=== PATIENT | male | born 1965 | race Caucasian/White ===

== ENCOUNTER 2020-12-02 03:40 | Inpatient (IN) | payer BC, SELFPAY ==
[2020-12-02] VITALS (32 sets, daily range): BP systolic 110–160; BP diastolic 58–97; PULSE 107–137; RESP 15–29; TEMP 36.3–36.9; O2SAT 93–100
--- NOTE | ~2020-12-02 | CT_ITS ---
EXAMINATION: CT brain wo con DATE: 12/02/2020 04:08 INDICATION: Seizure. TECHNIQUE: Computed tomography (CT) of the head was performed without intravenous contrast. The mA wa s adjusted according to patient size. Iterative reconstruction technique was employed. The dose-lengt h product was 681.00 mGy-cm. COMPARISON: Head CT 03/18/2009 FINDINGS: There is no intracranial hemorrhage, acute infarction, or abnormal intracranial mass lesion . The ventricles are normal in size. The paranasal sinuses are clear. There are old fracture deformit ies of the nasal bones. The mastoid air cells are normal. The orbits are normal. IMPRESSION: 1. Normal brain. Reviewed, dictated and finalized at location A. IMPRESSION: 1. Normal brain.
--- NOTE | ~2020-12-02 | XR_ITS ---
EXAMINATION: XR chest 1V DATE: 12/02/2020 04:12 INDICATION: Seizure. TECHNIQUE: A single frontal view of the chest was obtained. COMPARISON: Chest single view 12/03/2012 FINDINGS: There is a diffuse interstitial pattern in the lungs. No pleural effusion or pneumothorax. The heart size is normal. IMPRESSION: 1. Diffuse interstitial pattern in the lungs, likely mild pulmonary edema. Reviewed, dictated and finalized at location A.
--- NOTE | 2020-12-02 03:46 | ECG_ITS ---
Measurements Intervals [place] Rate: 133 P: 18 [place]: 141 QRS: 33 QRSD: 88 T: 47 QT: 338 QTc: 503 Interpretive Statements SINUS TACHYCARDIA ATRIAL PREMATURE COMPLEX BASELINE ARTIFACT- III, AVR, AVL, AVF, V4-V6 ABNORMAL ECG Electronically Signed On 12-02-2020 7:15:14 CDT by Laurent Silver D.O.
--- NOTE | 2020-12-02 03:50 | ED.GENADULT ---
HPI - General Adult General Chief complaint: Seizure <Jude Johnston MD - Last Filed: 12/02/20 07:09> Stated complaint: SEIZURE <Jude Johnston MD - Last Filed: 12/02/20 07:09> Time Seen by Provider: 12/02/20 03:41 <Jude Johnston MD - Last Filed: 12/02/20 07:09> History of Present Illness HPI narrative: Patient 55-year-old gentleman who presents the emergency department with chief complaint of seizure activity. Patient has a history of heavy alcohol use and apparently has been having nausea and vomiting at home and unable to drink his normal amount of alcohol per the family he drinks approximately 1 L of alcohol per day. Patient has not had a drink in approximately 2 days the patient currently has no complaints <Jude Johnston MD - Last Filed: 12/02/20 07:09> Related Data Home medications: Home Medications Medication Instructions Recorded Confirmed buspirone [BuSpar] 10 mg PO BID 12/02/20 12/02/20 tocilizumab [Actemra] mg IV 12/02/20 12/02/20 <Jude Johnston MD - Last Filed: 12/02/20 07:09> Allergies/adverse reactions: Allergies Allergy/AdvReac Type Severity Reaction Status Date / Time vancomycin AdvReac Severe Other Verified 12/10/18 23:02 [place] AdvReac Mild SHORTNESS Uncoded 11/11/15 16:10 OF BREATH <Jude Johnston MD - Last Filed: 12/02/20 07:09> Review of Systems Review of Systems: Narrative: A 10 system review of systems was completed on the patient and is negative except for what is stated in the HPI. Nursing and ancillary documentation was reviewed. 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 HEAD: Normocephalic, atraumatic. EYES: PERRLA and EOMI. ENT: Nares clear, no rhinorrhea or epistaxis. Mucous membranes moist. NECK: Supple. CHEST: Clear to auscultation. No respiratory distress. HEART: Regular rate and rhythm. No murmur heard. Normal peripheral pulses. ABDOMEN: Soft, nontender, nondistended, normal active bowel sounds. EXTREMITIES: Normal range of motion. No edema. SKIN: Warm, dry, no rash. NEURO: No focal deficits. Alert and oriented x3. PSYCH: Normal mood and affect. <Jude Johnston MD - Last Filed: 12/02/20 07:09> Course Course Emergency Course: Patient is still having diarrhea and is incontinent of stool onto the floor. No shaking tremors. Tachycardia improving. Will admit to hospitalist service for further care. <Felton Adams MD - Last Filed: 12/02/20 09:16> Vital Signs Vital signs: Vital Signs Temperature 97.6 F 12/02/20 03:40 Pulse Rate 133 H 12/02/20 03:40 Respiratory Rate 17 12/02/20 03:40 Blood Pressure 126/81 12/02/20 03:40 Pulse Oximetry 98 12/02/20 03:40 Temperature 97.6 F 12/02/20 03:40 Pulse Rate 114 H 12/02/20 08:43 Respiratory Rate 18 12/02/20 08:43 Blood Pressure 148/74 H 12/02/20 08:43 Pulse Oximetry 97 12/02/20 08:43 <Jude Johnston MD - Last Filed: 12/02/20 07:09> Vital Signs Temperature 97.6 F 12/02/20 03:40 Pulse Rate 133 H 12/02/20 03:40 Respiratory Rate 17 12/02/20 03:40 Blood Pressure 126/81 12/02/20 03:40 Pulse Oximetry 98 12/02/20 03:40 Temperature 97.6 F 12/02/20 03:40 Pulse Rate 114 H 12/02/20 08:43 Respiratory Rate 18 12/02/20 08:43 Blood Pressure 148/74 H 12/02/20 08:43 Pulse Oximetry 97 12/02/20 08:43
[2020-12-02] MEDS: SODIUM CHLORIDE 0.9% IV 1,000 ML 999 ML IV CONT ×3 (03:57→05:08)
[2020-12-02] MEDS: ONDANSETRON INJ 4 MG/2 ML VIAL IV PUSH (03:57)
--- NOTE | 2020-12-02 04:05 | PC.NURSE ---
Pt. to CT
[2020-12-02 04:12] LABS: Basophils Absolute Auto 0.1 K/mm3 (0.0-0.1); Basophils Percent Auto 0.8 % (0.2-1.2); Eosinophils Percent Auto 0.1 % (0-4.4); Hematocrit 39.1 % (42.0-52.0); Hemoglobin 13.8 g/dL (14.0-18.0); Immature Granulocyte Absolute 0.03 K/mm3 (0.00-0.031); Immature Granulocyte Percent A 0.4 % (0-0.5); Immature Platelet Fraction Pct 15.2 % (0.9-11.2); Lymphocytes Absolute Auto 0.79 K/mm3 (0.9-3.2); Lymphocytes Percent Auto 9.5 % (18.3-44.2); Mean Corpuscular HGB Conc 35.3 g/dl (32-36); Mean Corpuscular Hemoglobin 38.8 pg (26-34); Mean Corpuscular Volume 109.8 fl (80-100); Monocytes Absolute Auto 0.6 K/mm3 (0.1-0.6); Monocytes Percent Auto 7.7 % (2.6-8.5); Neutrophils Absolute Auto 6.8 K/mm3 (1.3-6.7); Neutrophils Percent Auto 81.5 % (45.5-73.1); Platelet Count Result 46 k/mm3 (150-375); Red Blood Count 3.56 M/mm3 (4.6-6.20); Red Cell Distribution Width 18.6 % (11.5-14.5); White Blood Count 8.3 K/mm3 (4.5-10.0)
[2020-12-02] MEDS: LORazepam INJ (*CRX) 2 MG/ML VIAL 1 MG IV PUSH ×2 (04:26→05:06)
[2020-12-02 04:27] LABS: Ethanol < 10 mg/dL (<10); Magnesium 2.7 mg/dL (1.6-2.3)
[2020-12-02] MEDS: THIAMINE HCL 200 MG/2 ML VIAL 100 MG IV PUSH (04:28)
--- NOTE | 2020-12-02 04:30 | PC.NURSE ---
Pt. refusing to urinate. states he cannot go at this time.
[2020-12-02 04:31] LABS: Glucose Point of Care 98 (65-105)
[2020-12-02 04:36] LABS: Albumin Level 3.8 g/dL (3.5-5.1); Alkaline Phosphatase 215 U/L (38-126); Anion Gap 25 mmol/L (8-16); Bilirubin,Total 5.1 mg/dL (0.2-1.3); Blood Urea Nitrogen 9 mg/dL (9-20); Calcium 9.2 mg/dL (8.4-10.2); Carbon Dioxide 17 mmol/L (22-30); Chloride 98 mmol/L (98-107); Estimated CRCL calculation 45 ml/min; Estimated Glomerular Filt Rate 42; Glucose 96 mg/dL (75-110); Lipase 527 U/L (23-300); Potassium 2.8 mmol/L (3.4-5.0); Sodium 140 mmol/L (137-145)
[2020-12-02 04:51] LABS: Alanine Aminotransferase 56 U/L (4-50); Aspartate Amino Transferase 160 U/L (17-59); Lactic Acid Reflex 15.9 mmol/L (0.7-2.1)
[2020-12-02] MEDS: PANTOPRAZOLE SODIUM IV 40 MG VIAL IV PUSH (05:07)
--- NOTE | 2020-12-02 06:22 | PC.NURSE ---
Added specimen on to lab
[2020-12-02 06:23] LABS: Appearance Urine Clear (Clear); Bilirubin Urine 1+ (Negative); Blood Urine Trace-lysed (Negative); Color Urine Yellow (Yellow); Glucose Urine UA Negative (Negative); Ketones Urine Negative (Negative); Leukocyte Esterase Ur Negative LEU/UL (Negative); Nitrate Urine Negative (Negative); Protein Urine 2+ mg/dL (Negative)
[2020-12-02 06:31] LABS: RBC Urine 0-2 /hpf (0-2); Squamous Epithelial Cell Urine Few /hpf (Few)
[2020-12-02 06:32] LABS: Add Urine Microscopic? NO
[2020-12-02] MEDS: POTASSIUM CHLORIDE 20 MEQ TABLET 40 MEQ PO (06:40)
[2020-12-02 06:55] LABS: Lactic Acid Reflex 4.7 mmol/L (0.7-2.1)
[2020-12-02 07:04] LABS: Reflex Lactic Acid Yes or No Add Lactic
--- NOTE | 2020-12-02 10:31 | ADMGEN ---
This patient, Jose Rafael Chavez, was admitted to 3 [facility] Surg Room 301-01. Patient/family oriented to hospital policies and general routines including ID bracelet, bed and alarms, visiting hours, pain management, procedures, bathroom and other care routines, personal items, smoking policy, room service/diet, and visiting hours. Information on how to activate the Rapid Response Team has been discussed. Patient/Family are encouraged to report perceived risks to care and to ask questions if they do not understand what they are told or what they should do.
[2020-12-02] MEDS: SODIUM CHLORIDE 0.9% IV 1,000 ML 125 ML IV CONT (11:06)
--- NOTE | 2020-12-02 11:09 | PM.IMHP ---
H&P: HPI History of Present Illness Date/Time: 12/02/20 11:09 patient is a 55-year-old male with history of alcohol abuse he drinks 1 bottle of alcohol every day and smokes 2-3 packs per day for last couple days patient been having nausea or vomiting and diarrhea and had not drank any alcohol yesterday as he was not able to drink due to nausea and vomiting however today patient fell and he was seizing most likely secondary to alcohol withdrawal patient started on Librium and Ativan as needed, will monitor, patient brought the patient to the hospital he is quite somnolent unable to provide any history review of symptom his is present provided most of the history and I spoke with ER physician, in ER patient had a CT scan of the head no acute injury chest x-ray showed pulmonary congestion, patient appears dehydrated if start the patient on IV, anti emetic, and Immodium, patient was given thiamin and folic acid from ER, will place patient on CIWA protocol and librium as needed, will monitor and plan. Chief Complaint: Seizures nausea or vomiting alcohol withdrawal Review of Systems Review of Systems: All systems reviewed & are unremarkable except as noted in HPI and below [facility] Family History Family History (Updated 12/02/20 @ 10:53 by Kareem Martinez RN) Mother Hypertension Diabetes mellitus Father Emphysema lung Lung cancer Social History Social History Smoking packs per day: 2 Smoking cigarettes per day: 40.0 Smoking status: Current every day smoker Tobacco type: cigarettes Alcohol intake: current Drinks per week: 35 Substance use: never Substance use type: does not use Gender identity (if verbalized by the patient): Male Spiritual care concerns: No Meds Home Medications and Allergies Home Medications Medication Instructions Recorded Confirmed Type buspirone [BuSpar] 10 mg PO BID 12/02/20 12/02/20 History hydroxychloroquine 200 mg PO BID 12/02/20 12/02/20 History sulfasalazine 0.5 g PO DAILY 12/02/20 12/02/20 History tocilizumab [Actemra] mg IV MONTHLY 12/02/20 History Allergies Allergy/AdvReac Type Severity Reaction Status Date / Time vancomycin AdvReac Severe Other Verified 12/02/20 10:51 [place] AdvReac Mild SHORTNESS Uncoded 11/11/15 16:10 OF BREATH Vital Signs Vital Signs - 24 hr 12/02/20 03:40 12/02/20 03:44 12/02/20 03:45 Temperature 97.6 F Pulse Rate 133 H 136 H 135 H Respiratory Rate 17 23 H 24 H Blood Pressure 126/81 126/81 Pulse Oximetry 98 98 12/02/20 04:02 12/02/20 04:10 12/02/20 04:15 Temperature Pulse Rate 137 H 123 H 122 H Respiratory Rate 24 H 25 H Blood Pressure Pulse Oximetry 95 12/02/20 04:27 12/02/20 04:30 12/02/20 04:31 Temperature Pulse Rate 123 H 128 H 123 H Respiratory Rate 21 H 25 H 24 H Blood Pressure 146/77 H 143/79 H Pulse Oximetry 100 97 95 12/02/20 04:45 12/02/20 05:00 12/02/20 05:01 Temperature Pulse Rate 122 H 122 H 122 H Respiratory Rate 27 H 25 H 25 H Blood Pressure 148/78 H Pulse Oximetry 12/02/20 05:15 12/02/20 05:30 12/02/20 05:45 Temperature Pulse Rate 121 H 126 H 117 H Respiratory Rate 22 H 20 29 H Blood Pressure Pulse Oximetry 96 12/02/20 06:00 12/02/20 06:01 12/02/20 06:15 Temperature Pulse Rate 121 H 120 H 118 H Respiratory Rate 15 27 H 26 H Blood Pressure 146/65 H Pulse Oximetry 12/02/20 06:30 12/02/20 06:33 12/02/20 06:45 Temperature Pulse Rate 122 H 119 H 127 H Respiratory Rate 27 H 27 H 26 H Blood Pressure 160/93 H Pulse Oximetry 94 95 12/02/20 07:01 12/02/20 07:27 12/02/20 08:43 Temperature Pulse Rate 130 H 120 H 114 H Respiratory Rate 20 29 H 18 Blood Pressure 110/97 H 148/74 H Pulse Oximetry 93 97 12/02/20 09:25 12/02/20 10:10 12/02/20 10:33 Temperature 97.4 F L Pulse Rate 111 H 112 H 117 H Respiratory Rate 25 H 20 20 Blood Pressure 127/68 111/58 L 122/71 Pulse Oximetry 94 100 95 Exam Narrati
[2020-12-02 11:53] LABS: Anion Gap 7 mmol/L (8-16); Blood Urea Nitrogen 10 mg/dL (9-20); Calcium 8.3 mg/dL (8.4-10.2); Carbon Dioxide 26 mmol/L (22-30); Chloride 105 mmol/L (98-107); Estimated CRCL calculation 48 ml/min; Estimated Glomerular Filt Rate 45; Glucose 93 mg/dL (75-110); Magnesium 2.2 mg/dL (1.6-2.3); Potassium 3.7 mmol/L (3.4-5.0); Sodium 138 mmol/L (137-145)
[2020-12-02] MEDS: THIAMINE HCL INJ 100 MG, FOLIC ACID INJ 1 MG, MULTIVITAMINS-12 INJ VIAL 1 5 ML, MULTIVI... IV CONT (12:46)
[2020-12-02] MEDS: busPIRone HCL 10 MG TABLET PO (16:59)
[2020-12-02] MEDS: HYDROXYCHLOROQUINE SULFATE 200 MG TABLET PO (17:05)
[2020-12-02] MEDS: chlordiazePOXIDE (*CRX) 25 MG CAPSULE PO (17:49)
[2020-12-03] VITALS: PULSE 104
[2020-12-03 04:00] VITALS: PULSE 106
[2020-12-03 06:00] VITALS: BP 153/60; PULSE 103; RESP 20; TEMP 36.7; O2SAT 98
[2020-12-03 06:30] LABS: Hemoglobin 12.6 g/dL (14.0-18.0); Mean Corpuscular Hemoglobin 38.5 pg (26-34); Mean Corpuscular Volume 110.1 fl (80-100); Platelet Count Result 35 k/mm3 (150-375); Red Blood Count 3.27 M/mm3 (4.6-6.20); Red Cell Distribution Width 19.1 % (11.5-14.5); White Blood Count 7.7 K/mm3 (4.5-10.0)
[2020-12-03 06:36] LABS: Alanine Aminotransferase 51 U/L (4-50); Albumin Level 3.1 g/dL (3.5-5.1); Alkaline Phosphatase 177 U/L (38-126); Anion Gap 5 mmol/L (8-16); Aspartate Amino Transferase 148 U/L (17-59); Bilirubin,Total 4.6 mg/dL (0.2-1.3); Blood Urea Nitrogen 11 mg/dL (9-20); Calcium 8.7 mg/dL (8.4-10.2); Carbon Dioxide 25 mmol/L (22-30); Chloride 107 mmol/L (98-107); Estimated CRCL calculation 55 ml/min; Estimated Glomerular Filt Rate 52; Glucose 84 mg/dL (75-110); Magnesium 2.1 mg/dL (1.6-2.3); Potassium 3.4 mmol/L (3.4-5.0); Sodium 137 mmol/L (137-145)
[2020-12-03 08:26] VITALS: PULSE 105; RESP 18; O2SAT 94
[2020-12-03] MEDS: THIAMINE HCL INJ 100 MG, FOLIC ACID INJ 1 MG, MULTIVITAMINS-12 INJ VIAL 1 5 ML, MULTIVI... IV CONT (08:56)
[2020-12-03] MEDS: HYDROXYCHLOROQUINE SULFATE 200 MG TABLET PO (09:07)
[2020-12-03] MEDS: busPIRone HCL 10 MG TABLET PO (09:07)
[2020-12-03] MEDS: POTASSIUM CHLORIDE 20 MEQ TABLET.ER 40 MEQ PO (09:07)
[2020-12-03] MEDS: sulfaSALAzine 500 MG TABLET PO (09:07)
--- NOTE | 2020-12-03 09:40 | PC.NURSE ---
Pt is very agitated about being here. Pt removed his tele monitor and refuses to wear it. Pt has been coughing, which he states causes him to shit in the bed, and yells at staff to be cleaned up. Pt is very impatient and demanding.
[2020-12-03] MEDS: LOPERAMIDE HCL 2 MG CAPSULE PO (11:51)
[2020-12-03] MEDS: chlordiazePOXIDE (*CRX) 25 MG CAPSULE 50 MG PO (12:23)
[2020-12-03] MEDS: LOPERAMIDE HCL 2 MG CAPSULE 4 MG PO (12:23)
--- NOTE | 2020-12-03 13:14 | PC.NURSE ---
Pt continues to refuse having a tele monitor on at this time. Pt educated on why he should wear the tele monitor, with no success. Will try again this afternoon.
[2020-12-03 14:00] VITALS: BP 125/65; PULSE 96; RESP 20; TEMP 36.6; O2SAT 95
--- NOTE | 2020-12-03 15:36 | PM.DS ---
DS: Admitting Diagnosis Admitting Diagnosis Admitting Diagnosis: Chief Complaint: Seizures nausea or vomiting alcohol withdrawal DS: Discharge Diagnosis Discharge Diagnosis (1) Seizure: Code(s): R56.9 - Unspecified convulsions Status: Acute Assessment and Plan: 12/02/20 11:09 patient is a 55-year-old male with history of alcohol abuse he drinks 1 bottle of alcohol every day and smokes 2-3 packs per day for last couple days patient been having nausea or vomiting and diarrhea and had not drank any alcohol yesterday as he was not able to drink due to nausea and vomiting however today patient fell and he was seizing most likely secondary to alcohol withdrawal patient started on Librium and Ativan as needed, will monitor, patient brought the patient to the hospital he is quite somnolent unable to provide any history review of symptom his is present provided most of the history and I spoke with ER physician, in ER patient had a CT scan of the head no acute injury chest x-ray showed pulmonary congestion, patient appears dehydrated if start the patient on IV, anti emetic, and Immodium, patient was given thiamin and folic acid from ER, will place patient on CIWA protocol and librium as needed, will monitor and plan. (2) Alcohol withdrawal: Qualifiers: Complication of substance-induced condition: uncomplicated Qualified Code(s): F10.230 - Alcohol dependence with withdrawal, uncomplicated Code(s): F10.239 - Alcohol dependence with withdrawal, unspecified Status: Acute Assessment and Plan: Will monitor patient with CIWA protocol Librium to prevent DT (3) Hypokalemia: Code(s): E87.6 - Hypokalemia Status: Acute Assessment and Plan: Most likely secondary to diarrhea will monitor and supplement (4) Enteritis: Code(s): K52.9 - Noninfective gastroenteritis and colitis, unspecified Status: Acute Assessment and Plan: Will do stool studies (5) Thrombocytopenia: Code(s): D69.6 - Thrombocytopenia, unspecified Status: Acute Assessment and Plan: Most likely secondary to alcohol abuse possibly secondary to liver cirrhosis and splenomegaly will continue to monitor DS: Summary Hospital Course Reason for hospitalization: patient is a 55-year-old male with history of alcohol abuse he drinks 1 bottle of alcohol every day and smokes 2-3 packs per day for last couple days patient been having nausea or vomiting and diarrhea and had not drank any alcohol yesterday as he was not able to drink due to nausea and vomiting however today patient fell and he was seizing most likely secondary to alcohol withdrawal patient started on Librium and Ativan as needed, will monitor, patient brought the patient to the hospital he is quite somnolent unable to provide any history review of symptom his is present provided most of the history and I spoke with ER physician, in ER patient had a CT scan of the head no acute injury chest x-ray showed pulmonary congestion, patient appears dehydrated if start the patient on IV, anti emetic, and Immodium, patient was given thiamin and folic acid from ER, will place patient on CIWA protocol and librium as needed, will monitor and plan. Chief Complaint: Seizures nausea or vomiting alcohol withdrawal Hospital Course: Patient is alert and oriented however combative and agitated, he want to be discharged, I have spoken to his who has agreed to come and take the patient with her. we will hand over patient to her. Time Spent with Patient Time attestation: Total time spent providing and/or coordinating discharge services: Exam Narrative: Exam Narrative: Patient appears chronically ill older than his age Patient is comfortable, NAD HEENT: eyes are clear and none icteric LUNGS:CTA HEART: RR S1S2 ABD: BS+, Soft and nontender Lower extremities: no edema SKIN: nonjaundiced, lot of tattoos, Neuro: grossly intact. DS: Data D
--- NOTE | 2020-12-03 16:10 | PC.NURSE ---
Pt became very combative this afternoon. Pt ripped out his IV, and started screaming and cussing, demanding to leave the hospital. Pt was alert and able to answer orientation questions. Dr. Mars was notified and came up to see pt, along with security. Pt was was walking around his room screaming and trying to call his . He was screaming and cussing at his , on the phone. Dr Mars spoke with pt's , and she was agreeable to picking up pt. House supervisors were also present in pt's room. Dr Mars was agreeable to discharge patient as long as the came up and assumed responsibility for pt. Pt was assisted in a wheelchair to the front of the hospital to get into his 's car.
== END 2020-12-03 16:00 | disposition home or self-care (01) | DRG 897 ==
LOC: ANHED 09:15 → ANH3MEDSUR 09:41
PROVIDERS: Admitting Provider Family Medicine; Emergency Provider Emergency Medicine; Visit Provider Family Medicine
DX: F10.230 Alcohol dependence with withdrawal, uncomplicated; R56.9 Unspecified convulsions; R45.1 Restlessness and agitation; E87.6 Hypokalemia; K52.9 Noninfective gastroenteritis and colitis, unspecified; D69.6 Thrombocytopenia, unspecified; F17.210 Nicotine dependence, cigarettes, uncomplicated; Z87.820 Personal history of traumatic brain injury
CPT/HCPCS: 36415; 51701; 70450; 71045; 80048; 80053; 80307; 81003; 82010; 82948; 83605; 83690; 83735; 85025; 85027; 85055; 93005; 96361; 96365; 96366; 96375; 96376; 99285; A9270; C9113; G0378; J2060; J2405; J3411; J3475; J3480; J7030; J7060; J7121

== ENCOUNTER 2021-12-23 18:09 | Observation (INO) | payer SELFPAY ==
[2021-12-23] VITALS (24 sets, daily range): BP systolic 91–145; BP diastolic 66–91; PULSE 100–120; RESP 16–31; TEMP 36.7–37.1; O2SAT 96–100
--- NOTE | ~2021-12-23 | CT_ITS ---
EXAMINATION: CT brain wo con DATE: 12/23/2021 19:26 INDICATION: Syncope. Facial injury. TECHNIQUE: Computed tomography (CT) of the head was performed without intravenous contrast. The mA wa s adjusted according to patient size. Iterative reconstruction technique was employed. Exam dose: 60 5.33 mGy-cm total exam DLP. COMPARISON: 12/02/2020 CT brain FINDINGS: Prominent bilateral carotid siphon internal carotid artery calcifications and minimal bilat eral vertebral artery calcification. There is nonspecific diminished attenuation of the cerebral white matter, likely due to chronic small vessel ischemic changes. No intracranial mass lesion or hemorrhage or cerebrovascular accident, midline shift or mass effect i s detected. There is cerebral and cerebellar volume loss, the cerebral volume loss greater than expected for age. No intracranial mass lesion or hemorrhage or cerebrovascular accident. No midline shift or mass effec t effect. No subdural or epidural hematoma. Fracture of the lateral wall of right orbit, right infraorbital rim, anterior and lateral wall of th e right maxillary sinus No skull fracture or bone destruction is evident. Sinus and floor of the right orbit. Fluid level con sistent with blood in the right maxillary sinus and mild subcutaneous emphysema along the lateral wal l IMPRESSION: Fractures of the lateral wall right orbit, right infraorbital rim and floor of right orb it and anterior and lateral wall of right maxillary sinus Cerebral atherosclerosis and chronic small vessel ischemic changes of cerebral white matter Reviewed, dictated and finalized at [facility]. Reviewed, dictated and finalized at [facility]. IMPRESSION: Fractures of the lateral wall right orbit, right infraorbital rim and floor of right orbit and anterior and lateral wall of right maxillary sinu s Cerebral atherosclerosis and chronic small vessel ischemic changes of cerebral white matter
--- NOTE | ~2021-12-23 | XR_ITS ---
XR shoulder RT min 2V DATE: 12/23/2021 19:37 INDICATION: Right shoulder pain after fall, multiple syncopal episodes TECHNIQUE: AP and Neer views COMPARISON: 12/03/2012 right shoulder FINDINGS: There is angulated fracture deformity of the body of the right scapula. Alignment appears intact at the right acromioclavicular and glenohumeral joints. IMPRESSION: Angulated fracture deformity of the body of the right scapula deformity of the right Reviewed, dictated and finalized at [facility]. IMPRESSION: Angulated fracture deformity of the body of the right scapula defor mity of the right
--- NOTE | ~2021-12-23 | XR_ITS ---
XR wrist LT min 3V DATE: 12/23/2021 19:37 INDICATION: Left wrist pain after fall, multiple syncopal episodes TECHNIQUE: 4 views COMPARISON: None FINDINGS: No recent fracture or dislocation is detected. IMPRESSION: No recent fracture or dislocation Reviewed, dictated and finalized at [facility].
--- NOTE | ~2021-12-23 | CT_ITS ---
EXAMINATION: CT facial bones wo con DATE: 12/23/2021 19:26 INDICATION: TECHNIQUE: Computed tomography (CT) of the facial bones and maxillofacial region was performed withou t intravenous contrast. Automated exposure control and iterative reconstruction technique were employ ed. Exam dose: 302.32 mGy-cm total exam DLP. COMPARISON: None. FINDINGS: The films a features are intact. There is fracture of the right infraorbital rim and lateral wall and floor of the right orbit. There are fractures of the lateral and anterior wall of the right maxillary sinus. Blood air level in the right maxillary sinus. There is mild subcutaneous emphysema around the right m axillary sinus and orbit. IMPRESSION: Numerous right facial fractures Reviewed, dictated and finalized at [facility]. Reviewed, dictated and finalized at [facility].
--- NOTE | ~2021-12-23 | US_ITS ---
EXAMINATION: US carotid duplex BI EXAM DATE: 12/24/2021 08:19 INDICATION: Syncope. TECHNIQUE: Grayscale, color and pulsed Doppler images of the cervical carotid arteries were obtained . The degree of vessel stenosis is placed in one of the following categories: normal, <50% stenosis, 50-69% stenosis, >=70% stenosis but less than near-occlusion, near-occlusion, or occlusion. Note that percent stenosis relative to normal distal artery lumen diameter is indirectly measured from velocit y measurements as described by Kevon, et al. Radiology 2003; 229:340-346. There is no prior study fo r comparison. FINDINGS: RIGHT SIDE: Right common carotid artery peak systolic velocity (PSV in cm/s): 181 Right bulb/internal carotid artery peak systolic velocity (PSV in cm/s): 104 Right internal carotid artery end diastolic velocity (EDV in cm/s): 43 Right ICA/CCA peak systolic ratio: 0.6 Right external carotid artery peak systolic velocity (PSV in cm/s): 134 Right vertebral artery antegrade flow: yes There is minimal carotid bulb plaque. Velocity and Doppler waveforms in the common and internal carotid arteries is normal. LEFT SIDE: Left common carotid artery peak systolic velocity (PSV in cm/s): 141 Left bulb/internal carotid artery peak systolic velocity (PSV in cm/s): 98 Left internal carotid artery end diastolic velocity (EDV in cm/s): 38 Left ICA/CCA peak systolic ratio: 0.9 Left external carotid artery peak systolic velocity (PSV in cm/s): 88 Left vertebral artery antegrade flow: yes There is minimal carotid bulb plaque. Velocity and Doppler waveforms in the common and internal carotid arteries is normal. IMPRESSION: 1. Less than 50 percent stenosis in the right internal carotid artery. 2. Less than 50 percent stenosis in the left internal carotid artery. Reviewed, dictated and finalized at [facility].
--- NOTE | 2021-12-23 18:15 | ECG_ITS ---
Measurements Intervals [place] Rate: 113 P: 26 [place]: 157 QRS: -17 QRSD: 82 T: 9 QT: 297 QTc: 408 Interpretive Statements SINUS TACHYCARDIA NONSPECIFIC ST CHANGES ABNORMAL RHYTHM ECG COMPARED TO ECG 12/02/2020 03:52:29 NO SIGNIFICANT CHANGES Electronically Signed On 12-24-2021 6:46:41 CDT by Pily Schulte M.D.
[2021-12-23 18:58] LABS: Basophils Percent Auto 0.4 % (0.2-1.2); Eosinophils Absolute Auto 0.1 K/mm3 (0-0.3); Eosinophils Percent Auto 0.8 % (0-4.4); Hematocrit 35.5 % (42.0-52.0); Hemoglobin 11.9 g/dL (14.0-18.0); Immature Granulocyte Absolute 0.03 K/mm3 (0.00-0.031); Immature Granulocyte Percent A 0.4 % (0-0.5); Immature Platelet Fraction Pct 6.1 % (0.9-11.2); Lymphocytes Absolute Auto 1.11 K/mm3 (0.9-3.2); Lymphocytes Percent Auto 14.3 % (18.3-44.2); Mean Corpuscular HGB Conc 33.5 g/dl (32-36); Mean Corpuscular Hemoglobin 33.2 pg (26-34); Mean Corpuscular Volume 99.2 fl (80-100); Mean Platelet Volume 10.9 fl (7.4-10.4); Monocytes Absolute Auto 0.7 K/mm3 (0.1-0.6); Monocytes Percent Auto 9.6 % (2.6-8.5); Neutrophils Absolute Auto 5.8 K/mm3 (1.3-6.7); Neutrophils Percent Auto 74.5 % (45.5-73.1); Platelet Count Result 137 k/mm3 (150-375); Red Blood Count 3.58 M/mm3 (4.6-6.20); Red Cell Distribution Width 14.8 % (11.5-14.5); White Blood Count 7.7 K/mm3 (4.5-10.0)
[2021-12-23 19:07] LABS: Alanine Aminotransferase 13 U/L (4-50); Albumin Level 3.9 g/dL (3.5-5.1); Alkaline Phosphatase 242 U/L (38-126); Anion Gap 6 mmol/L (8-16); Aspartate Amino Transferase 43 U/L (17-59); Bilirubin,Total 1.1 mg/dL (0.2-1.3); Blood Urea Nitrogen 10 mg/dL (9-20); Calcium 8.6 mg/dL (8.4-10.2); Carbon Dioxide 27 mmol/L (22-30); Chloride 94 mmol/L (98-107); Estimated CRCL calculation 47 ml/min; Estimated Glomerular Filt Rate 45; Glucose 114 mg/dL (65-110); Sodium 127 mmol/L (137-145)
--- NOTE | 2021-12-23 19:11 | ED.GENADULT ---
HPI - General Adult General Chief complaint: Syncope Stated complaint: fall Time Seen by Provider: 12/23/21 18:58 Source: patient, family and RN notes reviewed Limitations: no limitations History of Present Illness HPI narrative: 56-year-old male presenting to the emergency department for evaluation of injuries after having multiple syncopal episodes. Patient describes 2 episodes of orthostatic hypotension. Patient states he got up yesterday to answer the door and was able to lower himself to the ground without injury. Patient states last night at approximately 1 AM he woke up to use the bathroom and had a fall after taking a few steps but was able to get back up and had a second fall in the bathroom. Patient states he did injure his right shoulder, left wrist and patient does have a contusion and abrasion over his right eye. States he did feel like he was going to pass out but during the second episode he was not able to lower himself to the ground fast enough. Patient does take Flexeril and gabapentin for chronic back pain. Denies any cardiac history. Patient denies any current chest pain or shortness of breath. Patient states he has had no recent medication changes. Patient does have a history of alcohol abuse and cirrhosis. Patient has not had an alcoholic drink since 's of 2020. Related Data Home Medications Medication Instructions Recorded Confirmed Actemra mg IV MONTHLY 12/02/20 buspirone 10 mg PO BID 12/02/20 12/02/20 hydroxychloroquine 200 mg PO BID 12/02/20 12/02/20 sulfasalazine 0.5 g PO DAILY 12/02/20 12/02/20 Allergies Allergy/AdvReac Type Severity Reaction Status Date / Time vancomycin AdvReac Severe Other Verified 12/23/21 18:44 [place] AdvReac Mild SHORTNESS Uncoded 12/23/21 18:44 OF BREATH Review of Systems Review of Systems: CONSTITUTIONAL: Denies fever, chills, or sweats. EYES: Denies visual changes, redness, or discharge. ENT: Denies rhinorrhea, congestion, sore throat, or otalgia. CARDIOVASCULAR: Denies chest pain, palpitations, or edema. RESPIRATORY: Denies cough or dyspnea. GASTROINTESTINAL: Denies abdominal pain, nausea, vomiting, or diarrhea. GENITOURINARY: Denies dysuria or hematuria. SKIN: Abrasion to right eye MUSCULOSKELETAL: Left wrist right shoulder pain NEUROLOGIC: Denies headache, numbness, or weakness. 2 near syncopal episodes. [facility] Family History Family History Mother Hypertension Diabetes mellitus Father Emphysema lung Lung cancer Social History Social History Smoking packs per day: 2 Smoking cigarettes per day: 40.0 Smoking status: Current every day smoker Tobacco type: cigarettes Second hand tobacco smoke exposure: Yes Alcohol intake: former Substance use: never Substance use type: does not use Last use: pt states he last used alcohol 1 year ago. Gender identity (if verbalized by the patient): Male Spiritual care concerns: No Exam Narrative: APPEARANCE: Well appearing, no pain, no distress, well-nourished. HEAD: normocephalic, atraumatic. EYES: PERRLA/EOMI, conjunctivae clear. NOSE: Normal no drainage EARS:TMS clear with good light reflex. THROAT: Pharynx clear, no exudate. NECK: Supple. No adenopathy, no masses. RESPIRATORY: Airway patent, respirations nonlabored. Clear to auscultation bilaterally, no rales, rhonchi, wheezing. CARDIOVASCULAR: Regular rate and rhythm without murmurs rubs or gallops. ABDOMINAL: Soft, nontender, nondistended, normal bowel sounds MUSCULOSKELETAL: Left wrist tenderness to palpation. Limited range of motion. Right shoulder tenderness to palpation. Also limited range of motion. No deformity. No crepitus. NEURO: Alert. Cranial nerves II through XII intact. SKIN: Warm, dry. Normal Color. Abrasion over right eye. Course Consultations Consultation #1: Consulted [facility] for fa
[2021-12-23] MEDS: POTASSIUM CHLORIDE 20 MEQ PACKET (FOR LIQUID) 40 MEQ PO (19:17)
[2021-12-23] MEDS: SODIUM CHLORIDE 0.9% IV 1,000 ML 999 ML IV CONT (19:17)
[2021-12-23 20:30] LABS: Lactic Acid Reflex 1.2 mmol/L (0.7-2.1)
[2021-12-23] MEDS: TETANUS,DIPHTHERIA,AC PERTUSSIS ADULT (0.5 ML) BOOSTRIX IM (20:31)
[2021-12-23 21:36] LABS: INR 1.2; Prothrombin Time 15.1 Seconds (11.1-14.7)
--- NOTE | 2021-12-23 21:55 | PM.IMHP ---
H&P: HPI History of Present Illness Date/Time: 12/23/21 21:55 Chief Complaint: 56 years old male with past medical history of alcohol abuse, last drink was on 1 year ago currently the patient and his , history of rheumatoid arthritis on chronic suppressive therapy patient presented to the hospital with syncopal episode, patient start having episodes of syncope yesterday where he was able to lower himself to the ground without injuries them patient had 2 episodes of syncope when he went to the path patient started complaining of right shoulder left breast pain and has contusion and abrasion of his right eye at the ER patient was found to have multiple fracture of the facial bones plastic surgeon from [facility] evaluated the patient recommended follow-up as outpatient also patient has right scapula fracture orthopedic surgery was consulted and will evaluate the patient in a.m. at the ER patient was found to have hyponatremia hypotension admitted for further evaluation and treatment. Review of Systems Review of Systems: All systems reviewed & are unremarkable except as noted in HPI and below PMFSH Family History Family History Mother Hypertension Diabetes mellitus Father Emphysema lung Lung cancer Social History Social History Smoking packs per day: 2 Smoking cigarettes per day: 40.0 Smoking status: Current every day smoker Tobacco type: cigarettes Alcohol intake: current Drinks per week: 35 Substance use: never Substance use type: does not use Gender identity (if verbalized by the patient): Male Spiritual care concerns: No Meds Home Medications and Allergies Home Medications Medication Instructions Recorded Confirmed Type Actemra mg IV MONTHLY 12/02/20 History buspirone 10 mg PO BID 12/02/20 12/02/20 History hydroxychloroquine 200 mg PO BID 12/02/20 12/02/20 History sulfasalazine 0.5 g PO DAILY 12/02/20 12/02/20 History multivitamin with minerals [Men's 1 tablet PO DAILY #100 tablet 12/03/20 Rx One Daily] Allergies Allergy/AdvReac Type Severity Reaction Status Date / Time vancomycin AdvReac Severe Other Verified 12/23/21 18:44 [place] AdvReac Mild SHORTNESS Uncoded 12/23/21 18:44 OF BREATH Vital Signs Vital Signs - 24 hr 12/23/21 18:14 12/23/21 18:21 12/23/21 18:23 Temperature 98.7 F Pulse Rate 120 H 115 H 114 H Respiratory Rate 16 28 H Blood Pressure 131/84 145/91 H Pulse Oximetry 100 97 12/23/21 18:30 12/23/21 18:49 12/23/21 18:50 Temperature Pulse Rate 113 H 110 H 111 H Respiratory Rate 27 H Blood Pressure 133/80 119/83 Pulse Oximetry 97 12/23/21 18:52 12/23/21 18:58 12/23/21 19:00 Temperature Pulse Rate 116 H 105 H 105 H Respiratory Rate 24 H 24 H Blood Pressure 91/66 L Pulse Oximetry 96 96 12/23/21 19:01 12/23/21 19:57 12/23/21 20:00 Temperature Pulse Rate 106 H 107 H 109 H Respiratory Rate 26 H 28 H 31 H Blood Pressure 138/86 Pulse Oximetry 96 98 12/23/21 20:01 12/23/21 20:15 12/23/21 20:16 Temperature Pulse Rate 108 H 100 101 H Respiratory Rate 27 H 23 H 22 H Blood Pressure 130/87 132/86 Pulse Oximetry 99 98 12/23/21 20:43 12/23/21 20:55 12/23/21 21:00 Temperature Pulse Rate 102 H 101 H 102 H Respiratory Rate 21 H 20 27 H Blood Pressure Pulse Oximetry 97 97 97 12/23/21 21:22 12/23/21 21:32 12/23/21 21:45 Temperature Pulse Rate 103 H 102 H 102 H Respiratory Rate 26 H 27 H 20 Blood Pressure Pulse Oximetry 97 97 98 12/23/21 21:46 Temperature Pulse Rate 101 H Respiratory Rate 26 H Blood Pressure 124/81 Pulse Oximetry 96 Exam Const: General: in distress HENMT: Mouth: Yes dry mucous membranes Other: Positive bruises Eyes: Sclera: sclerae normal Neck: Neck: no JVD Resp: Auscultation: clear to auscultation bilaterally Ca
[2021-12-23] MEDS: MORPHINE SULFATE (*CRX) 2 MG/ML INJ IV PUSH (21:57)
[2021-12-23] MEDS: ONDANSETRON INJ 4 MG/2 ML VIAL IV PUSH (22:27)
[2021-12-23] MEDS: FOLIC ACID 1 MG TABLET PO (22:31)
--- NOTE | 2021-12-23 23:17 | ADMGEN ---
This patient, Jose Rafael Chavez, was admitted to 3 [facility] Surg Room 314-01. Patient/family oriented to hospital policies and general routines including ID bracelet, bed and alarms, visiting hours, pain management, procedures, bathroom and other care routines, personal items, smoking policy, room service/diet, and visiting hours. Information on how to activate the Rapid Response Team has been discussed. Patient/Family are encouraged to report perceived risks to care and to ask questions if they do not understand what they are told or what they should do.
[2021-12-23] MEDS: POTASSIUM CHLORIDE 20 MEQ TABLET 40 MEQ PO (23:47)
[2021-12-23] MEDS: SODIUM CHLORIDE 0.9% IV 1,000 ML 100 ML IV CONT (23:47)
[2021-12-24] VITALS (13 sets, daily range): BP systolic 86–153; BP diastolic 61–92; PULSE 80–126; RESP 16–22; TEMP 36.2–38.1; O2SAT 93–98; BMI 23.3
[2021-12-24 00:34] LABS: Glucose Point of Care 106 mg/dl (65-105)
[2021-12-24] MEDS: POTASSIUM CHLORIDE 20 MEQ TABLET 40 MEQ PO (03:35)
[2021-12-24] MEDS: MORPHINE SULFATE (*CRX) 2 MG/ML INJ IV PUSH (03:36)
[2021-12-24 06:00] LABS: Glucose Point of Care 89 mg/dl (65-105)
[2021-12-24 08:26] LABS: Basophils Percent Auto 0.3 % (0.2-1.2); Eosinophils Absolute Auto 0.1 K/mm3 (0-0.3); Hematocrit 34.6 % (42.0-52.0); Hemoglobin 11.2 g/dL (14.0-18.0); Immature Granulocyte Absolute 0.02 K/mm3 (0.00-0.031); Immature Granulocyte Percent A 0.3 % (0-0.5); Immature Platelet Fraction Pct 5.8 % (0.9-11.2); Lymphocytes Absolute Auto 1.51 K/mm3 (0.9-3.2); Lymphocytes Percent Auto 21.4 % (18.3-44.2); Mean Corpuscular HGB Conc 32.4 g/dl (32-36); Mean Corpuscular Hemoglobin 33.3 pg (26-34); Mean Platelet Volume 10.6 fl (7.4-10.4); Monocytes Absolute Auto 0.8 K/mm3 (0.1-0.6); Monocytes Percent Auto 10.8 % (2.6-8.5); Neutrophils Absolute Auto 4.6 K/mm3 (1.3-6.7); Neutrophils Percent Auto 65.2 % (45.5-73.1); Platelet Count Result 119 k/mm3 (150-375); Red Blood Count 3.36 M/mm3 (4.6-6.20); Red Cell Distribution Width 15.4 % (11.5-14.5); White Blood Count 7.1 K/mm3 (4.5-10.0)
[2021-12-24 08:49] LABS: Erythrocyte Sedimentation Rate > 140 mm/hr (0-20)
--- NOTE | 2021-12-24 09:00 | PM.IMPN ---
Progress Note: A&P Assessment and Plan (1) Acute hyponatremia: Code(s): E87.1 - Hypo-osmolality and hyponatremia Status: Acute Assessment and Plan: Na 127 upon admission, Current Na 134 Continue IV fluids, probably ok to stop the fluid at this time Seems to be resolved at this time Trend sodium urine studies ordered (2) Closed fracture of orbital wall: Qualifiers: Encounter type: initial encounter Qualified Code(s): S02.85XA - Fracture of orbit, unspecified, initial encounter for closed fracture Code(s): S02.85XA - Fracture of orbit, unspecified, initial encounter for closed fracture Status: Acute Assessment and Plan: Fractures of the lateral wall right orbit, right infraorbital rim and floor of right orbit and anterior and lateral wall of right maxillary sinus Face CT numerous right facial fractures Pain control Follow-up with plastic surgeon as outpatient Talked with [facility] about the face, and they stated that the patient should be ok with outpatient follow up. It also seems that they talked to Dr. Gann from [facility] who also stated that the patient is ok for outpatient follow up. (3) Fracture of scapula: Qualifiers: Encounter type: initial encounter Fracture type: closed Laterality: right Scapula location: unspecified part of scapula Qualified Code(s): S42.101A - Fracture of unspecified part of scapula, right shoulder, initial encounter for closed fracture Code(s): S42.109A - Fracture of unspecified part of scapula, unspecified shoulder, initial encounter for closed fracture Status: Acute Assessment and Plan: Shoulder Xray Angulated fracture deformity of the body of the right scapula deformity of the right Pain control orthopedic consult (4) Orthostatic hypotension: Code(s): I95.1 - Orthostatic hypotension Status: Acute Assessment and Plan: Associated with syncope Fall precaution IV fluid, dc at this time Orthostatic vital, Laying , sitting , Standing Echo Carotid Doppler: <50 stenosis bilaterally (5) Thrombocytopenia: Code(s): D69.6 - Thrombocytopenia, unspecified Status: Acute Assessment and Plan: PLT 119 anemia labs iron 79, TIBC 281, Transferrin 199, Ferritin, % Saturation, Vit B12, Folate, TSH Trend labs Labs in the am (6) Alcohol withdrawal: Qualifiers: Complication of substance-induced condition: uncomplicated Qualified Code(s): F10.230 - Alcohol dependence with withdrawal, uncomplicated Code(s): F10.239 - Alcohol dependence with withdrawal, unspecified Status: Acute Assessment and Plan: Alcohol withdrawal protocol started patient stated that he was abstinent from alcohol Patient has history of seizure secondary to alcohol withdrawal in the past monitor Folic acid and thiamine on board Librium [facility] (7) Seizure: Code(s): R56.9 - Unspecified convulsions Status: Acute Assessment and Plan: Secondary to alcohol withdrawal stable not on seizure medication monitor (8) Hypokalemia: Code(s): E87.6 - Hypokalemia Status: Acute Assessment and Plan: Potassium 4.8 Trend potassium Replace as indicated (9) Chronic renal failure: Code(s): N18.9 - Chronic kidney disease, unspecified Status: Acute Assessment and Plan: BUN/Cr 12/1.50 Baseline 1.6-2.0 Trend labs IV fluids continued Stage III avoid nephrotoxic medication monitor (10) Syncope: Code(s): R55 - Syncope and collapse Status: Acute Assessment and Plan: Most likely related to orthostatic hypotension echo carotid Doppler IV hydration check orthostatics 133/80 laying, 119/83 sitting, 91/66 standing (11) Rheumatoid arthritis: Code(s): M06.9 - Rheumatoid arthritis, unspecified Sta
--- NOTE | 2021-12-24 09:00 | P.PNIM_ITS ---
Progress Note: A&P Assessment and Plan (1) Acute hyponatremia: Code(s): E87.1 - Hypo-osmolality and hyponatremia Status: Acute Assessment and Plan: * Na 127 upon admission, Current Na 134 * Continue IV fluids, probably ok to stop the fluid at this time * Seems to be resolved at this time * Trend sodium * urine studies ordered (2) Closed fracture of orbital wall: Qualifiers: Encounter type: initial encounter Qualified Code(s): S02.85XA - Fracture of orbit, unspecified, initial encounter for closed fracture Code(s): S02.85XA - Fracture of orbit, unspecified, initial encounter for closed fracture Status: Acute Assessment and Plan: * Fractures of the lateral wall right orbit, right infraorbital rim and floor of right orbit and anterior and lateral wall of right maxillary sinus * Face CT numerous right facial fractures * Pain control * Follow-up with plastic surgeon as outpatient Talked with [facility] about the face, and they stated that the patient should be ok with outpatient follow up. It also seems that they talked to Dr. Gann from [facility] who also stated that the patient is ok for outpatient follow up. (3) Fracture of scapula: Qualifiers: Encounter type: initial encounter Fracture type: closed Laterality: right Scapula location: unspecified part of scapula Qualified Code(s): S42.101A - Fracture of unspecified part of scapula, right shoulder, initial encounter for closed fracture Code(s): S42.109A - Fracture of unspecified part of scapula, unspecified shoulder, initial encounter for closed fracture Status: Acute Assessment and Plan: * Shoulder Xray Angulated fracture deformity of the body of the right scapula deformity of the right * Pain control * orthopedic consult (4) Orthostatic hypotension: Code(s): I95.1 - Orthostatic hypotension Status: Acute Assessment and Plan: * Associated with syncope * Fall precaution * IV fluid, dc at this time * Orthostatic vital, Laying , sitting , Standing * Echo * Carotid Doppler: <50 stenosis bilaterally (5) Thrombocytopenia: Code(s): D69.6 - Thrombocytopenia, unspecified Status: Acute Assessment and Plan: * PLT 119 * anemia labs iron 79, TIBC 281, Transferrin 199, Ferritin, % Saturation, Vit B12, Folate, TSH * Trend labs * Labs in the am (6) Alcohol withdrawal: Qualifiers: Complication of substance-induced condition: uncomplicated Qualified Code(s): F10.230 - Alcohol dependence with withdrawal, uncomplicated Code(s): F10.239 - Alcohol dependence with withdrawal, unspecified Status: Acute Assessment and Plan: * Alcohol withdrawal protocol started patient stated that he was abstinent from alcohol * Patient has history of seizure secondary to alcohol withdrawal in the past monitor * Folic acid and thiamine on board * Librium * CIWA (7) Seizure: Code(s): R56.9 - Unspecified convulsions Status: Acute Assessment and Plan: * Secondary to alcohol withdrawal * stable not on seizure medication monitor (8) Hypokalemia: Code(s): E87.6 - Hypokalemia Status: Acute Assessment and Plan: * Potassium 4.8 * Trend potassium * Replace as indicated (9) Chronic renal failure: Code(s): N18.9 - Chronic kidney disea
[2021-12-24] MEDS: sulfaSALAzine 500 MG TABLET PO (09:12)
[2021-12-24] MEDS: busPIRone HCL 10 MG TABLET PO ×2 (09:12→21:08)
[2021-12-24] MEDS: PANTOPRAZOLE 40 MG TABLET PO (09:12)
[2021-12-24 09:41] LABS: Alanine Aminotransferase 11 U/L (4-50); Albumin Level 3.5 g/dL (3.5-5.1); Alkaline Phosphatase 221 U/L (38-126); Anion Gap 3 mmol/L (8-16); Aspartate Amino Transferase 43 U/L (17-59); Bilirubin,Total 1.2 mg/dL (0.2-1.3); Blood Urea Nitrogen 12 mg/dL (9-20); CRP 5.3 mg/dL (<1.0); Calcium 8.4 mg/dL (8.4-10.2); Carbon Dioxide 28 mmol/L (22-30); Chloride 103 mmol/L (98-107); Estimated CRCL calculation 50 ml/min; Estimated Glomerular Filt Rate 48; Glucose 91 mg/dL (65-110); Potassium 4.8 mmol/L (3.4-5.0); Sodium 134 mmol/L (137-145)
[2021-12-24 09:58] LABS: Iron 79 ug/dL (49-181)
[2021-12-24 10:00] LABS: Creatinine Urine 49.6 mg/dL; Urea Random Urine 223 MG/DL
[2021-12-24] MEDS: SODIUM CHLORIDE 0.9% IV 1,000 ML 100 ML IV CONT (10:00)
[2021-12-24 10:02] LABS: Sodium Urine Random 19 meq/L
[2021-12-24 10:05] LABS: Transferrin 199 mg/dL (206-381)
[2021-12-24 10:09] LABS: Percent Iron Saturation 28 % (20-50)
[2021-12-24] MEDS: THIAMINE HCL 100 MG TABLET PO (10:51)
[2021-12-24] MEDS: FOLIC ACID 1 MG TABLET PO (10:51)
[2021-12-24 11:05] LABS: Folic Acid 5.8 ng/mL (2.76->20)
[2021-12-24 12:06] LABS: Free T4 Free Thyroxine Reflex 1.18 ng/dL (0.78-2.19)
[2021-12-24 13:31] LABS: Total Triiodothyronine (T3) 1.86 NG/ML (0.97-1.69)
[2021-12-24] MEDS: NICOTINE (*PBKC) 21 MG PATCH 1 PATCH TRANSDERM (14:03)
[2021-12-24] MEDS: NICOTINE (*PBKC) 4 MG GUM PO ×2 (14:06→18:37)
--- NOTE | 2021-12-24 17:37 | PM.CNOR ---
Assessment and Plan Assessment and plan (1) Fracture of scapula: Qualifiers: Encounter type: initial encounter Fracture type: closed Laterality: right Scapula location: unspecified part of scapula Qualified Code(s): S42.101A - Fracture of unspecified part of scapula, right shoulder, initial encounter for closed fracture Code(s): S42.109A - Fracture of unspecified part of scapula, unspecified shoulder, initial encounter for closed fracture Status: Acute (2) Rheumatoid arthritis: Code(s): M06.9 - Rheumatoid arthritis, unspecified Status: Acute Assessment and Plan: Patient complains of exquisite right shoulder pain. Posterior pain is worse with any attempted movements. Occurred after a ground level fall secondary to hypotension and a syncopal episode. He says he fell twice yesterday; once on carpet and another on tile floor. No prior shoulder pain, although he states that he had a rotator cuff surgery on one of his shoulders many years ago. Denies numbness, tingling, or other associated symptoms. He also suffered a right orbital fracture. History of rheumatoid arthritis affecting his hands and feet primarily. He sees a physician aide at [facility]. He was admitted due to electrolyte imbalance. Examination Moderate discomfort. Alert and oriented x3. No distress. Vitals stable. Good historian. Shoulder shows the scapula with moderate swelling with exquisite tenderness posteriorly. Superficial abrasion along the lateral aspect of the acromion. All attempts at glenohumeral motion are painful. He is able to wiggle his fingers. Light touch sensation intact. Contralateral shoulder normal. Diagnostics Scapular fracture shows significantly displaced body fracture with angulation. Details of the fracture are hard to see clearly on the plain radiograph. Impression Displaced scapular body fracture may benefit from ORIF. I recommend evaluation by a trauma specialist. The patient understands and shows good insight. His medical care is typically at [facility] and he wishes to follow-up there. May discharge from orthopaedic standpoint. History of Present Illness HPI Consult date: 12/24/21 Chief complaint: Hypokalmia, hyponatremia, right scapular fracture Review of Systems Review of Systems: All systems reviewed & are unremarkable except as noted in HPI and below [facility] Family History Family History Mother Hypertension Diabetes mellitus Father Emphysema lung Lung cancer Social History Social History Smoking packs per day: 2 Smoking cigarettes per day: 40.0 Smoking status: Current every day smoker Tobacco type: cigarettes Second hand tobacco smoke exposure: Yes Alcohol intake: former Substance use: never Substance use type: does not use Last use: pt states he last used alcohol 1 year ago. Gender identity (if verbalized by the patient): Male Spiritual care concerns: No Meds Home Medications and Allergies Home Medications Medication Instructions Recorded Confirmed Type buspirone 10 mg PO Q12H 12/02/20 12/24/21 History hydroxychloroquine 200 mg PO Q12H 12/02/20 12/24/21 History sulfasalazine 1,000 mg PO Q12H 12/02/20 12/24/21 History Orencia ClickJect 125 mg SUBCUT (VIA WEARABLE 12/24/21 12/24/21 History INJECTR) WEEKLY cyclobenzaprine 10 mg BYMOUTH BID PRN 12/24/21 12/24/21 History furosemide 40 mg BYMOUTH DAILY 12/24/21 12/24/21 History gabapentin 300 mg BYMOUTH HS 12/24/21 12/24/21 History pantoprazole 40 mg BYMOUTH DAILY 12/24/21 12/24/21 History Allergies Allergy/AdvReac Type Severity Reaction Status Date / Time vancomycin AdvReac Severe Other Verified 12/23/21 18:44 [place] AdvReac Mild SHORTNESS Uncoded 12/23/21 18:44 OF BREATH Vital Signs Vital Signs - 24 hr 12/23/21 18:14 12/23/21 1
[2021-12-24] MEDS: oxyCODONE HCL (*CRX) 5 MG TAB IR PO (21:08)
[2021-12-24] MEDS: GABAPENTIN 300 MG CAPSULE PO (21:08)
[2021-12-24] MEDS: CYCLOBENZAPRINE HCL 10 MG TABLET PO (21:09)
--- NOTE | 2021-12-24 21:53 | ECHO_ITS ---
Patient Info Name: Jose Rafael Chavez Age: 56 years : 1965 Gender: Male Ht: 70 in Wt: 159 lbs BSA: 1.89 m2 HR: 80 bpm BP: 117 / 63 mmHg Technical Quality: Fair Exam Date: 12/24/2021 8:48 AM Exam Location: [facility] Exam Room: 314 Patient Status: Inpatient Admit Date: 12/23/2021 Staff Ordering Physician: Doug Kauffman M.A., MD [employer] Entry Clerk: Charisma Box RDCS Attending Provider: Doug Kauffman M.A., MD Referring Physician: Reza JENKINS; Exam Type: CA echo doppler color flow Study Info Indications - syncope Complete two-dimensional, color flow and Doppler transthoracic echocardiogram is performed. Summary 1. Complete two-dimensional, color flow and Doppler transthoracic echocardiogram is performed. 2. Left ventricular chamber dimension is normal. 3. Left ventricular systolic function is normal, estimated at 65-70%. 4. Left ventricular septal wall motion is normal. 5. The left ventricular diastolic function is grade I diastolic dysfunction. 6. Right ventricular chamber dimension is normal. 7. Right ventricular systolic function is normal. Left Ventricle Left ventricular chamber dimension is normal. Left ventricular systolic function is normal, estimated at 65-70%. There is no increased left ventricular wall thickness. Left ventricular septal wall motion is normal. The left ventricular diastolic function is grade I diastolic dysfunction. Right Ventricle Right ventricular chamber dimension is normal. Right ventricular systolic function is normal. Left Atria Left atrial chamber dimension is normal. Right Atria Right atrial chamber dimension is normal. Aortic Valve The aortic valve is trileaflet. There is no aortic valve sclerosis. There is no aortic valve stenosis. There is no aortic valve regurgitation. Pulmonic Valve The pulmonic valve is normal. There is no pulmonic valve stenosis. There is no pulmonic regurgitation. Mitral Valve The mitral valve has normal leaflets. There is no mitral valve stenosis. There is no mitral valve regurgitation. Tricuspid Valve The tricuspid valve leaflets are normal. There is no significant tricuspid valve stenosis. There is trace tricuspid valve regurgitation. Pericardium/Pleural The pericardium appears normal. There is no pericardial effusion. Inferior Vena Cava Normal inferior vena cava with >50% collapse upon inspiration consistent with normal right atrial pressure, 10 mmHg. Aorta The aortic root size at the sinus of Valsalva is normal. The prox ascending aorta size is normal. Left Ventricular Outflow Tract Name Value Normal LVOT 2D LVOT Diameter 2.1 cm LVOT Doppler LVOT Peak Gradient 5 mmHg LVOT Mean Gradient 2 mmHg LVOT VTI 18 cm LVOT VTI/AV VTI Ratio 0.7 LVOT Stroke Volume 59 ml LVOT CO 13.4 l/min LVOT CI 7.1 l/min/m2 Pulmonic Valve
[2021-12-25] VITALS (8 sets, daily range): BP systolic 100–149; BP diastolic 65–95; PULSE 77–105; RESP 18–20; TEMP 36.5–37.6; O2SAT 93–99
[2021-12-25 06:05] LABS: Basophils Percent Auto 0.3 % (0.2-1.2); Eosinophils Absolute Auto 0.4 K/mm3 (0-0.3); Eosinophils Percent Auto 6.8 % (0-4.4); Hematocrit 31.4 % (42.0-52.0); Hemoglobin 10.3 g/dL (14.0-18.0); Immature Granulocyte Absolute 0.02 K/mm3 (0.00-0.031); Immature Granulocyte Percent A 0.3 % (0-0.5); Lymphocytes Absolute Auto 1.38 K/mm3 (0.9-3.2); Lymphocytes Percent Auto 22.4 % (18.3-44.2); Mean Corpuscular HGB Conc 32.8 g/dl (32-36); Mean Corpuscular Volume 100.6 fl (80-100); Mean Platelet Volume 10.9 fl (7.4-10.4); Monocytes Absolute Auto 0.6 K/mm3 (0.1-0.6); Monocytes Percent Auto 10.4 % (2.6-8.5); Neutrophils Absolute Auto 3.7 K/mm3 (1.3-6.7); Neutrophils Percent Auto 59.8 % (45.5-73.1); Platelet Count Result 98 k/mm3 (150-375); Red Blood Count 3.12 M/mm3 (4.6-6.20); Red Cell Distribution Width 15.2 % (11.5-14.5); White Blood Count 6.2 K/mm3 (4.5-10.0)
[2021-12-25 06:17] LABS: Alanine Aminotransferase 9 U/L (4-50); Alkaline Phosphatase 184 U/L (38-126); Anion Gap 4 mmol/L (8-16); Aspartate Amino Transferase 39 U/L (17-59); Bilirubin,Total 0.8 mg/dL (0.2-1.3); Blood Urea Nitrogen 13 mg/dL (9-20); Calcium 8.1 mg/dL (8.4-10.2); Carbon Dioxide 25 mmol/L (22-30); Chloride 104 mmol/L (98-107); Estimated CRCL calculation 51 ml/min; Estimated Glomerular Filt Rate 48; Glucose 93 mg/dL (65-110); Potassium 3.9 mmol/L (3.4-5.0); Sodium 133 mmol/L (137-145)
--- NOTE | 2021-12-25 08:45 | P.DS_ITS ---
DS: Admitting Diagnosis Discharge Date 12/25/21 0845 Admitting Diagnosis Hyponatremia/Fracture of the right orbital/Scapula fracture DS: Discharge Diagnosis Discharge Diagnosis (1) Acute hyponatremia: Code(s): E87.1 - Hypo-osmolality and hyponatremia Status: Acute Assessment and Plan: * Na 127 upon admission, Current Na 134 * Continue IV fluids, probably ok to stop the fluid at this time * Seems to be resolved at this time * Trend sodium * urine studies ordered (2) Closed fracture of orbital wall: Qualifiers: Encounter type: initial encounter Qualified Code(s): S02.85XA - Fracture of orbit, unspecified, initial encounter for closed fracture Code(s): S02.85XA - Fracture of orbit, unspecified, initial encounter for closed fracture Status: Acute Assessment and Plan: * Fractures of the lateral wall right orbit, right infraorbital rim and floor of right orbit and anterior and lateral wall of right maxillary sinus * Face CT numerous right facial fractures * Pain control * Follow-up with plastic surgeon as outpatient Talked with [facility] about the face, and they stated that the patient should be ok with outpatient follow up. It also seems that they talked to Dr[facility] Gann from [facility] who also stated that the patient is ok for outpatient follow up. (3) Fracture of scapula: Qualifiers: Encounter type: initial encounter Fracture type: closed Laterality: right Scapula location: unspecified part of scapula Qualified Code(s): S42.101A - Fracture of unspecified part of scapula, right shoulder, initial encounter for closed fracture Code(s): S42.109A - Fracture of unspecified part of scapula, unspecified shoulder, initial encounter for closed fracture Status: Acute Assessment and Plan: * Shoulder Xray Angulated fracture deformity of the body of the right scapula deformity of the right * Pain control * orthopedic consult (4) Orthostatic hypotension: Code(s): I95.1 - Orthostatic hypotension Status: Acute Assessment and Plan: * Associated with syncope * Fall precaution * IV fluid, dc at this time * Orthostatic vital, Laying , sitting , Standing * Echo * Carotid Doppler: <50 stenosis bilaterally (5) Thrombocytopenia: Code(s): D69.6 - Thrombocytopenia, unspecified Status: Acute Assessment and Plan: * PLT 119 * anemia labs iron 79, TIBC 281, Transferrin 199, Ferritin, % Saturation, Vit B12, Folate, TSH * Trend labs * Labs in the am (6) Alcohol withdrawal: Qualifiers: Complication of substance-induced condition: uncomplicated Qualified Code(s): F10.230 - Alcohol dependence with withdrawal, uncomplicated Code(s): F10.239 - Alcohol dependence with withdrawal, unspecified Status: Acute Assessment and Plan: * Alcohol withdrawal protocol started patient stated that he was abstinent from alcohol * Patient has history of seizure secondary to alcohol withdrawal in the past monitor * Folic acid and thiamine on board * Librium * CIWA (7) Seizure: Code(s): R56.9 - Unspecified convulsions Status: Acute Assessment and Plan: * Secondary to alcohol withdrawal * stable not on seizure medication monitor (8) Hypokalemia: Code(s): E87.6 - Hypokalemia Status: Acute Assessment and Plan: * Potassium 3.9
--- NOTE | 2021-12-25 08:45 | PM.DS ---
DS: Admitting Diagnosis Discharge Date 12/25/21 0845 Admitting Diagnosis Hyponatremia/Fracture of the right orbital/Scapula fracture DS: Discharge Diagnosis Discharge Diagnosis (1) Acute hyponatremia: Code(s): E87.1 - Hypo-osmolality and hyponatremia Status: Acute Assessment and Plan: Na 127 upon admission, Current Na 134 Continue IV fluids, probably ok to stop the fluid at this time Seems to be resolved at this time Trend sodium urine studies ordered (2) Closed fracture of orbital wall: Qualifiers: Encounter type: initial encounter Qualified Code(s): S02.85XA - Fracture of orbit, unspecified, initial encounter for closed fracture Code(s): S02.85XA - Fracture of orbit, unspecified, initial encounter for closed fracture Status: Acute Assessment and Plan: Fractures of the lateral wall right orbit, right infraorbital rim and floor of right orbit and anterior and lateral wall of right maxillary sinus Face CT numerous right facial fractures Pain control Follow-up with plastic surgeon as outpatient Talked with [facility] about the face, and they stated that the patient should be ok with outpatient follow up. It also seems that they talked to Dr. Gann from [facility] who also stated that the patient is ok for outpatient follow up. (3) Fracture of scapula: Qualifiers: Encounter type: initial encounter Fracture type: closed Laterality: right Scapula location: unspecified part of scapula Qualified Code(s): S42.101A - Fracture of unspecified part of scapula, right shoulder, initial encounter for closed fracture Code(s): S42.109A - Fracture of unspecified part of scapula, unspecified shoulder, initial encounter for closed fracture Status: Acute Assessment and Plan: Shoulder Xray Angulated fracture deformity of the body of the right scapula deformity of the right Pain control orthopedic consult (4) Orthostatic hypotension: Code(s): I95.1 - Orthostatic hypotension Status: Acute Assessment and Plan: Associated with syncope Fall precaution IV fluid, dc at this time Orthostatic vital, Laying , sitting , Standing Echo Carotid Doppler: <50 stenosis bilaterally (5) Thrombocytopenia: Code(s): D69.6 - Thrombocytopenia, unspecified Status: Acute Assessment and Plan: PLT 119 anemia labs iron 79, TIBC 281, Transferrin 199, Ferritin, % Saturation, Vit B12, Folate, TSH Trend labs Labs in the am (6) Alcohol withdrawal: Qualifiers: Complication of substance-induced condition: uncomplicated Qualified Code(s): F10.230 - Alcohol dependence with withdrawal, uncomplicated Code(s): F10.239 - Alcohol dependence with withdrawal, unspecified Status: Acute Assessment and Plan: Alcohol withdrawal protocol started patient stated that he was abstinent from alcohol Patient has history of seizure secondary to alcohol withdrawal in the past monitor Folic acid and thiamine on board Librium CIWA (7) Seizure: Code(s): R56.9 - Unspecified convulsions Status: Acute Assessment and Plan: Secondary to alcohol withdrawal stable not on seizure medication monitor (8) Hypokalemia: Code(s): E87.6 - Hypokalemia Status: Acute Assessment and Plan: Potassium 3.9 Trend potassium Replace as indicated (9) Chronic renal failure: Code(s): N18.9 - Chronic kidney disease, unspecified Status: Acute Assessment and Plan: BUN/Cr 13/1.50 Baseline 1.6-2.0 Trend labs IV fluids continued Stage III avoid nephrotoxic medication monitor (10) Syncope: Code(s): R55 - Syncope and collapse Status: Acute Assessment and Plan: Most likely related to orthostatic hypotension echo EF of 65-70% with grade 1 diastolic dysfunction carotid Doppler <
[2021-12-25] MEDS: sulfaSALAzine 500 MG TABLET 1000 MG PO (08:57)
[2021-12-25] MEDS: busPIRone HCL 10 MG TABLET PO (08:57)
[2021-12-25] MEDS: FOLIC ACID 1 MG TABLET PO (08:57)
[2021-12-25] MEDS: PANTOPRAZOLE 40 MG TABLET PO (08:57)
[2021-12-25] MEDS: THIAMINE HCL 100 MG TABLET PO (08:57)
[2021-12-28 04:38] LABS: Osmolality, Urine 178 mOsm/kg (50-1200)
== END 2021-12-25 12:05 | disposition home or self-care (01) ==
LOC: ANHED 21:51 → ANH3MEDSUR 12-25 07:16
PROVIDERS: Emergency Medicine; Admitting Provider Internal Medicine; Emergency Provider Emergency Medicine; Visit Provider Nurse Practitioner
DX: S02.85XA Fracture of orbit, unspecified, initial encounter for closed fracture (principal); S42.101A Fracture of unspecified part of scapula, right shoulder, initial encounter for closed fracture; E87.1 Hypo-osmolality and hyponatremia; I95.1 Orthostatic hypotension; W18.39XA Other fall on same level, initial encounter; M06.9 Rheumatoid arthritis, unspecified; N18.30 Chronic kidney disease, stage 3 unspecified; E87.6 Hypokalemia; D69.6 Thrombocytopenia, unspecified; I65.23 Occlusion and stenosis of bilateral carotid arteries; F10.230 Alcohol dependence with withdrawal, uncomplicated; R56.9 Unspecified convulsions; F17.210 Nicotine dependence, cigarettes, uncomplicated; Z23 Encounter for immunization
CPT/HCPCS: 36415; 70450; 70486; 73030; 73110; 80053; 82570; 82607; 82728; 82746; 82948; 83540; 83550; 83605; 83735; 83935; 84300; 84439; 84443; 84466; 84480; 84540; 85025; 85055; 85610; 85652; 85730; 86140; 90471; 90715; 93005; 93306; 93880; 96361; 96374; 96375; 99285; A4565; A9270; G0378; G0379; J2270; J2405; J7030

== ENCOUNTER 2023-01-11 18:36 | Observation (INO) | payer BC, SELFPAY ==
[2023-01-11] VITALS (8 sets, daily range): BP systolic 98–137; BP diastolic 74–84; PULSE 102–135; RESP 18–34; TEMP 36.6; O2SAT 96–100
--- NOTE | ~2023-01-11 | XR_ITS ---
EXAMINATION: XR chest 2V DATE: 01/11/2023 22:23 INDICATION: Shortness of breath. Vomiting. TECHNIQUE: Frontal and lateral views of the chest were obtained. COMPARISON: Chest single view 12/02/2020, chest CT 06/21/2010, right shoulder radiographs 12/23/2021 FINDINGS: The lung volumes are normal. There are lucencies in the lungs. There is a diffuse interstit ial pattern in the lungs with a lower lung predominance. No pleural effusion or pneumothorax. The hea rt size is normal. There are multiple chronic compression fractures in the spine. IMPRESSION: 1. Diffuse lung disease, likely a combination of emphysema and chronic interstitial lung disease. Reviewed, dictated and finalized at location E. IMPRESSION: 1. Diffuse lung disease, likely a combination of emphysema and chronic intersti tial lung disease.
--- NOTE | ~2023-01-11 | CT_ITS ---
EXAMINATION: CT abdomen pelvis wo con DATE: 01/11/2023 22:31 INDICATION: Right upper quadrant abdominal pain. Left lower quadrant abdominal pain. Nausea, vomiting , and diarrhea. TECHNIQUE: Computed tomography (CT) of the abdomen and pelvis was performed without intravenous contr ast. Automated exposure control and iterative reconstruction technique were employed. The dose-length product was 312.50 mGy-cm. COMPARISON: CT pelvis 10/23/2010 FINDINGS: The visualized portions of the lung bases demonstrate emphysema and chronic interstitial renae ng disease. A calcified right lung nodule and calcified right hilar lymph nodes are consistent with o ld granulomatous disease. No pleural effusion. The heart size is normal. There are coronary artery ca lcifications. No pericardial effusion. There is severe wall thickening of the distal esophagus. Calci fications in the liver and spleen are consistent with old granulomatous disease. There are gallstones in the gallbladder, which is normal in size. The pancreas and adrenal glands are normal. A calcifica tion in right kidney is likely parenchymal. There is severe atrophy of left kidney with parenchymal c alcifications. There is severe left hydronephrosis. The prostate is mildly enlarged. There are no dil ated loops of bowel. The appendix is normal. There is calcified atherosclerosis of the aorta and many of the other arteries. There are no pathologically enlarged lymph nodes. There is no free intraperit alvarez fluid. There is a paraumbilical portacaval shunt. There is prominent fat in the inguinal canals that may be hernias. There is no free intraperitoneal fluid. There are chronic vertebral body fractu res at most levels. There is mild thoracolumbar spondylosis. IMPRESSION: 1. Severe wall thickening of the distal esophagus suspicious for primary malignancy. 2. Cirrhosis of the liver with portal venous hypertension. 3. Emphysema and chronic interstitial lung disease. 4. Severe atrophy of left kidney. Severe left hydronephrosis. Reviewed, dictated and finalized at location E. IMPRESSION: 1. Severe wall thickening of the distal esophagus suspicious for primary malign hilary. 2. Cirrhosis of the liver with portal venous hypertension. 3. Emphysema and chronic interstitial lung disease. 4. Severe atrophy of left kidney. Severe left hydronephrosis.
--- NOTE | ~2023-01-11 | XR_ITS ---
EXAMINATION: XR barium swallow modified DATE: 01/13/2023 13:43 INDICATION: Difficulty swallowing TECHNIQUE: Modified barium esophagram was performed by myself who administered fluoroscopy, in conju nction with speech pathologist who administered barium in varying consistencies as per speech patholo gist documentation. This was recorded on tape. A single fluoroscopic spot image was recorded. Fluoros copy exposure time was 1.4 minutes. The DAP for this procedure was 0.9 Gycm2. FINDINGS: Oral stage: Adequate function. Pharyngeal phase: Adequate function. Laryngeal penetration: Present. Aspiration: None. Laryngeal sensitivity: Not applicable. IMPRESSION: Laryngeal penetration without aspiration. Please refer to speech pathologist findings and specific feeding recommendations. Reviewed, dictated and finalized at location A. IMPRESSION: Laryngeal penetration without aspiration. Please refer to speech pa thologist findings and specific feeding recommendations.
--- NOTE | 2023-01-11 18:55 | ECG_ITS ---
Measurements Intervals [place] Rate: 132 P: 77 TN: 154 QRS: 63 QRSD: 78 T: 72 QT: 300 QTc: 445 Interpretive Statements SINUS TACHYCARDIA ABNORMAL RHYTHM ECG COMPARED TO ECG 12/23/2021 18:17:37 NO SIGNIFICANT CHANGES Electronically Signed On 01-12-2023 10:58:33 CDT by Herminio Dickinson M.D.
[2023-01-11 19:30] LABS: Basophils Percent Auto 0.5 % (0.2-1.2); Eosinophils Percent Auto 0.2 % (0-4.4); Hematocrit 37.4 % (42.0-52.0); Hemoglobin 12.9 g/dL (14.0-18.0); Immature Granulocyte Absolute 0.04 K/mm3 (0.00-0.031); Immature Granulocyte Percent A 0.5 % (0-0.5); Immature Platelet Fraction Pct 11.7 % (0.9-11.2); Lymphocytes Percent Auto 8.7 % (18.3-44.2); Mean Corpuscular HGB Conc 34.5 g/dl (32-36); Mean Corpuscular Hemoglobin 39.7 pg (26-34); Mean Corpuscular Volume 115.1 fl (80-100); Mean Platelet Volume 12.7 fl (7.4-10.4); Monocytes Absolute Auto 0.5 K/mm3 (0.1-0.6); Monocytes Percent Auto 6.7 % (2.6-8.5); Neutrophils Absolute Auto 6.7 K/mm3 (1.3-6.7); Neutrophils Percent Auto 83.4 % (45.5-73.1); Nucleated Red Blood Cells Perc 0.2 % (0.0-0.2); Platelet Count Result 112 k/mm3 (150-375); Red Blood Count 3.25 M/mm3 (4.6-6.20); Red Cell Distribution Width 14.4 % (11.5-14.5); White Blood Count 8.1 K/mm3 (4.5-10.0)
[2023-01-11 19:37] LABS: Alanine Aminotransferase 48 U/L (6-50); Albumin Level 4.3 g/dL (3.5-5.1); Alkaline Phosphatase 190 U/L (38-126); Anion Gap 11 mmol/L (8-16); Aspartate Amino Transferase 49 U/L (17-59); Blood Urea Nitrogen 20 mg/dL (9-20); Calcium 10.4 mg/dL (8.4-10.2); Carbon Dioxide 32 mmol/L (22-30); Chloride 93 mmol/L (98-107); Estimated CRCL calculation 29 ml/min; Estimated Glomerular Filt Rate 28; Glucose 126 mg/dL (65-110); Lipase 97 U/L (23-300); Potassium 3.7 mmol/L (3.4-5.0); Sodium 136 mmol/L (137-145)
[2023-01-11 19:48] LABS: Anisocytosis 1+ (NORMAL); Macrocytosis 1+ (NORMAL); Platelet Estimate Decreased (Adequate)
[2023-01-11 19:49] LABS: Schistocytes None Seen (NORMAL)
--- NOTE | 2023-01-11 22:12 | ED.NAVMDI ---
HPI - Nausea/Vomiting/Diarrhea General Chief complaint: Nausea/Vomiting/Diarrhea <KALIE Lundy Last Filed: 01/12/23 01:42> Stated complaint: N/V x 2 days <KALIE Lundy Last Filed: 01/12/23 01:42> Time Seen by Provider: 01/11/23 21:57 <KALIE Lundy Last Filed: 01/12/23 01:42> Source: patient, family and old records reviewed <KALIE Lundy Last Filed: 01/12/23 01:42> Mode of arrival: ambulatory <KALIE Lundy Filed: 01/12/23 01:42> Limitations: no limitations <KALIE Lundy Filed: 01/12/23 01:42> History of Present Illness HPI Narrative: Patient is a 57-year-old male, with past medical history of alcoholic cirrhosis, alcohol free x2 years and rheumatoid arthritis, who presents to the ED with report of nausea and vomiting. at bedside assisted in providing information. She reports patient has had nausea and vomiting for the last 2 days. He has been unable to keep down any food or drink. He is feeling very weak and dehydrated. Patient complains of some upper abdominal pain, diarrhea, oliguria, and a sore throat, which he attributed to the persistent vomiting. He states he has not urinated in the last 12 hours. He has not had symptoms like this before. Denies any sick contacts. Denies any other cough or cold symptoms. Denies rectal bleeding, melena, hematemesis, fevers. reports patient has history of 1 functioning kidney. She states this was thought to be due to a prolonged outlet obstruction from a asymptomatic kidney stone causing atrophy of kidney. <KALIE Lundy Last Filed: 01/12/23 01:42> Related Data Home medications: Home Medications Medication Instructions Recorded Confirmed buspirone 10 mg tablet 10 mg PO BID 12/02/20 01/12/23 hydroxychloroquine 200 mg tablet 200 mg PO BID 12/02/20 01/12/23 sulfasalazine 500 mg tablet 1,000 mg PO BID 12/02/20 01/12/23 gabapentin 300 mg capsule 300 mg PO HS 01/12/23 01/12/23 pantoprazole 40 mg tablet,delayed 40 mg PO DAILY 01/12/23 01/12/23 release <Nava Pierre PA-C - Last Filed: 01/12/23 01:42> Allergies/Adverse reactions: Allergies Allergy/AdvReac Type Severity Reaction Status Date / Time vancomycin AdvReac Severe Other Verified 01/11/23 21:59 [place] AdvReac Mild SHORTNESS Uncoded 01/11/23 21:59 OF BREATH <Nava Pierre PA-C - Last Filed: 01/12/23 01:42> Review of Systems Review of Systems: CONSTITUTIONAL: Denies fever, chills, or sweats. ENT: See HPI. CARDIOVASCULAR: Denies chest pain, palpitations, or edema. RESPIRATORY: Denies cough or dyspnea. GASTROINTESTINAL: See HPI. GENITOURINARY: Denies dysuria or hematuria. MUSCULOSKELETAL: Denies back pain, joint pain, or myalgia. NEUROLOGIC: Denies headache, numbness, or weakness. <Nava Pierre PA-C - Last Filed: 01/12/23 01:42> All systems reviewed & are unremarkable except as noted in HPI and below <Nava Pierre PA-C - Last Filed: 01/12/23 01:42> [facility], LAT[facility] Past Medical History Medical History: Medical History Alcoholic cirrhosis Diastolic dysfunction Echocardiogram 12/2021: EF 65 did 70%, grade 1 diastolic dysfunction GERD (gastroesophageal reflux disease) Neuropathy Rheumatoid arthritis Thrombocytopenia <Nava Pierre PA-C - Last Filed: 01/12/23 01:42> Surgical History Surgical History: Surgical History History of esophagogastroduodenoscopy (EGD) <Nava Pierre PA-C - Last Filed: 01/12/23 01:42> Family History Family History: Family History Mother Hypertension Diabetes mellitus Father Emphysema lung Lung cancer <Nava Pierre PA-C - Last Filed: 01/12/23 01:42> Soc
[2023-01-11] MEDS: ONDANSETRON INJ 4 MG/2 ML VIAL IV PUSH (22:42)
[2023-01-11] MEDS: PANTOPRAZOLE SODIUM IV 40 MG VIAL IV PUSH (22:42)
[2023-01-11] MEDS: MORPHINE SULFATE (*CRX) 4 MG/ML INJ IV PUSH (22:43)
[2023-01-11] MEDS: SODIUM CHLORIDE 0.9% IV 1,000 ML 999 ML IV CONT ×2 (22:44→22:45)
[2023-01-12] VITALS (17 sets, daily range): BP systolic 107–134; BP diastolic 57–94; PULSE 80–114; RESP 16–24; TEMP 36–36.4; O2SAT 94–100; BMI 21.3
[2023-01-12 00:23] LABS: Strep Group A RT-PCR NOT DETECTED (Negative)
[2023-01-12 00:24] LABS: Appearance Urine Clear (Clear); Bacteria Urine None Seen /hpf; Bilirubin Urine Negative (Negative); Blood Urine Negative (Negative); Color Urine Dark Yellow (Yellow); Glucose Urine UA Negative (Negative); Hyaline Casts Urine Present /lpf; Ketones Urine Trace mg/dL (Negative); Leukocyte Esterase Ur Negative LEU/UL (Negative); Nitrate Urine Negative (Negative); Protein Urine 1+ mg/dL (Negative); RBC Urine 0-2 /hpf (0-2); Specific Grav Ur 1.016 (1.001-1.035); Squamous Epithelial Cell Urine None seen /hpf (Few); Urobilinogen Urine 0.2 mg/dL (<2.0); WBC Urine 0-5 /hpf
[2023-01-12 00:37] LABS: Influenza A QL RT-PCR Negative (Negative); Influenza B QL RT-PCR Negative (Negative); SARS-CoV-2 RNA PCR Negative (Negative)
[2023-01-12 00:40] LABS: Add Urine Microscopic? NO
[2023-01-12] MEDS: NICOTINE (*PBKC) 21 MG PATCH 1 PATCH TRANSDERM ×2 (00:41→08:50)
--- NOTE | 2023-01-12 00:53 | PM.IMHP ---
H&P: HPI History of Present Illness Date/Time: 01/12/23 00:53 Chief Complaint: Vomiting Narrative: 57-year-old male with past medical history of cirrhosis due to alcoholism, GERD, rheumatoid arthritis, diastolic dysfunction and chronic tobacco abuse who presented to the ER with 2 days of nausea vomiting. The patient reports that he has been having nausea vomiting for 2 days. He has been and able to keep anything down. His emesis has ranged from clear to dark brown in nature. He denies any bilious emesis. He reports associated generalized weakness and feels dehydrated. He has been having some lightheadedness with standing. He has some associated upper abdominal pain and reflux symptoms. He reports that he has to use Tums and or Pepto-Bismol about once a week. He denies any fevers or chills. He has been having normal bowel movements. He denies any alvarado hematemesis, bright red blood per rectum or melena. He has had a prior EGD 2 or 3 years ago but he does not know the exact results. He has chronic abdominal distension that is unchanged from baseline. His he he has had decreased urine output and his urine appears darker than usual. He denies any dysuria. He received 2 L of IV fluids in the ER and has had improvement in his urine output but has only had about 200 mL out. He has atrophy of 1 kidney with only 1 functional kidney. His kidney atrophy was thought to be due to a prolonged obstructing stone. He denies any recent changes in his medications. He is not on diuretics. He reports associated sore throat that he thinks is due to the vomiting. His throat is sore to palpation. His vomiting has improved after receiving antiemetics and fluids in the ER. He denies any NSAID use. Source of information is patient report, ER report and review of past medical records. The patient received IV Protonix 40 mg in the ER and nicotine patch was placed per patient request. Patient still smokes 1.5-2 packs of cigarettes per day and has done so since he was a teenager. He reports chronic neck and back pain in takes Neurontin. Review of Systems Review of Systems: 12 systems were reviewed with pertinent positives and negatives per HPI. Except as documented in the HPI, all other systems were reviewed and are negative. [facility] Past Medical History Medical History Alcoholic cirrhosis Diastolic dysfunction Echocardiogram 12/2021: EF 65 did 70%, grade 1 diastolic dysfunction GERD (gastroesophageal reflux disease) Neuropathy Rheumatoid arthritis Thrombocytopenia Surgical History Surgical History History of esophagogastroduodenoscopy (EGD) Family History Family History Mother Hypertension Diabetes mellitus Father Emphysema lung Lung cancer Social History Social History (Updated 01/12/23 @ 07:00 by Brittnee Del Angel DO) Social History: The patient lives with his of 22 years. He used to work in [employer] and is attempting to apply for disability. He is a recovering alcoholic and has not had a drink since November of 2020. He still smokes 1-2 packs of cigarettes per day and has done so since he was 15. He occasionally will use THC gummy. He reports that he has experimented with all illicit substances in the past but has otherwise not had continuous use. The patient is are raising the patient's 13-year-old son after the patient's daughter of a heroin overdose when his grandson was 6-month-old. They have a large dog and 2 cats at home. Code status: Full code Surrogate decision maker: Smoking packs per day: 2 Smoking cigarettes per day: 40.0 Years smoked: 46 Smoking pack-years: 92.00 Smoking status: Current every day smoker Tobacco type: cigarettes Second hand tobacco smoke exposure: Yes Alcohol intake: former Alcohol use
[2023-01-12 01:18] LABS: INR 1.2
[2023-01-12 01:19] LABS: Partial Thromboplastin Time 33.7 SECONDS (22.3-36.8)
--- NOTE | 2023-01-12 02:27 | ADMGEN ---
This patient, Jose Rafael Chavez, was admitted to [facility] Surg Room 324-01. Patient/family oriented to hospital policies and general routines including ID bracelet, bed and alarms, visiting hours, pain management, procedures, bathroom and other care routines, personal items, smoking policy, room service/diet, and visiting hours. Information on how to activate the Rapid Response Team has been discussed. Patient/Family are encouraged to report perceived risks to care and to ask questions if they do not understand what they are told or what they should do.
[2023-01-12] MEDS: SODIUM CHLORIDE 0.9% IV 1,000 ML 125 ML IV CONT ×2 (02:40→23:12)
[2023-01-12 07:01] LABS: Anion Gap 7 mmol/L (8-16); Blood Urea Nitrogen 24 mg/dL (9-20); Calcium 8.1 mg/dL (8.4-10.2); Carbon Dioxide 29 mmol/L (22-30); Chloride 101 mmol/L (98-107); Estimated CRCL calculation 31 ml/min; Estimated Glomerular Filt Rate 29; Glucose 96 mg/dL (65-110); Potassium 3.6 mmol/L (3.4-5.0); Sodium 137 mmol/L (137-145)
[2023-01-12 07:31] LABS: Hematocrit 30.1 % (42.0-52.0); Hemoglobin 9.8 g/dL (14.0-18.0); Mean Corpuscular HGB Conc 32.6 g/dl (32-36); Mean Corpuscular Hemoglobin 38.9 pg (26-34); Mean Corpuscular Volume 119.4 fl (80-100); Mean Platelet Volume 12.7 fl (7.4-10.4); Platelet Count Result 70 k/mm3 (150-375); Red Blood Count 2.52 M/mm3 (4.6-6.20); Red Cell Distribution Width 14.5 % (11.5-14.5); White Blood Count 5.7 K/mm3 (4.5-10.0)
[2023-01-12] MEDS: busPIRone HCL 10 MG TABLET PO ×2 (08:50→17:07)
[2023-01-12] MEDS: PANTOPRAZOLE SODIUM IV 40 MG VIAL IV PUSH ×2 (08:51→20:56)
--- NOTE | 2023-01-12 10:43 | PM.IMPN ---
Progress Note: A&P Assessment and Plan (1) Nausea and vomiting: Qualifiers: Vomiting type: unspecified Qualified Code(s): R11.2 - Nausea with vomiting, unspecified Code(s): R11.2 - Nausea with vomiting, unspecified Status: Acute (2) Esophageal thickening: Code(s): K22.89 - Other specified disease of esophagus Status: Acute (3) Acute on chronic kidney failure: Qualifiers: Acute renal failure type: unspecified Chronic kidney disease stage: stage 3 (moderate) Chronic kidney disease stage 3 subtype: stage 3a (GFR 45-59) Qualified Code(s): N17.9 - Acute kidney failure, unspecified; N18.31 - Chronic kidney disease, stage 3a Code(s): N17.9 - Acute kidney failure, unspecified; N18.9 - Chronic kidney disease, unspecified Status: Acute (4) Continuous tobacco abuse: Code(s): Z72.0 - Tobacco use Status: Acute (5) Alcoholic cirrhosis: Qualifiers: Ascites presence: with ascites Qualified Code(s): K70.31 - Alcoholic cirrhosis of liver with ascites Code(s): K70.30 - Alcoholic cirrhosis of liver without ascites Status: Acute Plan CT scan demonstrated distal esophageal thickening suspicious for possible malignancy. This is concerning given the patient's history of intermittent but somewhat chronic GERD symptoms. As the thickening could also be due to recurrent and persistent GERD. In the setting of patient having recent episodes of emesis that were dark in color GI bleed is also possible. However patient is not having melena and dark emesis could be due to Lillian-Vanessa tear. Will continue patient on IV Protonix b.i.d.. Gastroenterology has been consulted. Patient is NPO for possible EGD. Will repeat CBC in a.m.. Zofran has been provided as needed for nausea. The patient has acute on chronic kidney injury likely due to hypovolemia. However cannot rule out some component of urinary retention. Will have nurses check bladder scan for postvoid residuals. Will continue IV fluid hydration normal saline 125 mL an hour. Will repeat BMP in a.m.. Will monitor I&O's closely. Tobacco abuse disorder with continue smoking. The patient requests nicotine pads and 1 has been provided. The patient usually smokes 2 packs cigarettes per day. Patient currently is not interested in quitting smoking. He understands the risks of continuing to smoke. The patient does have alcoholic cirrhosis his meld scores 22 but his numbers appear relatively stable except for a mildly increased bilirubin from prior. The patient has continued to abstain from alcohol since November 2020. I congratulated him on his efforts. Patient has been admitted as observation status. 01/12/2023 interval history: Patient is being hydrated is feeling little better not as nauseated and symptoms are improving, will continue to hydrate the patient, patient is scheduled to have EGD later today will follow-up and will continue to monitor. Will have a PT OT evaluate the patient and further recommendation to follow. Subjective Date/time seen: 01/12/23 10:43 Interval history: Vomiting HPI-Narrative: 57-year-old male with past medical history of cirrhosis due to alcoholism, GERD, rheumatoid arthritis, diastolic dysfunction and chronic tobacco abuse who presented to the ER with 2 days of nausea vomiting.? The patient reports that he has been having nausea vomiting for 2 days.? He has been and able to keep anything down.? His emesis has ranged from clear to dark brown in nature.? He denies any bilious emesis.? He reports associated generalized weakness and feels dehydrated.? He has been having some lightheadedness with standing.? He has some associated upper abdominal pain and reflux symptoms.? He reports that he has to use Tums and or Pepto-Bismol about once a week.? He denies any fevers or chills.? He has been having normal bowel movements.? He denies any alvarado hematemesis, bright red blood per
--- NOTE | 2023-01-12 13:07 | WPDANESEPPF ---
Anes - Initial Pre Proc Eval Procedure: Operation Date: 01/12/23 14:45 Proposed Procedures p Esophagogastroduodenoscopy - Murray Villanueva MD Date/Time: 01/12/23 13:07 Surgeon: Alexi Pre Op Diagnosis: N/V,ESOPHAGEAL WALL THICKENING,ACUTE ON CHRONIC RE Patient Data Age: 57 Gender: M Height: 1.78 m Weight: 67.4 kg Last Vital Signs Temp 36.3 C L 01/12/23 06:00 Pulse 94 01/12/23 06:00 Resp 16 01/12/23 06:00 BP 115/65 01/12/23 06:00 Pulse Ox 98 01/12/23 06:00 O2 Del Method Room Air 01/12/23 08:00 Allergies Allergy/AdvReac Type Severity Reaction Status Date / Time vancomycin AdvReac Severe Other Verified 01/11/23 21:59 [place] AdvReac Mild SHORTNESS Uncoded 01/11/23 21:59 OF BREATH Home Medications Medication Instructions Recorded Confirmed Type buspirone 10 mg tablet 10 mg PO BID 12/02/20 01/12/23 History hydroxychloroquine 200 mg tablet 200 mg PO BID 12/02/20 01/12/23 History sulfasalazine 500 mg tablet 1,000 mg PO BID 12/02/20 01/12/23 History gabapentin 300 mg capsule 300 mg PO HS 01/12/23 01/12/23 History pantoprazole 40 mg tablet,delayed 40 mg PO DAILY 01/12/23 01/12/23 History release Laboratory Tests 01/11/23 01/11/23 01/12/23 19:07 23:44 00:55 WBC 8.1 K/mm3 (4.5-10.0) RBC 3.25 L M/mm3 (4.6-6.20) Hgb 12.9 L g/dL (14.0-18.0) Hct 37.4 L % (42.0-52.0) MCV 115.1 H fl (80-100) MCH 39.7 H pg (26-34) MCHC 34.5 g/dl (32-36) RDW 14.4 % (11.5-14.5) Plt Count 112 L k/mm3 (150-375) MPV 12.7 H fl (7.4-10.4) Immature Gran % (Auto) 0.5 % (0-0.5) Neut % (Auto) 83.4 H % (45.5-73.1) Lymph % (Auto) 8.7 L % (18.3-44.2) Wheeler % (Auto) 6.7 % (2.6-8.5) Eos % (Auto) 0.2 % (0-4.4) Baso % (Auto) 0.5 % (0.2-1.2) Lymph # (Auto) 0.70 L K/mm3 (0.9-3.2) Wheeler # (Auto) 0.5 K/mm3 (0.1-0.6) Eos # (Auto) 0.0 K/mm3 (0-0.3) Baso # (Auto) 0.0 K/mm3 (0.0-0.1) Abs Immat Gran (auto) 0.04 H K/mm3 (0.00-0.031) Absolute Neuts (auto) 6.7 K/mm3 (1.3-6.7) Absolute Nucleated RBC 0.0 K/mm3 (0.0-0.012) Nucleated RBC % 0.2 % (0.0-0.2) Platelet Estimate Decreased (Adequate) % Immature Plt Fraction 11.7 H % (0.9-11.2) Anisocytosis 1+ (NORMAL) Macrocytosis 1+ (NORMAL) Schistocytes None seen (NORMAL) PT 16.0 H Seconds (11.1-14.7) INR 1.2 APTT 33.7 SECONDS (22.3-36.8) Sodium 136 L mmol/L (137-145) Potassium 3.7 mmol/L (3.4-5.0) Chloride 93 L mmol/L (98-107) Carbon Dioxide 32 H mmol/L (22-30) Anion Gap 11 mmol/L (8-16) BUN 20 mg/dL (9-20) Creatinine 2.40 H mg/dL (0.7-1.3) Estim Creat Clear Calc 29 ml/min Estimated GFR 28 L (59 - ) Glucose 126 H mg/dL (65-110) Calcium 10.4 H mg/dL (8.4-10.2) Total Bilirubin 2.0 H mg/dL (0.2-1.3) AST 49 U/L (17-59) ALT 48 U/L (6-50) Alkaline Phosphatase 190 H U/L (38-126) Total Protein 9.0 H g/dL (6.3-8.2) Albumin 4.3 g/dL (3.5-5.1) Lipase 97 U/L (23-300) Urine Color Dark yellow (Yellow) Urine Appearance Clear (Clear) Urine pH 7.0 (5.0-9.0) Ur Specific [place] 1.016 (1.001-1.035) Urine Protein 1+ H mg/dL (Negative) Urine Glucose (UA) Negative mg/dL (Negative) Urine Ketones Trace H mg/dL (Negative) Ur Blood (Man) Negative (Negative) Urine Nitrate Negative (Negative) Urine Bilirubin Negative (Negative) Urine Urobilinogen 0.2 mg/dL (<2.0) Jose
[2023-01-12] MEDS: LACTATED RINGERS 1,000 ML 150 ML IV CONT (13:11)
--- NOTE | 2023-01-12 13:23 | PCCCNOTE ---
On 01/12/23, the student, [Lluvia Kay], provided care and completed [facility] documentation on this patient. I have reviewed the student's documentation and agree with the findings.
--- NOTE | 2023-01-12 13:48 | WPDGICN ---
Assessment and Plan Assessment and plan (1) Coffee ground emesis: Code(s): K92.0 - Hematemesis Status: Acute Assessment and Plan: will proceed with egd, differential include esophagitis, malignancy, varices, etc iv protonix more recommendations after egd (2) Alcoholic cirrhosis: Qualifiers: Ascites presence: with ascites Qualified Code(s): K70.31 - Alcoholic cirrhosis of liver with ascites Code(s): K70.30 - Alcoholic cirrhosis of liver without ascites Status: Acute Assessment and Plan: he is not longer drinking will need to follow-up with hepatology as outpatient (3) Esophageal thickening: Code(s): K22.89 - Other specified disease of esophagus Status: Acute Assessment and Plan: assess with egd (4) Nausea and vomiting: Qualifiers: Vomiting type: unspecified Qualified Code(s): R11.2 - Nausea with vomiting, unspecified Code(s): R11.2 - Nausea with vomiting, unspecified Status: Acute Assessment and Plan: iv protonix, antiemetics (5) Acute on chronic anemia: Code(s): D64.9 - Anemia, unspecified Status: Acute Assessment and Plan: monitor (6) Thrombocytopenia: Code(s): D69.6 - Thrombocytopenia, unspecified Status: Acute Assessment and Plan: from cirrhosis monitor (7) Rheumatoid arthritis: Code(s): M06.9 - Rheumatoid arthritis, unspecified Status: Acute GI Consult Note Consult date/time: 01/12/23 13:48 Reason for consult: n/v, cirrhosis, abnormal esophagus by ct scan HPI: Jose Rafael Chavez is a 57 year old male diagnosed with alcoholic cirrhosis 2 years ago (quit since), smoker, RA on plaquenil and sulfasalazine here with 2 days on intractable nausea with coffee ground emesis. He has been unable to keep anything down.?He had coffee ground emesis. He reports associated generalized weakness and feels dehydrated.? He has been having some lightheadedness with standing. Blood work showed thrombocytopenia, regino (creat 2.3), hb 12 (after fluids down to 9.8). CT scan reviewed and showed thickening of esophagus, can not rule out malignancy. ?Cirrhosis of the liver with portal venous hypertension. Emphysema and chronic interstitial lung disease. Severe atrophy of left kidney. Severe left hydronephrosis. Admitted to hospital, npo, iv protonix. He says that had egd but over 5 years ago. Review of Systems Constitutional: Constitutional: Reports fatigue Eyes: Eyes: Denies blurry vision ENT: Reports Normal hearing present Cardiovascular: Cardiovascular: Denies chest pain Respiratory: Respiratory: Reports cough Comments: smoker Gastrointestinal: Gastrointestinal: Reports nausea and Reports vomiting Genitourinary: Genitourinary: Denies hematuria Musculoskeletal: Musculoskeletal: Denies myalgias Integumentary/Breasts: Skin/Breast: Denies rash Neurologic: Denies confusion Psychiatric: Psychiatric: Denies behavioral changes [facility], [facility] Past Medical History Medical History (Updated 01/12/23 @ 14:33 by Murray Villanueva MD) Acute on chronic anemia Alcoholic cirrhosis Coffee ground emesis Diastolic dysfunction Echocardiogram 12/2021: EF 65 did 70%, grade 1 diastolic dysfunction GERD (gastroesophageal reflux disease) Neuropathy Rheumatoid arthritis Thrombocytopenia Surgical History Surgical History History of esophagogastroduodenoscopy (EGD) Family History Family History Mother Hypertension Diabetes mellitus Father Emphysema lung Lung cancer Social History Social History (Updated 01/12/23 @ 07:00 by Brittnee Del Angel DO) Social History: The patient lives with his of 22 years. He used to work in [employer] and is attempting to apply for disability. He is a recovering alcoholic and has not had a drink since November of 2020. He st
--- NOTE | 2023-01-12 14:25 | PCDIET ---
Brief nutrition note: Screen: MST 3, weight loss -14-23 lbs, +poor appetite. Pt was out of the room for procedure. NPO today. Weight loss 9%/1 year per EMR. No additional weights since 12/2021. No interventions currently. Return when able and continue to monitor in 3 days.
[2023-01-12] MEDS: SUCRALFATE SUSP 100 MG/ML 10 ML UDC 1000 MG PO ×2 (17:06→20:57)
[2023-01-12] MEDS: HYDROXYCHLOROQUINE SULFATE 200 MG TABLET PO (17:07)
[2023-01-12] MEDS: sulfaSALAzine 500 MG TABLET 1000 MG PO (17:07)
[2023-01-12] MEDS: GABAPENTIN 300 MG CAPSULE PO (20:56)
[2023-01-13] VITALS (9 sets, daily range): BP systolic 120–155; BP diastolic 62–87; PULSE 81–121; RESP 16–18; TEMP 36.3–36.7; O2SAT 97–99
[2023-01-13] MEDS: SUCRALFATE SUSP 100 MG/ML 10 ML UDC 1000 MG PO ×4 (06:01→21:56)
[2023-01-13] MEDS: NICOTINE (*PBKC) 21 MG PATCH 1 PATCH TRANSDERM (08:42)
[2023-01-13] MEDS: HYDROXYCHLOROQUINE SULFATE 200 MG TABLET PO ×2 (08:42→16:28)
[2023-01-13] MEDS: sulfaSALAzine 500 MG TABLET 1000 MG PO ×2 (08:42→16:28)
[2023-01-13] MEDS: busPIRone HCL 10 MG TABLET PO ×2 (08:42→16:28)
[2023-01-13] MEDS: PANTOPRAZOLE SODIUM IV 40 MG VIAL IV PUSH (08:42)
--- NOTE | 2023-01-13 09:14 | WPDGIPROGNO ---
Progress Note: A&P Assessment and Plan (1) Ulcerative esophagitis: Code(s): K22.10 - Ulcer of esophagus without bleeding Status: Acute Assessment and Plan: Severe ulcerative esophagitis identified at endoscopy yesterday. This accounts for thickening of the esophagus seen on CT scan imaging. Plan for rather strict anti-reflux measures. Continue proton pump inhibitor therapy at higher dose and Carafate suspension. Follow-up EGD in 4 months. Advance diet as tolerated. May discharge when pain-free and tolerating diet. (2) Alcoholic cirrhosis: Qualifiers: Ascites presence: with ascites Qualified Code(s): K70.31 - Alcoholic cirrhosis of liver with ascites Code(s): K70.30 - Alcoholic cirrhosis of liver without ascites Status: Acute Assessment and Plan: Avoid strongly encouraged. Likely this contributes to his acid reflux and vomiting which caused his esophagitis. Subjective Date/time seen: 01/13/23 09:14 Interval history: Patient is seen today in the absence Dr. Truong. Patient has an underlying history of alcoholic cirrhosis. Admitted with coffee-ground emesis. EGD yesterday revealed rather severe esophagitis which accounts for the thickening of the esophagus seen on imaging studies. Plan for intensive anti-reflux measures. Alcohol avoidance strongly encouraged. Follow-up EGD anticipated in 3-4 months. Current only patient tolerated liquid diet. Review of Systems Review of Systems: Review of systems noncontributory. Exam Narrative: Physical exam reveals patient be alert. Vital signs stable. HEENT exam reveals no icterus. Lungs are clear. Heart without murmur. Abdomen bowel sounds present soft nontender with no organomegaly. Objective Data Vital Signs Vital Signs: Vital Signs - 24 hr 01/12/23 13:06 01/12/23 13:58 01/12/23 14:08 Temperature 97.4 F L Pulse Rate 103 H 95 89 Respiratory Rate 18 24 H 18 Blood Pressure 132/84 107/57 L 109/63 Pulse Oximetry 96 99 100 Oxygen Delivery Room Air Room Air Room Air 01/12/23 14:18 01/12/23 14:00 01/12/23 12:00 Temperature 96.8 F L Pulse Rate 88 93 80 Respiratory Rate 20 18 Blood Pressure 111/64 116/87 Pulse Oximetry 99 94 Oxygen Delivery Room Air 01/12/23 22:00 01/12/23 20:00 01/12/23 20:00 Temperature 97.6 F Pulse Rate 93 93 95 Respiratory Rate 16 16 Blood Pressure 121/66 Pulse Oximetry 98 98 Oxygen Delivery Room Air 01/13/23 00:00 01/13/23 04:00 01/13/23 06:00 Temperature 97.4 F L Pulse Rate 94 98 84 Respiratory Rate 16 Blood Pressure 120/62 Pulse Oximetry 97 Oxygen Delivery Intake/Output Intake/Output: Intake & Output 01/10/23 01/11/23 01/12/23 01/13/23 23:59 23:59 23:59 23:59 Intake Total 1999 2480 1480 Output Total 600 550 Balance 1999 2300 930 Meds/Results Medications: Active Medications Generic Name Dose Route Start Last Admin Trade Name Freq PRN Reason Stop Dose Admin Buspirone HCl 10 mg 01/12/23 09:00 01/13/23 08:42 Buspirone Hcl 10 Mg Tablet PO 10 mg BID RONDA Administration Gabapentin 300 mg 01/12/23 21:00 01/12/23 20:56 Gabapentin 300 Mg Capsule PO 300 mg HS RONDA Administration Hydroxychloroquine Sulfate 200 mg 01/12/23 09:00 01/13/23 08:42 Hydroxychloroquine Sulfate 200 Mg Tablet PO 200 mg BID RONDA Administration Nicotine 1 patch 01/12/23 09:00 01/13/23 08:42 Nicotine (*Pbkc) 21 Mg Patch TRANSDERM 1 patch QAM RONDA Administration Ondansetron HCl 4 mg 01/12/23 00:39 Ondansetron Inj 4 Mg/2 Ml Vial IV PUSH Q4H PRN Nausea Pantoprazole Sodium 40 mg 01/12/23 09:00 01/13/23 08:42 Pantoprazole Sodium Iv 40 Mg Vial IV PUSH 40 mg Q12HR RONDA Administration Sucralfate 1,000 mg 01/12/23 16:30 01/13/23 06:01 Sucralfate Susp 100 Mg/Ml 10 Ml Udc PO 1,000 mg ACHS RONDA Administration Sulfasalazine 1,000 mg 01/12/23 09:00 01/13/23 08:42
[2023-01-13 13:23] LABS: Hematocrit 26.1 % (42.0-52.0); Hemoglobin 8.9 g/dL (14.0-18.0); Immature Platelet Fraction Pct 9.3 % (0.9-11.2); Mean Corpuscular HGB Conc 34.1 g/dl (32-36); Mean Corpuscular Hemoglobin 39.9 pg (26-34); Mean Platelet Volume 12.1 fl (7.4-10.4); Platelet Count Result 74 k/mm3 (150-375); Red Blood Count 2.23 M/mm3 (4.6-6.20); White Blood Count 4.4 K/mm3 (4.5-10.0)
--- NOTE | 2023-01-13 14:06 | PM.IMPN ---
Progress Note: A&P Assessment and Plan (1) Nausea and vomiting: Qualifiers: Vomiting type: unspecified Qualified Code(s): R11.2 - Nausea with vomiting, unspecified Code(s): R11.2 - Nausea with vomiting, unspecified Status: Acute (2) Esophageal thickening: Code(s): K22.89 - Other specified disease of esophagus Status: Acute (3) Acute on chronic kidney failure: Qualifiers: Acute renal failure type: unspecified Chronic kidney disease stage: stage 3 (moderate) Chronic kidney disease stage 3 subtype: stage 3a (GFR 45-59) Qualified Code(s): N17.9 - Acute kidney failure, unspecified; N18.31 - Chronic kidney disease, stage 3a Code(s): N17.9 - Acute kidney failure, unspecified; N18.9 - Chronic kidney disease, unspecified Status: Acute (4) Continuous tobacco abuse: Code(s): Z72.0 - Tobacco use Status: Acute (5) Alcoholic cirrhosis: Qualifiers: Ascites presence: with ascites Qualified Code(s): K70.31 - Alcoholic cirrhosis of liver with ascites Code(s): K70.30 - Alcoholic cirrhosis of liver without ascites Status: Acute Plan CT scan demonstrated distal esophageal thickening suspicious for possible malignancy. This is concerning given the patient's history of intermittent but somewhat chronic GERD symptoms. As the thickening could also be due to recurrent and persistent GERD. In the setting of patient having recent episodes of emesis that were dark in color GI bleed is also possible. However patient is not having melena and dark emesis could be due to Lillian-Vanessa tear. Will continue patient on IV Protonix b.i.d.. Gastroenterology has been consulted. Patient is NPO for possible EGD. Will repeat CBC in a.m.. Zofran has been provided as needed for nausea. The patient has acute on chronic kidney injury likely due to hypovolemia. However cannot rule out some component of urinary retention. Will have nurses check bladder scan for postvoid residuals. Will continue IV fluid hydration normal saline 125 mL an hour. Will repeat BMP in a.m.. Will monitor I&O's closely. Tobacco abuse disorder with continue smoking. The patient requests nicotine pads and 1 has been provided. The patient usually smokes 2 packs cigarettes per day. Patient currently is not interested in quitting smoking. He understands the risks of continuing to smoke. The patient does have alcoholic cirrhosis his meld scores 22 but his numbers appear relatively stable except for a mildly increased bilirubin from prior. The patient has continued to abstain from alcohol since November 2020. I congratulated him on his efforts. Patient has been admitted as observation status. 01/13/2023 interval history: Patient is being hydrated, he is feeling little better not as nauseated and symptoms are improving, will continue to hydrate the patient, on 01/12 patient had EGD, which showed extensive inflammation with grade IV reflux esophagitis, no biopsy due to rish of bleeding, c/o of sore throat and difficuty with swallowing, will ST evaluate the patient, will follow-up and will continue to monitor. Will have a PT OT evaluate the patient and further recommendation to follow. Subjective Date/time seen: 01/13/23 14:06 Interval history: CT scan demonstrated distal esophageal thickening suspicious for possible malignancy. This is concerning given the patient's history of intermittent but somewhat chronic GERD symptoms. As the thickening could also be due to recurrent and persistent GERD. In the setting of patient having recent episodes of emesis that were dark in color GI bleed is also possible. However patient is not having melena and dark emesis could be due to Lillian-Vanessa tear. Will continue patient on IV Protonix b.i.d.. Gastroenterology has been consulted. Patient is NPO for possible EGD. Will repeat CBC in a.m.. Zofran has been provided as needed for nausea. The patien
[2023-01-13 14:12] LABS: Alanine Aminotransferase 18 U/L (6-50); Albumin Level 3.1 g/dL (3.5-5.1); Alkaline Phosphatase 118 U/L (38-126); Anion Gap 8 mmol/L (8-16); Aspartate Amino Transferase 53 U/L (17-59); Bilirubin,Total 1.2 mg/dL (0.2-1.3); Blood Urea Nitrogen 18 mg/dL (9-20); Carbon Dioxide 25 mmol/L (22-30); Chloride 101 mmol/L (98-107); Estimated CRCL calculation 46 ml/min; Estimated Glomerular Filt Rate 48; Glucose 100 mg/dL (65-110); Magnesium 1.8 mg/dL (1.6-2.3); Potassium 2.8 mmol/L (3.4-5.0); Sodium 134 mmol/L (137-145)
--- NOTE | 2023-01-13 14:21 | PCSTNOTE ---
Modified barium swallow study completed. Patient was given barium contrast in trials of thin liquids, pureed, and solid consistencies. Swallowing function found to be within functional limits. One episode of trace penetration which was not ejected was noted with pureed consistency. No aspiration observed. Patient refused mixed consistency trial because it included fruit juice and he said it was tangy and would cause pain. Patient's swallowing functional abilities are within normal limits, but he is currently having difficulty swallowing due to pain from ulcerative esophagitis. It is recommended that patient receive pureed food with thin liquids at this time and that diet texture be incrementally upgraded to the level of regular as patient's pain level permits. Swallowing precaution recommendations placed in patient's chart. No further speech therapy is recommended. Thank you for the referral of this patient.
[2023-01-13] MEDS: POTASSIUM CHLORIDE INJ 40 MEQ in SODIUM CHLORIDE 0.9% IV 500 ML 130 MEQ IVPB (16:27)
[2023-01-14] VITALS: PULSE 96
[2023-01-14 04:00] VITALS: PULSE 90
[2023-01-14 05:37] VITALS: BP 113/58; PULSE 91; RESP 14; TEMP 36.8; O2SAT 95
[2023-01-14] MEDS: SUCRALFATE SUSP 100 MG/ML 10 ML UDC 1000 MG PO ×2 (06:20→11:44)
[2023-01-14 07:28] LABS: Hematocrit 23.5 % (42.0-52.0); Hemoglobin 7.8 g/dL (14.0-18.0); Immature Platelet Fraction Pct 8.8 % (0.9-11.2); Mean Corpuscular HGB Conc 33.2 g/dl (32-36); Mean Corpuscular Hemoglobin 39.2 pg (26-34); Mean Corpuscular Volume 118.1 fl (80-100); Mean Platelet Volume 12.6 fl (7.4-10.4); Platelet Count Result 57 k/mm3 (150-375); Red Blood Count 1.99 M/mm3 (4.6-6.20); Red Cell Distribution Width 13.9 % (11.5-14.5); White Blood Count 3.5 K/mm3 (4.5-10.0)
[2023-01-14 07:41] LABS: Alanine Aminotransferase 13 U/L (6-50); Albumin Level 2.7 g/dL (3.5-5.1); Alkaline Phosphatase 107 U/L (38-126); Anion Gap 4 mmol/L (8-16); Aspartate Amino Transferase 47 U/L (17-59); Bilirubin,Total 0.9 mg/dL (0.2-1.3); Blood Urea Nitrogen 12 mg/dL (9-20); Calcium 7.8 mg/dL (8.4-10.2); Carbon Dioxide 24 mmol/L (22-30); Chloride 105 mmol/L (98-107); Estimated CRCL calculation 57 ml/min; Estimated Glomerular Filt Rate > 60; Glucose 89 mg/dL (65-110); Magnesium 1.7 mg/dL (1.6-2.3); Potassium 3.2 mmol/L (3.4-5.0); Sodium 133 mmol/L (137-145)
[2023-01-14 08:00] VITALS: PULSE 81
[2023-01-14] MEDS: POTASSIUM CHLORIDE 20 MEQ TABLET 40 MEQ PO (08:51)
[2023-01-14] MEDS: PANTOPRAZOLE 40 MG TABLET PO (08:52)
[2023-01-14] MEDS: HYDROXYCHLOROQUINE SULFATE 200 MG TABLET PO (08:52)
[2023-01-14] MEDS: sulfaSALAzine 500 MG TABLET 1000 MG PO (08:52)
[2023-01-14] MEDS: NICOTINE (*PBKC) 21 MG PATCH 1 PATCH TRANSDERM (08:53)
[2023-01-14] MEDS: busPIRone HCL 10 MG TABLET PO (08:53)
--- NOTE | 2023-01-14 10:14 | WPDGIPROGNO ---
Progress Note: A&P Assessment and Plan (1) Ulcerative esophagitis: Code(s): K22.10 - Ulcer of esophagus without bleeding Status: Acute Assessment and Plan: Patient with profound ulcerative esophagitis on EGD Sunday. Plan to continue high-dose PPI acid suppression. Anti-reflux measures should include elevating head of bed at night. No late snacks. Avoid caffeine. Follow-up EGD under the direction of Dr. Truong anticipated in 4 months. To document healing. Okay with GI service for discharge at this time. (2) Cirrhosis: Qualifiers: Ascites presence: without ascites Hepatic cirrhosis type: alcoholic cirrhosis Qualified Code(s): K70.30 - Alcoholic cirrhosis of liver without ascites Code(s): K74.60 - Unspecified cirrhosis of liver Status: Acute Assessment and Plan: Patient with history of cirrhosis secondary to alcohol abuse. Patient currently abstinent from alcohol. Continue supportive care as needed. (3) GERD (gastroesophageal reflux disease): Code(s): K21.9 - Gastro-esophageal reflux disease without esophagitis Status: Acute Subjective Date/time seen: 01/14/23 10:15 Interval history: Patient alert comfortable this morning. Denies abdominal pain. Tolerating diet without difficulty. Review of Systems Review of Systems: Review of systems noncontributory. Exam Narrative: Physical exam reveals patient to be alert. HEENT exam unremarkable. Lungs are clear. Heart without murmur. Abdomen bowel sounds present soft nontender with no organomegaly. Objective Data Vital Signs Vital Signs: Vital Signs - 24 hr 01/13/23 14:00 01/13/23 12:00 01/13/23 16:00 Temperature 98.1 F Pulse Rate 83 81 121 H Respiratory Rate 18 Blood Pressure 155/87 H Pulse Oximetry 98 Oxygen Delivery 01/13/23 20:00 01/13/23 22:00 01/14/23 05:37 Temperature 97.9 F 98.2 F Pulse Rate 87 91 Respiratory Rate 16 14 Blood Pressure 131/72 113/58 L Pulse Oximetry 99 95 Oxygen Delivery Room Air 01/13/23 20:00 01/14/23 00:00 01/14/23 04:00 Temperature Pulse Rate 87 96 90 Respiratory Rate Blood Pressure Pulse Oximetry Oxygen Delivery 01/14/23 08:00 01/14/23 08:00 Temperature Pulse Rate 81 Respiratory Rate Blood Pressure Pulse Oximetry Oxygen Delivery Room Air Intake/Output Intake/Output: Intake & Output 01/11/23 01/12/23 01/13/23 01/14/23 23:59 23:59 23:59 23:59 Intake Total 1999 2480 3870 440 Output Total 600 1800 825 Balance 1999 1880 2070 -385 Meds/Results Medications: Active Medications Generic Name Dose Route Start Last Admin Trade Name Freq PRN Reason Stop Dose Admin Benzocaine 1 lozenge 01/13/23 09:23 Benzocaine/Menthol (*Bkc) 18 Ea Lozenge PO PRN PRN Sore Throat Buspirone HCl 10 mg 01/12/23 09:00 01/14/23 08:53 Buspirone Hcl 10 Mg Tablet PO 10 mg BID RONDA Administration Gabapentin 300 mg 01/12/23 21:00 01/13/23 21:55 Gabapentin 300 Mg Capsule PO Not Given HS RONDA Hydroxychloroquine Sulfate 200 mg 01/12/23 09:00 01/14/23 08:52 Hydroxychloroquine Sulfate 200 Mg Tablet PO 200 mg BID RONDA Administration Nicotine 1 patch 01/12/23 09:00 01/14/23 08:53 Nicotine (*Pbkc) 21 Mg Patch TRANSDERM 1 patch QAM RONDA Administration Ondansetron HCl 4 mg 01/12/23 00:39 Ondansetron Inj 4 Mg/2 Ml Vial IV PUSH Q4H PRN Nausea Pantoprazole Sodium 40 mg 01/13/23 09:30 01/14/23 08:52 Pantoprazole 40 Mg Tablet PO 40 mg Q12HR RONDA Administration Sucralfate 1,000 mg 01/12/23 16:30 01/14/23 06:20 Sucralfate Susp 100 Mg/Ml 10 Ml Udc PO 1,000 mg ACHS RONDA Administration Sulfasalazine 1,000 mg 01/12/23 09:00 01/14/23 08:52 Sulfasalazine 500 Mg Tablet PO 1,000 mg BID RONDA Administration Radiology Results: ITS Impressions Chest X-Ray 01/11/23 22:25 IMPRESSION: 1. Diffuse lung disea
--- NOTE | 2023-01-14 12:39 | PM.DS ---
DS: Admitting Diagnosis Discharge Date 01/14/2023 Admitting Diagnosis Vomiting DS: Discharge Diagnosis Discharge Diagnosis (1) Nausea and vomiting: Qualifiers: Vomiting type: unspecified Qualified Code(s): R11.2 - Nausea with vomiting, unspecified Code(s): R11.2 - Nausea with vomiting, unspecified Status: Acute (2) Esophageal thickening: Code(s): K22.89 - Other specified disease of esophagus Status: Acute (3) Acute on chronic kidney failure: Qualifiers: Acute renal failure type: unspecified Chronic kidney disease stage: stage 3 (moderate) Chronic kidney disease stage 3 subtype: stage 3a (GFR 45-59) Qualified Code(s): N17.9 - Acute kidney failure, unspecified; N18.31 - Chronic kidney disease, stage 3a Code(s): N17.9 - Acute kidney failure, unspecified; N18.9 - Chronic kidney disease, unspecified Status: Acute (4) Continuous tobacco abuse: Code(s): Z72.0 - Tobacco use Status: Acute (5) Alcoholic cirrhosis: Qualifiers: Ascites presence: with ascites Qualified Code(s): K70.31 - Alcoholic cirrhosis of liver with ascites Code(s): K70.30 - Alcoholic cirrhosis of liver without ascites Status: Acute Plan CT scan demonstrated distal esophageal thickening suspicious for possible malignancy. This is concerning given the patient's history of intermittent but somewhat chronic GERD symptoms. As the thickening could also be due to recurrent and persistent GERD. In the setting of patient having recent episodes of emesis that were dark in color GI bleed is also possible. However patient is not having melena and dark emesis could be due to Lillian-Vanessa tear. Will continue patient on IV Protonix b.i.d.. Gastroenterology has been consulted. Patient is NPO for possible EGD. Will repeat CBC in a.m.. Zofran has been provided as needed for nausea. The patient has acute on chronic kidney injury likely due to hypovolemia. However cannot rule out some component of urinary retention. Will have nurses check bladder scan for postvoid residuals. Will continue IV fluid hydration normal saline 125 mL an hour. Will repeat BMP in a.m.. Will monitor I&O's closely. Tobacco abuse disorder with continue smoking. The patient requests nicotine pads and 1 has been provided. The patient usually smokes 2 packs cigarettes per day. Patient currently is not interested in quitting smoking. He understands the risks of continuing to smoke. The patient does have alcoholic cirrhosis his meld scores 22 but his numbers appear relatively stable except for a mildly increased bilirubin from prior. The patient has continued to abstain from alcohol since November 2020. I congratulated him on his efforts. Patient has been admitted as observation status. 01/13/2023 interval history: Patient is being hydrated, he is feeling little better not as nauseated and symptoms are improving, will continue to hydrate the patient, on 01/12 patient had EGD, which showed extensive inflammation with grade IV reflux esophagitis, no biopsy due to rish of bleeding, c/o of sore throat and difficuty with swallowing, will ST evaluate the patient, will follow-up and will continue to monitor. Will have a PT OT evaluate the patient and further recommendation to follow. DS: Summary Hospital Course Reason for hospitalization: Vomiting Narrative: 57-year-old male with past medical history of cirrhosis due to alcoholism, GERD, rheumatoid arthritis, diastolic dysfunction and chronic tobacco abuse who presented to the ER with 2 days of nausea vomiting.? The patient reports that he has been having nausea vomiting for 2 days.? He has been and able to keep anything down.? His emesis has ranged from clear to dark brown in nature.? He denies any bilious emesis.? He reports associated generalized weakness and feels dehydrated.? He has been having some lightheadedness with standing.? He has some associate
== END 2023-01-14 13:05 | disposition home or self-care (01) ==
LOC: ANHED 01-12 00:49 → ANH3MEDSUR 01-12 02:49
PROVIDERS: Emergency Medicine; Internal Medicine Gastroenterology; Admitting Provider Internal Medicine; Emergency Provider Physician Assistant; Visit Provider Family Medicine
PROC: 0DJ08ZZ Inspection of Upper Intestinal Tract, Via Natural or Artificial Opening Endoscopic (ICD-10-PCS; CPT 43235; principal; 2023-01-12 14:45)
DX: K21.00 Gastro-esophageal reflux disease with esophagitis, without bleeding (principal); K44.9 Diaphragmatic hernia without obstruction or gangrene; K29.70 Gastritis, unspecified, without bleeding; K70.31 Alcoholic cirrhosis of liver with ascites; M06.9 Rheumatoid arthritis, unspecified; Z20.822 Contact with and (suspected) exposure to COVID-19; R53.1 Weakness; R34 Anuria and oliguria; J02.9 Acute pharyngitis, unspecified; N18.31 Chronic kidney disease, stage 3a; N18.9 Chronic kidney disease, unspecified; I51.89 Other ill-defined heart diseases; G62.9 Polyneuropathy, unspecified; F17.210 Nicotine dependence, cigarettes, uncomplicated; F12.90 Cannabis use, unspecified, uncomplicated; R94.31 Abnormal electrocardiogram [ECG] [EKG]; N26.1 Atrophy of kidney (terminal); N13.30 Unspecified hydronephrosis; D69.6 Thrombocytopenia, unspecified; Z82.49 Family history of ischemic heart disease and other diseases of the circulatory system; Z79.899 Other long term (current) drug therapy
CPT/HCPCS: 43235; 36415; 71046; 74176; 80048; 80053; 81003; 83690; 83735; 85025; 85027; 85055; 85610; 85730; 87636; 87651; 92610; 92611; 93005; 96361; 96365; 96366; 96375; 96376; 99285; A9270; C9113; G0378; J2270; J2405; J2704; J3480; J7030; J7040; J7120

== ENCOUNTER 2023-03-01 12:08 | Outpatient (CLI) | payer BC, SELFPAY ==
[2023-03-01 12:44] LABS: Hematocrit 30.2 % (42.0-52.0); Hemoglobin 9.8 g/dL (14.0-18.0); Immature Platelet Fraction Pct 7.3 % (0.9-11.2); Mean Corpuscular HGB Conc 32.5 g/dl (32-36); Mean Corpuscular Hemoglobin 37.1 pg (26-34); Mean Corpuscular Volume 114.4 fl (80-100); Mean Platelet Volume 10.6 fl (7.4-10.4); Platelet Count Result 89 k/mm3 (150-375); Red Blood Count 2.64 M/mm3 (4.6-6.20); Red Cell Distribution Width 16.3 % (11.5-14.5); White Blood Count 3.9 K/mm3 (4.5-10.0)
[2023-03-01 12:56] LABS: INR 1.1; Prothrombin Time 14.7 Seconds (11.1-14.7)
[2023-03-01 13:38] LABS: Iron 120 ug/dL (49-181)
[2023-03-01 13:53] LABS: Percent Iron Saturation 50 % (20-50)
[2023-03-01 14:13] LABS: Alanine Aminotransferase 16 U/L (6-50); Albumin Level 3.4 g/dL (3.5-5.1); Alkaline Phosphatase 163 U/L (38-126); Anion Gap 8 mmol/L (8-16); Aspartate Amino Transferase 40 U/L (17-59); Bilirubin,Total 0.9 mg/dL (0.2-1.3); Blood Urea Nitrogen 10 mg/dL (9-20); Calcium 8.3 mg/dL (8.4-10.2); Carbon Dioxide 28 mmol/L (22-30); Chloride 101 mmol/L (98-107); Estimated Glomerular Filt Rate 39; Glucose 96 mg/dL (65-110); Potassium 3.3 mmol/L (3.4-5.0); Sodium 137 mmol/L (137-145)
[2023-03-06 12:44] LABS: Mitochondrial (M2) Ab (IgG) <=20.0 U (<=20.0)
[2023-03-07 09:10] LABS: Ceruloplasmin 29 mg/dL (18-36)
== END 2023-03-01 12:09 | disposition home or self-care (01) ==
LOC: ANHLAB 12:09
PROVIDERS: PCP Family Medicine; Visit Provider Internal Medicine Gastroenterology
DX: D64.9 Anemia, unspecified (principal); K70.30 Alcoholic cirrhosis of liver without ascites; R74.8 Abnormal levels of other serum enzymes; D69.6 Thrombocytopenia, unspecified
CPT/HCPCS: 36415; 80053; 82104; 82248; 82390; 82728; 83520; 83540; 83550; 85027; 85055; 85610; 86038

== ENCOUNTER 2023-04-16 09:59 | Outpatient (CLI) | payer BC, SELFPAY ==
[2023-04-16 10:53] LABS: Eosinophils Absolute Auto 0.5 K/mm3 (0-0.3); Eosinophils Percent Auto 11.1 % (0-4.4); Hematocrit 30.4 % (42.0-52.0); Hemoglobin 10.1 g/dL (14.0-18.0); Immature Granulocyte Absolute 0.01 K/mm3 (0.00-0.031); Immature Granulocyte Percent A 0.2 % (0-0.5); Immature Platelet Fraction Pct 6.1 % (0.9-11.2); Lymphocytes Absolute Auto 1.18 K/mm3 (0.9-3.2); Lymphocytes Percent Auto 29.1 % (18.3-44.2); Mean Corpuscular HGB Conc 33.2 g/dl (32-36); Mean Corpuscular Hemoglobin 38.7 pg (26-34); Mean Corpuscular Volume 116.5 fl (80-100); Mean Platelet Volume 11.7 fl (7.4-10.4); Monocytes Absolute Auto 0.4 K/mm3 (0.1-0.6); Monocytes Percent Auto 10.3 % (2.6-8.5); Neutrophils Percent Auto 48.3 % (45.5-73.1); Platelet Count Result 135 k/mm3 (150-375); Red Blood Count 2.61 M/mm3 (4.6-6.20); Red Cell Distribution Width 15.9 % (11.5-14.5); White Blood Count 4.1 K/mm3 (4.5-10.0)
[2023-04-16 10:57] LABS: Appearance Urine Clear (Clear); Bacteria Urine 4+ /hpf; Bilirubin Urine Negative (Negative); Blood Urine Negative (Negative); Color Urine Yellow (Yellow); Glucose Urine UA Negative (Negative); Ketones Urine Negative (Negative); Leukocyte Esterase Ur 1+ LEU/UL (NEGATIVE); Nitrate Urine Negative (Negative); Non Pathogenic Casts 0-2; Protein Urine Negative (Negative); RBC Urine 0-2 /hpf (0-2); Squamous Epithelial Cell Urine None seen /hpf (Few); Urobilinogen Urine 0.2 mg/dL (<2.0)
[2023-04-16 11:00] LABS: Creatinine Urine 70.7 mg/dL; Total Protein Urine Random 19 mg/dL; Ur Ttl Prot Creatinine Ratio 0.27 mg/mg (0-0.20)
[2023-04-16 11:05] LABS: Add Urine Microscopic? YES
[2023-04-16 11:11] LABS: Alanine Aminotransferase 15 U/L (6-50); Albumin Level 3.8 g/dL (3.5-5.1); Alkaline Phosphatase 189 U/L (38-126); Anion Gap 9 mmol/L (8-16); Aspartate Amino Transferase 38 U/L (17-59); Bilirubin,Total 0.7 mg/dL (0.2-1.3); Blood Urea Nitrogen 11 mg/dL (9-20); Calcium 8.8 mg/dL (8.4-10.2); Carbon Dioxide 24 mmol/L (22-30); Chloride 101 mmol/L (98-107); Cholesterol 155 mg/dL (0-200); Creatine Kinase 65 U/L (55-170); Estimated Glomerular Filt Rate 39; Glucose 114 mg/dL (65-110); HDL Direct 44 mg/dL; Phosphorus 3.8 mg/dL (2.5-4.5); Potassium 3.8 mmol/L (3.4-5.0); Sodium 134 mmol/L (137-145); Triglycerides 85 mg/dL (<150); Uric Acid 5.7 mg/dL (3.5-8.5)
[2023-04-16 11:13] LABS: Iron 52 ug/dL (49-181)
[2023-04-16 11:17] LABS: Parathyroid Intact 62.6 pg/mL (7.5-53.5)
[2023-04-16 11:22] LABS: LDL Cholesterol Direct 65 mg/dL
[2023-04-16 11:25] LABS: Percent Iron Saturation 17 % (20-50)
[2023-04-16 11:39] LABS: Complement C3 74 mg/dL (88-165)
[2023-04-16 11:41] LABS: Prostate Specific Antigen 0.4 ng/mL (< OR = 4.0)
[2023-04-16 11:44] LABS: Hepatitis B Surface Antigen Negative (Negative)
[2023-04-16 11:46] LABS: Hemoglobin A1C 4.4 % (<5.7)
[2023-04-16 11:58] LABS: Large Platelets Present; Platelet Clumps Present; Platelet Estimate Adequate (Adequate)
[2023-04-16 11:59] LABS: Macrocytosis 2+ (NORMAL); Schistocytes Rare (NORMAL)
[2023-04-16 12:01] LABS: Hepatitis B Surface Anti Res Negative; Hepatitis C Virus Antibody Negative (Negative)
[2023-04-16 12:08] LABS: Erythrocyte Sedimentation Rate > 140 mm/hr (0-20)
[2023-04-16 12:17] LABS: Folic Acid 3.3 ng/mL (2.76->20)
[2023-04-16 12:41] LABS: Vitamin D 25 Hydroxy 19.5 ng/mL
[2023-04-16 13:22] LABS: Rheumatoid Factor > 120.0 IU/ML (<12)
[2023-04-19 07:18] LABS: SM Antibody <1.0; SM/RNP Antibody <1.0
[2023-04-20 03:18] LABS: Hepatitis B Core Ab Total Nonreactive (Nonreactive)
[2023-04-20 19:10] LABS: Complement Total CH50 29 U/mL (31-60)
[2023-04-22 07:21] LABS: SS-A 1.2; SS-B <1.0
[2023-04-22 13:36] LABS: Cryoglobulin, QL Negative (Negative)
[2023-04-24 01:07] LABS: ANCA Screen Negative (Negative)
[2023-04-24 11:13] LABS: Anti Glomerular Basement Memb <1.0 AI (<1.0)
== END 2023-04-16 10:00 | disposition home or self-care (01) ==
PROVIDERS: Internal Medicine Nephrology; PCP Family Medicine; Referring Provider Internal Medicine Nephrology; Visit Provider Family Medicine
DX: Z00.00 Encounter for general adult medical examination without abnormal findings (principal); D64.9 Anemia, unspecified; E78.5 Hyperlipidemia, unspecified; K22.10 Ulcer of esophagus without bleeding; K70.30 Alcoholic cirrhosis of liver without ascites; M06.9 Rheumatoid arthritis, unspecified; D69.6 Thrombocytopenia, unspecified; Z79.899 Other long term (current) drug therapy; R73.9 Hyperglycemia, unspecified; E55.9 Vitamin D deficiency, unspecified; Z12.5 Encounter for screening for malignant neoplasm of prostate; N18.32 Chronic kidney disease, stage 3b
CPT/HCPCS: 36415; 80053; 80061; 81001; 82306; 82550; 82570; 82595; 82607; 82728; 82746; 83036; 83520; 83540; 83550; 83970; 84100; 84153; 84156; 84443; 84550; 85025; 85055; 85652; 86036; 86038; 86160; 86162; 86225; 86235; 86334; 86430; 86704; 86706; 86803; 87340; G0103

== ENCOUNTER 2023-04-18 13:26 | Outpatient (CLI) | payer BC, SELFPAY ==
[2023-04-18 14:36] LABS: Total Volume 24 Hour Urine 700 ml; Urea Nitrogen 24 Hour Urine 2.1 G/DAY (12-20)
[2023-05-02 09:02] LABS: Albumin 19%; Protein,total, 24 Hr Ur 144 mg/24h
[2023-05-02 09:05] LABS: Pro/Creat Ratio 0.241
== END 2023-04-18 13:27 | disposition home or self-care (01) ==
LOC: ANHLAB 13:27
PROVIDERS: PCP Family Medicine; Visit Provider Internal Medicine Nephrology
DX: N18.31 Chronic kidney disease, stage 3a (principal); K74.60 Unspecified cirrhosis of liver; M06.9 Rheumatoid arthritis, unspecified
CPT/HCPCS: 81050; 84540; 86335

== ENCOUNTER 2023-04-23 10:04 | Outpatient (CLI) | payer BC, SELFPAY ==
--- NOTE | ~2023-04-23 | US_ITS ---
Renal-Bladder ultrasound Clinical History: Rheumatoid arthritis Technique: Real-time sonographic imaging of the kidneys and urinary bladder was performed. Findings: The right kidney measures 11.5 cm in length, without hydronephrosis or mass. Left kidney is poorly visualized, with probable severe hydronephrosis and marked cortical thinning. The urinary bladder is moderately distended at the time of this exam. No intraluminal echoes are iden tified. No abnormal wall thickening is seen. Impression: Right kidney and urinary bladder are unremarkable. Poor visualization of left kidney, with probable severe hydronephrosis and marked cortical thinning. This correlates with appearance on prior CT scan dated 01/11/2023. Reviewed, dictated and finalized at location . Impression: Right kidney and urinary bladder are unremarkable. Poor visualization of left kidney, with probable severe hydronephrosis and luz ed cortical thinning. This correlates with appearance on prior CT scan dated .
== END 2023-04-23 10:05 | disposition home or self-care (01) ==
PROVIDERS: PCP Family Medicine; Visit Provider Internal Medicine Nephrology
DX: N18.32 Chronic kidney disease, stage 3b (principal); K74.60 Unspecified cirrhosis of liver; M06.9 Rheumatoid arthritis, unspecified
CPT/HCPCS: 76775

== ENCOUNTER 2023-04-25 10:54 | Outpatient (CLI) | payer BC, SELFPAY | END 2023-04-25 10:55 | disposition home or self-care (01) | LOC: ANHLAB 10:55 | PROVIDERS: PCP Family Medicine; Visit Provider Internal Medicine Nephrology | DX: R82.81 Pyuria (principal) | CPT/HCPCS: 87086; 87147; 87181; 87186 ==

== ENCOUNTER 2023-04-30 03:11 | Day surgery (SDC) | payer BC, SELFPAY ==
[2023-04-17 13:52] VITALS: BMI 22.7
[2023-04-30 07:15] VITALS: BP 126/71; PULSE 99; RESP 18; TEMP 36.1; O2SAT 100
[2023-04-30] MEDS: LACTATED RINGERS 1,000 ML 150 ML IV CONT (07:30)
--- NOTE | 2023-04-30 08:14 | WPDANESEPPF ---
Anes - Initial Pre Proc Eval Procedure: Operation Date: 04/30/23 08:30 Proposed Procedures p Esophagogastroduodenoscopy - Murray Villanueva MD Date/Time: 04/30/23 08:14 Surgeon: Murray Villanueva MD Pre Op Diagnosis: ulcer of esophagus, alcoholic cirrhosis of liver Patient Data Age: 57 Gender: M Height: 1.78 m Weight: 72.4 kg Last Vital Signs Temp 97 F L 04/30/23 07:15 Pulse 99 04/30/23 07:15 Resp 18 04/30/23 07:15 BP 126/71 04/30/23 07:15 Pulse Ox 100 04/30/23 07:15 O2 Del Method Room Air 04/30/23 07:15 Allergies Allergy/AdvReac Type Severity Reaction Status Date / Time vancomycin AdvReac Severe Other Verified 04/30/23 07:14 [place] AdvReac Mild SHORTNESS Uncoded 04/30/23 07:14 OF BREATH Home Medications Medication Instructions Recorded Confirmed Type buspirone 10 mg tablet 10 mg PO BID 12/02/20 04/17/23 History hydroxychloroquine 200 mg tablet 200 mg PO BID 12/02/20 04/17/23 History sulfasalazine 500 mg tablet 1,000 mg PO BID 12/02/20 04/17/23 History citalopram 10 mg tablet (Celexa) 10 mg PO DAILY #90 tabs 04/09/23 04/17/23 Rx pantoprazole 40 mg tablet,delayed 40 mg PO DAILY #30 tabs 04/18/23 Rx release ergocalciferol (vitamin D2) 1,250 1,250 mcg PO WEEKLY #12 caps 04/19/23 Rx mcg (50,000 unit) capsule gabapentin 300 mg capsule 300 mg PO HS #90 caps 04/20/23 Rx Patient hx anesthesia problems: none Family hx anesthesia problems: none Results Review: All pre-operative results and documents have been reviewed as part of the pre-operative evaluation. [facility] Past Medical History Medical History Alcoholic cirrhosis Atrophy of left kidney Chronic interstitial lung disease Chronic low back pain Chronic right shoulder pain CKD (chronic kidney disease) stage 3, GFR 30-59 ml/min Closed fracture of orbital wall (~12/2021) Depression Diastolic dysfunction Echocardiogram 12/2021: EF 65 did 70%, grade 1 diastolic dysfunction Emphysema lung Fracture of scapula (~12/2021) GERD (gastroesophageal reflux disease) Rheumatoid arthritis Thrombocytopenia Surgical History Surgical History History of esophagogastroduodenoscopy (EGD) History of tonsillectomy History of uvulopalatopharyngoplasty Family History Family History Mother Hypertension Diabetes mellitus Depression Anxiety Heart disease Thyroid disease Father Emphysema lung Lung cancer Social History Social History Social History: The patient lives with his of 22 years. He used to work in [employer] and is attempting to apply for disability. He is a recovering alcoholic and has not had a drink since November of 2020. He still smokes 1-2 packs of cigarettes per day and has done so since he was 15. He occasionally will use THC gummy. He reports that he has experimented with all illicit substances in the past but has otherwise not had continuous use. The patient is are raising the patient's 13-year-old son after the patient's daughter of a heroin overdose when his grandson was 6-month-old. They have a large dog and 2 cats at home. Code status: Full code Surrogate decision maker: Smoking packs per day: 1 Smoking cigarettes per day: 20.0 Years smoked: 46 Smoking pack-years: 46.00 Smoking status: Current every day smoker Tobacco type: cigarettes Second hand tobacco smoke exposure: Yes Additional smoking assessment comments: USED TO SMOKE 2PPD, NOW 1PPD Alcohol intake: former Alcohol use details: BEEN SOBER SINCE NOVEMBER 2020 Substance use: current Substance use type: other Other substance usage details: OCCASIONAL GUMMY FOR PAIN Lack of Transportation: No Lack of Food: Never True Current Housing: I Have [place]
--- NOTE | 2023-04-30 08:16 | PM.HPGS ---
History of Present Illness History of Present Illness Consent: Risks, benefits, and alternatives have been discussed and questions answered. Patient agrees to proceed with procedure. Chief complaint: ulcer of esophagus, alcoholic cirrhosis of liver Narrative: Jose Rafael Chavez Jr. is a 57 year old male with history of alcoholic cirrhosis- abstinent now and severe erosive esophagitis 12/2022 better on ppi. Review of Systems Constitutional: Constitutional: Denies headache(s) and Denies weakness Eyes: Eyes: Denies blurry vision ENT: Reports Normal hearing present, Denies headache(s) and Denies neck pain Cardiovascular: Cardiovascular: Denies chest pain and Denies dyspnea Respiratory: Respiratory: Denies dyspnea Gastrointestinal: Gastrointestinal: Reports no additional gastrointestinal complaints Genitourinary: Genitourinary: Denies dysuria Musculoskeletal: Musculoskeletal: Denies neck pain Integumentary/Breasts: Skin/Breast: Denies dry skin Neurologic: Reports Normal hearing present, Denies headache(s) and Denies weakness Psychiatric: Psychiatric: Denies anxiety Endocrine: Endocrine: Denies change in body appearance Hematologic/Lymphatic: Hematologic/Lymphatic: Denies easy bleeding Allergic/Immunologic: Allergic/Immunologic: Denies urticaria PMF Past Medical History Medical History (Updated 04/30/23 @ 08:17 by Murray Villanueva MD) Alcoholic cirrhosis Atrophy of left kidney Chronic interstitial lung disease Chronic low back pain Chronic right shoulder pain CKD (chronic kidney disease) stage 3, GFR 30-59 ml/min Closed fracture of orbital wall (~12/2021) Depression Diastolic dysfunction Echocardiogram 12/2021: EF 65 did 70%, grade 1 diastolic dysfunction Emphysema lung Erosive esophagitis Fracture of scapula (~12/2021) GERD (gastroesophageal reflux disease) Rheumatoid arthritis Thrombocytopenia Surgical History Surgical History History of esophagogastroduodenoscopy (EGD) History of tonsillectomy History of uvulopalatopharyngoplasty Family History Family History Mother Hypertension Diabetes mellitus Depression Anxiety Heart disease Thyroid disease Father Emphysema lung Lung cancer Social History Social History Social History: The patient lives with his of 22 years. He used to work in [employer] and is attempting to apply for disability. He is a recovering alcoholic and has not had a drink since November of 2020. He still smokes 1-2 packs of cigarettes per day and has done so since he was 15. He occasionally will use THC gummy. He reports that he has experimented with all illicit substances in the past but has otherwise not had continuous use. The patient is are raising the patient's 13-year-old son after the patient's daughter of a heroin overdose when his grandson was 6-month-old. They have a large dog and 2 cats at home. Code status: Full code Surrogate decision maker: Smoking packs per day: 1 Smoking cigarettes per day: 20.0 Years smoked: 46 Smoking pack-years: 46.00 Smoking status: Current every day smoker Tobacco type: cigarettes Second hand tobacco smoke exposure: Yes Additional smoking assessment comments: USED TO SMOKE 2PPD, NOW 1PPD Alcohol intake: former Alcohol use details: BEEN SOBER SINCE NOVEMBER 2020 Substance use: current Substance use type: other Other substance usage details: OCCASIONAL GUMMY FOR PAIN Lack of Transportation: No Lack of Food: Never True Current Housing: I Have Housing Concerned About Future Housing: No Difficulty Paying Gas/Electric Bills: No Difficulty Paying for Meds: No Currently Unemployed: No Education: High School Diploma/GED Difficulty w/ Childcare or Family Care: No Living arrangements: with family
[2023-04-30 08:34] VITALS: BP 87/52; PULSE 79; RESP 22; O2SAT 100
[2023-04-30 08:44] VITALS: BP 86/49; PULSE 70; RESP 20; O2SAT 100
[2023-04-30 08:54] VITALS: BP 101/63; PULSE 70; RESP 24; O2SAT 100
== END 2023-04-30 09:10 | disposition home or self-care (01) ==
PROVIDERS: PCP Family Medicine; Visit Provider Internal Medicine Gastroenterology
PROC: 0DJ08ZZ Inspection of Upper Intestinal Tract, Via Natural or Artificial Opening Endoscopic (ICD-10-PCS; CPT 43235; principal; 2023-04-30 08:30)
DX: K70.30 Alcoholic cirrhosis of liver without ascites (principal); I85.10 Secondary esophageal varices without bleeding; K44.9 Diaphragmatic hernia without obstruction or gangrene; K29.70 Gastritis, unspecified, without bleeding; K21.9 Gastro-esophageal reflux disease without esophagitis; J84.9 Interstitial pulmonary disease, unspecified; N18.30 Chronic kidney disease, stage 3 unspecified; I51.89 Other ill-defined heart diseases; M06.9 Rheumatoid arthritis, unspecified; J43.9 Emphysema, unspecified; F32.A Depression, unspecified; F10.21 Alcohol dependence, in remission; F17.210 Nicotine dependence, cigarettes, uncomplicated; F12.90 Cannabis use, unspecified, uncomplicated
CPT/HCPCS: 43239; 88305; J2704; J7120

== ENCOUNTER 2023-08-08 14:00 | Outpatient (CLI) | payer BC, SELFPAY ==
[2023-08-08 14:23] LABS: Hematocrit 33.1 % (42.0-52.0); Hemoglobin 10.2 g/dL (14.0-18.0); Mean Corpuscular HGB Conc 30.8 g/dl (32-36); Mean Corpuscular Hemoglobin 29.3 pg (26-34); Mean Corpuscular Volume 95.1 fl (80-100); Mean Platelet Volume 11.2 fl (7.4-10.4); Platelet Count Result 156 k/mm3 (150-375); Red Blood Count 3.48 M/mm3 (4.6-6.20); Red Cell Distribution Width 18.3 % (11.5-14.5)
[2023-08-08 14:28] LABS: Appearance Urine Clear (Clear); Bacteria Urine None Seen /hpf; Bilirubin Urine Negative (Negative); Blood Urine Negative (Negative); Color Urine Yellow (Yellow); Glucose Urine UA Negative (Negative); Ketones Urine Negative (Negative); Leukocyte Esterase Ur Negative LEU/UL (NEGATIVE); Nitrate Urine Negative (Negative); Non Pathogenic Casts 0-2; Protein Urine Trace mg/dL (Negative); RBC Urine 0-2 /hpf (0-2); Squamous Epithelial Cell Urine None seen /hpf (Few); Urobilinogen Urine 0.2 mg/dL (<2.0); WBC Urine 0-5 /hpf (0-3); pH Urine 6.5 (5.0-9.0)
[2023-08-08 14:31] LABS: Creatinine Urine 79.3 mg/dL; Total Protein Urine Random 28 mg/dL; Ur Ttl Prot Creatinine Ratio 0.35 mg/mg (0-0.20)
[2023-08-08 14:32] LABS: Albumin Level 3.6 g/dL (3.5-5.1); Anion Gap 10 mmol/L (8-16); Blood Urea Nitrogen 13 mg/dL (9-20); Calcium 8.9 mg/dL (8.4-10.2); Carbon Dioxide 25 mmol/L (22-30); Chloride 102 mmol/L (98-107); Estimated Glomerular Filt Rate 29; Glucose 114 mg/dL (65-110); Potassium 3.4 mmol/L (3.4-5.0); Sodium 137 mmol/L (137-145)
[2023-08-08 14:41] LABS: Add Urine Microscopic? YES
[2023-08-08 14:44] LABS: Parathyroid Intact 59.7 pg/mL (7.5-53.5)
== END 2023-08-08 14:01 | disposition home or self-care (01) ==
LOC: ANHLAB 14:01
PROVIDERS: PCP Family Medicine; Visit Provider Internal Medicine Nephrology
DX: R82.81 Pyuria (principal); N18.32 Chronic kidney disease, stage 3b
CPT/HCPCS: 36415; 80069; 81001; 82570; 83970; 84156; 85027; 87086

== ENCOUNTER 2023-08-28 09:51 | Outpatient (CLI) | payer BC, SELFPAY ==
--- NOTE | ~2023-08-28 | US_ITS ---
Limited Abdominal Sonogram: Real-time sonographic imaging of the right upper quadrant was performed. Clinical History: Alcoholic cirrhosis Findings: The liver appears mildly heterogeneous, with no evidence of mass lesion or bile duct dilat ation. Main portal vein demonstrates normal direction of flow. The gallbladder is well distended, wit h probable small layering stones/debris. The common bile duct measures 5 mm. The visualized pancreas , aorta, and IVC are unremarkable. Spleen is upper limits of normal in size. Impression: Cholelithiasis. Heterogeneous hepatic echotexture. Correlate for fatty infiltration or other chronic liver disease. Reviewed, dictated and finalized at [facility]. PAD INSPECTOR Impression: Cholelithiasis. Heterogeneous hepatic echotexture. Correlate for fatty infiltration or other ch ronic liver disease.
== END 2023-08-28 09:52 | disposition home or self-care (01) ==
PROVIDERS: PCP Family Medicine; Visit Provider Internal Medicine Gastroenterology
DX: D69.6 Thrombocytopenia, unspecified (principal); K70.30 Alcoholic cirrhosis of liver without ascites; K80.20 Calculus of gallbladder without cholecystitis without obstruction
CPT/HCPCS: 76705

== ENCOUNTER 2023-10-30 12:53 | Outpatient (CLI) | payer BC, SELFPAY ==
[2023-10-30 13:34] LABS: Hematocrit 35.8 % (42.0-52.0); Hemoglobin 10.7 g/dL (14.0-18.0); Mean Corpuscular HGB Conc 29.9 g/dl (32-36); Mean Corpuscular Hemoglobin 27.5 pg (26-34); Mean Platelet Volume 11.6 fl (7.4-10.4); Platelet Count Result 200 k/mm3 (150-375); Red Blood Count 3.89 M/mm3 (4.6-6.20); Red Cell Distribution Width 14.9 % (11.5-14.5); White Blood Count 6.6 K/mm3 (4.5-10.0)
[2023-10-30 13:45] LABS: Phosphorus 3.6 mg/dL (2.5-4.5)
[2023-10-30 13:46] LABS: Alanine Aminotransferase 15 U/L (6-50); Albumin Level 3.7 g/dL (3.5-5.1); Alkaline Phosphatase 200 U/L (38-126); Anion Gap 8 mmol/L (8-16); Aspartate Amino Transferase 42 U/L (17-59); Bilirubin,Total 0.7 mg/dL (0.2-1.3); Blood Urea Nitrogen 16 mg/dL (9-20); CRP 1.8 mg/dL (<1.0); Calcium 9.4 mg/dL (8.4-10.2); Carbon Dioxide 24 mmol/L (22-30); Chloride 105 mmol/L (98-107); Estimated Glomerular Filt Rate 27; Glucose 116 mg/dL (65-110); Potassium 3.6 mmol/L (3.4-5.0); Sodium 137 mmol/L (137-145); Uric Acid 6.7 mg/dL (3.5-8.5)
[2023-10-30 13:56] LABS: Parathyroid Intact 68.8 pg/mL (7.5-53.5)
[2023-10-30 14:09] LABS: Complement C3 108 mg/dL (88-165)
[2023-10-30 14:18] LABS: Erythrocyte Sedimentation Rate 23 mm/hr (0-20)
[2023-10-30 14:21] LABS: Creatinine Urine 67.4 mg/dL; Total Protein Urine Random 34 mg/dL
[2023-10-30 21:37] LABS: Rheumatoid Factor > 120.0 IU/ML (<12)
[2023-10-30 23:41] LABS: Vitamin D 25 Hydroxy 58.4 ng/mL
[2023-10-31 01:32] LABS: Hepatitis B Surface Anti Res Negative; Hepatitis C Virus Antibody Negative (Negative)
[2023-10-31 02:58] LABS: Hepatitis B Surface Antigen Re 0.62 S/C
[2023-10-31 08:38] LABS: Hepatitis B Surface Antigen Negative (Negative)
[2023-10-31 16:57] LABS: Phosphorus 3.7 mg/dL (2.5-4.5)
[2023-11-01 15:59] LABS: NIL 0.05 IU/mL; Quantiferon TB Plus, 1T NEGATIVE (NEGATIVE); TB1-NIL 0.03 IU/mL
[2023-11-01 21:13] LABS: Hexagonal Phase Confirm Positive (Negative); Lupus dRVVT 1:1 Mix Interpreta Positive; Lupus dRVVT Confirmation Positive (Negative)
[2023-11-01 21:47] LABS: Lupus dRVVT Screen 61 sec (<=45); PTT-LA Screen 44 sec (<=40)
[2023-11-02 20:10] LABS: Anti Cyclic Citrullinated Pept >250 Units (<20)
[2023-11-03 12:03] LABS: SM Antibody <1.0; SM/RNP Antibody <1.0; SS-A 1.5; SS-B <1.0
== END 2023-10-30 12:54 | disposition home or self-care (01) ==
PROVIDERS: PCP Family Medicine; Referring Provider Internal Medicine; Visit Provider Internal Medicine Nephrology
DX: N18.31 Chronic kidney disease, stage 3a (principal); E55.9 Vitamin D deficiency, unspecified; J44.9 Chronic obstructive pulmonary disease, unspecified; J84.9 Interstitial pulmonary disease, unspecified; K22.10 Ulcer of esophagus without bleeding; M06.9 Rheumatoid arthritis, unspecified; M19.90 Unspecified osteoarthritis, unspecified site; M06.041 Rheumatoid arthritis without rheumatoid factor, right hand; M06.042 Rheumatoid arthritis without rheumatoid factor, left hand
CPT/HCPCS: 36415; 80053; 82306; 82570; 83970; 84100; 84156; 84550; 85027; 85597; 85598; 85613; 85652; 85670; 85730; 86038; 86140; 86160; 86200; 86225; 86235; 86430; 86480; 86706; 86803; 87340

== ENCOUNTER 2023-11-07 12:45 | Outpatient (CLI) | payer BC, SELFPAY ==
--- NOTE | ~2023-11-07 | XR_ITS ---
EXAMINATION: XR foot LT standing 2V DATE: 11/07/2023 13:32 INDICATION: Rheumatoid arthritis, unspecified. TECHNIQUE: 2 views of left foot standing were obtained. COMPARISON: Left ankle radiographs 07/12/2013 FINDINGS: Bone alignment is normal. No fracture. There is mild osteoarthritis of first metatarsophala ngeal joint and many of the interphalangeal joints and midfoot joints. There are enthesophytes at the posterior and plantar aspects of calcaneal tuberosity. IMPRESSION: 1. Mild polyarticular osteoarthritis. Reviewed, dictated and finalized at location E. IAL EDUCATION TEACHING ASSISTANT
--- NOTE | ~2023-11-07 | CT_ITS ---
EXAMINATION:CT chest high resolution wo co DATE: 11/07/2023 13:22 INDICATION: Interstitial pulmonary disease, unspecified. Rheumatoid arthritis. TECHNIQUE: Computed tomography (CT) of the chest was performed without intravenous contrast. Automate d exposure control and iterative reconstruction technique were employed. The dose-length product (DLP ) was 291.62 mGy-cm. COMPARISON: CT abdomen and pelvis 01/11/2023, chest 2 views 01/11/2023, chest CT 11/07/23 FINDINGS: There is severe emphysema. There is widespread peripheral septal thickening in the lungs. T here are dependent airspace and groundglass opacities in the lower lobes, likely atelectasis. There i s a 7 mm nodule left upper lobe abutting the mediastinum. Calcified pulmonary nodules and calcified r ight hilar and mediastinal lymph nodes are consistent with old granulomatous disease. No pleural effu amanda. The heart size is normal. There are coronary artery calcifications. No pericardial effusion. Th ere is wall thickening of distal esophagus. Paraesophageal varices are noted. Calcifications in the l iver and spleen are consistent with old granulomatous disease. There are gallstones in the gallbladde r. Partially visualized is severe atrophy of left kidney with parenchymal calcifications and severe l eft hydronephrosis. There is a 4 mm left kidney stone. T5, T6, T8, T9, T10, T11, T12. IMPRESSION: 1. 7 mm pulmonary nodule, new from 06/21/2010, probably benign. Noncontrast low-dose chest CT is recom mended in 6 months. 2. Diffuse lung disease with mild worsening from 01/11/2023, likely a combination of severe emphysema and chronic interstitial lung disease. 3. Wall thickening of the distal esophagus again seen, consistent with interstitial edema versus esop hagitis. 4. Paraesophageal varices. 5. Severe atrophy of left kidney. Chronic severe left hydronephrosis. Reviewed, dictated and finalized at location E. VULCANIZER IMPRESSION: 1. 7 mm pulmonary nodule, new from 06/21/2010, probably benign. Noncontrast low- dose chest CT is recommended in 6 months. 2. Diffuse lung disease with mild worsening from 01/11/2023, likely a combinatio n of severe emphysema and chronic interstitial lung disease. 3. Wall thickening of the distal esophagus again seen, consistent with intersti tial edema versus esophagitis. 4. Paraesophageal varices. 5. Severe atrophy of left kidney. Chronic severe left hydronephrosis.
--- NOTE | ~2023-11-07 | XR_ITS ---
EXAMINATION: XR foot RT standing 2V DATE: 11/07/2023 13:32 INDICATION: Rheumatoid arthritis, unspecified. TECHNIQUE: 2 views of right foot standing were obtained. COMPARISON: None. FINDINGS: Pes planus is noted. No fracture. There is mild osteoarthritis of first metatarsophalangeal joint and some of the interphalangeal joints and talonavicular joint. There are enthesophytes at the posterior and plantar aspects of calcaneal tuberosity. IMPRESSION: 1. Pes planus. 2. Mild polyarticular osteoarthritis. Reviewed, dictated and finalized at location E. [place] PRODUCT ADVISOR
--- NOTE | ~2023-11-07 | XR_ITS ---
EXAMINATION: XR hand BI arthritis min 3V DATE: 11/07/2023 13:32 INDICATION: Rheumatoid arthritis, unspecified. TECHNIQUE: 4 views of right hand and 4 views of left hand on a total of 7 radiographs were obtained. COMPARISON: Left wrist radiographs 12/23/2021 FINDINGS: RIGHT HAND: Bone alignment is normal. No acute fracture. There is an old healed fracture of neck of f ifth metacarpal. There is mild osteoarthritis of triscaphe joint, first carpometacarpal joint, and mo st of the metacarpophalangeal joints and interphalangeal joints. There are approximately 4 radiopaque foreign bodies measuring up to 3 mm radial to second distal phalanx. LEFT HAND: Bone alignment is normal. No fracture. There is mild osteoarthritis of triscaphe joint, fi rst carpometacarpal joint, and most of the metacarpophalangeal joints and interphalangeal joints. IMPRESSION: 1. Mild polyarticular osteoarthritis. No evidence of inflammatory arthropathy. 2. Radiopaque foreign bodies in right second digit. Reviewed, dictated and finalized at location E. ES 7 AND 8 TEACHER
[2023-11-07 13:12] LABS: Estimated Glomerular Filt Rate 22
== END 2023-11-07 12:46 ==
PROVIDERS: PCP Internal Medicine; Visit Provider Internal Medicine
DX: J84.9 Interstitial pulmonary disease, unspecified (principal); J43.9 Emphysema, unspecified; M06.9 Rheumatoid arthritis, unspecified; M19.041 Primary osteoarthritis, right hand; M19.042 Primary osteoarthritis, left hand; M19.071 Primary osteoarthritis, right ankle and foot; M19.072 Primary osteoarthritis, left ankle and foot; R91.1 Solitary pulmonary nodule
CPT/HCPCS: 71250; 73130; 73620

== ENCOUNTER 2023-12-04 10:34 | Outpatient (CLI) | payer BC, SELFPAY ==
[2023-12-12 13:11] LABS: Aspergillus fumigatus NEGATIVE (NEGATIVE)
== END 2023-12-04 10:35 | disposition home or self-care (01) ==
LOC: ANHLAB 10:36
PROVIDERS: PCP Internal Medicine; Visit Provider Internal Medicine Critical Care Medicine
DX: J84.9 Interstitial pulmonary disease, unspecified (principal)
CPT/HCPCS: 36415

== ENCOUNTER 2024-01-15 12:43 | Outpatient (CLI) | payer BC, SELFPAY ==
[2024-01-15 13:51] LABS: Creatinine Urine 114.5 mg/dL; Total Protein Urine Random 23 mg/dL
[2024-01-15 14:00] LABS: Hematocrit 36.3 % (42.0-52.0); Hemoglobin 11.1 g/dL (14.0-18.0); Mean Corpuscular HGB Conc 30.6 g/dl (32-36); Mean Corpuscular Hemoglobin 25.7 pg (26-34); Mean Platelet Volume 10.9 fl (7.4-10.4); Platelet Count Result 208 k/mm3 (150-375); Red Blood Count 4.32 M/mm3 (4.6-6.20); Red Cell Distribution Width 15.9 % (11.5-14.5); White Blood Count 6.2 K/mm3 (4.5-10.0)
[2024-01-15 14:17] LABS: Albumin Level 3.5 g/dL (3.5-5.1); Anion Gap 8 mmol/L (4-12); Blood Urea Nitrogen 13 mg/dL (9-20); Calcium 8.9 mg/dL (8.4-10.2); Carbon Dioxide 21 mmol/L (22-30); Chloride 108 mmol/L (98-107); Estimated Glomerular Filt Rate 27; Glucose 111 mg/dL (65-110); Phosphorus 2.8 mg/dL (2.5-4.5); Potassium 3.3 mmol/L (3.4-5.0); Sodium 137 mmol/L (137-145)
[2024-01-15 14:28] LABS: Parathyroid Intact 59.7 pg/mL (7.5-53.5)
--- NOTE | 2024-01-15 16:48 | WPDSIXMINUTE ---
Six Minute Walk Procedure Procedure Performed Pulmonary Stress Test (6 min walk) Six Minute Walk Six Minute Walk: This is a 6 minute walk test. The test was performed and interpreted in accordance with the 2014 ERS/ATS task force guidelines. Findings: The patient's resting room air oxygen saturation measured by pulse oximetry was 95% and heart rate was 113 bpm. Patient ambulated for 136 meters and oxygen saturation remained 91 to 93%. Heart rate at the end of the study was 130 bpm. The patient did not qualify for supplemental oxygen at rest or with ambulation. There are no prior studies for comparison.
--- NOTE | 2024-01-15 16:49 | WPDPFTINT ---
PFT Procedure Performed PFT Procedure Performed Spirometry with Pre/Post Bronchodilator Plethysmography (Lung Vol) Diffusing Cap (DLCO) Flow Vol Loop PFT Interpretation This is a pulmonary function test with pre and post-bronchodilator spirometry, plethysmography and diffusing capacity. The test was performed and results interpreted in accordance with the 2019 and 2005 ATS/ERS Task Force guidelines respectively using the Global Lung Function Initiative-2012 reference equations. Patient demonstrated good effort and cooperation. Reproducibility criteria were met. The quality of the pre bronchodilator spirometry maneuver was Grade A and post bronchodilator spirometry maneuver was Grade A. Findings: Spirometry: There is decreased maximal expiratory airflow with a mildly concave expiratory flow tracing. The contour the inspiratory flow tracing is normal. The pre bronchodilator FVC is 3.36 L, 77% predicted. The pre bronchodilator FEV1 is 2.23 L, 65% predicted. The pre bronchodilator FEV1: FVC ratio 67%. The post bronchodilator FVC is 3.45 L, representing a 3% increase. The post bronchodilator FEV1 is 2.37 L, representing a 6% increase. The post bronchodilator FEV1: FVC ratio 69%. Plethysmography: The total lung capacity is 4.84 L, 73% predicted. The functional residual capacity is 2.01 L, 59% predicted. The residual volume is 1.44 L, 68% predicted. Diffusing capacity: The diffusing capacity unadjusted for hemoglobin and carboxyhemoglobin is 8.1, 29% predicted. The diffusing capacity adjusted for alveolar volume is 1.74, 40% predicted. Impression: There is a combined obstructive and restrictive ventilatory abnormality. There are no guidelines to assign the severity of obstruction and restriction with a combined abnormality. In my opinion, given the mildly concave expiratory flow tracing, mildly decreased FEV1: FVC ratio and mild restrictive abnormality I would state there is a mild obstructive abnormality and a mild restrictive abnormality resulting in a moderate decrease in the FEV1. There is no significant improvement after inhaling a single dose of albuterol. The diffusing capacity unadjusted for hemoglobin and carboxyhemoglobin is severely decreased and remains moderately decreased when adjusted for alveolar volume. There are no prior studies for comparison
== END 2024-01-15 12:44 | disposition home or self-care (01) ==
PROVIDERS: PCP Family Medicine; Referring Provider Internal Medicine Nephrology; Visit Provider Internal Medicine Critical Care Medicine
DX: N18.32 Chronic kidney disease, stage 3b (principal); J84.9 Interstitial pulmonary disease, unspecified; J44.9 Chronic obstructive pulmonary disease, unspecified; R94.2 Abnormal results of pulmonary function studies
CPT/HCPCS: 36415; 80069; 82570; 83970; 84156; 85027; 94060; 94618; 94726; 94729

== ENCOUNTER 2024-03-10 08:23 | Outpatient (CLI) | payer BC, SELFPAY ==
--- NOTE | ~2024-03-10 | US_ITS ---
EXAMINATION: US right upper quadrant DATE: 03/10/2024 09:10 INDICATION: Alcoholic cirrhosis of liver without ascites. TECHNIQUE: Multiple grayscale and Doppler ultrasound images of the abdomen were obtained. COMPARISON: Ultrasound 08/28/2023, chest CT 11/07/2023 FINDINGS: The visualized portions of the head and body of the pancreas are normal. There is liver chavo face nodularity, consistent with cirrhosis. There is normal flow in main portal vein. The gallbladder is normal in size and contains gallstones. No gallbladder wall thickening or sonographic Sprague sign . The common duct is normal and measures 3 mm. IMPRESSION: 1. Cirrhosis of the liver. 2. Cholelithiasis. Reviewed, dictated and finalized at location A.
[2024-03-10 10:37] LABS: Hematocrit 36.2 % (42.0-52.0); Hemoglobin 10.6 g/dL (14.0-18.0); Mean Corpuscular HGB Conc 29.3 g/dl (32-36); Mean Corpuscular Hemoglobin 25.1 pg (26-34); Mean Corpuscular Volume 85.6 fl (80-100); Mean Platelet Volume 11.1 fl (7.4-10.4); Platelet Count Result 240 k/mm3 (150-375); Red Blood Count 4.23 M/mm3 (4.6-6.20); Red Cell Distribution Width 15.9 % (11.5-14.5); White Blood Count 6.9 K/mm3 (4.5-10.0)
[2024-03-10 10:49] LABS: Alanine Aminotransferase 13 U/L (6-50); Albumin Level 3.6 g/dL (3.5-5.1); Alkaline Phosphatase 202 U/L (38-126); Anion Gap 9 mmol/L (4-12); Aspartate Amino Transferase 32 U/L (17-59); Bilirubin,Total 0.8 mg/dL (0.2-1.3); Blood Urea Nitrogen 11 mg/dL (9-20); Calcium 8.8 mg/dL (8.4-10.2); Carbon Dioxide 24 mmol/L (22-30); Chloride 104 mmol/L (98-107); Estimated Glomerular Filt Rate 25; Glucose 89 mg/dL (65-110); INR 1.1; Phosphorus 3.2 mg/dL (2.5-4.5); Potassium 3.8 mmol/L (3.4-5.0); Prothrombin Time 14.2 Seconds (11.1-14.7); Sodium 137 mmol/L (137-145)
== END 2024-03-10 08:24 | disposition home or self-care (01) ==
PROVIDERS: PCP Family Medicine; Referring Provider Internal Medicine Nephrology; Visit Provider Internal Medicine Gastroenterology
DX: K70.30 Alcoholic cirrhosis of liver without ascites (principal); K80.20 Calculus of gallbladder without cholecystitis without obstruction
CPT/HCPCS: 36415; 76705; 80053; 84100; 85027; 85610

== ENCOUNTER 2024-04-30 20:18 | Emergency (ER) | payer BC, SELFPAY ==
[2024-04-30 20:31] VITALS: BP 135/95; PULSE 95; RESP 15; TEMP 36.4; O2SAT 100
[2024-04-30 20:58] LABS: Basophils Absolute Auto 0.1 K/mm3 (0.0-0.1); Basophils Percent Auto 0.9 % (0.2-1.2); Eosinophils Absolute Auto 0.1 K/mm3 (0-0.3); Eosinophils Percent Auto 0.7 % (0-4.4); Hematocrit 37.9 % (42.0-52.0); Hemoglobin 11.5 g/dL (14.0-18.0); Immature Granulocyte Absolute 0.02 K/mm3 (0.00-0.031); Immature Granulocyte Percent A 0.3 % (0-0.5); Lymphocytes Absolute Auto 1.72 K/mm3 (0.9-3.2); Lymphocytes Percent Auto 22.6 % (18.3-44.2); Mean Corpuscular HGB Conc 30.3 g/dl (32-36); Mean Corpuscular Hemoglobin 25.7 pg (26-34); Mean Corpuscular Volume 84.8 fl (80-100); Mean Platelet Volume 11.6 fl (7.4-10.4); Monocytes Absolute Auto 0.5 K/mm3 (0.1-0.6); Monocytes Percent Auto 6.7 % (2.6-8.5); Neutrophils Absolute Auto 5.2 K/mm3 (1.3-6.7); Neutrophils Percent Auto 68.8 % (45.5-73.1); Platelet Count Result 221 k/mm3 (150-375); Red Blood Count 4.47 M/mm3 (4.6-6.20); Red Cell Distribution Width 17.2 % (11.5-14.5); White Blood Count 7.6 K/mm3 (4.5-10.0)
[2024-04-30 21:09] LABS: Alanine Aminotransferase 15 U/L (6-50); Albumin Level 3.5 g/dL (3.5-5.1); Alkaline Phosphatase 219 U/L (38-126); Anion Gap 12 mmol/L (4-12); Aspartate Amino Transferase 41 U/L (17-59); Bilirubin,Total 0.9 mg/dL (0.2-1.3); Blood Urea Nitrogen 8 mg/dL (9-20); Calcium 9.1 mg/dL (8.4-10.2); Carbon Dioxide 23 mmol/L (22-30); Chloride 100 mmol/L (98-107); Estimated CRCL calculation 30 ml/min; Estimated Glomerular Filt Rate 28; Glucose 105 mg/dL (65-110); Lipase 109 U/L (23-300); Potassium 3.5 mmol/L (3.4-5.0); Sodium 135 mmol/L (137-145)
--- NOTE | 2024-04-30 21:25 | ED.NAVMDI ---
HPI - Nausea/Vomiting/Diarrhea General Chief complaint: Nausea/Vomiting/Diarrhea Stated complaint: n/v/d Time Seen by Provider: 04/30/24 21:11 Source: patient and family () Mode of arrival: ambulatory Limitations: no limitations History of Present Illness HPI Narrative: 58-year-old male presents with nausea, vomiting, and diarrhea of 4 days duration. He states he quit drinking 4 years ago but is symptoms are similar to when he used to drink. He has had 5 to 10 episodes of emesis and diarrhea per day. He denies any blood in either. He has not been taking his Protonix as he is out and the of refills at the pharmacy waiting to be picked up. He has not been taking any of his medications since he cannot keep anything down. He has been trying to eat teat and donuts. He also trialed Pepto-Bismol. He denies any abdominal pain, fevers, or chills. He does have a history of esophageal varices and history of cirrhosis. No recent antibiotics. He does state he is intermittently on steroids for his rheumatoid arthritis but none recently though he is supposed to go on some soon. Related Data Home Medications Medication Instructions Recorded Confirmed pantoprazole 40 mg tablet,delayed 40 mg PO DAILY 10/24/23 03/06/24 release abatacept 125 mg/mL subcutaneous 125 mg subcut WEEKLY 02/12/24 03/06/24 auto-injector (Orencia ClickJect) Allergies Allergy/AdvReac Type Severity Reaction Status Date / Time vancomycin AdvReac Severe Other Verified 03/06/24 11:04 [place] AdvReac Mild SHORTNESS Uncoded 03/06/24 11:04 OF BREATH PMFSH Past Medical History Medical History Alcoholic cirrhosis Anxiety Atrophy of left kidney Chronic interstitial lung disease Chronic low back pain Chronic right shoulder pain CKD (chronic kidney disease) stage 3, GFR 30-59 ml/min Closed fracture of orbital wall (~12/2021) Diastolic dysfunction Echocardiogram 12/2021: EF 65 did 70%, grade 1 diastolic dysfunction Emphysema lung Erosive esophagitis Esophageal varices determined by endoscopy Fracture of scapula (~12/2021) GERD (gastroesophageal reflux disease) Rheumatoid arthritis Thrombocytopenia Vitamin D deficiency Surgical History Surgical History History of esophagogastroduodenoscopy (EGD) History of tonsillectomy History of uvulopalatopharyngoplasty Family History Family History Mother Hypertension Diabetes mellitus Depression Anxiety Heart disease Thyroid disease Father Emphysema lung Lung cancer Social History Social History Social History: The patient lives with his of 22 years. He used to work in [employer] and is attempting to apply for disability. He is a recovering alcoholic and has not had a drink since November of 2020. He still smokes 1-2 packs of cigarettes per day and has done so since he was 15. He occasionally will use THC gummy. He reports that he has experimented with all illicit substances in the past but has otherwise not had continuous use. The patient is are raising the patient's 13-year-old son after the patient's daughter of a heroin overdose when his grandson was 6-month-old. They have a large dog and 2 cats at home. Code status: Full code Surrogate decision maker: Caffeine-Coffee/tea Years smoked: 46 Smoking status: Former smoker Tobacco type: cigarettes Second hand tobacco smoke exposure: Yes Smoking end date: 12/31/23 Additional smoking assessment comments: USED TO SMOKE 2PPD, NOW 1PPD Alcohol intake: former Alcohol use details: BEEN SOBER SINCE NOVEMBER 2020 Substance use: current Substance use type: does not use Do You Feel Safe in your Home?: Yes Lack of Transportation: No Lack of Food: Never True Current Housing: I
[2024-04-30 22:16] LABS: Magnesium 1.8 mg/dL (1.6-2.3)
[2024-04-30] MEDS: ONDANSETRON INJ 4 MG/2 ML VIAL IV PUSH (22:17)
[2024-04-30] MEDS: PANTOPRAZOLE SODIUM IV 40 MG VIAL IV PUSH (22:17)
[2024-04-30] MEDS: SODIUM CHLORIDE 0.9% IV 1,000 ML 999 ML IV CONT ×2 (22:18→23:59)
[2024-04-30 22:58] VITALS: BP 130/89; PULSE 81; RESP 13; O2SAT 97
[2024-04-30 23:02] LABS: Add Urine Microscopic? YES; Appearance Urine Clear (Clear); Bacteria Urine None Seen /hpf; Bilirubin Urine Negative (Negative); Blood Urine Negative (Negative); Color Urine Yellow (Yellow); Glucose Urine UA Negative (Negative); Ketones Urine Negative (Negative); Leukocyte Esterase Ur Negative LEU/UL (Negative); Nitrate Urine Negative (Negative); Non Pathogenic Casts 0-2; Protein Urine Trace mg/dL (Negative); RBC Urine 0-2 /hpf (0-2); Specific Grav Ur 1.012 (1.001-1.035); Squamous Epithelial Cell Urine None Seen /hpf (Few); Urobilinogen Urine 0.2 mg/dL (<2.0); WBC Urine 0-5 /hpf (0-3)
[2024-05-01] MEDS: PROCHLORPERAZINE EDISYLATE 10 MG/2 ML VIAL IV PUSH (00:02)
[2024-05-01 00:06] LABS: Influenza A QL RT-PCR Negative (Negative); Influenza B QL RT-PCR Negative (Negative); SARS-CoV-2 RNA PCR Negative (Negative)
== END 2024-05-01 01:05 | disposition home or self-care (01) ==
PROVIDERS: Emergency Provider Student in an Organized Health Care Education/Training Program; PCP Family Medicine
DX: K52.9 Noninfective gastroenteritis and colitis, unspecified (principal); K70.30 Alcoholic cirrhosis of liver without ascites; D64.9 Anemia, unspecified; N18.30 Chronic kidney disease, stage 3 unspecified; R74.8 Abnormal levels of other serum enzymes; Z20.822 Contact with and (suspected) exposure to COVID-19; J84.9 Interstitial pulmonary disease, unspecified; J43.9 Emphysema, unspecified; E55.9 Vitamin D deficiency, unspecified; M06.9 Rheumatoid arthritis, unspecified; K21.9 Gastro-esophageal reflux disease without esophagitis; F41.9 Anxiety disorder, unspecified; F17.210 Nicotine dependence, cigarettes, uncomplicated; Z79.899 Other long term (current) drug therapy
CPT/HCPCS: 36415; 80053; 81001; 83690; 83735; 85025; 87636; 96361; 96374; 96375; 99284; J0780; J1885; J2405; J2470; J7030

== ENCOUNTER 2024-05-28 12:37 | Outpatient (CLI) | payer BC, SELFPAY ==
--- NOTE | ~2024-05-28 | CT_ITS ---
EXAMINATION: CT diagnostic chest wo con DATE: 05/28/2024 12:58 INDICATION: nodule, ILD TECHNIQUE: Computed tomography (CT) of the chest was performed without intravenous contrast. Addition al 3D reconstructions utilizing coronal maximum intensity projection (MIP) were performed. Automated exposure control and iterative reconstruction technique were employed. The dose-length product was 13 7.08 mGy-cm. COMPARISON: 11/07/2023 FINDINGS: Chronic elevation of the left hemidiaphragm. Stable appearance of moderate paraseptal and upper lung predominant emphysema with associated septal thickening. Mild discoid atelectasis at the lingula. No change in a 6 mm pleural-based nodule along the paramediastinal anterior left upper lobe. Calcified p erihilar right middle lobe nodules along with calcified right hilar and mediastinal lymph nodes and s cattered small hepatic and splenic calcific lesions, all consistent with old granulomatous disease. N o new or enlarging pulmonary nodules identified. No pneumonia, pulmonary edema or pleural effusion. H eart size is normal. Atherosclerotic coronary artery calcific lesion. No pericardial effusion. Thorac ic aorta is normal in caliber. No pathologically enlarged thoracic lymphadenopathy. Unchanged paraeso phageal varices. Small high attenuation gallstones at the neck and dependent aspect of the otherwise normal gallbladder. Severe left renal atrophy and severe left hydronephrosis with curvilinear calcifi cations but essentially no discernible renal parenchyma at the periphery of the severely dilated left renal collecting system. Multiple chronic compression fractures of the mid to lower thoracic and upp er lumbar spine. IMPRESSION: 1. No interval change in a 6 mm pleural-based pulmonary nodule at the prior mediastinal left upper lo be. Recommend continued follow-up with low-dose noncontrast chest CT in one year. 2. Severe paraseptal and upper lung predominant emphysema with associated chronic interstitial lung d isease. 3. Likely chronic left UPJ obstruction with severe left renal atrophy and severe hydronephrosis. 4. Cholelithiasis. 5. Paraesophageal varices. Reviewed, dictated and finalized at location B. IMPRESSION: 1. No interval change in a 6 mm pleural-based pulmonary nodule at the prior med iastinal left upper lobe. Recommend continued follow-up with low-dose noncontra st chest CT in one year. 2. Severe paraseptal and upper lung predominant emphysema with associated chron ic interstitial lung disease. 3. Likely chronic left UPJ obstruction with severe left renal atrophy and sever e hydronephrosis. 4. Cholelithiasis. 5. Paraesophageal varices.
[2024-05-28 13:45] VITALS: PULSE 86; O2SAT 99
[2024-05-28 13:50] VITALS: PULSE 128; O2SAT 97
[2024-05-28 14:00] VITALS: PULSE 88; O2SAT 99
--- NOTE | 2024-05-28 14:11 | HOMEO2EVAL ---
Evaluation was performed at [facility] Home Oxygen Evaluation RC: Home Oxygen (O2) Evaluation Start: 05/28/24 14:08 Freq: Status: Active Protocol: RPE Activity Type Activity Date Activity User E-sign Co-sign Detail Recorded Client Recorded Date Recorded By Document 05/28/24 13:45 DJO [email or web address] 05/28/24 14:11 DJO Document 05/28/24 13:50 [email or web address] [email or web address] 05/28/24 14:11 DJO Document 05/28/24 14:00 [email or web address] [email or web address] 05/28/24 14:11 DJO 05/28/24 05/28/24 05/28/24 13:45 13:50 14:00 Home O2 Evaluation [Oxygen] -Test Phase Resting Exercise Resting -Oxygen Delivery Room Air Room Air Room Air [Pulse Oximetry] -Pulse Oximetry (90-100 %) 99 97 99 [Pulse Rate] -Pulse Rate (60-100 beats/min) 86 128 H 88 [Evaluation] -Activity Tolerance Fair [Exercise] -Ambulation Distance (feet) 230 -Ambulation Distance (meters) 70.10 [Comments] -Home Oxygen Evaluation Comments PT ORDERED FOR A 6 MINUTE WALK BUT HE WAS ONLY ABLE TO WALK 230 FEET AND HAD TO STOP TEST DUE TO SOB. HE WALKED FOR 3 MINUTES [Charges] -Evaluation Charges O2 Evaluation by Pulmonary
[2024-05-28 15:09] LABS: Hematocrit 41.4 % (42.0-52.0); Hemoglobin 12.6 g/dL (14.0-18.0); Mean Corpuscular HGB Conc 30.4 g/dl (32-36); Mean Corpuscular Hemoglobin 26.9 pg (26-34); Mean Corpuscular Volume 88.5 fl (80-100); Mean Platelet Volume 11.2 fl (7.4-10.4); Platelet Count Result 215 k/mm3 (150-375); Red Blood Count 4.68 M/mm3 (4.6-6.20); Red Cell Distribution Width 18.6 % (11.5-14.5); White Blood Count 10.3 K/mm3 (4.5-10.0)
[2024-05-28 15:16] LABS: Albumin Level 3.5 g/dL (3.5-5.1); Anion Gap 10 mmol/L (4-12); Blood Urea Nitrogen 11 mg/dL (9-20); Calcium 8.9 mg/dL (8.4-10.2); Carbon Dioxide 25 mmol/L (22-30); Chloride 101 mmol/L (98-107); Estimated Glomerular Filt Rate 32; Glucose 97 mg/dL (65-110); Phosphorus 2.5 mg/dL (2.5-4.5); Potassium 3.8 mmol/L (3.4-5.0); Sodium 136 mmol/L (137-145)
[2024-05-28 15:28] LABS: Parathyroid Intact 74.9 pg/mL (14.5-75.2)
[2024-05-28 15:36] LABS: Creatinine Urine 94.7 mg/dL; Total Protein Urine Random 16 mg/dL; Ur Ttl Prot Creatinine Ratio 0.17 mg/mg (0-0.20)
--- NOTE | 2024-05-30 15:38 | WPDPFTINT ---
PFT Procedure Performed PFT Procedure Performed Spirometry with Pre/Post Bronchodilator Plethysmography (Lung Vol) Diffusing Cap (DLCO) Flow Vol Loop PFT Interpretation Lung volumes were measured with the body plethysmography method. The diminished lung volumes are indicative of restrictive respiratory disease. Spirometry showed diminished expiratory flow rates and a normal FEV1 to FVC ratio 67%, consistent with restrictive respiratory disease. Following administration of a bronchodilator there was no significant increase in the expiratory flow rates. Lung diffusion capacity is severely reduced at 31% predicted. The diminished lung diffusion capacity coupled with a diminished alveolar volume, diminished alveolar volume, and diminished DLCO/VA ratio of43% is indicative of loss of alveolar capillary structure with loss of lung volume as seen in emphysema or interstitial lung disease. Impression: Mild restrictive respiratory disease. Severely reduced lung diffusion capacity.
== END 2024-05-28 12:38 | disposition home or self-care (01) ==
PROVIDERS: PCP Family Medicine; Referring Provider Internal Medicine Nephrology; Visit Provider Internal Medicine Critical Care Medicine
DX: R91.1 Solitary pulmonary nodule (principal); N18.4 Chronic kidney disease, stage 4 (severe); R94.2 Abnormal results of pulmonary function studies; K80.20 Calculus of gallbladder without cholecystitis without obstruction
CPT/HCPCS: 36415; 71250; 80069; 82570; 83970; 84156; 85027; 94060; 94618; 94726; 94729

== ENCOUNTER 2024-07-15 11:03 | Inpatient (IN) | payer BC, SELFPAY ==
[2024-07-15] VITALS (9 sets, daily range): BP systolic 95–130; BP diastolic 67–91; PULSE 88–132; RESP 16–20; TEMP 36–36.3; O2SAT 97–100; BMI 25.9
--- NOTE | ~2024-07-15 | XR_ITS ---
Portable chest x-ray Comparison: 07/25/2024 Clinical History: Cough Findings: NG tube in satisfactory position. Extensive chronic appearing interstitial pulmonary diseas e is again present, similar to prior exam. Cardiomediastinal silhouette is stable. Bones and soft ti ssues are unremarkable. Impression: Extensive chronic interstitial disease, similar to prior exam. NG tube in place. Reviewed, dictated and finalized at location . PATCHER Impression: Extensive chronic interstitial disease, similar to prior exam. NG tube in place.
--- NOTE | ~2024-07-15 | XR_ITS ---
XR abdomen gastric tube insert Ordering provider: Darren Reaves MD History: 58 years Male with . OG placement . Comparison: None. FINDINGS: MEDIASTINUM: The cardiac silhouette is slightly enlarged. Congestive jone. Nasogastric tube with the tip in the stomach. Endotracheal tube with the tip above t he ammy by about 4 cm. LUNGS: No pneumothorax. Opacification the left lung base suggestive of atelectasis versus pneumonia w ith minimal effusion. Bilateral interstitial changes. OTHER: No free air under the diaphragm. IMPRESSION: Cardiomegaly with cardiac decompensation and pulmonary edema Left basilar atelectasis versus pneumonia with minimal effusion. Reviewed, dictated and finalized at location A. SCRAPER
--- NOTE | ~2024-07-15 | CT_ITS ---
CT brain wo con Ordering provider: Javad Rahman MD History: 58 years Male with . increased AMS . Comparison: None. Technique: CT of the head without contrast. Radiation reduction technique utilized. The dose-length product was 908 mGy-cm. FINDINGS: BRAIN PARENCHYMA AND CSF SPACES: Mild leukoaraiosis and diffuse cortical atrophy. Mild atheromatous d isease. Small old lacunar infarct in the left basal ganglia. No midline shift, mass effect or hemorrh age. The brain parenchyma and CSF spaces are otherwise normal. VISUALIZED PARANASAL SINUSES: Well aerated. Old healed fracture of the nasal bones is noted. Defect i n the anterior wall of the left frontal sinus is also seen most likely due to old trauma. MASTOIDS: Well aerated. BONES: The bones appear intact. SOFT TISSUES: Visualized nasopharynx is normal. Superficial soft tissues are normal. IMPRESSION: No acute intracranial findings. Reviewed, dictated and finalized at location A.
--- NOTE | ~2024-07-15 | XR_ITS ---
XR chest ET placement Ordering provider: Darren Reaves MD History: 58 years Male with . New intubation . Comparison: None. FINDINGS: MEDIASTINUM: The cardiac silhouette is slightly enlarged. Endotracheal tube is seen 1.5 cm above the ammy. Retraction by about 2 cm is advised. Congestive hi la. LUNGS: No pneumothorax. Bilateral interstitial changes. Opacification in the left lung base and right upper lobe is seen suggestive of atelectasis versus pneumonia. No effusion. OTHER: No free air under the diaphragm. IMPRESSION: Cardiomegaly with cardiac decompensation and pulmonary edema. Bilateral pneumonitis Right upper lobe and left lower lobe pneumonia. Reviewed, dictated and finalized at location A. ING MACHINE OPERATOR IMPRESSION: Cardiomegaly with cardiac decompensation and pulmonary edema. Bilateral pneumon itis Right upper lobe and left lower lobe pneumonia.
--- NOTE | ~2024-07-15 | XR_ITS ---
Portable chest x-ray Comparison: 07/29/2024 Clinical History: Respiratory failure Findings: Endotracheal tube and NG tube are in satisfactory positions. Small left pleural effusion p resent. There is extensive interstitial disease in the lungs. Cardiomediastinal silhouette is stable . Bones and soft tissues are unremarkable. Impression: Small left pleural effusion. Extensive chronic interstitial disease. Support tubes, as above. Reviewed, dictated and finalized at location . ES' REGISTRY DIRECTOR Impression: Small left pleural effusion. Extensive chronic interstitial disease. Support tubes, as above.
--- NOTE | ~2024-07-15 | CT_ITS ---
EXAMINATION: CT chest abdomen pelvis wo con DATE: 07/29/2024 16:40 INDICATION: Acute respiratory failure. TECHNIQUE: Computed tomography (CT) of the chest, abdomen, and pelvis was performed without intraveno us contrast. Automated exposure control and iterative reconstruction technique were employed. The dos e-length product was 1329.30 mGy-cm. COMPARISON: CT abdomen and pelvis 07/26/2024 FINDINGS: CHEST CT: There is elevation of left hemidiaphragm. There is moderate emphysema. There are airspace opacities i n the lower lobes, left worse than right. Calcified pulmonary nodules and calcified hilar and mediast inal lymph nodes are consistent with old granulomatous disease. There are small pleural effusions. Th e endotracheal tube tip is in the trachea. The nasogastric tube tip is in the stomach. The heart size is normal. There are coronary artery calcifications. There is a trace pericardial effusion. There ar e chronic fractures of many vertebral bodies. ABDOMEN/PELVIS CT: The liver demonstrates a nodular surface contour, consistent with cirrhosis. There is portal venous g as in the liver. Calcifications in the liver and spleen are consistent with old edematous disease. Th ere are gallstones in the gallbladder, which is normal in size. Gallbladder wall thickening is likely secondary to chronic liver disease and interstitial edema. The pancreas and adrenal glands are nate l. There is a parenchymal calcification in right kidney. There is severe atrophy of left kidney. Ther e is severe left hydronephrosis. There is a [place] catheter in the bladder. There are bilateral inguin al hernias containing fat. There is liquid stool in the colon suggesting diarrhea. There is mild wall thickening involving the ascending and transverse colon, consistent with interstitial edema versus c olitis. There is a varix is normal. There is gas in a mesenteric vein. There is a moderate volume of ascites. There is calcified atherosclerosis of the aorta and many of the other arteries. There are ch ronic fractures of many vertebral bodies. IMPRESSION: 1. Airspace opacities in the lower lobes, left worse than right, consistent with atelectasis versus p neumonia. 2. Small pleural effusions. 3. Moderate emphysema. 4. Portal venous gas and mesenteric vein gas. This finding is nonspecific, but can be seen with bowel ischemia or infarct. 5. Wall thickening in the ascending and transverse colon, which may be interstitial edema or colitis. 6. Cirrhosis of the liver. 7. Moderate volume of ascites. 8. Severe left kidney atrophy with chronic severe left hydronephrosis. Reviewed, dictated and finalized at location A. NSIC COMPUTER EXAMINER IMPRESSION: 1. Airspace opacities in the lower lobes, left worse than right, consistent wit h atelectasis versus pneumonia. 2. Small pleural effusions. 3. Moderate emphysema. 4. Portal venous gas and mesenteric vein gas. This finding is nonspecific, but can be seen with bowel ischemia or infarct. 5. Wall thickening in the ascending and transverse colon, which may be intersti tial edema or colitis. 6. Cirrhosis of the liver. 7. Moderate volume of ascites. 8. Severe left kidney atrophy with chronic severe left hydronephrosis.
--- NOTE | ~2024-07-15 | CT_ITS ---
EXAMINATION: CT abdomen pelvis wo con DATE: 07/26/2024 12:55 INDICATION: Abdominal pain. TECHNIQUE: Computed tomography (CT) of the abdomen and pelvis was performed without intravenous contr ast. Automated exposure control and iterative reconstruction technique were employed. The dose-length product was 1596.77 mGy-cm. COMPARISON: CT abdomen and pelvis 07/15/2024 FINDINGS: There are small pleural effusions. The visualized portions of the lung bases demonstrate ch ronic interstitial lung disease including honeycombing. Calcified right hilar lymph nodes are consist ent with old granulomatous disease. The heart size is normal. There are coronary artery calcification s. No pericardial effusion. There is a small sliding hiatal hernia. Paraesophageal varices are noted. Calcifications in the liver and spleen are consistent with old granulomatous disease. The gallbladde r is normal in size and contains contrast and gallstones. Calcifications in the spleen are consistent with old granulomatous disease. The pancreas and adrenal glands are normal. There is a parenchymal c alcification in right kidney. There is severe atrophy of left kidney. There is severe left hydronephr osis. The prostate is mildly enlarged. There is diverticulosis of the colon without evidence of diver ticulitis. There are no dilated loops of bowel. The appendix is normal. There is a small volume of as cites. There are no pathologically enlarged lymph nodes. There are chronic fractures of most of the i ncluded vertebral bodies. IMPRESSION: 1. Small volume of ascites. 2. Severe left kidney atrophy with chronic severe left hydronephrosis. 3. Small pleural effusions. 4. Small sliding hiatal hernia. Reviewed, dictated and finalized at location A. ODONTIST SMALL BUSINESS OWNER
--- NOTE | ~2024-07-15 | CT_ITS ---
EXAMINATION: CTA chest PE abdomen pel DATE: 07/15/2024 14:00 INDICATION: Tachycardia. Vomiting. TECHNIQUE: Computed tomography angiography (CTA) of the chest was performed with 100 mL Omnipaque-350 intravenous contrast timed to evaluate the pulmonary arteries. Coronal maximum intensity projection 3D-reconstructions were created by the technologist. Computed tomography (CT) of the abdomen and pelv is was performed with intravenous contrast. Automated exposure control and iterative reconstruction t echnique were employed. The dose-length product was 920.16 mGy-cm. COMPARISON: CT chest 05/28/2024, CT abdomen and pelvis 01/11/2023 FINDINGS: CTA chest: The lungs demonstrate emphysema and chronic interstitial lung disease characterized by per ipheral septal thickening and honeycombing. There is mild atelectasis in the lungs. Calcified pulmona ry nodules and calcified hilar and mediastinal lymph nodes are consistent with old oedematous disease . The heart size is normal. There are coronary artery calcifications. No pericardial effusion. There is no pulmonary embolus. There are chronic fractures of T5, T6, T8, T9, T10, T11, and T12 vertebral b odies. CT abdomen and pelvis: There is a small sliding hiatal hernia. Paraesophageal varices are noted. The liver demonstrates surface nodularity, consistent with cirrhosis. There are gallstones in the gallbla dder, which is normal in size. Calcifications in the spleen are consistent with old granulomatous dis ease. The pancreas, adrenal glands, and right kidney are normal. There is severe atrophy of left kidn ey. There is severe left hydronephrosis. There is diverticulosis of the colon without evidence of div erticulitis. The appendix is normal. There are no dilated loops of bowel. There are no pathologically enlarged lymph nodes. There is no free intraperitoneal fluid. There are bilateral inguinal hernias c ontaining fat. There are chronic burst fractures of L1, L3, and L4. IMPRESSION: 1. No pulmonary embolus. 2. Emphysema and chronic interstitial lung disease. 3. Cirrhosis of the liver with portal venous hypertension. 4. Severe left kidney atrophy with chronic severe left hydronephrosis. Reviewed, dictated and finalized at location B.
--- NOTE | ~2024-07-15 | XR_ITS ---
CHEST RADIOGRAPH CLINICAL HISTORY: congestion, cough . COMPARISON: 07/21/2024 TECHNIQUE: Single portable view of the chest. FINDINGS The cardiomediastinal silhouette is unremarkable. Coarse interstitial lung markings are redemonstrated consistent with (likely) chronic interstitial renae ng disease. Visualized osseous structures and soft tissues are unremarkable. IMPRESSION: Findings suggesting chronic interstitial lung disease, for which clinical correlation is needed. Reviewed, dictated and finalized at location A. RAL GAS PLANT SUPERVISOR IMPRESSION: Findings suggesting chronic interstitial lung disease, for which clinical corre lation is needed.
--- NOTE | ~2024-07-15 | XR_ITS ---
EXAMINATION: XR fl Dobhoff insert/rad w img DATE: 07/26/2024 13:11 INDICATION: Altered mental status. Dysphagia. TECHNIQUE: I placed a nasoenteric tube under fluoroscopic guidance. The number of images was 2. The fluoroscopy exposure time was 2.1 minutes. COMPARISON: None. FINDINGS: The nasoenteric tube tip is in the stomach. IMPRESSION: 1. Fluoroscopy guided nasoenteric tube placement with tip in the stomach. Reviewed, dictated and finalized at location A. MATIC SILK SCREEN PRINTER
--- NOTE | ~2024-07-15 | XR_ITS ---
XR chest 1V portable Ordering provider: Felisa Fofana APRN History: 58 years Male with . leukocytosis, tachypneic . Comparison: July 27, 2024 FINDINGS: MEDIASTINUM: The cardiac silhouette is not enlarged. Nasogastric tube is seen extending into the stomach unchanged. LUNGS: No effusions or pneumothorax. Bilateral interstitial changes suggestive of pneumonitis versus pulmonary edema. Underlying fibrotic changes are highly suggestive. Left lower lobe opacification sug gestive of pneumonia. OTHER: No free air under the diaphragm. IMPRESSION: Bilateral interstitial thickening suggestive of pneumonitis versus pulmonary edema. Underlying fibrot ic changes are highly suggestive. Left lower lobe pneumonia. Reviewed, dictated and finalized at location A. F RADIOLOGIC TECHNOLOGIST IMPRESSION: Bilateral interstitial thickening suggestive of pneumonitis versus pulmonary ed macrina. Underlying fibrotic changes are highly suggestive. Left lower lobe pneumon ia.
--- NOTE | ~2024-07-15 | XR_ITS ---
EXAMINATION: XR chest PICC line DATE: 07/30/2024 09:51 INDICATION: PICC line placement TECHNIQUE: frontal view of the chest was obtained. COMPARISON: Chest radiograph dated 07/30/[address] dated 07/30/2024 FINDINGS: New left upper extremity peripherally inserted central venous catheter (PICC) tip at the superior ca voatrial junction. Endotracheal tube tip 4.4 cm above the ammy. Nasogastric tube tip in proximal si de port in the body of the stomach. Persistent airspace opacities in the left lower lung zone which likely includes a small left pleural effusion. Also unchanged are scattered bilateral coarse reticular opacities. Increased lucency and ar chitectural distortion in the upper lung zones consistent with emphysema better appreciated on prior CT. No pneumothorax or right-sided pleural effusion. Heart size is normal. Calcified mediastinal and right hilar lymph nodes consistent with old granulomatous disease. Old right scapular fracture deform ity. IMPRESSION: 1. Lines and tubes in expected positions as detailed above. 2. Unchanged diffuse bilateral lung disease most prominent in the left lower lung zone which could re present atelectasis or pneumonia superimposed over emphysema. 3. Likely small left pleural effusion. Reviewed, dictated and finalized at location B. OR OF NAPRAPATHIC MEDICINE IMPRESSION: 1. Lines and tubes in expected positions as detailed above. 2. Unchanged diffuse bilateral lung disease most prominent in the left lower renae ng zone which could represent atelectasis or pneumonia superimposed over emphys macrina. 3. Likely small left pleural effusion.
--- NOTE | ~2024-07-15 | CT_ITS ---
History: Left facial droop PROCEDURE: CT head without contrast. COMPARISON: Examination is compared with multiple prior studies performed most recently on 07/21/2024 and dating back to 12/03/2019 TECHNIQUE: Axial imaging of the head performed from the skull base to the vertex without IV contrast. Sagittal a nd coronal reformations obtained. DLP: 1513 mGy-cm Examination is markedly limited secondary to significant motion artifact. FINDINGS: The ventricles are progressively dilated, far advanced for patient of this age. Decreased attenuation within the periventricular white matter is redemonstrated, unchanged from prior . There is no large mass, mass effect or midline shift. There is no abnormal extra-axial fluid collection or large intracranial hemorrhage. A small bore catheter is identified within the left nares, extending deep to the oral cavity. Remainder of the paranasal sinuses are unremarkable. The mastoid air cells are well aerated. There are no acute displaced skull fractures. Impression: Stable CT examination of the brain, although limited by a significant amount of motion artifact witho ut acute large intracranial hemorrhage or suspicious mass effect. Reviewed, dictated and finalized at location A. LINE FIELD OPERATOR Impression: Stable CT examination of the brain, although limited by a significant amount of motion artifact without acute large intracranial hemorrhage or suspicious mass effect.
--- NOTE | ~2024-07-15 | XR_ITS ---
EXAMINATION: XR chest 2V DATE: 07/15/2024 12:00 INDICATION: Dizziness. Shortness of breath. Vomiting. TECHNIQUE: Frontal and lateral views of the chest were obtained on 3 radiographs. COMPARISON: Chest 2 views 01/11/2023, chest CT 05/28/2024 FINDINGS: There are lucencies in the upper lungs, consistent with emphysema. There is a diffuse inter stitial pattern in the lungs with a peripheral and lower lung predominance. There is chronic mild chintan vation of left hemidiaphragm. No pleural effusion or pneumothorax. The heart size is normal. There ar e multiple chronic vertebral body fractures. There is an old healed fracture of right scapula. IMPRESSION: 1. Stable combination of emphysema and chronic interstitial lung disease. Reviewed, dictated and finalized at location B.
--- NOTE | ~2024-07-15 | MR_ITS ---
EXAMINATION: MR brain/brain stem wo con DATE: 07/23/2024 15:39 INDICATION: Altered mental status. TECHNIQUE: Magnetic resonance imaging (MRI) of the brain and brainstem was performed without intraven ous contrast. COMPARISON: Head CT 07/21/2024 FINDINGS: There is an old infarct in left frontal lobe. There is an old infarct in left thalamus. The re is a small old infarct in right cerebellum. There is no intracranial hemorrhage, acute infarction, or abnormal intracranial mass lesion. The ventricles are normal in size. The orbits are normal. The paranasal sinuses are clear. The mastoid air cells are normal. IMPRESSION: 1. 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 Reviewed, dictated and finalized at location A. ICULTURIST
--- NOTE | ~2024-07-15 | XR_ITS ---
EXAMINATION: XR barium swallow modified DATE: 07/22/2024 10:38 INDICATION: Dysphagia. TECHNIQUE: The patient was given barium-containing material of multiple consistencies to swallow by t he speech pathologist while I performed fluoroscopy. Fluoroscopy exposure time was 3.0 minutes. The n umber of fluoroscopy images saved to the PACS was 1. Dose-area product was 1.8 Gy-cm^2. FINDINGS: There is reduced laryngeal elevation, reduced tongue base retraction, and laryngeal penetration. Ther e is aspiration of thin liquids. IMPRESSION: 1. Aspiration of thin liquids. 2. Please refer to the speech therapy report for recommendations. Reviewed, dictated and finalized at location A. ER HEAD
--- NOTE | ~2024-07-15 | XR_ITS ---
XR chest ET placement Ordering provider: Darren Reaves MD History: 58 years Male with . ET tube exchange . Comparison: None. FINDINGS: MEDIASTINUM: The cardiac silhouette is not enlarged. Endotracheal tube is seen with the tip above the ammy by about 3 cm. Nasogastric tube is seen exten ding to the stomach. LUNGS: No pneumothorax. Opacification in the left lower lobe area seen suggestive of atelectasis vers us pneumonia with pleural effusion. Interstitial changes are seen bilaterally with underlying fibroti c changes. Pneumonitis is possible. Pulmonary edema is also possible. OTHER: No free air under the diaphragm. IMPRESSION: Left lower lobe atelectasis versus pneumonia with pleural effusion. Bilateral interstitial changes which indicate fibrotic changes with possible superimposed pneumonitis versus pulmonary edema. Clinical correlation advised. Reviewed, dictated and finalized at location A. ON CLEANER IMPRESSION: Left lower lobe atelectasis versus pneumonia with pleural effusion. Bilateral interstitial changes which indicate fibrotic changes with possible calvillo perimposed pneumonitis versus pulmonary edema. Clinical correlation advised.
--- NOTE | ~2024-07-15 | CT_ITS ---
History: Altered mental status PROCEDURE: CT head without contrast. Examination is markedly limited secondary to significant motion artifact. COMPARISON: 07/18/2024 and dating back to 12/23/2021 TECHNIQUE: Axial imaging of the head performed from the skull base to the vertex without IV contrast. Sagittal a nd coronal reformations obtained. DLP: 1059.3 mGy-cm FINDINGS: The ventricles are dilated, unchanged. This is far advanced for patient of this age. Decreased attenu ation within the periventricular white matter is redemonstrated, unchanged from prior. There is no mass, mass effect or midline shift. There is no abnormal extra-axial fluid collection or intracranial hemorrhage. Visualized paranasal sinuses are clear. The mastoid air cells are well aerated. There are no skull fractures. Impression: Stable CT examination of the brain, although limited by motion artifact without acute intracranial he morrhage or suspicious mass effect. Demonstrating early atrophy, unchanged dating back to 2021. Reviewed, dictated and finalized at location A. LEUM FLOOR INSTALLER Impression: Stable CT examination of the brain, although limited by motion artifact without acute intracranial hemorrhage or suspicious mass effect. Demonstrating early atrophy, unchanged dating back to 2021.
--- NOTE | ~2024-07-15 | XR_ITS ---
EXAMINATION: XR chest 1V portable DATE: 07/21/2024 12:31 INDICATION: Shortness of breath. TECHNIQUE: A single frontal view of the chest was obtained. COMPARISON: Chest 2 views 07/15/2024, chest CT 07/15/2024 FINDINGS: There are lucencies in the lungs. There is a diffuse interstitial pattern in the lungs with a peripheral prominence. No pleural effusion or pneumothorax. The heart size is normal. IMPRESSION: 1. Worsened diffuse interstitial pattern in the lungs, likely mild pulmonary edema superimposed on a combination of emphysema and chronic interstitial lung disease. Reviewed, dictated and finalized at location A. INSURANCE ACTUARY IMPRESSION: 1. Worsened diffuse interstitial pattern in the lungs, likely mild pulmonary ed macrina superimposed on a combination of emphysema and chronic interstitial lung di sease.
--- NOTE | 2024-07-15 11:18 | ECG_ITS ---
Test Date: 2024-07-15 12:35:27 Measurements Intervals [place] Rate: 109 P: 57 DE: 179 QRS: 9 QRSD: 87 T: 11 QT: 315 QTc: 425 Interpretive Statements SINUS TACHYCARDIA BASELINE ARTIFACT LIMITS INTERPRETATION No previous ECG available for comparison Electronically Signed On 07-15-2024 13:59:55 CDT by Herminio Dickinson M.D.
[2024-07-15 12:32] LABS: Basophils Percent Auto 0.5 % (0.2-1.2); Hematocrit 38.3 % (42.0-52.0); Hemoglobin 12.1 g/dL (14.0-18.0); Immature Granulocyte Absolute 0.02 K/mm3 (0.00-0.031); Immature Granulocyte Percent A 0.2 % (0-0.5); Lymphocytes Absolute Auto 0.64 K/mm3 (0.9-3.2); Mean Corpuscular HGB Conc 31.6 g/dl (32-36); Mean Corpuscular Hemoglobin 27.8 pg (26-34); Mean Platelet Volume 10.8 fl (7.4-10.4); Monocytes Absolute Auto 0.5 K/mm3 (0.1-0.6); Monocytes Percent Auto 6.5 % (2.6-8.5); Neutrophils Absolute Auto 6.8 K/mm3 (1.3-6.7); Neutrophils Percent Auto 84.8 % (45.5-73.1); Platelet Count Result 163 k/mm3 (150-375); Red Blood Count 4.35 M/mm3 (4.6-6.20); Red Cell Distribution Width 15.7 % (11.5-14.5)
[2024-07-15 12:46] LABS: INR 1.4; Prothrombin Time 17.8 Seconds (11.1-14.7)
[2024-07-15 12:47] LABS: Partial Thromboplastin Time 31.3 Seconds (22.3-36.8)
[2024-07-15 12:53] LABS: Lactic Acid Reflex 3.1 mmol/L (0.7-2.0)
[2024-07-15 13:04] LABS: D Dimer 2.51 ug/mL (<0.48); Troponin I < 0.012 ng/mL (0.000-0.034)
[2024-07-15 13:05] LABS: Alanine Aminotransferase 17 U/L (6-50); Albumin Level 2.9 g/dL (3.5-5.1); Alkaline Phosphatase 210 U/L (38-126); Anion Gap 12 mmol/L (4-12); Aspartate Amino Transferase 47 U/L (17-59); Bilirubin,Total 0.9 mg/dL (0.2-1.3); Blood Urea Nitrogen 11 mg/dL (9-20); Calcium 8.7 mg/dL (8.4-10.2); Carbon Dioxide 21 mmol/L (22-30); Chloride 104 mmol/L (98-107); Estimated CRCL calculation 35 ml/min; Estimated Glomerular Filt Rate 32; Glucose 75 mg/dL (65-110); Potassium 4.1 mmol/L (3.4-5.0); Sodium 137 mmol/L (137-145)
[2024-07-15 13:13] LABS: NT Pro B Type Natriuretic Pept 202 pg/mL (19.9-100)
--- NOTE | 2024-07-15 13:29 | ED.NAVMDI ---
HPI - Nausea/Vomiting/Diarrhea General Chief complaint: Nausea/Vomiting/Diarrhea Stated complaint: nausea/dizzy x 1 wk Time Seen by Provider: 07/15/24 13:03 History of Present Illness HPI Narrative: 58-year-old male with a history of COPD, cirrhosis, rheumatoid arthritis presenting with nausea and vomiting. States that for the last 7-10 days he has been persistently nauseated and unable to keep anything down. He denies any new pain that he states that his abdomen is diffusely to uncomfortable . No dysuria or hematuria. No diarrhea. Related Data Home Medications Medication Instructions Recorded Confirmed abatacept 125 mg/mL subcutaneous 125 mg subcut WEEKLY 02/12/24 07/15/24 auto-injector (Orencia ClickJect) Allergies Allergy/AdvReac Type Severity Reaction Status Date / Time vancomycin AdvReac Severe Other Verified 07/07/24 11:49 [place] AdvReac Mild SHORTNESS Uncoded 07/07/24 11:49 OF BREATH Review of Systems Review of Systems: All systems reviewed & are unremarkable except as noted in HPI and below PMFSH Past Medical History Medical History Alcoholic cirrhosis Anxiety Atrophy of left kidney Chronic interstitial lung disease Chronic low back pain Chronic right shoulder pain CKD (chronic kidney disease) stage 3, GFR 30-59 ml/min Closed fracture of orbital wall (~12/2021) Diastolic dysfunction Echocardiogram 12/2021: EF 65 did 70%, grade 1 diastolic dysfunction Emphysema lung Erosive esophagitis Esophageal varices determined by endoscopy Fracture of scapula (~12/2021) GERD (gastroesophageal reflux disease) Nocturia Rheumatoid arthritis Thrombocytopenia Vitamin D deficiency Surgical History Surgical History History of esophagogastroduodenoscopy (EGD) History of tonsillectomy History of uvulopalatopharyngoplasty Family History Family History Mother Hypertension Diabetes mellitus Depression Anxiety Heart disease Thyroid disease Father Emphysema lung Lung cancer Social History Social History (Updated 07/16/24 @ 08:12 by Brittnee Del Angel DO) Social History: The patient lives with his of 23 years. He used to work in [employer] and is attempting to apply for disability for the last 15 years and his last application was denied. He is a recovering alcoholic and has not had a drink since November of 2020. He used to smoke 1-2 packs of cigarettes per day and had done so since he was 15. He quit smoking December 2023. He occasionally will use THC gummy. He reports that he has experimented with all illicit substances in the past but has otherwise not had continuous use. The patient and his are raising the patient's 14-year-old grandson the parent when his grandson was 6-month-old. They have 2 cats at home. Code status: Full code (he actually states that if it was his time ago he would want to be let go but he needs to discuss this with his ) Surrogate decision maker: Caffeine-Coffee/tea Smoking packs per day: 1 Smoking cigarettes per day: 20.0 Years smoked: 43 Smoking pack-years: 43.00 Smoking status: Former smoker Tobacco type: cigarettes Second hand tobacco smoke exposure: Yes Smoking end date: 12/31/23 Additional smoking assessment comments: USED TO SMOKE 2PPD, NOW 1PPD Alcohol intake: former Alcohol use details: BEEN SOBER SINCE NOVEMBER 2020 Substance use: current Substance use type: does not use Other substance usage details: gummies Last use: 07/12/24 Do You Feel Safe in your Home?: Yes Lack of Transportation: No Lack of Food: Never True Current Housing: I Have Housing Concerned About Future Housing: No Difficulty Paying Gas/Electric Bills: No Difficulty Paying for Meds: No Currently Unemployed: No Education: High School Diploma/GED Difficulty w/ Childcare or Family Care: No Living arrangements: with family Occupation/Education: other Gender identity (if verbalized by the patient): Male Spiritual care concerns: No Exam Narrative: GENERAL: Chronically ill-appearing, intermittently vomiting during the exam HEAD: Normocephalic, atraumatic. EYES: PERRLA and EOMI. ENT: Mucous membranes tacky NECK: Supple. CHEST: Clear to auscultation. No respiratory distress. HEART: tachycardic, regular rhythm ABDOMEN: Soft, mild diffuse tenderness EXTREMITIES: Normal range of motion. No edema. SKIN: Warm, dry, no rash. NEURO: Alert and oriented x3. PSYCH: Normal mood and affect. Course Vital Signs Vital signs: Vital Signs Temperature 97.4 F L 07/15/24 11:09 Pulse Rate 132 H 07/15/24 11:09 Respiratory Rate 20 07/15/24 11:09 Blood Pressure 95/77 L 07/15/24 11:09 Pulse Oximetry 100 07/15/24 11:09 Oxygen Delivery Room Air 07/15/24 11:09 Temperature 97.3 F L 07/17/24 14:00 Pulse Rate 62 07/17/24 14:00 Respiratory Rate 16 07/17/24 14:00 Blood Pressure 127/68 07/17/24 14:00 Pulse Oximetry 100 07/17/24 14:00 Oxygen Delivery Room Air 07/17/24 09:36 MDM - Nausea/Vomiting/Diarrhea MDM Narrative Medical decision making narrative: 58-year-old male presenting with nausea and vomiting for the last 7-10 days. Patient tachycardic, pressures about on the softer side. Exam remarkable for the above. Blood work from triage with an elevated D-dimer. Lactic acid mildly elevated at 3.1. Troponin undetectable. Plan for Zofran, IV fluids, Pepcid. Will obtain CT chest abdomen pelvis. CT chest abdomen pelvis with no acute abnormalities. There is evidence of cirrhosis with esophageal hypertension. Patient has received multiple doses of Zofran and continues to vomit. He is not tolerating p.o. intake, requires admission for further management. He is agreeable this plan. I spoke with the hospitalist who has accepted him for admission. Differential Diagnosis Differential diagnosis: Likely gastroenteritis, dehydration and other ( intractable nausea and vomiting) Medical Records Attestation: I reviewed the patient's medical records. Lab Data Attestation: I reviewed the patient's lab results. 07/16/24 08:53 07/16/24 08:53 Labs: Lab Results 07/15/24 07/15/24 07/15/24 Range/Units 12:25 15:20 15:53 WBC 8.0 (4.5-10.0) K/mm3 RBC 4.35 L (4.6-6.20) M/mm3 Hgb 12.1 L (14.0-18.0) g/dL Hct 38.3 L (42.0-52.0) % MCV 88.0 (80-100) fl MCH 27.8 (26-34) pg MCHC 31.6 L (32-36) g/dl RDW 15.7 H (11.5-14.5) % Plt Count 163 (150-375) k/mm3 MPV 10.8 H (7.4-10.4) fl Immature Gran % (Auto) 0.2 (0-0.5) % Neut % (Auto) 84.8 H (45.5-73.1) % Lymph % (Auto) 8.0 L (18.3-44.2) % [place] % (Auto) 6.5 (2.6-8.5) % Eos % (Auto) 0.0 (0-4.4) % Baso % (Auto) 0.5 (0.2-1.2) % Lymph # (Auto) 0.64 L (0.9-3.2) K/mm3 Smith # (Auto) 0.5 (0.1-0.6) K/mm3 Eos # (Auto) 0.0 (0-0.3) K/mm3 Baso # (Auto) 0.0 (0.0-0.1) K/mm3 Abs Immat Gran (auto) 0.02 (0.00-0.031) K/mm3 Absolute Neuts (auto) 6.8 H (1.3-6.7) K/mm3 Absolute Nucleated RBC 0.000 (0.0-0.012) K/mm3 Nucleated RBC % 0.0 (0.0-0.2) % PT 17.8 H (11.1-14.7) Seconds INR 1.4 APTT 31.3 (22.3-36.8) Seconds D-Dimer 2.51 H (<0.48) ug/mL Sodium 137 (137-145) mmol/L Potassium 4.1 (3.4-5.0) mmol/L Chloride 104 (98-107) mmol/L Carbon Dioxide 21 L (22-30) mmol/L Anion Gap 12 (4-12) mmol/L BUN 11 (9-20) mg/dL Creatinine 2.10 H (0.7-1.3) mg/dL Estim Creat Clear Calc 35 ml/min Estimated GFR 32 L (59 - ) Glucose 75 (65-110) mg/dL Lactic Acid 3.1 H 1.5 (0.7-2.0) mmol/L Calcium 8.7 (8.4-10.2) mg/dL Magnesium 2.0 (1.6-2.3) mg/dL Total Bilirubin 0.9 (0.2-1.3) mg/dL AST 47 (17-59) U/L ALT 17 (6-50) U/L Alkaline Phosphatase 210 H (38-126) U/L Troponin I < 0.012 (0.000-0.034) ng/mL NT-Pro-B Natriuret Pep 202 H (19.9-100) pg/mL Total Protein 7.0 (6.3-8.2) g/dL Albumin 2.9 L (3.5-5.1) g/dL Lipase (23-300) U/L Urine Color Yellow (Yellow) Urine Appearance Clear (Clear) Urine pH 6.0 (5.0-9.0) Ur Specific [place] > 1.045 H (1.001-1.035) Urine Protein Trace (Negative) mg/dL Urine Glucose (UA) Negative (Negative) mg/dL Urine Ketones Trace H (Negative) mg/dL Ur Blood (Man) Negative (Negative) Urine Nitrate Negative (Negative) Urine Bilirubin Negative (Negative) Urine Urobilinogen 0.2 (<2.0) mg/dL Leukocyte Esterase Rfl Negative (Negative) ADRI/UL Urine RBC 3-5 H (0-2) /hpf Urine WBC 0-5 (0-3) /hpf Ur Squamous Epith Cells None seen (Few) /hpf Urine Bacteria None seen /hpf Urine Casts 0-2 07/16/ Range/Units 08:53 WBC 4.8 (4.5-10.0) K/mm3 RBC 3.93 L (4.6-6.20) M/mm3 Hgb 10.7 L (14.0-18.0) g/dL Hct 35.8 L (42.0-52.0) % MCV 91.1 (80-100) fl MCH 27.2 (26-34) pg MCHC 29.9 L (32-36) g/dl RDW 15.9 H (11.5-14.5) % Plt Count 146 L (150-375) k/mm3 MPV 11.3 H (7.4-10.4) fl Immature Gran % (Auto) (0-0.5) % Neut % (Auto) (45.5-73.1) % Lymph % (Auto) (18.3-44.2) % [place] % (Auto) (2.6-8.5) % Eos % (Auto) (0-4.4) % Baso % (Auto) (0.2-1.2) % Lymph # (Auto) (0.9-3.2) K/mm3 [place] # (Auto) (0.1-0.6) K/mm3 Eos # (Auto) (0-0.3) K/mm3 Baso # (Auto) (0.0-0.1) K/mm3 Abs Immat Gran (auto) (0.00-0.031) K/mm3 Absolute Neuts (auto) (1.3-6.7) K/mm3 Absolute Nucleated RBC (0.0-0.012) K/mm3 Nucleated RBC % (0.0-0.2) % PT (11.1-14.7) Seconds INR APTT (22.3-36.8) Seconds D-Dimer (<0.48) ug/mL Sodium 136 L (137-145) mmol/L Potassium 3.9 (3.4-5.0) mmol/L Chloride 109 H (98-107) mmol/L Carbon Dioxide 19 L (22-30) mmol/L Anion Gap 8 (4-12) mmol/L BUN 11 (9-20) mg/dL Creatinine 1.90 H (0.7-1.3) mg/dL Estim Creat Clear Calc 38 ml/min Estimated GFR 36 L (59 - ) Glucose 71 (65-110) mg/dL Lactic Acid (0.7-2.0) mmol/L Calcium 8.1 L (8.4-10.2) mg/dL Magnesium (1.6-2.3) mg/dL Total Bilirubin (0.2-1.3) mg/dL AST (17-59) U/L ALT (6-50) U/L Alkaline Phosphatase (38-126) U/L Troponin I (0.000-0.034) ng/mL NT-Pro-B Natriuret Pep (19.9-100) pg/mL Total Protein (6.3-8.2) g/dL Albumin (3.5-5.1) g/dL Lipase 99 (23-300) U/L Urine Color (Yellow) Urine Appearance (Clear) Urine pH (5.0-9.0) Ur Specific [place] (1.001-1.035) Urine Protein (Negative) mg/dL Urine Glucose (UA) (Negative) mg/dL Urine Ketones (Negative) mg/dL Ur Blood (Man) (Negative) Urine Nitrate (Negative) Urine Bilirubin (Negative) Urine Urobilinogen (<2.0) mg/dL Leukocyte Esterase Rfl (Negative) ADRI/UL Urine RBC (0-2) /hpf Urine WBC (0-3) /hpf Ur Squamous Epith Cells (Few) /hpf Urine Bacteria /hpf Urine Casts Imaging Data Radiologist's impression: ITS Impressions Chest X-Ray 07/15/24 12:01 IMPRESSION: 1. Stable combination of emphysema and chronic interstitial lung disease. Chest/Abdomen/Pelvis CTA 07/15/24 14:05 IMPRESSION: 1. No pulmonary embolus. 2. Emphysema and chronic interstitial lung disease. 3. Cirrhosis of the liver with portal venous hypertension. 4. Severe left kidney atrophy with chronic severe left hydronephrosis. Critical Care Time Critical Care Time Critical Care Time: No Discharge Plan Discharge Clinical Impression: Intractable nausea and vomiting, Cirrhosis Patient Disposition: Still a Patient Condition: Stable
[2024-07-15] MEDS: SODIUM CHLORIDE 0.9% IV 1,000 ML 999 ML IV CONT ×2 (13:42→13:44)
[2024-07-15] MEDS: ONDANSETRON INJ 4 MG/2 ML VIAL IV PUSH ×2 (13:44→15:25)
[2024-07-15] MEDS: FAMOTIDINE 20 MG/2 ML VIAL IV PUSH (13:44)
[2024-07-15 15:32] LABS: Reflex Lactic Acid Yes or No Add Lactic
[2024-07-15 15:38] LABS: Add Urine Microscopic? YES; Appearance Urine Clear (Clear); Bacteria Urine None Seen /hpf; Bilirubin Urine Negative (Negative); Blood Urine Negative (Negative); Color Urine Yellow (Yellow); Glucose Urine UA Negative (Negative); Ketones Urine Trace mg/dL (Negative); Leukocyte Esterase Ur Negative LEU/UL (Negative); Nitrate Urine Negative (Negative); Non Pathogenic Casts 0-2; Protein Urine Trace mg/dL (Negative); Specific Grav Ur > 1.045 (1.001-1.035); Squamous Epithelial Cell Urine None Seen /hpf (Few); Urobilinogen Urine 0.2 mg/dL (<2.0); WBC Urine 0-5 /hpf (0-3)
[2024-07-15 16:37] LABS: Lactic Acid 1.5 mmol/L (0.7-2.0)
--- NOTE | 2024-07-15 18:30 | PC.NURSE ---
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 PT REFUSING TO KEEP MONITOR ON - STATES HE WILL TRY AGAIN WHEN HE GETS TO HIS ROOM UPSTAIRS
--- NOTE | 2024-07-15 21:00 | PM.IMHP ---
H&P: HPI History of Present Illness Date/Time: 07/15/24 21:00 Chief Complaint: Nausea vomiting for 1 week Narrative: 58-year-old male with past medical history of alcoholic cirrhosis with esophageal varices, gastritis, hiatal hernia, chronic kidney disease stage III, anxiety, COPD, BPH, rheumatoid arthritis and diastolic dysfunction without history of heart failure who presented to the ER with 1 week of nausea vomiting. Patient reports that his symptoms of nausea are improved if he drinks small amounts of water at the time. He has been having intermittent vomiting but denies any bilious emesis or coffee-ground emesis. He reports discomfort in the epigastric region is worse with eating. He denies any chest pain or shortness of breath. He does have a chronic cough because the recently quit smoking in December. He reports he has been having some intermittent loose stools. The been occurring a couple of times a day on the days that they occur. He denies any hematochezia, melena or hematuria. He feels like he is emptying his bladder completely. Patient is alert oriented x4 but was perseverating on what he thought was needed and it was difficult to get further review of systems from the patient. He reports that he was recently changed from 1 type of stomach medicine to another. On review of the patient's electronic external medication reconciliation it appears that the patient's Protonix was discontinued in April and he was switched to famotidine. He thinks that this which has resulted in him having more nausea. Patient also thinks that the nicotine lozenges that he takes at home for smoking cessation may be causing some nausea. He reports that the nicotine loss inches are the only forms in nicotine that have helped him quit smoking. He does not want a nicotine patch because they do not help at all. On arrival to the ER patient was mildly hypotensive and tachycardic. His labs demonstrated elevated urine specific gravity, trace ketones, elevated D-dimer, normal white count and stable hemoglobin at 12. In the ER CTA of the chest abdomen pelvis was performed which demonstrated cirrhosis with portal venous hypertension chronic left kidney atrophy with severe left hydronephrosis and chronic emphysematous and interstitial lung changes without evidence of pulmonary embolism. He also had incidental finding of chronic L1-L3 and L4 burst fractures. Urine had elevated specific gravity and trace ketones consistent with dehydration. Patient's creatinine was stable at 2.1 compared to last month. Despite 2 doses of IV Zofran and Pepcid in the ER patient continued to have intractable nausea vomiting and was admitted for observation. Review of Systems Review of Systems: 12 systems were reviewed with pertinent positives and negatives per HPI. Except as documented in the HPI, all other systems were reviewed and are negative. [facility] Past Medical History Medical History Alcoholic cirrhosis Anxiety Atrophy of left kidney Chronic interstitial lung disease Chronic low back pain Chronic right shoulder pain CKD (chronic kidney disease) stage 3, GFR 30-59 ml/min Closed fracture of orbital wall (~12/2021) Diastolic dysfunction Echocardiogram 12/2021: EF 65 did 70%, grade 1 diastolic dysfunction Emphysema lung Erosive esophagitis Esophageal varices determined by endoscopy Fracture of scapula (~12/2021) GERD (gastroesophageal reflux disease) Nocturia Rheumatoid arthritis Thrombocytopenia Vitamin D deficiency Surgical History Surgical History History of esophagogastroduodenoscopy (EGD) History of tonsillectomy History of uvulopalatopharyngoplasty Family History Family History Mother Hypertension Diabetes mellitus Depression Anxiety Heart disease Thyroid disease Father Emphysema lung Lung cancer Social History Social History (Updated 07/16/24 @ 08:12 by Brittnee Del Angel DO) Social History: The patient lives with his of 23 years. He used to work in [employer] and is attempting to apply for disability for the last 15 years and his last application was denied. He is a recovering alcoholic and has not had a drink since November of 2020. He used to smoke 1-2 packs of cigarettes per day and had done so since he was 15. He quit smoking December 2023. He occasionally will use THC gummy. He reports that he has experimented with all illicit substances in the past but has otherwise not had continuous use. The patient and his are raising the patient's 14-year-old grandson the parent when his grandson was 6-month-old. They have 2 cats at home. Code status: Full code (he actually states that if it was his time ago he would want to be let go but he needs to discuss this with his ) Surrogate decision maker: Caffeine-Coffee/tea Smoking packs per day: 1 Smoking cigarettes per day: 20.0 Years smoked: 43 Smoking pack-years: 43.00 Smoking status: Former smoker Tobacco type: cigarettes Second hand tobacco smoke exposure: Yes Smoking end date: 12/31/23 Additional smoking assessment comments: USED TO SMOKE 2PPD, NOW 1PPD Alcohol intake: former Alcohol use details: BEEN SOBER SINCE NOVEMBER 2020 Substance use: current Substance use type: does not use Other substance usage details: gummies Last use: 07/12/24 Do You Feel Safe in your Home?: Yes Lack of Transportation: No Lack of Food: Never True Current Housing: I Have Housing Concerned About Future Housing: No Difficulty Paying Gas/Electric Bills: No Difficulty Paying for Meds: No Currently Unemployed: No Education: High School Diploma/GED Difficulty w/ Childcare or Family Care: No Living arrangements: with family Occupation/Education: other Gender identity (if verbalized by the patient): Male Spiritual care concerns: No Meds Home Medications and Allergies Home Medications Medication Instructions Recorded Confirmed Type hydroxychloroquine 200 mg tablet 200 mg PO BID #180 tabs 01/30/24 07/15/24 Rx abatacept 125 mg/mL subcutaneous 125 mg subcut WEEKLY 02/12/24 07/15/24 History auto-injector (Orencia ClickJect) inhalational spacing device #1 ea 02/12/24 07/15/24 Rx (Aerochamber MV spacer) buspirone 10 mg tablet 10 mg PO TID #270 tabs 05/13/24 07/15/24 Rx gabapentin 300 mg capsule 300 mg PO HS #90 caps 06/16/24 07/15/24 Rx famotidine 20 mg tablet 20 mg PO QHS #30 tabs 07/07/24 07/15/24 Rx Allergies Allergy/AdvReac Type Severity Reaction Status Date / Time vancomycin AdvReac Severe Other Verified 07/07/24 11:49 [place] AdvReac Mild SHORTNESS Uncoded 07/07/24 11:49 OF BREATH Vital Signs Vital Signs - 24 hr 07/15/24 11:09 07/15/24 12:00 07/15/24 13:00 Temperature 97.4 F L Pulse Rate 132 H 115 H 112 H Respiratory Rate 20 20 20 Blood Pressure 95/77 L 119/73 107/73 Pulse Oximetry 100 100 100 Oxygen Delivery Room Air 07/15/24 14:00 07/15/24 15:00 07/15/24 16:00 Temperature Pulse Rate 106 H 98 88 Respiratory Rate 18 18 20 Blood Pressure 108/67 114/76 126/75 Pulse Oximetry 100 97 98 Oxygen Delivery 07/15/24 17:00 07/15/24 18:00 Temperature Pulse Rate 94 98 Respiratory Rate 20 20 Blood Pressure 102/91 H 123/74 Pulse Oximetry 98 99 Oxygen Delivery Exam Narrative: Weight 80.9 kg BMI 26.3 Const: Other: Thin body habitus, appears older than stated age, no acute distress, lying flat in the bed in the left semi-Asencio position HENMT: Other: Mucous membranes are dry, no oral pharyngeal erythema, edentulous, head is normocephalic atraumatic Eyes: Other: Pupils are equal and reactive, no scleral icterus, no conjunctival pallor Neck: Other: No JVD, supple, no lymphadenopathy Resp: Other: Decreased breath sounds bilaterally, no increased work of breathing Cardio: Other: Regular rate, regular rhythm, 2+ bilateral radial and pedal pulses GI: Other: Tender in the epigastric region, normoactive bowel sounds, no obvious organomegaly, soft, nondistended Skin: Other: No pallor, normal temperature to touch Neuro: Other: Alert oriented, speech is clear, no facial asymmetry, no tremors, no localizing neurologic deficits noted during the course of conversation Extrem: Other: No cyanosis, no edema, mild clubbing of the nail bed Psych: Other: Irritable and difficult to redirect, alert and oriented, H&P: Results Labs Labs: Laboratory Tests 07/15/24 12:25 07/15/24 12:25 07/15/24 07/15/24 07/15/24 12:25 15:20 15:53 WBC 8.0 RBC 4.35 L Hgb 12.1 L Hct 38.3 L MCV 88.0 MCH 27.8 MCHC 31.6 L RDW 15.7 H Plt Count 163 MPV 10.8 H Immature Gran % (Auto) 0.2 Neut % (Auto) 84.8 H Lymph % (Auto) 8.0 L [place] % (Auto) 6.5 Eos % (Auto) 0.0 Baso % (Auto) 0.5 Lymph # (Auto) 0.64 L [place] # (Auto) 0.5 Eos # (Auto) 0.0 Baso # (Auto) 0.0 Abs Immat Gran (auto) 0.02 Absolute Neuts (auto) 6.8 H Absolute Nucleated RBC 0.000 Nucleated RBC % 0.0 PT 17.8 H INR 1.4 APTT 31.3 D-Dimer 2.51 H Sodium 137 Potassium 4.1 Chloride 104 Carbon Dioxide 21 L Anion Gap 12 BUN 11 Creatinine 2.10 H Estim Creat Clear Calc 35 Estimated GFR 32 L Glucose 75 Lactic Acid 3.1 H 1.5 Calcium 8.7 Magnesium 2.0 Total Bilirubin 0.9 AST 47 ALT 17 Alkaline Phosphatase 210 H Troponin I < 0.012 NT-Pro-B Natriuret Pep 202 H Total Protein 7.0 Albumin 2.9 L Urine Color Yellow Urine Appearance Clear Urine pH 6.0 Ur Specific [place] > 1.045 H Urine Protein Trace Urine Glucose (UA) Negative Urine Ketones Trace H Ur Blood (Man) Negative Urine Nitrate Negative Urine Bilirubin Negative Urine Urobilinogen 0.2 Leukocyte Esterase Rfl Negative Urine RBC 3-5 H Urine WBC 0-5 Ur Squamous Epith Cells None seen Urine Bacteria None seen Urine Casts 0-2 Impressions Chest X-Ray 07/15/24 12:01 (personally reviewed and interpreted. Agree with radiologic interpretation) IMPRESSION: 1. Stable combination of emphysema and chronic interstitial lung disease. Chest/Abdomen/Pelvis CTA 07/15/24 14:05 IMPRESSION: 1. No pulmonary embolus. 2. Emphysema and chronic interstitial lung disease. 3. Cirrhosis of the liver with portal venous hypertension. 4. Severe left kidney atrophy with chronic severe left hydronephrosis. EKG: Personally reviewed and interpreted. Cardiology interpretation below. Measurements Intervals [place] Rate: 109 P: 57 MS: 179 QRS: 9 QRSD: 87 T: 11 QT: 315 QTc: 425 Interpretive Statements SINUS TACHYCARDIA BASELINE ARTIFACT LIMITS INTERPRETATION No previous ECG available for comparison Assessment and Plan Assessment and plan (1) Intractable nausea: Code(s): R11.0 - Nausea Status: Acute (2) Epigastric pain: Code(s): R10.13 - Epigastric pain Status: Acute (3) GERD (gastroesophageal reflux disease): Qualifiers: Esophagitis presence: without esophagitis Qualified Code(s): K21.9 - Gastro-esophageal reflux disease without esophagitis Code(s): K21.9 - Gastro-esophageal reflux disease without esophagitis Status: Acute (4) CKD (chronic kidney disease) stage 3, GFR 30-59 ml/min: Qualifiers: Chronic kidney disease stage 3 subtype: stage 3b (GFR 30-44) Qualified Code(s): N18.32 - Chronic kidney disease, stage 3b Code(s): N18.30 - Chronic kidney disease, stage 3 unspecified Status: Acute Plan Patient having intractable nausea with intermittent vomiting. He has not vomited since arrival to the medical floor but he has been NPO since coming to the ER. He is requesting a clear liquid diet. Given the improvement in the patient's symptoms with small amounts of liquid suspect patient likely has underlying gastritis. His symptoms may have been exacerbated with his recent switch from Protonix to Pepcid. He states that he thinks the loose stools were due to the switched to Pepcid. He had initially told me in the interview that he had switched from Pepcid to Protonix but it appears that the electronic record supports the opposite happening. Either way I will place patient on IV Protonix b.i.d.. Will add Carafate a.c. HS. Will continue antiemetics with Zofran and Phenergan. Given presence of epigastric pain will check lipase to rule out pancreatitis. Although there was no radiographic and evidence of acute pancreatitis on imaging. Despite patient's urine appearing concentrated and presence of ketones indicating dehydration the patient's creatinine remains stable. Patient did receive 2 L isotonic fluids in the ER. Will continue maintenance fluids at 100 mL an hour. Will repeat electrolyte panel and CBC in a.m.. Patient has been admitted as observation status. Quality VTE Prophylaxis VTE prophylaxis: pharmacologic ordered (Heparin 5000 units subQ q.12 hours) Hospitalist [facility] Advance Care Plan I have confirmed that the patient's Advanced Care Plan is present, code status is documented, or surrogate decision maker is listed in patient medical record.: Yes Medication Reconciliation I have utilized all available resources to obtain, update and review the patients current medications (includes all prescriptions, OTC, herbals, cannabis, and nutritional supplements).: Yes
--- NOTE | 2024-07-15 21:01 | ADMGEN ---
This patient, Jose Rafael Chavez Jr., was admitted to Medical Room 244-. Patient/family oriented to hospital policies and general routines including ID bracelet, bed and alarms, visiting hours, pain management, procedures, bathroom and other care routines, personal items, smoking policy, room service/diet, and visiting hours. Information on how to activate the Rapid Response Team has been discussed. Patient/Family are encouraged to report perceived risks to care and to ask questions if they do not understand what they are told or what they should do.
[2024-07-15] MEDS: PANTOPRAZOLE SODIUM IV 40 MG VIAL IV PUSH (22:48)
[2024-07-15] MEDS: HEPARIN SODIUM 5,000 UNITS/ML VIAL 5000 UNITS SUB-Q (22:48)
[2024-07-15] MEDS: SODIUM CHLORIDE 0.9% IV 1,000 ML 100 ML IV CONT (22:48)
[2024-07-16 04:35] VITALS: BP 105/71; PULSE 87; RESP 16; TEMP 36.1; O2SAT 98
--- NOTE | 2024-07-16 07:49 | P.PNIM_ITS ---
Progress Note: A&P Assessment and Plan (1) Intractable nausea: Code(s): R11.0 - Nausea Status: Acute Assessment and Plan: no acute evidence on CT that explains nausea or vomiting IV fluids for hydration clear liquid diet as tolerate IV Protonix b.i.d. schedule Reglan (2) Epigastric pain: Code(s): R10.13 - Epigastric pain Status: Acute Assessment and Plan: lipase to wdL (3) GERD (gastroesophageal reflux disease): Qualifiers: Esophagitis presence: without esophagitis Qualified Code(s): K21.9 - Gastro-esophageal reflux disease without esophagitis Code(s): K21.9 - Gastro-esophageal reflux disease without esophagitis Status: Acute Assessment and Plan: continue Protonix and Carafate (4) CKD (chronic kidney disease) stage 3, GFR 30-59 ml/min: Qualifiers: Chronic kidney disease stage 3 subtype: stage 3b (GFR 30-44) Qualified Code(s): N18.32 - Chronic kidney disease, stage 3b Code(s): N18.30 - Chronic kidney disease, stage 3 unspecified Status: Acute Assessment and Plan: improving continue IV fluids BMP in the a.m. Plan patient still nauseated vomiting continue Protonix b.i.d., added Carafate, and Reglan, repeat BMP CBC Patient has been admitted as observation status. Time Spent With Patient Time with patient: Greater than 35 minutes Subjective Date/time seen: 07/16/24 07:49 Interval history: 58-year-old male with past medical history of alcoholic cirrhosis with esophageal varices, gastritis, hiatal hernia, chronic kidney disease stage III, anxiety, COPD, BPH, rheumatoid arthritis and diastolic dysfunction without history of heart failure who presented to the ER with 1 week of nausea vomiting. during round patient was straight heaving after drinking water. Antiemetics adjusted. Continue IV fluids Review of Systems Review of Systems: 12 systems were reviewed and are negative except for as per HPI. Exam Narrative: General: well appearing, appears stated age. HEENT: normocephalic, atraumatic. Mucous membranes moist. EOMI, PERRLA, bilateral sclera anicteric, no conjunctival injection. Neck supple without JVD, lymphadenopathy, or bruit. Respiratory: clear to auscultation bilaterally. No rales/rhonic/wheezes. Cardiovascular: Regular rate and rhythm, normal S1-S2 upon auscultation. No murmurs, rubs, or clicks. PMI is nondisplaced, capillary refill less than 3 second. Abdomen: Soft, round, no pulsatile masses, nondistended and nontender. No rebound, no guarding. No CVA tenderness, no hepatosplenomegaly. Bowel sounds present to all four quadrants. No high pitch or tinkling sounds, resonant to percussion. Extremities: No cyanosis, clubbing, or edema present. Pulses are palpable 2/2. Active ROM to all four extremities. Neuro: Alert and orientated x 4. PERRLA. Cranial nerves 2-12 intact without focal deficit. Skin: Warm, dry, and intact, without rash, erythema, or lesion. Psych: pleasant, cooperative, normal speech, normal affect, no hallucinations, no dysarthia Objective Data Vital Signs Vital Signs: Vital Signs - 24 hr 07/15/24 11:09 07/15/24 12:00 07/15/24 13:00 Temperature 97.4 F L Pulse Rate 132 H 115 H 112 H Respiratory Rate 20 20 20 Blood Pressure 95/77 L 119/73 107/73 Pulse Oximetry 100 100 100 Oxygen Delivery Room Air 07/15/24 14:00 07/15/24 15:00 07/15/24 16:00 Temperature Pulse Rate 106 H 98 88 Respiratory Rate 18 18 20 Blood Pressure 108/67 114/76 126/75 Pulse Oximetry 100 97 98 Oxygen Delivery 07/15/24 17:00 07/15/24 18:00 07/15/24 21:20 Temperature Pulse Rate 94 98 Respiratory Rate 20 20 Blood Pressure 102/91 H 123/74 Pulse Oximetry 98 99 Oxygen Delivery Room Air 07/15/24 21:09 07/16/24 04:35 Temperature 96.8 F L 96.9 F L Pulse Rate 99 87 Respiratory Rate 16 16 Blood Pressure 130/67 105/71 Pulse Oximetry 100 98 Oxygen Delivery Intake/Output Intake/Output: Intake & Output 07/13/24 07/14/24 07/15/24 07/16/24 23:59 23:59 23:59 23:59 Intake Total 1999 200 Output Total 200 Balance 1999 0 Meds/Results Medications: Active Medications Generic Name Dose Route Start Last Admin Trade Name Freq PRN Reason Stop Dose Admin Buspirone HCl 10 mg 07/16/24 09:00 Buspirone Hcl 10 Mg Tablet PO TID RONDA Gabapentin 300 mg 07/16/24 21:00 Gabapentin 300 Mg Capsule PO HS [facility] Heparin Sodium (Porcine) 5,000 units 07/15/24 21:00 07/15/24 22:48 Heparin Sodium 5,000 Units/Ml Vial SUB-Q 5,000 units Q12HR RONDA Administration Sodium Chloride 1,000 mls @ 100 mls/hr 07/15/24 21:00 07/15/24 22:48 Normal Saline Iv IV CONT 100 mls/hr .Q10H RONDA Administration Ondansetron HCl 4 mg 07/15/24 18:52 Ondansetron Inj 4 Mg/2 Ml Vial IV PUSH Q4H PRN Nausea Pantoprazole Sodium 40 mg 07/15/24 21:00 07/15/24 22:48 Pantoprazole Sodium Iv 40 Mg Vial IV PUSH 40 mg Q12HR RONDA Administration Promethazine HCl 25 mg 07/15/24 20:59 Promethazine Hcl 25 Mg/Ml Ampul IM Q4H PRN Intractable nausea vomiting Radiology Results: ITS Impressions Chest X-Ray 07/15/24 12:01 IMPRESSION: 1. Stable combination of emphysema and chronic interstitial lung disease. Chest/Abdomen/Pelvis CTA 07/15/24 14:05 IMPRESSION: 1. No pulmonary embolus. 2. Emphysema and chronic interstitial lung disease. 3. Cirrhosis of the liver with portal venous hypertension. 4. Severe left kidney atrophy with chronic severe left hydronephrosis. Labs Labs: Laboratory Results - last 24 hr 07/15/24 07/15/24 07/15/24 12:25 15:20 15:53 WBC 8.0 RBC 4.35 L Hgb 12.1 L Hct 38.3 L MCV 88.0 MCH 27.8 MCHC 31.6 L RDW 15.7 H Plt Count 163 MPV 10.8 H Immature Gran % (Auto) 0.2 Neut % (Auto) 84.8 H Lymph % (Auto) 8.0 L [place] % (Auto) 6.5 Eos % (Auto) 0.0 Baso % (Auto) 0.5 Lymph # (Auto) 0.64 L [place] # (Auto) 0.5 Eos # (Auto) 0.0 Baso # (Auto) 0.0 Abs Immat Gran (auto) 0.02 Absolute Neuts (auto) 6.8 H Absolute Nucleated RBC 0.000 Nucleated RBC % 0.0 PT 17.8 H INR 1.4 APTT 31.3 D-Dimer 2.51 H Sodium 137 Potassium 4.1 Chloride 104 Carbon Dioxide 21 L Anion Gap 12 BUN 11 Creatinine 2.10 H Estim Creat Clear Calc 35 Estimated GFR 32 L Glucose 75 Lactic Acid 3.1 H 1.5 Calcium 8.7 Magnesium 2.0 Total Bilirubin 0.9 AST 47 ALT 17 Alkaline Phosphatase 210 H Troponin I < 0.012 NT-Pro-B Natriuret Pep 202 H Total Protein 7.0 Albumin 2.9 L Urine Color Yellow Urine Appearance Clear Urine pH 6.0 Ur Specific [place] > 1.045 H Urine Protein Trace Urine Glucose (UA) Negative Urine Ketones Trace H Ur Blood (Man) Negative Urine Nitrate Negative Urine Bilirubin Negative Urine Urobilinogen 0.2 Leukocyte Esterase Rfl Negative Urine RBC 3-5 H Urine WBC 0-5 Ur Squamous Epith Cells None seen Urine Bacteria None seen Urine Casts 0-2 Imaging Radiologist's impression: CTA chest PE abdomen pel DATE: 07/15/2024 14:00 INDICATION: Tachycardia. Vomiting. TECHNIQUE: Computed tomography angiography (CTA) of the chest was performed with 100 mL Omnipaque-350 intravenous contrast timed to evaluate the pulmonary arteries. Coronal maximum intensity projection 3D-reconstructions were created by the technologist. Computed tomography (CT) of the abdomen and pelvis was performed with intravenous contrast. Automated exposure control and iterative reconstruction technique were employed. The dose-length product was 920.16 mGy- cm. COMPARISON: CT chest 05/28/2024, CT abdomen and pelvis 01/11/2023 FINDINGS: CTA chest: The lungs demonstrate emphysema and chronic interstitial lung disease characterized by peripheral septal thickening and honeycombing. There is mild atelectasis in the lungs. Calcified pulmonary nodules and calcified hilar and mediastinal lymph nodes are consistent with old oedematous disease. The heart size is normal. There are coronary artery calcifications. No pericardial effusion. There is no pulmonary embolus. There are chronic fractures of T5, T6, T8, T9, T10, T11, and T12 vertebral bodies. CT abdomen and pelvis: There is a small sliding hiatal hernia. Paraesophageal varices are noted. The liver demonstrates surface nodularity, consistent with cirrhosis. There are gallstones in the gallbladder, which is normal in size. Calcifications in the spleen are consistent with old granulomatous disease. The pancreas, adrenal glands, and right kidney are normal. There is severe atrophy of left kidney. There is severe left hydronephrosis. There is diverticulosis of the colon without evidence of diverticulitis. The appendix is normal. There are no dilated loops of bowel. There are no pathologically enlarged lymph nodes. There is no free intraperitoneal fluid. There are bilateral inguinal hernias containing fat. There are chronic burst fractures of L1, L3, and L4. IMPRESSION: 1. No pulmonary embolus. 2. Emphysema and chronic interstitial lung disease. 3. Cirrhosis of the liver with portal venous hypertension. 4. Severe left kidney atrophy with chronic severe left hydronephrosis. ECG Interpretation: Rate: 109 P: 57 DC: 179 QRS: 9 QRSD: 87 T: 11 QT: 315 QTc: 425 Interpretive Statements SINUS TACHYCARDIA BASELINE ARTIFACT LIMITS INTERPRETATION Quality VTE Prophylaxis VTE prophylaxis: pharmacologic ordered (Heparin 5000 units subQ q.12 hours) Hospitalist [facility] Advance Care Plan I have confirmed that the patient's Advanced Care Plan is present, code status is documented, or surrogate decision maker is listed in patient medical record.: Yes Medication Reconciliation I have utilized all available resources to obtain, update and review the patients current medications (includes all prescriptions, OTC, herbals, cannabis, and nutritional supplements).: Yes
[2024-07-16 08:37] VITALS: O2SAT 94
[2024-07-16] MEDS: HEPARIN SODIUM 5,000 UNITS/ML VIAL 5000 UNITS SUB-Q ×2 (09:05→21:28)
[2024-07-16] MEDS: PANTOPRAZOLE SODIUM IV 40 MG VIAL IV PUSH ×2 (09:05→21:28)
[2024-07-16] MEDS: SODIUM CHLORIDE 0.9% IV 1,000 ML 100 ML IV CONT (09:05)
[2024-07-16 09:07] LABS: Hematocrit 35.8 % (42.0-52.0); Hemoglobin 10.7 g/dL (14.0-18.0); Mean Corpuscular HGB Conc 29.9 g/dl (32-36); Mean Corpuscular Hemoglobin 27.2 pg (26-34); Mean Corpuscular Volume 91.1 fl (80-100); Mean Platelet Volume 11.3 fl (7.4-10.4); Platelet Count Result 146 k/mm3 (150-375); Red Blood Count 3.93 M/mm3 (4.6-6.20); Red Cell Distribution Width 15.9 % (11.5-14.5); White Blood Count 4.8 K/mm3 (4.5-10.0)
[2024-07-16 09:13] LABS: Lipase 99 U/L (23-300)
[2024-07-16 09:15] LABS: Anion Gap 8 mmol/L (4-12); Blood Urea Nitrogen 11 mg/dL (9-20); Calcium 8.1 mg/dL (8.4-10.2); Carbon Dioxide 19 mmol/L (22-30); Chloride 109 mmol/L (98-107); Estimated CRCL calculation 38 ml/min; Estimated Glomerular Filt Rate 36; Glucose 71 mg/dL (65-110); Potassium 3.9 mmol/L (3.4-5.0); Sodium 136 mmol/L (137-145)
[2024-07-16 14:00] VITALS: BP 103/47; PULSE 80; RESP 18; TEMP 37.2; O2SAT 98
[2024-07-16] MEDS: METOCLOPRAMIDE HCL INJ 10 MG/2 ML VIAL 5 MG IV PUSH (17:22)
[2024-07-16] MEDS: SUCRALFATE SUSP 100 MG/ML 10 ML UDC 1000 MG PO ×2 (17:22→21:28)
[2024-07-16] MEDS: GABAPENTIN 300 MG CAPSULE PO (21:27)
[2024-07-16 22:00] VITALS: BP 123/70; PULSE 83; RESP 18; TEMP 36.7; O2SAT 99
[2024-07-17] MEDS: METOCLOPRAMIDE HCL INJ 10 MG/2 ML VIAL 5 MG IV PUSH ×4 (00:03→17:44)
[2024-07-17] MEDS: SODIUM CHLORIDE 0.9% IV 1,000 ML 100 ML IV CONT ×2 (05:00→15:08)
[2024-07-17 06:00] VITALS: BP 136/63; PULSE 84; RESP 18; TEMP 36.2; O2SAT 98
[2024-07-17] MEDS: SUCRALFATE SUSP 100 MG/ML 10 ML UDC 1000 MG PO ×4 (06:15→21:08)
--- NOTE | 2024-07-17 07:50 | PM.IMPN ---
Progress Note: A&P Assessment and Plan (1) Intractable nausea: Code(s): R11.0 - Nausea Status: Acute Assessment and Plan: no acute evidence on CT that explains nausea or vomiting IV fluids for hydration clear liquid diet as tolerate IV Protonix b.i.d. schedule Reglan History of esophageal varices and strictures will consult GI (2) Epigastric pain: Code(s): R10.13 - Epigastric pain Status: Acute Assessment and Plan: lipase to wdL (3) GERD (gastroesophageal reflux disease): Qualifiers: Esophagitis presence: without esophagitis Qualified Code(s): K21.9 - Gastro-esophageal reflux disease without esophagitis Code(s): K21.9 - Gastro-esophageal reflux disease without esophagitis Status: Acute Assessment and Plan: continue Protonix and Carafate (4) CKD (chronic kidney disease) stage 3, GFR 30-59 ml/min: Qualifiers: Chronic kidney disease stage 3 subtype: stage 3b (GFR 30-44) Qualified Code(s): N18.32 - Chronic kidney disease, stage 3b Code(s): N18.30 - Chronic kidney disease, stage 3 unspecified Status: Acute Assessment and Plan: improving continue IV fluids BMP in the a.m. Plan patient still nauseated vomiting continue Protonix b.i.d., added Carafate, and Reglan, repeat BMP CBC Patient has been admitted as observation status. GI consult as possible scope Time Spent With Patient Time with patient: Greater than 35 minutes Subjective Date/time seen: 07/17/24 07:50 Interval history: 58-year-old male with past medical history of alcoholic cirrhosis with esophageal varices, gastritis, hiatal hernia, chronic kidney disease stage III, anxiety, COPD, BPH, rheumatoid arthritis and diastolic dysfunction without history of heart failure who presented to the ER with 1 week of nausea vomiting. This morning could be delusional, no acute signs of bleeding, creatinine slowly improving will continue IV hydration, GI cocktail added, clear dietary shakes and tele Patient states the nausea and vomiting are worse today and that he has a history of gastric ulcers and esophageal strictures will consult GI Review of Systems Review of Systems: 12 systems were reviewed and are negative except for as per HPI. Exam Narrative: General: well appearing, appears stated age. HEENT: normocephalic, atraumatic. Mucous membranes moist. EOMI, PERRLA, bilateral sclera anicteric, no conjunctival injection. Neck supple without JVD, lymphadenopathy, or bruit. Respiratory: clear to auscultation bilaterally. No rales/rhonic/wheezes. Cardiovascular: Regular rate and rhythm, normal S1-S2 upon auscultation. No murmurs, rubs, or clicks. PMI is nondisplaced, capillary refill less than 3 second. Abdomen: Soft, round, no pulsatile masses, nondistended and nontender. No rebound, no guarding. No CVA tenderness, no hepatosplenomegaly. Bowel sounds present to all four quadrants. No high pitch or tinkling sounds, resonant to percussion. Extremities: No cyanosis, clubbing, or edema present. Pulses are palpable 2/2. Active ROM to all four extremities. Neuro: Alert and orientated x 4. PERRLA. Cranial nerves 2-12 intact without focal deficit. Skin: Warm, dry, and intact, without rash, erythema, or lesion. Psych: pleasant, cooperative, normal speech, normal affect, no hallucinations, no dysarthia Generalized ecchymosis Const: Other: Thin body habitus, appears older than stated age, no acute distress, lying flat in the bed in the left semi-Asencio position HENMT: Other: Mucous membranes are dry, no oral pharyngeal erythema, edentulous, head is normocephalic atraumatic Eyes: Other: Pupils are equal and reactive, no scleral icterus, no conjunctival pallor Neck: Other: No JVD, supple, no lymphadenopathy Resp: Other: Decreased breath sounds bilaterally, no increased work of breathing Cardio: Other: Regular rate, regular rhythm, 2+ bilateral radial and pedal pulses GI: Other: Tender in the epigastric region, normoactive bowel sounds, no obvious organomegaly, soft, nondistended Skin: Other: No pallor, normal temperature to touch Neuro: Other: Alert oriented, speech is clear, no facial asymmetry, no tremors, no localizing neurologic deficits noted during the course of conversation Extrem: Other: No cyanosis, no edema, mild clubbing of the nail bed Psych: Other: Irritable and difficult to redirect, alert and oriented, Objective Data Vital Signs Vital Signs: Vital Signs - 24 hr 07/16/24 08:37 07/16/24 09:00 07/16/24 14:00 Temperature 98.9 F Pulse Rate 80 Respiratory Rate 18 Blood Pressure 103/47 L Pulse Oximetry 94 98 Oxygen Delivery Room Air Room Air 07/16/24 22:00 07/16/24 20:00 07/17/24 06:00 Temperature 98.1 F 97.2 F L Pulse Rate 83 84 Respiratory Rate 18 18 Blood Pressure 123/70 136/63 Pulse Oximetry 99 98 Oxygen Delivery Room Air Intake/Output Intake/Output: Intake & Output 07/14/24 07/15/24 07/16/24 07/17/24 23:59 23:59 23:59 23:59 Intake Total 1999 2450 1500 Output Total 700 750 Balance 1999 1750 750 Meds/Results Medications: Active Medications Generic Name Dose Route Start Last Admin Trade Name Freq PRN Reason Stop Dose Admin Buspirone HCl 10 mg 07/16/24 09:00 07/16/24 17:22 Buspirone Hcl 10 Mg Tablet PO Not Given TID RONDA Gabapentin 300 mg 07/16/24 21:00 07/16/24 21:27 Gabapentin 300 Mg Capsule PO 300 mg HS RONDA Administration Heparin Sodium (Porcine) 5,000 units 07/15/24 21:00 07/16/24 21:28 Heparin Sodium 5,000 Units/Ml Vial SUB-Q 5,000 units Q12HR RONDA Administration Sodium Chloride 1,000 mls @ 100 mls/hr 07/15/24 21:00 07/17/24 05:00 Normal Saline Iv IV CONT 100 mls/hr .Q10H RONDA Administration Metoclopramide HCl 5 mg 07/16/24 18:00 07/17/24 06:15 Metoclopramide Hcl Inj 10 Mg/2 Ml Vial IV PUSH 5 mg Q6HR RONDA Administration Ondansetron HCl 4 mg 07/15/24 18:52 Ondansetron Inj 4 Mg/2 Ml Vial IV PUSH Q4H PRN Nausea Pantoprazole Sodium 40 mg 07/15/24 21:00 07/16/24 21:28 Pantoprazole Sodium Iv 40 Mg Vial IV PUSH 40 mg Q12HR RONDA Administration Sucralfate 1,000 mg 07/16/24 16:30 07/17/24 06:15 Sucralfate Susp 100 Mg/Ml 10 Ml Udc PO 1,000 mg ACHS RONDA Administration Radiology Results: ITS Impressions Chest X-Ray 07/15/24 12:01 IMPRESSION: 1. Stable combination of emphysema and chronic interstitial lung disease. Chest/Abdomen/Pelvis CTA 07/15/24 14:05 IMPRESSION: 1. No pulmonary embolus. 2. Emphysema and chronic interstitial lung disease. 3. Cirrhosis of the liver with portal venous hypertension. 4. Severe left kidney atrophy with chronic severe left hydronephrosis. Labs Labs: Laboratory Results - last 24 hr 07/16/24 08:53 WBC 4.8 RBC 3.93 L Hgb 10.7 L Hct 35.8 L MCV 91.1 MCH 27.2 MCHC 29.9 L RDW 15.9 H Plt Count 146 L MPV 11.3 H Sodium 136 L Potassium 3.9 Chloride 109 H Carbon Dioxide 19 L Anion Gap 8 BUN 11 Creatinine 1.90 H Estim Creat Clear Calc 38 Estimated GFR 36 L Glucose 71 Calcium 8.1 L Lipase 99 Quality VTE Prophylaxis VTE prophylaxis: pharmacologic ordered (Heparin 5000 units subQ q.12 hours)
[2024-07-17] MEDS: HEPARIN SODIUM 5,000 UNITS/ML VIAL 5000 UNITS SUB-Q ×2 (08:50→21:08)
[2024-07-17] MEDS: busPIRone HCL 10 MG TABLET PO ×3 (08:50→17:43)
[2024-07-17] MEDS: PANTOPRAZOLE SODIUM IV 40 MG VIAL IV PUSH ×2 (08:50→21:08)
[2024-07-17] MEDS: BELLADONNA ALK/PHENOB ELIX 10 ML, MAG HYDROX/ALUMINUM HYD/SIMETH 30 ML, LIDOCAINE HCL 2... PO ×3 (08:51→17:43)
[2024-07-17 09:36] VITALS: O2SAT 98
[2024-07-17] MEDS: BENZONATATE 100 MG CAPSULE PO ×2 (12:57→17:43)
[2024-07-17 14:00] VITALS: BP 127/68; PULSE 62; RESP 16; TEMP 36.3; O2SAT 100
--- NOTE | 2024-07-17 18:23 | P.CONGI_ITS ---
Assessment and Plan Assessment and plan (1) Intractable nausea: Code(s): R11.0 - Nausea Status: Acute Assessment and Plan: The patient's protracted nausea vomiting could be related to recurrence of preexistent GERD. No acute metabolic abnormalities evidenced in his laboratory workup to explain this problem. I will perform an EGD tomorrow to evaluate esophageal mucosa and to rule out recurrence of severe esophagitis. Continue PPIs for now. (2) Alcoholic cirrhosis: Qualifiers: Ascites presence: with ascites Qualified Code(s): K70.31 - Alcoholic cirrhosis of liver with ascites Code(s): K70.30 - Alcoholic cirrhosis of liver without ascites Status: Acute GI Consult Note Consult date/time: 07/17/24 18:23 Reason for consult: vomiting, nausea HPI: Jose Rafael Chavez Jr. is a 58 year old male With a history of alcoholic cirrhosis, severe erosive esophagitis, COPD, chronic renal failure and rheumatoid arthritis. The reason for the consultation is protracted nausea and vomiting, being unable to tolerate food. Reviewing his chart, he had a very similar episode in April last year, where an EGD was performed showing severe erosive esophagitis. On follow-up endoscopy with treatment with PPIs, there was significant improvement, clinically and endoscopically. However, small varices were evident during EGD. He denies dysphagia, chest pain or abdominal pain. Review of Systems Review of Systems: All systems reviewed & are unremarkable except as noted in HPI and below PMFSH Past Medical History Medical History Alcoholic cirrhosis Anxiety Atrophy of left kidney Chronic interstitial lung disease Chronic low back pain Chronic right shoulder pain CKD (chronic kidney disease) stage 3, GFR 30-59 ml/min Closed fracture of orbital wall (~12/2021) Diastolic dysfunction Echocardiogram 12/2021: EF 65 did 70%, grade 1 diastolic dysfunction Emphysema lung Erosive esophagitis Esophageal varices determined by endoscopy Fracture of scapula (~12/2021) GERD (gastroesophageal reflux disease) Nocturia Rheumatoid arthritis Thrombocytopenia Vitamin D deficiency Surgical History Surgical History History of esophagogastroduodenoscopy (EGD) History of tonsillectomy History of uvulopalatopharyngoplasty Family History Family History Mother Hypertension Diabetes mellitus Depression Anxiety Heart disease Thyroid disease Father Emphysema lung Lung cancer Social History Social History (Updated 07/16/24 @ 08:12 by Brittnee Del Angel DO) Social History: The patient lives with his of 23 years. He used to work in [employer] and is attempting to apply for disability for the last 15 years and his last application was denied. He is a recovering alcoholic and has not had a drink since November of 2020. He used to smoke 1-2 packs of cigarettes per day and had done so since he was 15. He quit smoking December 2023. He occasionally will use THC gummy. He reports that he has experimented with all illicit substances in the past but has otherwise not had continuous use. The patient and his are raising the patient's 14-year-old grandson the parent when his grandson was 6-month-old. They have 2 cats at home. Code status: Full code (he actually states that if it was his time ago he would want to be let go but he needs to discuss this with his ) Surrogate decision maker: Caffeine-Coffee/tea Smoking packs per day: 1 Smoking cigarettes per day: 20.0 Years smoked: 43 Smoking pack-years: 43.00 Smoking status: Former smoker Tobacco type: cigarettes Second hand tobacco smoke exposure: Yes Smoking end date: 12/31/23 Additional smoking assessment comments: USED TO SMOKE 2PPD, NOW 1PPD Alcohol intake: former Alcohol use details: BEEN SOBER SINCE NOVEMBER 2020 Substance use: current Substance use type: does not use Other substance usage details: gummies Last use: 07/12/24 Do You Feel Safe in your Home?: Yes Lack of Transportation: No Lack of Food: Never True Current Housing: I Have Housing Concerned About Future Housing: No Difficulty Paying Gas/Electric Bills: No Difficulty Paying for Meds: No Currently Unemployed: No Education: High School Diploma/GED Difficulty w/ Childcare or Family Care: No Living arrangements: with family Occupation/Education: other Gender identity (if verbalized by the patient): Male Spiritual care concerns: No Meds Home Medications and Allergies Home Medications Medication Instructions Recorded Confirmed Type hydroxychloroquine 200 mg tablet 200 mg PO BID #180 tabs 01/30/24 07/15/24 Rx abatacept 125 mg/mL subcutaneous 125 mg subcut WEEKLY 02/12/24 07/15/24 History auto-injector (Orencia ClickJect) inhalational spacing device #1 ea 02/12/24 07/15/24 Rx (Aerochamber MV spacer) buspirone 10 mg tablet 10 mg PO TID #270 tabs 05/13/24 07/15/24 Rx gabapentin 300 mg capsule 300 mg PO HS #90 caps 06/16/24 07/15/24 Rx famotidine 20 mg tablet 20 mg PO QHS #30 tabs 07/07/24 07/15/24 Rx Allergies Allergy/AdvReac Type Severity Reaction Status Date / Time vancomycin AdvReac Severe Other Verified 07/07/24 11:49 [place] AdvReac Mild SHORTNESS Uncoded 07/07/24 11:49 OF BREATH Vital Signs Vital Signs - 24 hr 07/16/24 22:00 07/16/24 20:00 07/17/24 06:00 Temperature 98.1 F 97.2 F L Pulse Rate 83 84 Respiratory Rate 18 18 Blood Pressure 123/70 136/63 Pulse Oximetry 99 98 Oxygen Delivery Room Air 07/17/24 09:36 07/17/24 08:50 07/17/24 14:00 Temperature 97.3 F L Pulse Rate 62 Respiratory Rate 16 Blood Pressure 127/68 Pulse Oximetry 98 100 Oxygen Delivery Room Air Room Air Exam Const: General: cooperative and healthy appearing Resp: Effort & Inspection: normal respiratory effort and able to speak in complete sentences Auscultation: clear to auscultation bilaterally Cardio: Rate: regular rate Rhythm: regular rhythm GI: Inspection: normal to inspection GI Palp: No No hepatosplenomegaly present Auscultation: normal bowel sounds Rectal Exam: deferred Skin: General skin exam: normal color Psych: Appearance: grossly normal Mental Status: mental status grossly normal Results Labs 07/16/24 08:53 07/16/24 08:53
[2024-07-17 20:25] VITALS: BP 126/74; PULSE 84; RESP 20; TEMP 36.4; O2SAT 98
[2024-07-17] MEDS: GABAPENTIN 300 MG CAPSULE PO (21:08)
[2024-07-18] VITALS (8 sets, daily range): BP systolic 94–139; BP diastolic 62–77; PULSE 75–108; RESP 16–26; TEMP 36.2–36.8; O2SAT 95–98
[2024-07-18] MEDS: METOCLOPRAMIDE HCL INJ 10 MG/2 ML VIAL 5 MG IV PUSH ×3 (00:12→14:21)
[2024-07-18] MEDS: SODIUM CHLORIDE 0.9% IV 1,000 ML 100 ML IV CONT ×2 (00:56→15:49)
--- NOTE | 2024-07-18 07:02 | P.PNIM_ITS ---
Progress Note: A&P Assessment and Plan (1) Intractable nausea: Code(s): R11.0 - Nausea Status: Acute Assessment and Plan: no acute evidence on CT that explains nausea or vomiting IV fluids for hydration clear liquid diet as tolerate IV Protonix b.i.d. schedule Reglan 07/18 EGD, see report for details, biopsies pending The patient has evidence of portal hypertension, esophageal varices in addition to a hiatal hernia. To prevent further hepatic decompensation and variceal bleeding, he should be discharged with carvedilol 6.25 mg q.d.. In addition, metoclopramide 10 mg before meals is suggested to prevent dyspepsia and nausea. IV pantoprazole can be discontinued and switched to oral, 40 mg once a day. We need to follow him closely in our GI Clinic at his discharge. (2) Epigastric pain: Code(s): R10.13 - Epigastric pain Status: Acute Assessment and Plan: lipase to wdL (3) GERD (gastroesophageal reflux disease): Qualifiers: Esophagitis presence: without esophagitis Qualified Code(s): K21.9 - Gastro-esophageal reflux disease without esophagitis Code(s): K21.9 - Gastro-esophageal reflux disease without esophagitis Status: Acute Assessment and Plan: continue Protonix and Carafate (4) CKD (chronic kidney disease) stage 3, GFR 30-59 ml/min: Qualifiers: Chronic kidney disease stage 3 subtype: stage 3b (GFR 30-44) Qualified Code(s): N18.32 - Chronic kidney disease, stage 3b Code(s): N18.30 - Chronic kidney disease, stage 3 unspecified Status: Acute Assessment and Plan: improving continue IV fluids BMP in the a.m. Plan The patient has evidence of portal hypertension, esophageal varices in addition to a hiatal hernia. To prevent further hepatic decompensation and variceal bleeding, he should be discharged with carvedilol 6.25 mg q.d.. In addition, metoclopramide 10 mg before meals is suggested to prevent dyspepsia and nausea. IV pantoprazole can be discontinued and switched to oral, 40 mg once a day. We need to follow him closely in our GI Clinic at his discharge. Subjective Date/time seen: 07/18/24 07:02 Interval history: 58-year-old male with past medical history of alcoholic cirrhosis with esophageal varices, gastritis, hiatal hernia, chronic kidney disease stage III, anxiety, COPD, BPH, rheumatoid arthritis and diastolic dysfunction without history of heart failure who presented to the ER with 1 week of nausea vomiting. This morning could be delusional, no acute signs of bleeding, creatinine slowly improving will continue IV hydration, GI cocktail added, clear dietary shakes and tele per GI The patient has evidence of portal hypertension, esophageal varices in addition to a hiatal hernia. To prevent further hepatic decompensation and variceal bleeding, he should be discharged with carvedilol 6.25 mg q.d.. In addition, metoclopramide 10 mg before meals is suggested to prevent dyspepsia and nausea. IV pantoprazole can be discontinued and switched to oral, 40 mg once a day. We need to follow him closely in our GI Clinic at his discharge. Review of Systems Review of Systems: 12 systems were reviewed and are negative except for as per HPI. Exam Narrative: General: well appearing, appears stated age. HEENT: normocephalic, atraumatic. Mucous membranes moist. EOMI, PERRLA, bilateral sclera anicteric, no conjunctival injection. Neck supple without JVD, lymphadenopathy, or bruit. Respiratory: clear to auscultation bilaterally. No rales/rhonic/wheezes. Cardiovascular: Regular rate and rhythm, normal S1-S2 upon auscultation. No murmurs, rubs, or clicks. PMI is nondisplaced, capillary refill less than 3 second. Abdomen: Soft, round, no pulsatile masses, nondistended and nontender. No rebound, no guarding. No CVA tenderness, no hepatosplenomegaly. Bowel sounds present to all four quadrants. No high pitch or tinkling sounds, resonant to percussion. Extremities: No cyanosis, clubbing, or edema present. Pulses are palpable 2/2. Active ROM to all four extremities. Neuro: Alert and orientated x 4. PERRLA. Cranial nerves 2-12 intact without focal deficit. Skin: Warm, dry, and intact, without rash, erythema, or lesion. Psych: pleasant, cooperative, normal speech, normal affect, no hallucinations, no dysarthia Generalized ecchymosis Const: Other: Thin body habitus, appears older than stated age, no acute distress, lying flat in the bed in the left semi-Asencio position HENMT: Other: Mucous membranes are dry, no oral pharyngeal erythema, edentulous, head is normocephalic atraumatic Eyes: Other: Pupils are equal and reactive, no scleral icterus, no conjunctival pallor Neck: Other: No JVD, supple, no lymphadenopathy Resp: Other: Decreased breath sounds bilaterally, no increased work of breathing Cardio: Other: Regular rate, regular rhythm, 2+ bilateral radial and pedal pulses GI: Other: Tender in the epigastric region, normoactive bowel sounds, no obvious organomegaly, soft, nondistended Skin: Other: No pallor, normal temperature to touch Neuro: Other: Alert oriented, speech is clear, no facial asymmetry, no tremors, no localizing neurologic deficits noted during the course of conversation Extrem: Other: No cyanosis, no edema, mild clubbing of the nail bed Psych: Other: Irritable and difficult to redirect, alert and oriented, Objective Data Vital Signs Vital Signs: Vital Signs - 24 hr 07/17/24 09:36 07/17/24 08:50 07/17/24 14:00 Temperature 97.3 F L Pulse Rate 62 Respiratory Rate 16 Blood Pressure 127/68 Pulse Oximetry 98 100 Oxygen Delivery Room Air Room Air 07/17/24 20:25 07/18/24 04:47 Temperature 97.5 F L 97.7 F Pulse Rate 84 96 Respiratory Rate 20 18 Blood Pressure 126/74 128/76 Pulse Oximetry 98 96 Oxygen Delivery Intake/Output Intake/Output: Intake & Output 07/15/24 07/16/24 07/17/24 07/18/24 23:59 23:59 23:59 23:59 Intake Total 1999 8910 3810 980 Output Total 700 2925 400 Balance 1999 2357 667 316 Meds/Results Medications: Active Medications Generic Name Dose Route Start Last Admin Trade Name Freq PRN Reason Stop Dose Admin Benzonatate 100 mg 07/17/24 13:00 07/17/24 17:43 Benzonatate 100 Mg Capsule PO 100 mg TID RONDA Administration Buspirone HCl 10 mg 07/16/24 09:00 07/17/24 17:43 Buspirone Hcl 10 Mg Tablet PO 10 mg TID RONDA Administration Belladonna Alkaloids/ 0 ml 07/17/24 09:00 07/17/24 17:43 Phenobarbital 10 ml/ Al Hydrox PO 10 ml /Mg Hydrox/Simethicone 30 ml/ TID RONDA Administration Lidocaine HCl 10 ml Gabapentin 300 mg 07/16/24 21:00 07/17/24 21:08 Gabapentin 300 Mg Capsule PO 300 mg HS RONDA Administration Guaifenesin/Dextromethorphan 5 ml 07/17/24 12:31 Guaifenesin/Dextromethorphan 10 Ml Udc PO Q4H PRN Cough Heparin Sodium (Porcine) 5,000 units 07/15/24 21:00 07/17/24 21:08 Heparin Sodium 5,000 Units/Ml Vial SUB-Q 5,000 units Q12HR RONDA Administration Sodium Chloride 1,000 mls @ 100 mls/hr 07/15/24 21:00 07/18/24 00:58 Normal Saline Iv IV CONT Not Given .Q10H RONDA Metoclopramide HCl 5 mg 07/16/24 18:00 07/18/24 06:15 Metoclopramide Hcl Inj 10 Mg/2 Ml Vial IV PUSH 5 mg Q6HR RONDA Administration Ondansetron HCl 4 mg 07/15/24 18:52 Ondansetron Inj 4 Mg/2 Ml Vial IV PUSH Q4H PRN Nausea Pantoprazole Sodium 40 mg 07/15/24 21:00 07/17/24 21:08 Pantoprazole Sodium Iv 40 Mg Vial IV PUSH 40 mg Q12HR RONDA Administration Sucralfate 1,000 mg 07/16/24 16:30 07/18/24 06:15 Sucralfate Susp 100 Mg/Ml 10 Ml Udc PO Not Given ACHS [facility] Radiology Results: ITS Impressions Chest X-Ray 07/15/24 12:01 IMPRESSION: 1. Stable combination of emphysema and chronic interstitial lung disease. Chest/Abdomen/Pelvis CTA 07/15/24 14:05 IMPRESSION: 1. No pulmonary embolus. 2. Emphysema and chronic interstitial lung disease. 3. Cirrhosis of the liver with portal venous hypertension. 4. Severe left kidney atrophy with chronic severe left hydronephrosis. see EGD report Quality VTE Prophylaxis VTE prophylaxis: pharmacologic ordered (Heparin 5000 units subQ q.12 hours)
[2024-07-18 08:28] LABS: Hematocrit 34.4 % (42.0-52.0); Hemoglobin 10.7 g/dL (14.0-18.0); Immature Platelet Fraction Pct 3.9 % (0.9-11.2); Mean Corpuscular HGB Conc 31.1 g/dl (32-36); Mean Corpuscular Hemoglobin 27.7 pg (26-34); Mean Corpuscular Volume 89.1 fl (80-100); Platelet Count Result 136 k/mm3 (150-375); Red Blood Count 3.86 M/mm3 (4.6-6.20); White Blood Count 5.9 K/mm3 (4.5-10.0)
[2024-07-18 08:37] LABS: Anion Gap 11 mmol/L (4-12); Blood Urea Nitrogen 7 mg/dL (9-20); Calcium 8.2 mg/dL (8.4-10.2); Carbon Dioxide 18 mmol/L (22-30); Chloride 108 mmol/L (98-107); Estimated CRCL calculation 38 ml/min; Estimated Glomerular Filt Rate 36; Glucose 80 mg/dL (65-110); Potassium 3.5 mmol/L (3.4-5.0); Sodium 137 mmol/L (137-145)
[2024-07-18] MEDS: LACTATED RINGERS 1,000 ML 150 ML IV CONT (10:39)
--- NOTE | 2024-07-18 13:06 | P.PNAN_ITS ---
Anes - Eval Pre Procedure Procedure: Operation Date: 07/18/24 13:00 Proposed Procedures p Esophagogastroduodenoscopy - Jhonny Narayanan MD Date/Time: 07/18/24 13:06 Pre Op Diagnosis: Intractable vomitting Patient Data Age: 58 Gender: M Height: 1.75 m Weight: 79.9 kg Last Vital Signs Temp 97.2 F L 07/18/24 10:36 Pulse 87 07/18/24 10:36 Resp 19 07/18/24 10:36 BP 119/76 07/18/24 10:36 Pulse Ox 98 07/18/24 10:36 O2 Del Method Room Air 07/18/24 10:36 Allergies Allergy/AdvReac Type Severity Reaction Status Date / Time vancomycin AdvReac Severe Other Verified 07/18/24 10:35 [place] AdvReac Mild SHORTNESS Uncoded 07/18/24 10:35 OF BREATH Home Medications Medication Instructions Recorded Confirmed Type hydroxychloroquine 200 mg tablet 200 mg PO BID #180 tabs 01/30/24 07/15/24 Rx abatacept 125 mg/mL subcutaneous 125 mg subcut WEEKLY 02/12/24 07/15/24 History auto-injector (Orencia ClickJect) inhalational spacing device #1 ea 02/12/24 07/15/24 Rx (Aerochamber MV spacer) buspirone 10 mg tablet 10 mg PO TID #270 tabs 05/13/24 07/15/24 Rx gabapentin 300 mg capsule 300 mg PO HS #90 caps 06/16/24 07/15/24 Rx famotidine 20 mg tablet 20 mg PO QHS #30 tabs 07/07/24 07/15/24 Rx Laboratory Tests 07/18/24 07:51 WBC 5.9 K/mm3 (4.5-10.0) RBC 3.86 L M/mm3 (4.6-6.20) Hgb 10.7 L g/dL (14.0-18.0) Hct 34.4 L % (42.0-52.0) MCV 89.1 fl (80-100) MCH 27.7 pg (26-34) MCHC 31.1 L g/dl (32-36) RDW 16.0 H % (11.5-14.5) Plt Count 136 L k/mm3 (150-375) MPV 11.0 H fl (7.4-10.4) % Immature Plt Fraction 3.9 % (0.9-11.2) Sodium 137 mmol/L (137-145) Potassium 3.5 mmol/L (3.4-5.0) Chloride 108 H mmol/L (98-107) Carbon Dioxide 18 L mmol/L (22-30) Anion Gap 11 mmol/L (4-12) BUN 7 L mg/dL (9-20) Creatinine 1.90 H mg/dL (0.7-1.3) Estim Creat Clear Calc 38 ml/min Estimated GFR 36 L (59 - ) Glucose 80 mg/dL (65-110) Calcium 8.2 L mg/dL (8.4-10.2) Patient hx anesthesia problems: none Family hx anesthesia problems: none Results Review: All pre-operative results and documents have been reviewed as part of the pre- operative evaluation. [facility] Past Medical History Medical History Alcoholic cirrhosis Anxiety Atrophy of left kidney Chronic interstitial lung disease Chronic low back pain Chronic right shoulder pain CKD (chronic kidney disease) stage 3, GFR 30-59 ml/min Closed fracture of orbital wall (~12/2021) Diastolic dysfunction Echocardiogram 12/2021: EF 65 did 70%, grade 1 diastolic dysfunction Emphysema lung Erosive esophagitis Esophageal varices determined by endoscopy Fracture of scapula (~12/2021) GERD (gastroesophageal reflux disease) Nocturia Rheumatoid arthritis Thrombocytopenia Vitamin D deficiency Surgical History Surgical History History of esophagogastroduodenoscopy (EGD) History of tonsillectomy History of uvulopalatopharyngoplasty Family History Family History Mother Hypertension Diabetes mellitus Depression Anxiety Heart disease Thyroid disease Father Emphysema lung Lung cancer Social History Social History Social History: The patient lives with his of 23 years. He used to work in [employer] and is attempting to apply for disability for the last 15 years and his last application was denied. He is a recovering alcoholic and has not had a drink since November of 2020. He used to smoke 1-2 packs of cigarettes per day and had done so since he was 15. He quit smoking December 2023. He occasionally will use THC gummy. He reports that he has experimented with all illicit substances in the past but has otherwise not had continuous use. The patient and his are raising the patient's 14-year-old grandson the parent when his grandson was 6-month-old. They have 2 cats at home. Code status: Full code (he actually states that if it was his time ago he would want to be let go but he needs to discuss this with his ) Surrogate decision maker: Caffeine-Coffee/tea Smoking packs per day: 1 Smoking cigarettes per day: 20.0 Years smoked: 43 Smoking pack-years: 43.00 Smoking status: Former smoker Tobacco type: cigarettes Second hand tobacco smoke exposure: Yes Smoking end date: 12/31/23 Additional smoking assessment comments: USED TO SMOKE 2PPD, NOW 1PPD Alcohol intake: former Alcohol use details: BEEN SOBER SINCE NOVEMBER 2020 Substance use: current Substance use type: does not use Other substance usage details: gummies Last use: 07/12/24 Do You Feel Safe in your Home?: Yes Lack of Transportation: No Lack of Food: Never True Current Housing: I Have Housing Concerned About Future Housing: No Difficulty Paying Gas/Electric Bills: No Difficulty Paying for Meds: No Currently Unemployed: No Education: High School Diploma/GED Difficulty w/ Childcare or Family Care: No Living arrangements: with family Occupation/Education: other Gender identity (if verbalized by the patient): Male Spiritual care concerns: No Exam Day of Procedure 07/18/24 13:06 Patient weight: overweight Heart: regular rate and rhythm Lungs: clear to auscultation Airway: Mallampati scale class II Neurological: alert and oriented
--- NOTE | 2024-07-18 13:07 | P.PNAN_ITS ---
Anes - Eval Final PreProcedure Day of Procedure 07/18/24 13:07 Patient weight: overweight Heart: regular rate and rhythm Lungs: decreased breath sounds Airway: Mallampati scale class II Neurological: alert and oriented Last oral intake: >/= 8 hours ASA classification: IV Emergent: no Anesthetic plan: proceed Anesthesia type and monitoring: general GIVS and standard monitoring Results Review: All pre-operative results and documents have been reviewed as part of the pre- operative evaluation. Informed Consent: The patient's anesthetic plan and its attendant risks and benefits were discussed with the patient/family/POA. Questions were solicited and answers provided to the satisfaction of the patient/family/POA.
--- NOTE | 2024-07-18 13:10 | PM.IMHP ---
H&P: HPI History of Present Illness Date/Time: 07/18/24 13:10 Chief Complaint: Vomiting Narrative: patient has a diagnosis of liver cirrhosis from alcohol abuse, and is admitted with food intolerance. He states that he vomits practically every food he eats. He has a history of severe erosive esophagitis the recent past. [facility] Past Medical History Medical History Alcoholic cirrhosis Anxiety Atrophy of left kidney Chronic interstitial lung disease Chronic low back pain Chronic right shoulder pain CKD (chronic kidney disease) stage 3, GFR 30-59 ml/min Closed fracture of orbital wall (~12/2021) Diastolic dysfunction Echocardiogram 12/2021: EF 65 did 70%, grade 1 diastolic dysfunction Emphysema lung Erosive esophagitis Esophageal varices determined by endoscopy Fracture of scapula (~12/2021) GERD (gastroesophageal reflux disease) Nocturia Rheumatoid arthritis Thrombocytopenia Vitamin D deficiency Surgical History Surgical History History of esophagogastroduodenoscopy (EGD) History of tonsillectomy History of uvulopalatopharyngoplasty Family History Family History Mother Hypertension Diabetes mellitus Depression Anxiety Heart disease Thyroid disease Father Emphysema lung Lung cancer Social History Social History Social History: The patient lives with his of 23 years. He used to work in [employer] and is attempting to apply for disability for the last 15 years and his last application was denied. He is a recovering alcoholic and has not had a drink since November of 2020. He used to smoke 1-2 packs of cigarettes per day and had done so since he was 15. He quit smoking December 2023. He occasionally will use THC gummy. He reports that he has experimented with all illicit substances in the past but has otherwise not had continuous use. The patient and his are raising the patient's 14-year-old grandson the parent when his grandson was 6-month-old. They have 2 cats at home. Code status: Full code (he actually states that if it was his time ago he would want to be let go but he needs to discuss this with his ) Surrogate decision maker: Caffeine-Coffee/tea Smoking packs per day: 1 Smoking cigarettes per day: 20.0 Years smoked: 43 Smoking pack-years: 43.00 Smoking status: Former smoker Tobacco type: cigarettes Second hand tobacco smoke exposure: Yes Smoking end date: 12/31/23 Additional smoking assessment comments: USED TO SMOKE 2PPD, NOW 1PPD Alcohol intake: former Alcohol use details: BEEN SOBER SINCE NOVEMBER 2020 Substance use: current Substance use type: does not use Other substance usage details: gummies Last use: 07/12/24 Do You Feel Safe in your Home?: Yes Lack of Transportation: No Lack of Food: Never True Current Housing: I Have Housing Concerned About Future Housing: No Difficulty Paying Gas/Electric Bills: No Difficulty Paying for Meds: No Currently Unemployed: No Education: High School Diploma/GED Difficulty w/ Childcare or Family Care: No Living arrangements: with family Occupation/Education: other Gender identity (if verbalized by the patient): Male Spiritual care concerns: No Meds Home Medications and Allergies Home Medications Medication Instructions Recorded Confirmed Type hydroxychloroquine 200 mg tablet 200 mg PO BID #180 tabs 01/30/24 07/15/24 Rx abatacept 125 mg/mL subcutaneous 125 mg subcut WEEKLY 02/12/24 07/15/24 History auto-injector (Orencia ClickJect) inhalational spacing device #1 ea 02/12/24 07/15/24 Rx (Aerochamber MV spacer) buspirone 10 mg tablet 10 mg PO TID #270 tabs 05/13/24 07/15/24 Rx gabapentin 300 mg capsule 300 mg PO HS #90 caps 06/16/24 07/15/24 Rx famotidine 20 mg tablet 20 mg PO QHS #30 tabs 07/07/24 07/15/24 Rx Allergies Allergy/AdvReac Type Severity Reaction Status Date / Time vancomycin AdvReac Severe Other Verified 07/18/24 10:35 [place] AdvReac Mild SHORTNESS Uncoded 07/18/24 10:35 OF BREATH Vital Signs Vital Signs - 24 hr 07/17/24 14:00 07/17/24 20:25 07/18/24 04:47 Temperature 97.3 F L 97.5 F L 97.7 F Pulse Rate 62 84 96 Respiratory Rate 16 20 18 Blood Pressure 127/68 126/74 128/76 Pulse Oximetry 100 98 96 Oxygen Delivery 07/18/24 08:50 07/18/24 10:36 Temperature 97.2 F L Pulse Rate 87 Respiratory Rate 19 Blood Pressure 119/76 Pulse Oximetry 98 Oxygen Delivery Room Air Room Air H&P: Results Labs Labs: Short CBC 07/18/24 Range/Units 07:51 WBC 5.9 (4.5-10.0) K/mm3 Hgb 10.7 L (14.0-18.0) g/dL Hct 34.4 L (42.0-52.0) % Plt Count 136 L (150-375) k/mm3 BMP 07/18/24 07:51 Sodium 137 Potassium 3.5 Chloride 108 H Carbon Dioxide 18 L BUN 7 L Creatinine 1.90 H Glucose 80 Calcium 8.2 L Assessment and Plan Assessment and plan (1) Intractable nausea and vomiting: Code(s): R11.2 - Nausea with vomiting, unspecified Status: Acute Plan The patient is deemed a good candidate for the procedure. Consent signed. Will proceed.
--- NOTE | 2024-07-18 13:30 | P.PNGI_ITS ---
Progress Note: A&P Assessment and Plan (1) Epigastric pain: Code(s): R10.13 - Epigastric pain Status: Acute (2) Intractable nausea: Code(s): R11.0 - Nausea Status: Acute Assessment and Plan: The patient has evidence of portal hypertension, esophageal varices in addition to a hiatal hernia. To prevent further hepatic decompensation and variceal bleeding, he should be discharged with carvedilol 6.25 mg q.d.. In addition, metoclopramide 10 mg before meals is suggested to prevent dyspepsia and nausea. IV pantoprazole can be discontinued and switched to oral, 40 mg once a day. We need to follow him closely in our GI Clinic at his discharge. (3) Intractable nausea and vomiting: Code(s): R11.2 - Nausea with vomiting, unspecified Status: Acute Subjective Date/time seen: 07/18/24 13:30 Objective Data Vital Signs Vital Signs: Vital Signs - 24 hr 07/17/24 14:00 07/17/24 20:25 07/18/24 04:47 Temperature 97.3 F L 97.5 F L 97.7 F Pulse Rate 62 84 96 Respiratory Rate 16 20 18 Blood Pressure 127/68 126/74 128/76 Pulse Oximetry 100 98 96 Oxygen Delivery 07/18/24 08:50 07/18/24 10:36 Temperature 97.2 F L Pulse Rate 87 Respiratory Rate 19 Blood Pressure 119/76 Pulse Oximetry 98 Oxygen Delivery Room Air Room Air Intake/Output Intake/Output: Intake & Output 07/15/24 07/16/24 07/17/24 07/18/24 23:59 23:59 23:59 23:59 Intake Total 1999 2450 3810 980 Output Total 700 2925 400 Balance 1999 6935 712 543 Meds/Results Medications: Active Medications Generic Name Dose Route Start Last Admin Trade Name Freq PRN Reason Stop Dose Admin Benzonatate 100 mg 07/17/24 13:00 07/18/24 10:57 Benzonatate 100 Mg Capsule PO Not Given TID RONDA Buspirone HCl 10 mg 07/16/24 09:00 07/18/24 10:57 Buspirone Hcl 10 Mg Tablet PO Not Given TID RONDA Belladonna Alkaloids/ 0 ml 07/17/24 09:00 07/17/24 17:43 Phenobarbital 10 ml/ Al Hydrox PO 10 ml /Mg Hydrox/Simethicone 30 ml/ TID RONDA Administration Lidocaine HCl 10 ml Gabapentin 300 mg 07/16/24 21:00 07/17/24 21:08 Gabapentin 300 Mg Capsule PO 300 mg HS RONDA Administration Guaifenesin/Dextromethorphan 5 ml 07/17/24 12:31 Guaifenesin/Dextromethorphan 10 Ml Udc PO Q4H PRN Cough Heparin Sodium (Porcine) 5,000 units 07/15/24 21:00 07/18/24 10:57 Heparin Sodium 5,000 Units/Ml Vial SUB-Q Not Given Q12HR RONDA Sodium Chloride 1,000 mls @ 100 mls/hr 07/15/24 21:00 07/18/24 00:58 Normal Saline Iv IV CONT Not Given .Q10H RONDA Lactated Ringer's 1,000 mls @ 150 mls/hr 07/18/24 07:35 07/18/24 13:28 Lr - Lactated Ringers Iv IV CONT 150 mls/hr .Q6H40M RONDA Infusion Metoclopramide HCl 5 mg 07/16/24 18:00 07/18/24 06:15 Metoclopramide Hcl Inj 10 Mg/2 Ml Vial IV PUSH 5 mg Q6HR RONDA Administration Ondansetron HCl 4 mg 07/15/24 18:52 Ondansetron Inj 4 Mg/2 Ml Vial IV PUSH Q4H PRN Nausea Pantoprazole Sodium 40 mg 07/15/24 21:00 07/17/24 21:08 Pantoprazole Sodium Iv 40 Mg Vial IV PUSH 40 mg Q12HR RONDA Administration Sucralfate 1,000 mg 07/16/24 16:30 07/18/24 13:21 Sucralfate Susp 100 Mg/Ml 10 Ml Udc PO Not Given ACHS [facility] Radiology Results: ITS Impressions Chest X-Ray 07/15/24 12:01 IMPRESSION: 1. Stable combination of emphysema and chronic interstitial lung disease. Chest/Abdomen/Pelvis CTA 07/15/24 14:05 IMPRESSION: 1. No pulmonary embolus. 2. Emphysema and chronic interstitial lung disease. 3. Cirrhosis of the liver with portal venous hypertension. 4. Severe left kidney atrophy with chronic severe left hydronephrosis. Labs Labs: Laboratory Results - last 24 hr 07/18/24 07:51 WBC 5.9 RBC 3.86 L Hgb 10.7 L Hct 34.4 L MCV 89.1 MCH 27.7 MCHC 31.1 L RDW 16.0 H Plt Count 136 L MPV 11.0 H % Immature Plt Fraction 3.9 Sodium 137 Potassium 3.5 Chloride 108 H Carbon Dioxide 18 L Anion Gap 11 BUN 7 L Creatinine 1.90 H Estim Creat Clear Calc 38 Estimated GFR 36 L Glucose 80 Calcium 8.2 L
[2024-07-18] MEDS: PANTOPRAZOLE SODIUM IV 40 MG VIAL IV PUSH (14:21)
[2024-07-18] MEDS: BENZONATATE 100 MG CAPSULE PO ×2 (14:22→16:45)
[2024-07-18] MEDS: busPIRone HCL 10 MG TABLET PO ×2 (14:22→16:45)
[2024-07-18] MEDS: BELLADONNA ALK/PHENOB ELIX 10 ML, MAG HYDROX/ALUMINUM HYD/SIMETH 30 ML, LIDOCAINE HCL 2... PO ×2 (14:22→16:45)
[2024-07-18] MEDS: METOCLOPRAMIDE HCL 10 MG TABLET PO ×2 (16:45→20:54)
[2024-07-18] MEDS: SUCRALFATE SUSP 100 MG/ML 10 ML UDC 1000 MG PO ×2 (16:45→20:55)
[2024-07-18 19:39] LABS: Ammonia < 9 umol/L (9-30)
[2024-07-18] MEDS: GABAPENTIN 300 MG CAPSULE PO (20:54)
[2024-07-18] MEDS: HEPARIN SODIUM 5,000 UNITS/ML VIAL 5000 UNITS SUB-Q (20:55)
[2024-07-19] VITALS (9 sets, daily range): BP systolic 106–142; BP diastolic 54–83; PULSE 73–87; RESP 16–24; TEMP 36.4–37.2; O2SAT 93–96
[2024-07-19] MEDS: METOCLOPRAMIDE HCL 10 MG TABLET PO ×2 (06:44→13:15)
[2024-07-19] MEDS: SUCRALFATE SUSP 100 MG/ML 10 ML UDC 1000 MG PO ×4 (06:45→21:37)
--- NOTE | 2024-07-19 07:39 | PM.IMPN ---
Progress Note: A&P Assessment and Plan (1) Intractable nausea: Code(s): R11.0 - Nausea Status: Acute Assessment and Plan: no acute evidence on CT that explains nausea or vomiting IV fluids for hydration clear liquid diet as tolerate IV Protonix b.i.d. schedule Reglan 07/18 EGD, see report for details, biopsies pending The patient has evidence of portal hypertension, esophageal varices in addition to a hiatal hernia. To prevent further hepatic decompensation and variceal bleeding, he should be discharged with carvedilol 6.25 mg q.d.. In addition, metoclopramide 10 mg before meals is suggested to prevent dyspepsia and nausea. IV pantoprazole can be discontinued and switched to oral, 40 mg once a day. We need to follow him closely in our GI Clinic at his discharge. (2) Epigastric pain: Code(s): R10.13 - Epigastric pain Status: Acute Assessment and Plan: lipase to wdL (3) GERD (gastroesophageal reflux disease): Qualifiers: Esophagitis presence: without esophagitis Qualified Code(s): K21.9 - Gastro-esophageal reflux disease without esophagitis Code(s): K21.9 - Gastro-esophageal reflux disease without esophagitis Status: Acute Assessment and Plan: continue Protonix and Carafate (4) CKD (chronic kidney disease) stage 3, GFR 30-59 ml/min: Qualifiers: Chronic kidney disease stage 3 subtype: stage 3b (GFR 30-44) Qualified Code(s): N18.32 - Chronic kidney disease, stage 3b Code(s): N18.30 - Chronic kidney disease, stage 3 unspecified Status: Acute Assessment and Plan: improving continue IV fluids BMP in the a.m. (5) Portal hypertension with esophageal varices: Code(s): K76.6 - Portal hypertension; I85.00 - Esophageal varices without bleeding Status: Acute Assessment and Plan: To prevent further hepatic decompensation and variceal bleeding, he should be discharged with carvedilol 6.25 mg q.d.. (6) Altered mental status: Code(s): R41.82 - Altered mental status, unspecified Status: Acute Assessment and Plan: altered mental status at the EGD prior to EGD patient was easily forgetful however he was not confused. Sitter ordered for safety Zyprexa at night Plan The patient has evidence of portal hypertension, esophageal varices in addition to a hiatal hernia. To prevent further hepatic decompensation and variceal bleeding, he should be discharged with carvedilol 6.25 mg q.d.. In addition, metoclopramide 10 mg before meals is suggested to prevent dyspepsia and nausea. IV pantoprazole can be discontinued and switched to oral, 40 mg once a day. We need to follow him closely in our GI Clinic at his discharge. Time Spent With Patient Time with patient: Greater than 35 minutes Subjective Date/time seen: 07/19/24 07:39 Interval history: 58-year-old male with past medical history of alcoholic cirrhosis with esophageal varices, gastritis, hiatal hernia, chronic kidney disease stage III, anxiety, COPD, BPH, rheumatoid arthritis and diastolic dysfunction without history of heart failure who presented to the ER with 1 week of nausea vomiting. patient extremely confused after EGD, sitter ordered overnight. Will order Zyprexa Review of Systems Review of Systems: 12 systems were reviewed and are negative except for as per HPI. Exam Narrative: General: well appearing, appears stated age. A&O x1 HEENT: normocephalic, atraumatic. Mucous membranes moist. EOMI, PERRLA, bilateral sclera anicteric, no conjunctival injection. Neck supple without JVD, lymphadenopathy, or bruit. Respiratory: clear to auscultation bilaterally. No rales/rhonic/wheezes. Cardiovascular: Regular rate and rhythm, normal S1-S2 upon auscultation. No murmurs, rubs, or clicks. PMI is nondisplaced, capillary refill less than 3 second. Abdomen: Soft, round, no pulsatile masses, nondistended and nontender. No rebound, no guarding. No CVA tenderness, no hepatosplenomegaly. Bowel sounds present to all four quadrants. No high pitch or tinkling sounds, resonant to percussion. Extremities: No cyanosis, clubbing, or edema present. Pulses are palpable 2/2. Active ROM to all four extremities. Neuro: Alert and orientated x 4. PERRLA. Cranial nerves 2-12 intact without focal deficit. Skin: Warm, dry, and intact, without rash, erythema, or lesion. Psych: pleasant, cooperative, normal speech, normal affect, no hallucinations, no dysarthia Generalized ecchymosis Const: Other: Thin body habitus, appears older than stated age, no acute distress, lying flat in the bed in the left semi-Asencio position HENMT: Other: Mucous membranes are dry, no oral pharyngeal erythema, edentulous, head is normocephalic atraumatic Eyes: Other: Pupils are equal and reactive, no scleral icterus, no conjunctival pallor Neck: Other: No JVD, supple, no lymphadenopathy Resp: Other: Decreased breath sounds bilaterally, no increased work of breathing Cardio: Other: Regular rate, regular rhythm, 2+ bilateral radial and pedal pulses GI: Other: Tender in the epigastric region, normoactive bowel sounds, no obvious organomegaly, soft, nondistended Skin: Other: No pallor, normal temperature to touch Neuro: Other: Alert oriented, speech is clear, no facial asymmetry, no tremors, no localizing neurologic deficits noted during the course of conversation Extrem: Other: No cyanosis, no edema, mild clubbing of the nail bed Psych: Other: Irritable and difficult to redirect, alert and oriented, Objective Data Vital Signs Vital Signs: Vital Signs - 24 hr 07/18/24 08:50 07/18/24 10:36 07/18/24 13:28 Temperature 97.2 F L Pulse Rate 87 79 Respiratory Rate 19 26 H Blood Pressure 119/76 94/62 L Pulse Oximetry 98 96 Oxygen Delivery Room Air Room Air Room Air 07/18/24 13:38 07/18/24 13:48 07/18/24 07:53 Temperature 97.2 F L Pulse Rate 79 75 106 H Respiratory Rate 25 H 18 20 Blood Pressure 105/76 125/67 136/72 Pulse Oximetry 95 95 95 Oxygen Delivery Room Air Room Air 07/18/24 14:00 07/18/24 22:00 07/19/24 04:57 Temperature 98.3 F 98.3 F 97.6 F Pulse Rate 96 108 H 87 Respiratory Rate 16 22 H 24 H Blood Pressure 122/74 139/77 121/74 Pulse Oximetry 98 95 95 Oxygen Delivery Intake/Output Intake/Output: Intake & Output 07/16/24 07/17/24 07/18/24 07/19/24 23:59 23:59 23:59 23:59 Intake Total 2450 3810 2080 360 Output Total 700 2925 600 250 Balance 8877 106 9417 110 Meds/Results Medications: Active Medications Generic Name Dose Route Start Last Admin Trade Name Freq PRN Reason Stop Dose Admin Benzonatate 100 mg 07/17/24 13:00 07/18/24 16:45 Benzonatate 100 Mg Capsule PO 100 mg TID RONDA Administration Buspirone HCl 10 mg 07/16/24 09:00 07/18/24 16:45 Buspirone Hcl 10 Mg Tablet PO 10 mg TID RONDA Administration Belladonna Alkaloids/ 0 ml 07/17/24 09:00 07/18/24 16:45 Phenobarbital 10 ml/ Al Hydrox PO 10 ml /Mg Hydrox/Simethicone 30 ml/ TID RONDA Administration Lidocaine HCl 10 ml Gabapentin 300 mg 07/16/24 21:00 07/18/24 20:54 Gabapentin 300 Mg Capsule PO 300 mg HS RONDA Administration Guaifenesin/Dextromethorphan 5 ml 07/17/24 12:31 Guaifenesin/Dextromethorphan 10 Ml Udc PO Q4H PRN Cough Heparin Sodium (Porcine) 5,000 units 07/15/24 21:00 07/18/24 20:55 Heparin Sodium 5,000 Units/Ml Vial SUB-Q 5,000 units Q12HR RONDA Administration Metoclopramide HCl 10 mg 07/18/24 16:30 07/19/24 06:44 Metoclopramide Hcl 10 Mg Tablet PO 10 mg ACHS RONDA Administration Ondansetron HCl 4 mg 07/15/24 18:52 Ondansetron Inj 4 Mg/2 Ml Vial IV PUSH Q4H PRN Nausea Sucralfate 1,000 mg 07/16/24 16:30 07/19/24 06:45 Sucralfate Susp 100 Mg/Ml 10 Ml Udc PO 1,000 mg ACHS RONDA Administration Radiology Results: ITS Impressions Chest X-Ray 07/15/24 12:01 IMPRESSION: 1. Stable combination of emphysema and chronic interstitial lung disease. Chest/Abdomen/Pelvis CTA 07/15/24 14:05 IMPRESSION: 1. No pulmonary embolus. 2. Emphysema and chronic interstitial lung disease. 3. Cirrhosis of the liver with portal venous hypertension. 4. Severe left kidney atrophy with chronic severe left hydronephrosis. Head CT 07/18/24 19:32 IMPRESSION: No acute intracranial findings. Labs Labs: Laboratory Results - last 24 hr 07/18/24 07/18/24 07:51 19:19 WBC 5.9 RBC 3.86 L Hgb 10.7 L Hct 34.4 L MCV 89.1 MCH 27.7 MCHC 31.1 L RDW 16.0 H Plt Count 136 L MPV 11.0 H % Immature Plt Fraction 3.9 Sodium 137 Potassium 3.5 Chloride 108 H Carbon Dioxide 18 L Anion Gap 11 BUN 7 L Creatinine 1.90 H Estim Creat Clear Calc 38 Estimated GFR 36 L Glucose 80 Calcium 8.2 L Ammonia < 9 L Quality VTE Prophylaxis VTE prophylaxis: pharmacologic ordered (Heparin 5000 units subQ q.12 hours)
[2024-07-19] MEDS: HEPARIN SODIUM 5,000 UNITS/ML VIAL 5000 UNITS SUB-Q ×2 (08:41→21:38)
[2024-07-19] MEDS: PANTOPRAZOLE 40 MG TABLET PO (08:41)
[2024-07-19] MEDS: busPIRone HCL 10 MG TABLET PO ×3 (08:41→17:31)
[2024-07-19] MEDS: carvediloL 6.25 MG TABLET PO (08:41)
[2024-07-19] MEDS: BELLADONNA ALK/PHENOB ELIX 10 ML, MAG HYDROX/ALUMINUM HYD/SIMETH 30 ML, LIDOCAINE HCL 2... PO ×3 (08:41→17:31)
[2024-07-19] MEDS: BENZONATATE 100 MG CAPSULE PO ×3 (08:41→17:31)
[2024-07-19] MEDS: THIAMINE HCL INJ 100 MG, FOLIC ACID INJ 1 MG, MAGNESIUM SULFATE INJ 1 GM, MULTIVITAMINS... 125 MG IV CONT (17:30)
[2024-07-19] MEDS: chlordiazePOXIDE (*CRX) 25 MG CAPSULE 50 MG PO (17:31)
[2024-07-19] MEDS: OLANZapine 5 MG TABLET PO (17:38)
[2024-07-19 18:11] LABS: Glucose Point of Care 96 mg/dl (65-105)
[2024-07-19] MEDS: GABAPENTIN 300 MG CAPSULE PO (21:37)
[2024-07-19 23:44] LABS: Glucose Point of Care 76 mg/dl (65-105)
[2024-07-20] VITALS (14 sets, daily range): BP systolic 91–119; BP diastolic 53–69; PULSE 59–76; RESP 16–18; TEMP 36.4–36.9; O2SAT 92–100
[2024-07-20] MEDS: chlordiazePOXIDE (*CRX) 25 MG CAPSULE 50 MG PO ×2 (00:08→05:44)
--- NOTE | 2024-07-20 01:20 | PM.EVENT ---
Event Note Event Note Event Note: Received a call from the patients nurse with a condition update. Blood pressure was 96/53 on routine vital checks at midnight. The patient was sleeping and asymptomatic. Labs ordered and they are near his baseline. Hemoglobin is a bit lower however this is likely dilutional as he has received 7 liters of fluids in the four days he has been here. There is no signs of bleeding. He was also started on carvedilol 6.25 mg yesterday due to esophageal varices and this is likely the cause of the drop in blood pressure. Hold a.m. carvedilol and await GI input (can the dose be lowered?). No indication for further IV fluids as he is asymptomatic and MAP is greater than 65. Continue to monitor closely.
[2024-07-20 01:21] LABS: Hematocrit 29.2 % (42.0-52.0); Hemoglobin 9.4 g/dL (14.0-18.0); Mean Corpuscular HGB Conc 32.2 g/dl (32-36); Mean Corpuscular Hemoglobin 28.4 pg (26-34); Mean Corpuscular Volume 88.2 fl (80-100); Mean Platelet Volume 11.3 fl (7.4-10.4); Platelet Count Result 110 k/mm3 (150-375); Red Blood Count 3.31 M/mm3 (4.6-6.20); Red Cell Distribution Width 16.3 % (11.5-14.5)
--- NOTE | 2024-07-20 01:22 | PC.NURSE ---
Patient [id number] vital signs were 93/53, P76, R 18, T 97.8F, Oxygen 92%. JUAN Butler gave orders to hold morning Carvedilol 6.25 mg dose. Morning provider will determine continuation or stop medication.
[2024-07-20 01:37] LABS: Anion Gap 7 mmol/L (4-12); Blood Urea Nitrogen 6 mg/dL (9-20); Calcium 7.7 mg/dL (8.4-10.2); Carbon Dioxide 19 mmol/L (22-30); Chloride 110 mmol/L (98-107); Estimated CRCL calculation 38 ml/min; Estimated Glomerular Filt Rate 36; Glucose 83 mg/dL (65-110); Potassium 3.3 mmol/L (3.4-5.0); Sodium 136 mmol/L (137-145)
[2024-07-20] MEDS: POTASSIUM CHLORIDE 20 MEQ ER TABLET PO (01:56)
--- NOTE | 2024-07-20 02:09 | PC.NURSE ---
Daylight Savings Time For Daylight Savings Time Ending in the Fall - Clocks are moved back. For Daylight Savings Time Beginning in the Spring - Clocks are moved ahead. For [facility], the time of change occurs at 0200 hrs. Time is taken from the tray server. This entry on the patient's chart recognizes the change in time reflected during documentation. Example: 2 entries for vital signs may be charted for 0200 hrs.
[2024-07-20] MEDS: SUCRALFATE SUSP 100 MG/ML 10 ML UDC 1000 MG PO ×3 (05:44→21:18)
[2024-07-20 06:06] LABS: Glucose Point of Care 72 mg/dl (65-105)
[2024-07-20] MEDS: HEPARIN SODIUM 5,000 UNITS/ML VIAL 5000 UNITS SUB-Q (08:38)
[2024-07-20] MEDS: busPIRone HCL 10 MG TABLET PO ×3 (08:38→18:31)
[2024-07-20] MEDS: BENZONATATE 100 MG CAPSULE PO ×3 (08:38→18:31)
[2024-07-20] MEDS: PANTOPRAZOLE 40 MG TABLET PO (08:38)
--- NOTE | 2024-07-20 10:09 | P.PNIM_ITS ---
Progress Note: A&P Assessment and Plan (1) Intractable nausea: Code(s): R11.0 - Nausea Status: Acute Assessment and Plan: Chest/Abdomen/Pelvis CTA 07/15/24 14:05 IMPRESSION: 1. No pulmonary embolus. 2. Emphysema and chronic interstitial lung disease. 3. Cirrhosis of the liver with portal venous hypertension. 4. Severe left kidney atrophy with chronic severe left hydronephrosis. - s/p EGD showing portal hypertension and esopheal varices. - Currently tolerating meals ok with no symptoms. - Continue daily PO protonix. - Currently on GI cocktail TID and HS. - EGD 07/18 and biopsies pending. - Started on Coreg per GI to prevent further hepatic decompensation and variceal bleeding. - Coreg dose decreased this AM 6.23>>3.125 due to hypotension. - Pt to be discharged on Coreg and f/u closely with GI outpatient. (2) Epigastric pain: Code(s): R10.13 - Epigastric pain Status: Acute Assessment and Plan: - Unclear etiology. - Possibly related to GERD. - CT abdomen/pelvis negative for acute. - No obvious ulcers noted on EGD. - Supportive care for now. (3) GERD (gastroesophageal reflux disease): Qualifiers: Esophagitis presence: without esophagitis Qualified Code(s): K21.9 - Gastro-esophageal reflux disease without esophagitis Code(s): K21.9 - Gastro-esophageal reflux disease without esophagitis Status: Acute Assessment and Plan: continue oral Protonix and Carafate. (4) CKD (chronic kidney disease) stage 3, GFR 30-59 ml/min: Qualifiers: Chronic kidney disease stage 3 subtype: stage 3b (GFR 30-44) Qualified Code(s): N18.32 - Chronic kidney disease, stage 3b Code(s): N18.30 - Chronic kidney disease, stage 3 unspecified Status: Acute Assessment and Plan: - NILA on CKD. - Much improved and patient appears to be at his recent baseline per recent labs. - IV fluids discontinued. - Encourage with fluids. - Avoid enephrotoxins. (5) Portal hypertension with esophageal varices: Code(s): K76.6 - Portal hypertension; I85.00 - Esophageal varices without bleeding Status: Acute Assessment and Plan: - Per GI, To prevent further hepatic decompensation and variceal bleeding, patient to be discharged with carvedilol QD. (6) Altered mental status: Code(s): R41.82 - Altered mental status, unspecified Status: Acute Assessment and Plan: - Started post EGD. - Likely alcohol withdrawals. - Sitter ordered for safety. - CIWA protocol with scheduled librium. - Zyprexa bedtime. Plan Per GI-The patient has evidence of portal hypertension, esophageal varices in addition to a hiatal hernia. To prevent further hepatic decompensation and variceal bleeding, he should be discharged with carvedilol 6.25 mg q.d.. In addition, metoclopramide 10 mg before meals is suggested to prevent dyspepsia and nausea. IV pantoprazole can be discontinued and switched to oral, 40 mg once a day. We need to follow him closely in our GI Clinic at his discharge. - We'll continue alcohol withdrawals treatment. Time Spent With Patient Time with patient: 25 - 35 minutes Subjective Date/time seen: 07/20/24 09:00 Patient states he wants to go home. States his 's bedside and can take him home but only the sitter is bedside. States he can see bugs flying on the air. States walked with PT everywhere yesterday. Interval history: Patient confused, trying to pull non-existing bugs from the air. Admitted for intractable nausea and vomiting. He admitted to Underwent an EGD that showed portal hypertension with esophageal varices. Patient now displaying alcohol withdrawal symptoms with confusion and hallucinations. Review of Systems Review of Systems: ROS unobtainable: Yes unobtainable due to mental status Exam Narrative: General: Confused and hallucinating. A&O x3 HEENT: normocephalic, atraumatic. Moist mucus membranes, EOMI, PERRLA, bilateral sclera anicteric, no conjunctival injection. Neck supple without JVD, lymphadenopathy, or bruit. Respiratory: clear to auscultation bilaterally. No rales/rhonic/wheezes. Cardiovascular: Regular rate and rhythm, normal S1-S2, No murmurs, Abdomen: Soft, round, nondistended and nontender. Bowel sounds present to all four quadrants. Extremities: No cyanosis, clubbing, or edema. Pulses are palpable 2/2. Active ROM to all four extremities. Neuro: Alert and orientated x 3. Cranial nerves 2-12 intact without focal deficit. Skin: Warm, dry, and intact, without rash, erythema, or lesion. Psych: Confused and hallucinating. Objective Data Vital Signs Vital Signs: Vital Signs - 24 hr 07/19/24 14:06 07/19/24 17:20 07/19/24 19:11 Temperature 97.7 F 98.9 F Pulse Rate 81 76 Pulse Rate [Right Radial Palpation] 78 Respiratory Rate 16 16 Blood Pressure 106/54 L 142/83 H Pulse Oximetry 93 95 Oxygen Delivery 07/19/24 21:51 07/19/24 21:38 07/20/24 00:49 Temperature 97.7 F 97.8 F Pulse Rate 73 76 Pulse Rate [Right Radial Palpation] Respiratory Rate 18 16 Blood Pressure 93/53 L Pulse Oximetry 94 94 92 Oxygen Delivery Room Air 07/19/24 20:00 07/20/24 00:00 07/20/24 04:19 Temperature 97.5 F L Pulse Rate 72 Pulse Rate [Right Radial Palpation] 73 72 Respiratory Rate 16 Blood Pressure 93/53 L 99/65 L Pulse Oximetry 100 Oxygen Delivery 07/20/24 04:00 07/20/24 06:22 07/20/24 08:35 Temperature 97.7 F Pulse Rate 62 64 Pulse Rate [Right Radial Palpation] 72 Respiratory Rate 16 16 Blood Pressure 99/65 L 91/57 L 104/54 L Pulse Oximetry 98 98 Oxygen Delivery 07/20/24 08:00 Temperature Pulse Rate Pulse Rate [Right Radial Palpation] 64 Respiratory Rate Blood Pressure Pulse Oximetry Oxygen Delivery Intake/Output Intake/Output: Intake & Output 07/17/24 07/18/24 07/19/24 07/20/24 23:59 23:59 23:59 22:59 Intake Total 3810 2080 1350 50 Output Total 2925 600 250 Balance 885 1480 1100 50 Meds/Results Medications: Active Medications Generic Name Dose Route Start Last Admin Trade Name Freq PRN Reason Stop Dose Admin Benzonatate 100 mg 07/17/24 13:00 07/20/24 08:38 Benzonatate 100 Mg Capsule PO 100 mg TID [facility] Administration Buspirone HCl 10 mg 07/16/24 09:00 07/20/24 08:38 Buspirone Hcl 10 Mg Tablet PO 10 mg TID [facility] Administration Carvedilol 3.125 mg 07/20/24 09:00 Carvedilol 3.125 Mg Tablet PO DAILY [facility] Chlordiazepoxide HCl 50 mg 07/19/24 18:00 07/20/24 05:44 Chlordiazepoxide (*Crx) 25 Mg Capsule PO 50 mg Q6HR RONDA Administration Belladonna Alkaloids/ 0 ml 07/17/24 09:00 07/20/24 08:37 Phenobarbital 10 ml/ Al Hydrox PO Not Given /Mg Hydrox/Simethicone 30 ml/ TID RONDA Lidocaine HCl 10 ml Gabapentin 300 mg 07/16/24 21:00 07/19/24 21:37 Gabapentin 300 Mg Capsule PO 300 mg HS RONDA Administration Guaifenesin/Dextromethorphan 5 ml 07/17/24 12:31 Guaifenesin/Dextromethorphan 10 Ml Udc PO Q4H PRN Cough Heparin Sodium (Porcine) 5,000 units 07/15/24 21:00 07/20/24 08:38 Heparin Sodium 5,000 Units/Ml Vial SUB-Q 5,000 units Q12HR RONDA Administration Lorazepam 2 mg 07/19/24 15:16 Lorazepam Inj (*Crx) 2 Mg/Ml Vial IV PUSH Q4H PRN CIWA 8-15 Olanzapine 5 mg 07/19/24 18:00 07/19/24 17:38 Olanzapine 5 Mg Tablet PO 5 mg QPM RONDA Administration Ondansetron HCl 4 mg 07/15/24 18:52 Ondansetron Inj 4 Mg/2 Ml Vial IV PUSH Q4H PRN Nausea Pantoprazole Sodium 40 mg 07/19/24 09:00 07/20/24 08:38 Pantoprazole 40 Mg Tablet PO 40 mg QAM RONDA Administration Sucralfate 1,000 mg 07/16/24 16:30 07/20/24 05:44 Sucralfate Susp 100 Mg/Ml 10 Ml Udc PO 1,000 mg ACHS RONDA Administration Thiamine HCl 100 mg 07/21/24 09:00 Thiamine Hcl 200 Mg/2 Ml Vial IV PUSH DAILY [facility] Radiology Results: ITS Impressions Chest X-Ray 07/15/24 12:01 IMPRESSION: 1. Stable combination of emphysema and chronic interstitial lung disease. Chest/Abdomen/Pelvis CTA 07/15/24 14:05 IMPRESSION: 1. No pulmonary embolus. 2. Emphysema and chronic interstitial lung disease. 3. Cirrhosis of the liver with portal venous hypertension. 4. Severe left kidney atrophy with chronic severe left hydronephrosis. Head CT 07/18/24 19:32 IMPRESSION: No acute intracranial findings. Labs Labs: Laboratory Results - last 24 hr 07/19/24 07/19/24 07/20/24 18:05 23:42 01:16 [employer] WBC 5.0 RBC 3.31 L Hgb 9.4 L Hct 29.2 L MCV 88.2 MCH 28.4 MCHC 32.2 RDW 16.3 H Plt Count 110 L MPV 11.3 H Sodium 136 L Potassium 3.3 L Chloride 110 H Carbon Dioxide 19 L Anion Gap 7 BUN 6 L Creatinine 1.90 H Estim Creat Clear Calc 38 Estimated GFR 36 L Glucose 83 POC Capillary Glucose 96 76 Calcium 7.7 L 07/20/24 05:48 WBC RBC Hgb Hct MCV MCH MCHC RDW Plt Count MPV Sodium Potassium Chloride Carbon Dioxide Anion Gap BUN Creatinine Estim Creat Clear Calc Estimated GFR Glucose POC Capillary Glucose 72 Calcium Quality VTE Prophylaxis VTE prophylaxis: mechanical ordered Hospitalist [facility] Advance Care Plan I have confirmed that the patient's Advanced Care Plan is present, code status is documented, or surrogate decision maker is listed in patient medical record.: Yes Medication Reconciliation I have utilized all available resources to obtain, update and review the patients current medications (includes all prescriptions, OTC, herbals, cannabis, and nutritional supplements).: Yes
[2024-07-20 12:38] LABS: Glucose Point of Care 71 mg/dl (65-105)
[2024-07-20] MEDS: POTASSIUM CHLORIDE 20 MEQ ER TABLET 40 MEQ PO (12:49)
[2024-07-20] MEDS: DEXTROSE 5%/0.9% SOD CHL 1,000 ML 75 ML IV CONT (12:58)
[2024-07-20 15:40] LABS: Add Urine Microscopic? NO; Appearance Urine Clear (Clear); Bilirubin Urine Negative (Negative); Blood Urine Negative (Negative); Color Urine Yellow (Yellow); Glucose Urine UA Negative (Negative); Ketones Urine Trace mg/dL (Negative); Leukocyte Esterase Ur Negative LEU/UL (Negative); Nitrate Urine Negative (Negative); Protein Urine Negative (Negative); Specific Grav Ur 1.008 (1.001-1.035); Urobilinogen Urine 0.2 mg/dL (<2.0)
[2024-07-20 16:44] LABS: Ammonia < 9 umol/L (9-30)
[2024-07-20 17:01] LABS: Vitamin D 25 Hydroxy 18.8 ng/mL
[2024-07-20 17:36] LABS: Glucose Point of Care 79 mg/dl (65-105)
[2024-07-20] MEDS: BELLADONNA ALK/PHENOB ELIX 10 ML, MAG HYDROX/ALUMINUM HYD/SIMETH 30 ML, LIDOCAINE HCL 2... PO (18:32)
[2024-07-20] MEDS: OLANZapine 5 MG TABLET PO (18:33)
[2024-07-20] MEDS: GABAPENTIN 300 MG CAPSULE PO (21:18)
[2024-07-20] MEDS: guaiFENesin/DEXTROMETHORPHAN 10 ML UDC 5 ML PO (22:21)
[2024-07-21] VITALS (13 sets, daily range): BP systolic 97–122; BP diastolic 43–70; PULSE 66–83; RESP 16–20; TEMP 36.6; O2SAT 90–98
[2024-07-21 01:36] LABS: Glucose Point of Care 81 mg/dl (65-105)
[2024-07-21] MEDS: LORazepam INJ (*CRX) 2 MG/ML VIAL IV PUSH (02:49)
[2024-07-21] MEDS: DEXTROSE 5%/0.9% SOD CHL 1,000 ML 75 ML IV CONT ×2 (02:53→15:19)
[2024-07-21 06:13] LABS: Glucose Point of Care 92 mg/dl (65-105)
[2024-07-21] MEDS: chlordiazePOXIDE (*CRX) 25 MG CAPSULE 50 MG PO ×3 (06:29→11:44)
[2024-07-21] MEDS: SUCRALFATE SUSP 100 MG/ML 10 ML UDC 1000 MG PO ×3 (06:29→21:53)
[2024-07-21 08:33] LABS: Hemoglobin 10.2 g/dL (14.0-18.0); Mean Corpuscular HGB Conc 30.9 g/dl (32-36); Mean Corpuscular Hemoglobin 27.8 pg (26-34); Mean Corpuscular Volume 89.9 fl (80-100); Mean Platelet Volume 11.9 fl (7.4-10.4); Platelet Count Result 120 k/mm3 (150-375); Red Blood Count 3.67 M/mm3 (4.6-6.20); Red Cell Distribution Width 16.8 % (11.5-14.5); White Blood Count 5.8 K/mm3 (4.5-10.0)
[2024-07-21 08:50] LABS: Anion Gap 9 mmol/L (4-12); Blood Urea Nitrogen 6 mg/dL (9-20); Calcium 7.9 mg/dL (8.4-10.2); Carbon Dioxide 22 mmol/L (22-30); Chloride 109 mmol/L (98-107); Estimated CRCL calculation 40 ml/min; Estimated Glomerular Filt Rate 39; Glucose 104 mg/dL (65-110); Potassium 4.1 mmol/L (3.4-5.0); Sodium 140 mmol/L (137-145)
[2024-07-21] MEDS: THIAMINE HCL 200 MG/2 ML VIAL 100 MG IV PUSH (09:51)
[2024-07-21] MEDS: busPIRone HCL 10 MG TABLET PO (10:54)
[2024-07-21] MEDS: BENZONATATE 100 MG CAPSULE PO (10:54)
[2024-07-21] MEDS: PANTOPRAZOLE 40 MG TABLET PO (10:54)
[2024-07-21] MEDS: carvediloL 3.125 MG TABLET PO (10:54)
[2024-07-21] MEDS: FUROSEMIDE INJ 40 MG/4 ML VIAL 20 MG IV PUSH (18:09)
--- NOTE | 2024-07-21 18:12 | P.PNIM_ITS ---
Progress Note: A&P Assessment and Plan (1) Altered mental status: Code(s): R41.82 - Altered mental status, unspecified Status: Acute Assessment and Plan: - Started post EGD. - Possibly anesthesia related vs alcohol withdrawals vs meds vs other. - Librium, ativan and zyprexa discontinued. - Neurologist consulted. - Repeat CT Head. - Continue to monitor for neuro changes. (2) Intractable nausea: Code(s): R11.0 - Nausea Status: Acute Assessment and Plan: Chest/Abdomen/Pelvis CTA 07/15/24 14:05 IMPRESSION: 1. No pulmonary embolus. 2. Emphysema and chronic interstitial lung disease. 3. Cirrhosis of the liver with portal venous hypertension. 4. Severe left kidney atrophy with chronic severe left hydronephrosis. - s/p EGD showing portal hypertension and esopheal varices. - Currently tolerating meals ok with no symptoms. - Continue daily PO protonix. - Currently on GI cocktail TID and HS. - EGD 07/18 and biopsies pending. - Started on Coreg per GI to prevent further hepatic decompensation and variceal bleeding. - Coreg dose decreased this AM 6.23>>3.125 due to hypotension. - Pt to be discharged on Coreg and f/u closely with GI outpatient. (3) Epigastric pain: Code(s): R10.13 - Epigastric pain Status: Acute Assessment and Plan: - Appears resolved. - Unclear etiology. - Possibly related to GERD. - CT abdomen/pelvis negative for acute. - No obvious ulcers noted on EGD. - Supportive care for now. (4) GERD (gastroesophageal reflux disease): Qualifiers: Esophagitis presence: without esophagitis Qualified Code(s): K21.9 - Gastro-esophageal reflux disease without esophagitis Code(s): K21.9 - Gastro-esophageal reflux disease without esophagitis Status: Acute Assessment and Plan: continue oral Protonix and Carafate. (5) CKD (chronic kidney disease) stage 3, GFR 30-59 ml/min: Qualifiers: Chronic kidney disease stage 3 subtype: stage 3b (GFR 30-44) Qualified Code(s): N18.32 - Chronic kidney disease, stage 3b Code(s): N18.30 - Chronic kidney disease, stage 3 unspecified Status: Acute Assessment and Plan: - NILA on CKD. - Appear baseline per previous labs. - IV fluids rate reduced with concerns for pleural effusion. - Encourage with fluids when stable. - Avoid nenephrotoxins. (6) Portal hypertension with esophageal varices: Code(s): K76.6 - Portal hypertension; I85.00 - Esophageal varices without bleeding Status: Acute Assessment and Plan: - Started on Coreg QD Per GI to prevent further hepatic decompensation and variceal bleeding. (7) Emphysema lung: Qualifiers: Emphysema type: unspecified Qualified Code(s): J43.9 - Emphysema, unspecified Code(s): J43.9 - Emphysema, unspecified Status: Acute Assessment and Plan: - Started on Duoneb updrafts. - Continue to monitor for decompensation. (8) Pulmonary edema: Code(s): J81.1 - Chronic pulmonary edema Status: Acute (9) Acute hypoxic respiratory failure: Code(s): J96.01 - Acute respiratory failure with hypoxia Status: Acute Assessment and Plan: - Possible COPD exacerbation vs pulmonary edema. - Started on scheduled duoneb updrafts. - We'll give a dose of steroids and a dose of IV lasix. - Reduce IVF rate despite patient not eating to prevent worsened pulmonary edema. - Supplemental O2 to maintain sats > 90 %. - Check ABG's and procal. - Monitor for symptoms changes. Plan Per GI-The patient has evidence of portal hypertension, esophageal varices in addition to a hiatal hernia. To prevent further hepatic decompensation and variceal bleeding, he should be discharged with carvedilol 6.25 mg q.d.. In addition, metoclopramide 10 mg before meals is suggested to prevent dyspepsia and nausea. IV pantoprazole can be discontinued and switched to oral, 40 mg once a day. We need to follow him closely in our GI Clinic at his discharge. - We'll continue alcohol withdrawals treatment. Time Spent With Patient Time with patient: 25 - 35 minutes Subjective Date/time seen: 07/21/24 18:12 Interval history: Patient somnolent currently, unable to provide any information. Review of Systems Review of Systems: 12 systems were reviewed and are negative except for as per HPI. ROS unobtainable: Yes unobtainable due to mental status Exam Narrative: General: Somnolent HEENT: normocephalic, atraumatic. Moist mucus membranes, EOMI, PERRLA, bilateral sclera anicteric, no conjunctival injection. Neck supple without JVD, lymphadenopathy, or bruit. Respiratory: Coarse breath sounds. Cardiovascular: Regular rate and rhythm, normal S1-S2, No murmurs, Abdomen: Soft, round, nondistended and nontender. Bowel sounds present to all four quadrants. Extremities: No cyanosis, clubbing, or edema. Pulses are palpable 2/2. Active ROM to all four extremities. Neuro: Somnolent. No focal neuro deficits noted. Skin: Warm, dry, and intact, without rash, erythema, or lesion. Psych: Somnolent. Objective Data Vital Signs Vital Signs: Vital Signs - 24 hr 07/20/24 18:29 07/20/24 18:40 07/20/24 19:25 Temperature 97.9 F Pulse Rate 60 61 Pulse Rate [Right Radial Palpation] Respiratory Rate 16 18 Blood Pressure 94/56 L 110/58 L 100/67 Pulse Oximetry 96 97 Oxygen Delivery 07/21/24 00:00 07/20/24 21:18 07/21/24 05:29 Temperature 97.9 F Pulse Rate 79 Pulse Rate [Right Radial Palpation] 71 Respiratory Rate 20 Blood Pressure 97/43 L 97/56 L Pulse Oximetry 96 Oxygen Delivery Room Air 07/21/24 04:00 07/21/24 08:00 07/21/24 09:14 Temperature Pulse Rate Pulse Rate [Right Radial Palpation] 79 Respiratory Rate Blood Pressure 97/56 L 106/60 Pulse Oximetry 90 Oxygen Delivery Room Air 07/21/24 10:54 07/21/24 14:00 Temperature 97.9 F Pulse Rate 74 66 Pulse Rate [Right Radial Palpation] Respiratory Rate 16 Blood Pressure 122/70 Pulse Oximetry 96 Oxygen Delivery Intake/Output Intake/Output: Intake & Output 07/19/24 07/20/24 07/20/24 07/21/24 00:59 00:59 23:59 23:59 Intake Total 2595.0 Output Total 400 Balance 2195.0 Meds/Results Medications: Active Medications Generic Name Dose Route Start Last Admin Trade Name Freq PRN Reason Stop Dose Admin Benzonatate 100 mg 07/17/24 13:00 07/21/24 17:08 Benzonatate 100 Mg Capsule PO Not Given TID [facility] Buspirone HCl 10 mg 07/16/24 09:00 07/21/24 17:08 Buspirone Hcl 10 Mg Tablet PO Not Given TID RONDA Carvedilol 3.125 mg 07/20/24 09:00 07/21/24 10:54 Carvedilol 3.125 Mg Tablet PO 3.125 mg DAILY RONDA Administration Belladonna Alkaloids/ 0 ml 07/17/24 09:00 07/21/24 17:08 Phenobarbital 10 ml/ Al Hydrox PO Not Given /Mg Hydrox/Simethicone 30 ml/ TID RONDA Lidocaine HCl 10 ml Gabapentin 300 mg 07/16/24 21:00 07/20/24 21:18 Gabapentin 300 Mg Capsule PO 300 mg HS RONDA Administration Guaifenesin/Dextromethorphan 5 ml 07/17/24 12:31 07/20/24 22:21 Guaifenesin/Dextromethorphan 10 Ml Udc PO 5 ml Q4H PRN Administration Cough Dextrose/Sodium Chloride 1,000 mls @ 45 mls/hr 07/20/24 12:55 07/21/24 18:09 Dextrose 5% Sodium Chloride 0.9% IV CONT 45 mls/hr .[id number] RONDA Infusion Ondansetron HCl 4 mg 07/15/24 18:52 Ondansetron Inj 4 Mg/2 Ml Vial IV PUSH Q4H PRN Nausea Pantoprazole Sodium 40 mg 07/19/24 09:00 07/21/24 10:54 Pantoprazole 40 Mg Tablet PO 40 mg QAM RONDA Administration Sucralfate 1,000 mg 07/16/24 16:30 07/21/24 17:08 Sucralfate Susp 100 Mg/Ml 10 Ml Udc PO Not Given ACHS RONDA Thiamine HCl 100 mg 07/21/24 09:00 07/21/24 09:51 Thiamine Hcl 200 Mg/2 Ml Vial IV PUSH 100 mg DAILY RONDA Administration Radiology Results: ITS Impressions Chest/Abdomen/Pelvis CTA 07/15/24 14:05 IMPRESSION: 1. No pulmonary embolus. 2. Emphysema and chronic interstitial lung disease. 3. Cirrhosis of the liver with portal venous hypertension. 4. Severe left kidney atrophy with chronic severe left hydronephrosis. Head CT 07/18/24 19:32 IMPRESSION: No acute intracranial findings. Chest X-Ray 07/21/24 12:34 IMPRESSION: 1. Worsened diffuse interstitial pattern in the lungs, likely mild pulmonary edema superimposed on a combination of emphysema and chronic interstitial lung disease. Labs Labs: Laboratory Results - last 24 hr 07/20/24 07/21/24 07/21/24 23:57 06:11 08:27 WBC 5.8 RBC 3.67 L Hgb 10.2 L Hct 33.0 L MCV 89.9 MCH 27.8 MCHC 30.9 L RDW 16.8 H Plt Count 120 L MPV 11.9 H % Immature Plt Fraction 6.0 Sodium 140 Potassium 4.1 Chloride 109 H Carbon Dioxide 22 Anion Gap 9 BUN 6 L Creatinine 1.80 H Estim Creat Clear Calc 40 Estimated GFR 39 L Glucose 104 POC Capillary Glucose 81 92 Calcium 7.9 L Quality VTE Prophylaxis VTE prophylaxis: mechanical ordered Hospitalist [facility] Advance Care Plan I have confirmed that the patient's Advanced Care Plan is present, code status is documented, or surrogate decision maker is listed in patient medical record.: Yes Medication Reconciliation I have utilized all available resources to obtain, update and review the patients current medications (includes all prescriptions, OTC, herbals, cannabis, and nutritional supplements).: Yes
[2024-07-21] MEDS: methylPREDNISolone SOD SUCC 40 MG VIAL IV PUSH (18:40)
[2024-07-21 18:46] LABS: Alveolar/Arterial O2 Gradient 91.5 mmHg; Base Excess ABG -1.5 mEq/l (+/-2.0); Device NASAL CANNULA; Fractional Inspired Oxygen 28 %; HCO3 ABG 22.6 mEq/l (22.0-26.0); Modified Allen's Test Pass; Oxygen Content ABG 14.7 %vol (16.0-22.0); Oxygen Saturation ABG 93.6 % (95.0-100.0); Oxyhemoglobin 92.1 % THb (90.0-100.0); PCO2 ABG 35.6 mmHg (35.0-45.0); PO2 ABG 66.1 mmHg (80.0-100.0); PO2 FiO2 Ratio Arterial Blood 2.36 %; Site Drawn RIGHT RADIAL; Total Hemoglobin 11.3 g/dL (12.0-18.0)
[2024-07-21] MEDS: IPRATROPIUM 0.5 MG/ALBUTEROL SULFATE 2.5 MG AMPUL.NEB 3 ML INHALATION (21:40)
[2024-07-21 22:27] LABS: Procalcitonin 0.2 ng/mL
[2024-07-22] VITALS (15 sets, daily range): BP systolic 94–130; BP diastolic 50–93; PULSE 50–94; RESP 16–20; TEMP 36.1–36.5; O2SAT 94–100
[2024-07-22 03:04] LABS: Glucose Point of Care 119 mg/dl (65-105)
[2024-07-22 03:04] LABS: Glucose Point of Care 89 mg/dl (65-105)
[2024-07-22] MEDS: IPRATROPIUM 0.5 MG/ALBUTEROL SULFATE 2.5 MG AMPUL.NEB 3 ML INHALATION ×4 (03:19→21:00)
[2024-07-22] MEDS: guaiFENesin/DEXTROMETHORPHAN 10 ML UDC 5 ML PO (04:26)
--- NOTE | 2024-07-22 05:04 | PC.NURSE ---
Beginning of 7pm shift, patient was not following commands, very agitated when position was changed. Did not recognize his nor name. Went offered water to drink through straw, he would blow backwards making bubbles. Throughout night, hourly checking on patient, his behavior was improving. He was able to let staff know when he had to urinate. When water was offered, he responded appropriately and clear. But some of conversation is still garbled but better than beginning of shift. Four o'clock rounds, pt was sleeping but easily awaken without agitation not anxiousness. Patient is making progress.
[2024-07-22] MEDS: SUCRALFATE SUSP 100 MG/ML 10 ML UDC 1000 MG PO ×4 (05:36→21:23)
[2024-07-22 06:13] LABS: Glucose Point of Care 132 mg/dl (65-105)
[2024-07-22] MEDS: PANTOPRAZOLE 40 MG TABLET PO (10:35)
[2024-07-22] MEDS: busPIRone HCL 10 MG TABLET PO ×2 (10:35→16:19)
[2024-07-22] MEDS: AZITHROMYCIN 250 MG TABLET 500 MG PO (10:35)
[2024-07-22] MEDS: carvediloL 3.125 MG TABLET PO (10:36)
[2024-07-22] MEDS: BENZONATATE 100 MG CAPSULE PO ×2 (10:36→16:19)
--- NOTE | 2024-07-22 10:47 | PCSTNOTE ---
Please refer to the Bedside Swallow Evaluation in the EMR. Please note, silent aspiration cannot be ruled out at bedside.
--- NOTE | 2024-07-22 10:47 | PCSTNOTE ---
Please refer to the Modified Barium Swallow Evaluation in the EMR.
[2024-07-22] MEDS: THIAMINE HCL 200 MG/2 ML VIAL 100 MG IV PUSH (12:07)
--- NOTE | 2024-07-22 12:16 | PCOTNOTE ---
Attempted to see pt for OT evaluation. Pt currently sleeping in the recliner. Sitter present and states pt has had a busy morning and hasn't had much sleep. Attempted sternal rub to wake pt up and pt only briefly muttered something unintelligible and would not awaken. Will continue to follow.
[2024-07-22 12:26] LABS: Glucose Point of Care 145 mg/dl (65-105)
[2024-07-22] MEDS: DEXTROSE 5%/0.9% SOD CHL 1,000 ML 45 ML IV CONT (13:12)
--- NOTE | 2024-07-22 15:36 | PM.IMPN ---
Progress Note: A&P Assessment and Plan (1) Altered mental status: Code(s): R41.82 - Altered mental status, unspecified Status: Acute Assessment and Plan: - Improving. - Started post EGD. - Possibly anesthesia related vs alcohol withdrawals vs meds vs other. - Librium, ativan and zyprexa discontinued. - Repeat CT Head unchanged from previous, no acute changes. - Continue to monitor for neuro changes. (2) Intractable nausea: Code(s): R11.0 - Nausea Status: Acute Assessment and Plan: Chest/Abdomen/Pelvis CTA 07/15/24 14:05 IMPRESSION: 1. No pulmonary embolus. 2. Emphysema and chronic interstitial lung disease. 3. Cirrhosis of the liver with portal venous hypertension. 4. Severe left kidney atrophy with chronic severe left hydronephrosis. - s/p EGD showing portal hypertension and esopheal varices. - Currently NPO pending swallow evaluation due to coughing with liquids. - Continue daily PO protonix when able to swallow. - Currently on GI cocktail TID and HS. - EGD 07/18 and biopsies pending. - GI recommending Coreg to prevent further hepatic decompensation and variceal bleeding. - Hold Coreg for now with episodes of hypotension. - Pt to be discharged on Coreg and f/u closely with GI outpatient. (3) Epigastric pain: Code(s): R10.13 - Epigastric pain Status: Acute Assessment and Plan: - Appears resolved. - Unclear etiology. - Possibly related to GERD. - CT abdomen/pelvis negative for acute. - No obvious ulcers noted on EGD. - Supportive care for now. (4) GERD (gastroesophageal reflux disease): Qualifiers: Esophagitis presence: without esophagitis Qualified Code(s): K21.9 - Gastro-esophageal reflux disease without esophagitis Code(s): K21.9 - Gastro-esophageal reflux disease without esophagitis Status: Acute Assessment and Plan: continue oral Protonix and Carafate. (5) CKD (chronic kidney disease) stage 3, GFR 30-59 ml/min: Qualifiers: Chronic kidney disease stage 3 subtype: stage 3b (GFR 30-44) Qualified Code(s): N18.32 - Chronic kidney disease, stage 3b Code(s): N18.30 - Chronic kidney disease, stage 3 unspecified Status: Acute Assessment and Plan: - NILA on CKD. - Renal function baseline currently per previous labs. - Continue gentle IV fluids hydration with poor PO intake. - Encourage with fluids when stable. - Avoid nenephrotoxins. (6) Portal hypertension with esophageal varices: Code(s): K76.6 - Portal hypertension; I85.00 - Esophageal varices without bleeding Status: Acute Assessment and Plan: - Restart Coreg when BP stable. (7) Emphysema lung: Qualifiers: Emphysema type: unspecified Qualified Code(s): J43.9 - Emphysema, unspecified Code(s): J43.9 - Emphysema, unspecified Status: Acute Assessment and Plan: - Repeat CXR: IMPRESSION: 1. Worsened diffuse interstitial pattern in the lungs, likely mild pulmonary edema superimposed on a combination of emphysema and chronic interstitial lung disease. - Possibly acute on chronic COPD. - Started on Azithromycin PO. - Started on scheduled Duoneb updrafts. - Continue to monitor for decompensation. (8) Pulmonary edema: Code(s): J81.1 - Chronic pulmonary edema Status: Acute Assessment and Plan: - Appears stable. - Monitor closely with gentle IVF hydration. (9) Acute hypoxic respiratory failure: Code(s): J96.01 - Acute respiratory failure with hypoxia Status: Acute Assessment and Plan: - Possible COPD exacerbation vs pulmonary edema. - Repeat CXR: IMPRESSION: 1. Worsened diffuse interstitial pattern in the lungs, likely mild pulmonary edema superimposed on a combination of emphysema and chronic interstitial lung disease. - Started on PO Azithromycin. - Started on scheduled duoneb updrafts. - Given a dose of IV steroids overnight. - Given a dose of IV lasix overnight. - Reduced IVF rate to prevent worsening pulmonary edema. - Supplemental O2 to maintain sats > 90 %. - Check ABG's showing hypoxemia and supplemental O2 started. - Monitor for symptoms changes. Plan Patient more alert today and we'll continue to avoid sedatives and stabilize his respiratory system. Continue to monitor closely for changes in mentation. Time Spent With Patient Time with patient: 25 - 35 minutes Subjective Date/time seen: 07/22/24 09:36 Patient slightly confused on bedrest but more alert than yesterday. Noted with intermittent, moist cough episodes. Denies pain or other distressful symptoms. Interval history: Patient awake and alert on bedrest. Slightly confused, oriented to self and location and thinks it's night time nut its AM. Review of Systems Review of Systems: 12 systems were reviewed and are negative except for as per HPI. All systems reviewed & are unremarkable except as noted in HPI and below Exam Narrative: General: Alert but slightly confused. HEENT: normocephalic, atraumatic. Moist mucus membranes, EOMI, PERRLA, bilateral sclera anicteric, no conjunctival injection. Neck supple without JVD, lymphadenopathy, or bruit. Respiratory: Coarse breath sounds bilaterally. Cardiovascular: Regular rate and rhythm, normal S1-S2, No murmurs, Abdomen: Soft, round, nondistended and nontender. Bowel sounds present to all four quadrants. Extremities: No cyanosis, clubbing, or edema. Pulses are palpable 2/2. Active ROM to all four extremities. Neuro: Somnolent. No focal neuro deficits noted. Skin: Warm, dry, and intact, without rash, erythema, or lesion. Psych: Confused but co-operative. Objective Data Vital Signs Vital Signs: Vital Signs - 24 hr 07/21/24 21:41 07/21/24 21:49 07/21/24 21:51 Temperature Pulse Rate 72 74 Pulse Rate [Right Radial Palpation] Respiratory Rate 18 18 Blood Pressure Pulse Oximetry 98 Oxygen Delivery Nasal Cannula Oxygen Flow Rate 2 07/21/24 22:00 07/21/24 21:53 07/21/24 20:00 Temperature 97.9 F Pulse Rate 83 Pulse Rate [Right Radial Palpation] 83 Respiratory Rate 18 Blood Pressure 102/57 L 102/57 L Pulse Oximetry 97 97 Oxygen Delivery Nasal Cannula Oxygen Flow Rate 2 07/22/24 01:13 07/22/24 00:00 07/22/24 03:19 Temperature 97.0 F L Pulse Rate 64 70 Pulse Rate [Right Radial Palpation] 64 Respiratory Rate 16 18 Blood Pressure 94/50 L 94/50 L Pulse Oximetry 95 Oxygen Delivery Oxygen Flow Rate 07/22/24 04:00 07/22/24 06:00 07/22/24 08:03 Temperature 97.7 F Pulse Rate 94 Pulse Rate [Right Radial Palpation] 62 Respiratory Rate 20 Blood Pressure 118/93 H 130/76 Pulse Oximetry 99 94 Oxygen Delivery Nasal Cannula Oxygen Flow Rate 2 07/22/24 08:03 07/22/24 08:00 07/22/24 08:15 Temperature Pulse Rate 84 81 Pulse Rate [Right Radial Palpation] Respiratory Rate 18 18 Blood Pressure Pulse Oximetry 94 Oxygen Delivery Nasal Cannula Oxygen Flow Rate 2 07/22/24 10:36 07/22/24 14:40 07/22/24 14:53 Temperature Pulse Rate 72 78 77 Pulse Rate [Right Radial Palpation] Respiratory Rate 20 20 Blood Pressure Pulse Oximetry Oxygen Delivery Oxygen Flow Rate 07/22/24 14:00 Temperature 97.5 F L Pulse Rate 50 L Pulse Rate [Right Radial Palpation] Respiratory Rate 20 Blood Pressure 100/55 L Pulse Oximetry 100 Oxygen Delivery Oxygen Flow Rate Intake/Output Intake/Output: Intake & Output 07/20/24 07/20/24 07/21/24 07/22/24 00:59 23:59 23:59 23:59 Intake Total 2595.0 887.5 Output Total 400 650 Balance 2195.0 237.5 Meds/Results Medications: Active Medications Generic Name Dose Route Start Last Admin Trade Name Freq PRN Reason Stop Dose Admin Albuterol/Ipratropium 3 ml 07/21/24 20:00 07/22/24 14:37 Ipratropium 0.5 Mg/Albuterol Sulfate 2.5 Mg Ampul.Neb 3 Ml INHALATION 3 ml Q6HRT RONDA Administration Azithromycin 500 mg 07/22/24 10:13 07/22/24 10:35 Azithromycin 250 Mg Tablet PO 500 mg DAILY RONDA Administration Benzonatate 100 mg 07/17/24 13:00 07/22/24 13:12 Benzonatate 100 Mg Capsule PO Not Given TID RONDA Buspirone HCl 10 mg 07/16/24 09:00 07/22/24 13:12 Buspirone Hcl 10 Mg Tablet PO Not Given TID RONDA Carvedilol 3.125 mg 07/20/24 09:00 07/22/24 10:36 Carvedilol 3.125 Mg Tablet PO 3.125 mg DAILY RONDA Administration Belladonna Alkaloids/ 0 ml 07/17/24 09:00 07/22/24 13:12 Phenobarbital 10 ml/ Al Hydrox PO Not Given /Mg Hydrox/Simethicone 30 ml/ TID RONDA Lidocaine HCl 10 ml Gabapentin 300 mg 07/16/24 21:00 07/20/24 21:18 Gabapentin 300 Mg Capsule PO 300 mg HS RONDA Administration Guaifenesin/Dextromethorphan 5 ml 07/17/24 12:31 07/22/24 04:26 Guaifenesin/Dextromethorphan 10 Ml Udc PO 5 ml Q4H PRN Administration Cough Dextrose/Sodium Chloride 1,000 mls @ 45 mls/hr 07/20/24 12:55 07/22/24 13:12 Dextrose 5% Sodium Chloride 0.9% IV CONT 45 mls/hr .[id number] RONDA Administration Pantoprazole Sodium 40 mg 07/19/24 09:00 07/22/24 10:35 Pantoprazole 40 Mg Tablet PO 40 mg QAM RONDA Administration Sucralfate 1,000 mg 07/16/24 16:30 07/22/24 12:06 Sucralfate Susp 100 Mg/Ml 10 Ml Udc PO 1,000 mg ACHS RONDA Administration Thiamine HCl 100 mg 07/21/24 09:00 07/22/24 12:07 Thiamine Hcl 200 Mg/2 Ml Vial IV PUSH 100 mg DAILY RONDA Administration Radiology Results: ITS Impressions Chest/Abdomen/Pelvis CTA 07/15/24 14:05 IMPRESSION: 1. No pulmonary embolus. 2. Emphysema and chronic interstitial lung disease. 3. Cirrhosis of the liver with portal venous hypertension. 4. Severe left kidney atrophy with chronic severe left hydronephrosis. Chest X-Ray 07/21/24 12:34 IMPRESSION: 1. Worsened diffuse interstitial pattern in the lungs, likely mild pulmonary edema superimposed on a combination of emphysema and chronic interstitial lung disease. Head CT 07/21/24 19:46 Impression: Stable CT examination of the brain, although limited by motion artifact without acute intracranial hemorrhage or suspicious mass effect. Demonstrating early atrophy, unchanged dating back to 2021. Modified Barium Swallow 07/22/24 10:41 IMPRESSION: 1. Aspiration of thin liquids. 2. Please refer to the speech therapy report for recommendations. Labs Labs: Laboratory Results - last 24 hr 07/21/24 07/21/24 07/21/24 18:42 20:01 21:28 Puncture Site Right radial ABG pH 7.420 ABG pCO2 35.6 ABG pO2 66.1 L ABG PO2/FiO2 Ratio 2.36 ABG HCO3 22.6 ABG O2 Saturation 93.6 L ABG O2 Content 14.7 L ABG Base Excess -1.5 A-a Gradient 91.5 Oxyhemoglobin 92.1 Total Hemoglobin 11.3 L O2 Delivery Device Nasal cannula O2 Liters/Min 2.0 FiO2 28 POC Capillary Glucose 89 Procalcitonin 0.2 07/22/24 07/22/24 07/22/24 00:04 06:00 12:18 Puncture Site ABG pH ABG pCO2 ABG pO2 ABG PO2/FiO2 Ratio ABG HCO3 ABG O2 Saturation ABG O2 Content ABG Base Excess A-a Gradient Oxyhemoglobin Total Hemoglobin O2 Delivery Device O2 Liters/Min FiO2 POC Capillary Glucose 119 H 132 H 145 H Procalcitonin Quality VTE Prophylaxis VTE prophylaxis: mechanical ordered Hospitalist [facility] Advance Care Plan I have confirmed that the patient's Advanced Care Plan is present, code status is documented, or surrogate decision maker is listed in patient medical record.: Yes Medication Reconciliation I have utilized all available resources to obtain, update and review the patients current medications (includes all prescriptions, OTC, herbals, cannabis, and nutritional supplements).: Yes
[2024-07-22] MEDS: BELLADONNA ALK/PHENOB ELIX 10 ML, MAG HYDROX/ALUMINUM HYD/SIMETH 30 ML, LIDOCAINE HCL 2... PO (16:21)
[2024-07-22 18:14] LABS: Glucose Point of Care 109 mg/dl (65-105)
[2024-07-22] MEDS: oxyCODONE HCL (*CRX) 5 MG TAB IR PO (23:34)
[2024-07-23] VITALS (15 sets, daily range): BP systolic 98–112; BP diastolic 51–61; PULSE 59–72; RESP 16–20; TEMP 36.4–36.8; O2SAT 92–99; BMI 25.9
[2024-07-23 00:05] LABS: Glucose Point of Care 88 mg/dl (65-105)
[2024-07-23] MEDS: IPRATROPIUM 0.5 MG/ALBUTEROL SULFATE 2.5 MG AMPUL.NEB 3 ML INHALATION ×4 (02:11→20:40)
[2024-07-23] MEDS: SUCRALFATE SUSP 100 MG/ML 10 ML UDC 1000 MG PO ×4 (05:30→21:22)
[2024-07-23 05:37] LABS: Glucose Point of Care 88 mg/dl (65-105)
[2024-07-23] MEDS: PANTOPRAZOLE 40 MG TABLET PO (09:36)
[2024-07-23] MEDS: AZITHROMYCIN 250 MG TABLET 500 MG PO (09:36)
[2024-07-23] MEDS: busPIRone HCL 10 MG TABLET PO ×3 (09:36→18:00)
[2024-07-23] MEDS: carvediloL 3.125 MG TABLET PO (09:36)
[2024-07-23] MEDS: BENZONATATE 100 MG CAPSULE PO ×3 (09:36→18:00)
[2024-07-23] MEDS: THIAMINE HCL 200 MG/2 ML VIAL 100 MG IV PUSH (09:37)
[2024-07-23] MEDS: BELLADONNA ALK/PHENOB ELIX 10 ML, MAG HYDROX/ALUMINUM HYD/SIMETH 30 ML, LIDOCAINE HCL 2... PO ×3 (09:37→18:00)
--- NOTE | 2024-07-23 09:42 | PM.IMPN ---
Progress Note: A&P Assessment and Plan (1) Altered mental status: Code(s): R41.82 - Altered mental status, unspecified Status: Acute Assessment and Plan: - Drowsy and confused this AM. Mumbles few words then goes back to sleep. - Altered mentation started post EGD. - Possibly anesthesia related vs alcohol withdrawals vs meds vs other. - Librium, ativan and zyprexa discontinued. - Repeat CT Head unchanged from previous, no acute changes. - Continue to monitor for neuro changes. - Assist with care. (2) Intractable nausea: Code(s): R11.0 - Nausea Status: Acute Assessment and Plan: Chest/Abdomen/Pelvis CTA 07/15/24 14:05 IMPRESSION: 1. No pulmonary embolus. 2. Emphysema and chronic interstitial lung disease. 3. Cirrhosis of the liver with portal venous hypertension. 4. Severe left kidney atrophy with chronic severe left hydronephrosis. - s/p EGD showing portal hypertension and esopheal varices. - Currently on pureed diet with thick liquids but drowsy this AM and unable to follow directions for meals. - Continue daily PO protonix when able to swallow. - GI cocktail TID and HS when able to tolerate meals. - EGD 07/18 and biopsies pending. - GI recommending Coreg to prevent further hepatic decompensation and variceal bleeding. - Hold Coreg for now with episodes of hypotension. - Pt to be discharged on Coreg and f/u closely with GI outpatient. (3) Epigastric pain: Code(s): R10.13 - Epigastric pain Status: Acute Assessment and Plan: - Appears resolved. - Unclear etiology. - Possibly related to GERD. - CT abdomen/pelvis negative for acute. - No obvious ulcers noted on EGD. - Supportive care for now. (4) GERD (gastroesophageal reflux disease): Qualifiers: Esophagitis presence: without esophagitis Qualified Code(s): K21.9 - Gastro-esophageal reflux disease without esophagitis Code(s): K21.9 - Gastro-esophageal reflux disease without esophagitis Status: Acute Assessment and Plan: continue oral Protonix and Carafate when more able. (5) CKD (chronic kidney disease) stage 3, GFR 30-59 ml/min: Qualifiers: Chronic kidney disease stage 3 subtype: stage 3b (GFR 30-44) Qualified Code(s): N18.32 - Chronic kidney disease, stage 3b Code(s): N18.30 - Chronic kidney disease, stage 3 unspecified Status: Acute Assessment and Plan: - NILA on CKD. - Renal function baseline per previous labs. - Continue gentle IV fluids hydration with poor PO intake. - Encourage with fluids when stable. - Avoid nenephrotoxins. (6) Portal hypertension with esophageal varices: Code(s): K76.6 - Portal hypertension; I85.00 - Esophageal varices without bleeding Status: Acute Assessment and Plan: - Restart Coreg when BP stable. (7) Emphysema lung: Qualifiers: Emphysema type: unspecified Qualified Code(s): J43.9 - Emphysema, unspecified Code(s): J43.9 - Emphysema, unspecified Status: Acute Assessment and Plan: - Repeat CXR: IMPRESSION: 1. Worsened diffuse interstitial pattern in the lungs, likely mild pulmonary edema superimposed on a combination of emphysema and chronic interstitial lung disease. - Possibly acute on chronic COPD. - Respiratory status improving. - Continue Azithromycin PO. - Continue scheduled Duoneb updrafts. - Continue to monitor for decompensation. (8) Pulmonary edema: Code(s): J81.1 - Chronic pulmonary edema Status: Acute Assessment and Plan: - Appears stable. - Monitor closely with gentle IVF hydration. (9) Acute hypoxic respiratory failure: Code(s): J96.01 - Acute respiratory failure with hypoxia Status: Acute Assessment and Plan: - Possible COPD exacerbation vs pulmonary edema. - Repeat CXR: IMPRESSION: 1. Worsened diffuse interstitial pattern in the lungs, likely mild pulmonary edema superimposed on a combination of emphysema and chronic interstitial lung disease. - Continue PO Azithromycin. - Continue scheduled duoneb updrafts. - Continue gentle IVF hydration and monitor for decompensation. - Supplemental O2 to maintain sats > 90 %. - ABG's showed hypoxemia and pt placed on supplemental O2. - Monitor closely for symptoms changes. Plan Patient drowsy today and we'll continue to avoid sedatives and monitor his respiratory system closely. Continue to monitor closely for changes in mentation. Time Spent With Patient Time with patient: 15 - 25 minutes Subjective Date/time seen: 07/23/24 09:42 Interval history: Patient awake and alert on bedrest. Slightly confused, oriented to self and location and thinks it's night time nut its AM. Review of Systems Review of Systems: 12 systems were reviewed and are negative except for as per HPI. ROS unobtainable: Yes unobtainable due to mental status Exam Narrative: General: drowsy and confused. HEENT: normocephalic, atraumatic. Moist mucus membranes, EOMI, PERRLA, bilateral sclera anicteric, no conjunctival injection. Neck supple without JVD, lymphadenopathy, or bruit. Respiratory: Coarse breath sounds bilaterally. Cardiovascular: Regular rate and rhythm, normal S1-S2, No murmurs, Abdomen: Soft, round, nondistended and nontender. Bowel sounds present to all four quadrants. Extremities: No cyanosis, clubbing, or edema. Pulses are palpable 2/2. Active ROM to all four extremities. Neuro: Somnolent. No focal neuro deficits noted. Skin: Warm, dry, and intact, without rash, erythema, or lesion. Psych: drowsy and confused but co-operative. Objective Data Vital Signs Vital Signs: Vital Signs - 24 hr 07/22/24 10:36 07/22/24 14:40 07/22/24 14:53 Temperature Pulse Rate 72 78 77 Respiratory Rate 20 20 Blood Pressure Pulse Oximetry Oxygen Delivery Oxygen Flow Rate 07/22/24 14:00 07/22/24 21:01 07/22/24 21:09 Temperature 97.5 F L Pulse Rate 50 L 58 L 57 L Respiratory Rate 20 20 20 Blood Pressure 100/55 L Pulse Oximetry 100 Oxygen Delivery Oxygen Flow Rate 07/22/24 22:00 07/22/24 21:09 07/23/24 02:12 Temperature 97.3 F L Pulse Rate 63 67 Respiratory Rate 18 20 Blood Pressure 98/57 L Pulse Oximetry 100 100 Oxygen Delivery Nasal Cannula Oxygen Flow Rate 2 07/23/24 02:19 07/23/24 07:19 07/23/24 07:19 Temperature Pulse Rate 59 L 64 Respiratory Rate 20 20 Blood Pressure Pulse Oximetry 98 Oxygen Delivery Nasal Cannula Oxygen Flow Rate 2 07/23/24 07:30 07/23/24 06:00 07/23/24 09:36 Temperature 97.5 F L Pulse Rate 71 72 63 Respiratory Rate 20 18 Blood Pressure 107/51 L Pulse Oximetry 96 Oxygen Delivery Oxygen Flow Rate Intake/Output Intake/Output: Intake & Output 07/20/24 07/21/24 07/22/24 07/23/24 23:59 23:59 23:59 23:59 Intake Total 2595.0 887.5 440 Output Total 400 1050 700 Balance 2195.0 -162.5 -260 Meds/Results Medications: Active Medications Generic Name Dose Route Start Last Admin Trade Name Freq PRN Reason Stop Dose Admin Acetaminophen 650 mg 07/22/24 23:12 Acetaminophen 325 Mg Tablet PO Q4H PRN Mild Pain (1-3) or Fever Albuterol/Ipratropium 3 ml 07/21/24 20:00 07/23/24 07:18 Ipratropium 0.5 Mg/Albuterol Sulfate 2.5 Mg Ampul.Neb 3 Ml INHALATION 3 ml Q6HRT RONDA Administration Azithromycin 500 mg 07/22/24 10:13 07/23/24 09:36 Azithromycin 250 Mg Tablet PO 500 mg DAILY RONDA Administration Benzonatate 100 mg 07/17/24 13:00 07/23/24 09:36 Benzonatate 100 Mg Capsule PO 100 mg TID RONDA Administration Buspirone HCl 10 mg 07/16/24 09:00 07/23/24 09:36 Buspirone Hcl 10 Mg Tablet PO 10 mg TID RONDA Administration Carvedilol 3.125 mg 07/20/24 09:00 07/23/24 09:36 Carvedilol 3.125 Mg Tablet PO 3.125 mg DAILY RONDA Administration Belladonna Alkaloids/ 0 ml 07/17/24 09:00 07/23/24 09:37 Phenobarbital 10 ml/ Al Hydrox PO 50 ml /Mg Hydrox/Simethicone 30 ml/ TID RONDA Administration Lidocaine HCl 10 ml Cyclobenzaprine HCl 5 mg 07/22/24 23:12 Cyclobenzaprine Hcl 5 Mg Tablet PO Q8H PRN Muscle Spasm Gabapentin 300 mg 07/16/24 21:00 07/20/24 21:18 Gabapentin 300 Mg Capsule PO 300 mg HS RONDA Administration Guaifenesin/Dextromethorphan 5 ml 07/17/24 12:31 07/22/24 04:26 Guaifenesin/Dextromethorphan 10 Ml Udc PO 5 ml Q4H PRN Administration Cough Dextrose/Sodium Chloride 1,000 mls @ 45 mls/hr 07/20/24 12:55 07/22/24 13:12 Dextrose 5% Sodium Chloride 0.9% IV CONT 45 mls/hr .[id number] RONDA Administration Oxycodone HCl 5 mg 07/22/24 23:13 07/22/24 23:34 Oxycodone Hcl (*Crx) 5 Mg Tab Ir PO 5 mg Q6HR PRN Administration Moderate Pain (4-6) Pantoprazole Sodium 40 mg 07/19/24 09:00 07/23/24 09:36 Pantoprazole 40 Mg Tablet PO 40 mg QAM RONDA Administration Sucralfate 1,000 mg 07/16/24 16:30 07/23/24 05:30 Sucralfate Susp 100 Mg/Ml 10 Ml Udc PO 1,000 mg ACHS RONDA Administration Thiamine HCl 100 mg 07/21/24 09:00 07/23/24 09:37 Thiamine Hcl 200 Mg/2 Ml Vial IV PUSH 100 mg DAILY RONDA Administration Radiology Results: ITS Impressions Chest/Abdomen/Pelvis CTA 07/15/24 14:05 IMPRESSION: 1. No pulmonary embolus. 2. Emphysema and chronic interstitial lung disease. 3. Cirrhosis of the liver with portal venous hypertension. 4. Severe left kidney atrophy with chronic severe left hydronephrosis. Chest X-Ray 07/21/24 12:34 IMPRESSION: 1. Worsened diffuse interstitial pattern in the lungs, likely mild pulmonary edema superimposed on a combination of emphysema and chronic interstitial lung disease. Head CT 07/21/24 19:46 Impression: Stable CT examination of the brain, although limited by motion artifact without acute intracranial hemorrhage or suspicious mass effect. Demonstrating early atrophy, unchanged dating back to 2021. Modified Barium Swallow 07/22/24 10:41 IMPRESSION: 1. Aspiration of thin liquids. 2. Please refer to the speech therapy report for recommendations. Labs Labs: Laboratory Results - last 24 hr 07/22/24 07/22/24 07/22/24 12:18 18:08 23:45 POC Capillary Glucose 145 H 109 H 88 07/23/24 05:29 POC Capillary Glucose 88 Quality VTE Prophylaxis VTE prophylaxis: mechanical ordered Hospitalist [facility] Advance Care Plan I have confirmed that the patient's Advanced Care Plan is present, code status is documented, or surrogate decision maker is listed in patient medical record.: Yes Medication Reconciliation I have utilized all available resources to obtain, update and review the patients current medications (includes all prescriptions, OTC, herbals, cannabis, and nutritional supplements).: Yes
[2024-07-23] MEDS: DEXTROSE 5%/0.9% SOD CHL 1,000 ML 45 ML IV CONT (10:02)
[2024-07-23 12:04] LABS: Glucose Point of Care 87 mg/dl (65-105)
--- NOTE | 2024-07-23 12:16 | P.CONNEU_ITS ---
Consult date: 07/23/24 HPI: Jose Rafael Chavez Jr. is a 58 year old male Has been admitted to the hospital through the emergency room for the complaints of nausea vomiting and diarrhea in addition to underlying diagnosis of 1. COPD 2. Cirrhosis of the liver 3. Rheumatoid arthritis, reportedly the symptomatology was going on for at least 7 to 10 days though he did not complain of anything new for and his abdomen was diffusely uncomfortable. He is known to be allergic to vancomycin. Has ongoing history of 1. Alcoholic cirrhosis 2. Atrophy left kidney 3. Chronic interstitial lung disease 4. Chronic pain 5. Chronic kidney disease stage III 6. Documented esophageal varices 7. Rheumatoid arthritis and 8. Vitamin-D deficiency. At present is residing with his of 23 years used to work in [employer] in his and also he is a recovering alcoholic with no drink since November of 2020 he does smoke 1 to 2 packs of cigarettes per day and has done so since age of 15 when he quit in December of 2023 he also has experimented all the illicit substances in the past but not using at particular time initial exam in the emergency room grossly nonfocal vital signs were normal CT of the chest and abdomen and pelvis documented cirrhosis of liver with esophageal hypertension initial CBC was with low hemoglobin of 10.7 and platelet count of 146 BMP was sodium 136 creatinine 1.90 MCV was 91.1 chest x-ray was compatible with emphysema chronic interstitial lung disease chest abdomen pelvic CTA compatible with cirrhosis of the liver with portal venous hypertension and severe left kidney atrophy with chronic severe left hydronephrosis. Most recent lab WBC 5.8 hemoglobin 10.2 platelet count 120 UA on 07/20 24- all the antibodies negative except the anti cyclic Citrucel peptide CT scan of the head done because of a change in clinical status did not reveal any intracranial bleed or tumor and previous CT scan of the head was normal as well neuro consult has been obtained because of the acute changes in the clinical status patient becoming more confused and sleepy at present he is receiving BuSpar 10mg 3 times a day gabapentin 300mg at night hydroxychloroquine 200mg b.i.d. BuSpar 10mg 3 times a day gabapentin 300mg at night time and has been supplemented with 100mg IV push daily carvedilol only 3.125mg daily and Zithromax 500mg daily in addition to p.r.n. medication of cyclobenzaprine oxycodone and go off and recently azithromycin has been discontinued. Have not examined the patient at that particular time he is going for the MRI. [facility] Past Medical History Medical History Alcoholic cirrhosis Anxiety Atrophy of left kidney Chronic interstitial lung disease Chronic low back pain Chronic right shoulder pain CKD (chronic kidney disease) stage 3, GFR 30-59 ml/min Closed fracture of orbital wall (~12/2021) Diastolic dysfunction Echocardiogram 12/2021: EF 65 did 70%, grade 1 diastolic dysfunction Emphysema lung Erosive esophagitis Esophageal varices determined by endoscopy Fracture of scapula (~12/2021) GERD (gastroesophageal reflux disease) Nocturia Rheumatoid arthritis Thrombocytopenia Vitamin D deficiency Surgical History Surgical History History of esophagogastroduodenoscopy (EGD) History of tonsillectomy History of uvulopalatopharyngoplasty Family History Family History Mother Hypertension Diabetes mellitus Depression Anxiety Heart disease Thyroid disease Father Emphysema lung Lung cancer Social History Social History Social History: The patient lives with his of 23 years. He used to work in [employer] and is attempting to apply for disability for the last 15 years and his last application was denied. He is a recovering alcoholic and has not had a drink since November of 2020. He used to smoke 1-2 packs of cigarettes per day and had done so since he was 15. He quit smoking December 2023. He occasionally will use THC gummy. He reports that he has experimented with all illicit substances in the past but has otherwise not had continuous use. The patient and his are raising the patient's 14-year-old grandson the parent when his grandson was 6-month-old. They have 2 cats at home. Code status: Full code (he actually states that if it was his time ago he would want to be let go but he needs to discuss this with his ) Surrogate decision maker: Caffeine-Coffee/tea Smoking packs per day: 1 Smoking cigarettes per day: 20.0 Years smoked: 43 Smoking pack-years: 43.00 Smoking status: Former smoker Tobacco type: cigarettes Second hand tobacco smoke exposure: Yes Smoking end date: 12/31/23 Additional smoking assessment comments: USED TO SMOKE 2PPD, NOW 1PPD Alcohol intake: former Alcohol use details: BEEN SOBER SINCE NOVEMBER 2020 Substance use: current Substance use type: does not use Other substance usage details: gummies Last use: 07/12/24 Do You Feel Safe in your Home?: Yes Lack of Transportation: No Lack of Food: Never True Current Housing: I Have Housing Concerned About Future Housing: No Difficulty Paying Gas/Electric Bills: No Difficulty Paying for Meds: No Currently Unemployed: No Education: High School Diploma/GED Difficulty w/ Childcare or Family Care: No Living arrangements: with family Occupation/Education: other Gender identity (if verbalized by the patient): Male Spiritual care concerns: No Meds Home Medications and Allergies Home Medications Medication Instructions Recorded Confirmed Type hydroxychloroquine 200 mg tablet 200 mg PO BID #180 tabs 01/30/24 07/15/24 Rx abatacept 125 mg/mL subcutaneous 125 mg subcut WEEKLY 02/12/24 07/15/24 History auto-injector (Orencia ClickJect) inhalational spacing device #1 ea 02/12/24 07/15/24 Rx (Aerochamber MV spacer) buspirone 10 mg tablet 10 mg PO TID #270 tabs 05/13/24 07/15/24 Rx gabapentin 300 mg capsule 300 mg PO HS #90 caps 06/16/24 07/15/24 Rx famotidine 20 mg tablet 20 mg PO QHS #30 tabs 07/07/24 07/15/24 Rx Allergies Allergy/AdvReac Type Severity Reaction Status Date / Time vancomycin AdvReac Severe Other Verified 07/18/24 10:35 [place] AdvReac Mild SHORTNESS Uncoded 07/18/24 10:35 OF BREATH Vital Signs Vital Signs - 24 hr 07/22/24 14:40 07/22/24 14:53 07/22/24 14:00 Temperature 36.4 C L Pulse Rate 78 77 50 L Respiratory Rate 20 20 20 Blood Pressure 100/55 L Pulse Oximetry 100 Oxygen Delivery Oxygen Flow Rate 07/22/24 21:01 07/22/24 21:09 07/22/24 22:00 Temperature 36.3 C L Pulse Rate 58 L 57 L 63 Respiratory Rate 20 20 18 Blood Pressure 98/57 L Pulse Oximetry 100 Oxygen Delivery Oxygen Flow Rate 07/22/24 21:09 07/23/24 02:12 07/23/24 02:19 Temperature Pulse Rate 67 59 L Respiratory Rate 20 20 Blood Pressure Pulse Oximetry 100 Oxygen Delivery Nasal Cannula Oxygen Flow Rate 2 07/23/24 07:19 07/23/24 07:19 07/23/24 07:30 Temperature Pulse Rate 64 71 Respiratory Rate 20 20 Blood Pressure Pulse Oximetry 98 Oxygen Delivery Nasal Cannula Oxygen Flow Rate 2 07/23/24 06:00 07/23/24 09:36 07/23/24 10:10 Temperature 36.4 C L Pulse Rate 72 63 Respiratory Rate 18 Blood Pressure 107/51 L Pulse Oximetry 96 92 Oxygen Delivery Nasal Cannula Oxygen Flow Rate 2 Results Labs 07/21/24 08:27 07/21/24 08:27
--- NOTE | 2024-07-23 14:37 | PCOTNOTE ---
Attempted OT evaluation. Pt being sent to MRI for hallucinations.
[2024-07-23 18:57] LABS: Glucose Point of Care 76 mg/dl (65-105)
[2024-07-24] VITALS (12 sets, daily range): BP systolic 92–127; BP diastolic 58–66; PULSE 60–78; RESP 18–20; TEMP 36.3–36.8; O2SAT 95–98
[2024-07-24 00:31] LABS: Glucose Point of Care 93 mg/dl (65-105)
[2024-07-24] MEDS: CYCLOBENZAPRINE HCL 5 MG TABLET PO (02:10)
[2024-07-24] MEDS: guaiFENesin/DEXTROMETHORPHAN 10 ML UDC 5 ML PO (02:10)
[2024-07-24] MEDS: IPRATROPIUM 0.5 MG/ALBUTEROL SULFATE 2.5 MG AMPUL.NEB 3 ML INHALATION ×4 (02:12→20:04)
[2024-07-24 06:30] LABS: Glucose Point of Care 76 mg/dl (65-105)
--- NOTE | 2024-07-24 07:25 | PM.IMPN ---
Progress Note: A&P Assessment and Plan (1) Altered mental status: Code(s): R41.82 - Altered mental status, unspecified Status: Acute Assessment and Plan: - Drowsy and confused this AM. Mumbles few words then goes back to sleep. - Altered mentation started post EGD. - Possibly anesthesia related vs alcohol withdrawals vs meds vs other. - Librium, ativan and zyprexa , Flexeril and oxycodone discontinued. - Repeat CT Head unchanged from previous, no acute changes. - Continue to monitor for neuro changes. - Assist with care. neurologyconsulted pending recommendations NPO, swallow evaluation (2) Intractable nausea: Code(s): R11.0 - Nausea Status: Acute Assessment and Plan: Chest/Abdomen/Pelvis CTA 07/15/24 14:05 IMPRESSION: 1. No pulmonary embolus. 2. Emphysema and chronic interstitial lung disease. 3. Cirrhosis of the liver with portal venous hypertension. 4. Severe left kidney atrophy with chronic severe left hydronephrosis. - s/p EGD showing portal hypertension and esopheal varices. - Currently on pureed diet with thick liquids but drowsy this AM and unable to follow directions for meals. - Continue daily PO protonix when able to swallow. - GI cocktail TID and HS when able to tolerate meals. - EGD 07/18 and biopsies pending. - GI recommending Coreg to prevent further hepatic decompensation and variceal bleeding. - Hold Coreg for now with episodes of hypotension. - Pt to be discharged on Coreg and f/u closely with GI outpatient. (3) Epigastric pain: Code(s): R10.13 - Epigastric pain Status: Acute Assessment and Plan: - Appears resolved. - Unclear etiology. - Possibly related to GERD. - CT abdomen/pelvis negative for acute. - No obvious ulcers noted on EGD. - Supportive care for now. (4) GERD (gastroesophageal reflux disease): Qualifiers: Esophagitis presence: without esophagitis Qualified Code(s): K21.9 - Gastro-esophageal reflux disease without esophagitis Code(s): K21.9 - Gastro-esophageal reflux disease without esophagitis Status: Acute Assessment and Plan: continue oral Protonix and Carafate when more able. (5) CKD (chronic kidney disease) stage 3, GFR 30-59 ml/min: Qualifiers: Chronic kidney disease stage 3 subtype: stage 3b (GFR 30-44) Qualified Code(s): N18.32 - Chronic kidney disease, stage 3b Code(s): N18.30 - Chronic kidney disease, stage 3 unspecified Status: Acute Assessment and Plan: - NILA on CKD. - Renal function baseline per previous labs. - Continue gentle IV fluids hydration with poor PO intake. - Encourage with fluids when stable. - Avoid nenephrotoxins. (6) Portal hypertension with esophageal varices: Code(s): K76.6 - Portal hypertension; I85.00 - Esophageal varices without bleeding Status: Acute Assessment and Plan: - Restart Coreg when BP stable. (7) Emphysema lung: Qualifiers: Emphysema type: unspecified Qualified Code(s): J43.9 - Emphysema, unspecified Code(s): J43.9 - Emphysema, unspecified Status: Acute Assessment and Plan: - Repeat CXR: IMPRESSION: 1. Worsened diffuse interstitial pattern in the lungs, likely mild pulmonary edema superimposed on a combination of emphysema and chronic interstitial lung disease. - Possibly acute on chronic COPD. - Respiratory status improving. - Continue Azithromycin PO. - Continue scheduled Duoneb updrafts. - Continue to monitor for decompensation. (8) Pulmonary edema: Code(s): J81.1 - Chronic pulmonary edema Status: Acute Assessment and Plan: - Appears stable. - Monitor closely with gentle IVF hydration. (9) Acute hypoxic respiratory failure: Code(s): J96.01 - Acute respiratory failure with hypoxia Status: Acute Assessment and Plan: - Possible COPD exacerbation vs pulmonary edema. - Repeat CXR: IMPRESSION: 1. Worsened diffuse interstitial pattern in the lungs, likely mild pulmonary edema superimposed on a combination of emphysema and chronic interstitial lung disease. - Continue PO Azithromycin. - Continue scheduled duoneb updrafts. - Continue gentle IVF hydration and monitor for decompensation. - Supplemental O2 to maintain sats > 90 %. - ABG's showed hypoxemia and pt placed on supplemental O2. - Monitor closely for symptoms changes. Plan Patient drowsy today and we'll continue to avoid sedatives and monitor his respiratory system closely. Continue to monitor closely for changes in mentation. waiting on neurology's recommendations Time Spent With Patient Time: Includes review of chart, time spent family, consulting teams and nursing. Vital signs were reviewed and they are stable. His medications will be reviewed and resumed as appropriate. Findings and treatment plan were discussed with the patient. Questions were solicited and answered to satisfaction. Care plan was discussed with nursing. 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 neurology consulted for altered mental status recommendations pending . Ulcerative medications held. Review of Systems Review of Systems: 12 systems were reviewed and are negative except for as per HPI. All systems reviewed & are unremarkable except as noted in HPI and below ROS unobtainable: Yes unobtainable due to mental status Exam Narrative: General: drowsy and confused. HEENT: normocephalic, atraumatic. Moist mucus membranes, EOMI, PERRLA, bilateral sclera anicteric, no conjunctival injection. Neck supple without JVD, lymphadenopathy, or bruit. Respiratory: Coarse breath sounds bilaterally. Cardiovascular: Regular rate and rhythm, normal S1-S2, No murmurs, Abdomen: Soft, round, nondistended and nontender. Bowel sounds present to all four quadrants. Extremities: No cyanosis, clubbing, or edema. Pulses are palpable 2/2. Active ROM to all four extremities. Neuro: Somnolent. No focal neuro deficits noted. Skin: Warm, dry, and intact, without rash, erythema, or lesion. Psych: drowsy and confused but co-operative. Const: Other: Thin body habitus, appears older than stated age, no acute distress, lying flat in the bed in the left semi-Asencio position HENMT: Other: Mucous membranes are dry, no oral pharyngeal erythema, edentulous, head is normocephalic atraumatic Eyes: Other: Pupils are equal and reactive, no scleral icterus, no conjunctival pallor Neck: Other: No JVD, supple, no lymphadenopathy Resp: Other: Decreased breath sounds bilaterally, no increased work of breathing Cardio: Other: Regular rate, regular rhythm, 2+ bilateral radial and pedal pulses GI: Other: Tender in the epigastric region, normoactive bowel sounds, no obvious organomegaly, soft, nondistended Skin: Other: No pallor, normal temperature to touch Neuro: Other: Alert oriented, speech is clear, no facial asymmetry, no tremors, no localizing neurologic deficits noted during the course of conversation Extrem: Other: No cyanosis, no edema, mild clubbing of the nail bed Psych: Other: Irritable and difficult to redirect, alert and oriented, Objective Data Vital Signs Vital Signs: Vital Signs - 24 hr 07/23/24 07:30 07/23/24 09:36 07/23/24 10:10 Temperature Pulse Rate 71 63 Respiratory Rate 20 Blood Pressure Pulse Oximetry 92 Oxygen Delivery Nasal Cannula Oxygen Flow Rate 2 07/23/24 11:55 07/23/24 14:26 07/23/24 14:26 Temperature Pulse Rate 67 Respiratory Rate 20 Blood Pressure Pulse Oximetry 95 Oxygen Delivery Nasal Cannula Nasal Cannula Oxygen Flow Rate 2 2 07/23/24 14:33 07/23/24 14:00 07/23/24 20:40 Temperature 97.8 F Pulse Rate 62 67 68 Respiratory Rate 20 16 20 Blood Pressure 98/53 L Pulse Oximetry 99 Oxygen Delivery Oxygen Flow Rate 07/23/24 20:45 07/23/24 20:47 07/23/24 22:01 Temperature 98.2 F Pulse Rate 68 69 68 Respiratory Rate 20 18 Blood Pressure 112/61 Pulse Oximetry 96 96 Oxygen Delivery Nasal Cannula Oxygen Flow Rate 2 07/23/24 21:15 07/24/24 02:12 07/24/24 02:20 Temperature Pulse Rate 63 65 Respiratory Rate 20 20 Blood Pressure Pulse Oximetry 96 Oxygen Delivery Nasal Cannula Oxygen Flow Rate 2 07/24/24 06:00 Temperature 98.1 F Pulse Rate 60 Respiratory Rate 20 Blood Pressure 102/58 L Pulse Oximetry 98 Oxygen Delivery Oxygen Flow Rate Intake/Output Intake/Output: Intake & Output 07/21/24 07/22/24 07/23/24 07/24/24 23:59 23:59 23:59 23:59 Intake Total 2595.0 887.5 1377.5 200 Output Total 400 1050 980 700 Balance 2195.0 -162.5 397.5 -500 Meds/Results Medications: Active Medications Generic Name Dose Route Start Last Admin Trade Name Freq PRN Reason Stop Dose Admin Acetaminophen 650 mg 07/22/24 23:12 Acetaminophen 325 Mg Tablet PO Q4H PRN Mild Pain (1-3) or Fever Albuterol/Ipratropium 3 ml 07/21/24 20:00 07/24/24 07:02 Ipratropium 0.5 Mg/Albuterol Sulfate 2.5 Mg Ampul.Neb 3 Ml INHALATION 3 ml Q6HRT RONDA Administration Azithromycin 500 mg 07/22/24 10:13 07/23/24 09:36 Azithromycin 250 Mg Tablet PO 07/26/24 09:01 500 mg DAILY RONDA Administration Benzonatate 100 mg 07/17/24 13:00 07/23/24 18:00 Benzonatate 100 Mg Capsule PO 100 mg TID RONDA Administration Buspirone HCl 10 mg 07/16/24 09:00 07/23/24 18:00 Buspirone Hcl 10 Mg Tablet PO 10 mg TID RONDA Administration Carvedilol 3.125 mg 07/20/24 09:00 07/23/24 09:36 Carvedilol 3.125 Mg Tablet PO 3.125 mg DAILY RONDA Administration Belladonna Alkaloids/ 0 ml 07/17/24 09:00 07/23/24 18:00 Phenobarbital 10 ml/ Al Hydrox PO 50 ml /Mg Hydrox/Simethicone 30 ml/ TID RONDA Administration Lidocaine HCl 10 ml Cyclobenzaprine HCl 5 mg 07/22/24 23:12 07/24/24 02:10 Cyclobenzaprine Hcl 5 Mg Tablet PO 5 mg Q8H PRN Administration Muscle Spasm Dextrose 12.5 gm 07/23/24 20:33 Dextrose 50% 25 Gm/50 Ml Syringe IV PUSH PRN PRN Hypoglycemia Protocol Gabapentin 300 mg 07/16/24 21:00 07/20/24 21:18 Gabapentin 300 Mg Capsule PO 300 mg HS RONDA Administration Glucagon 1 mg 07/23/24 20:33 Glucagon For Inj 1 Mg Vial IM PRN PRN Hypoglycemia Protocol Glucose 15 gm 07/23/24 20:33 Glucose Oral Gel 15 Gm Of Glucse In 37.5 Gm Tube PO PRN PRN Hypoglycemia Protocol Guaifenesin/Dextromethorphan 5 ml 07/17/24 12:31 07/24/24 02:10 Guaifenesin/Dextromethorphan 10 Ml Udc PO 5 ml Q4H PRN Administration Cough Dextrose/Sodium Chloride 1,000 mls @ 45 mls/hr 07/20/24 12:55 07/23/24 10:02 Dextrose 5% Sodium Chloride 0.9% IV CONT 45 mls/hr .[id number] RONDA Administration Dextrose 1,000 mls @ 100 mls/hr 07/23/24 20:33 Dextrose 5% 1,000 Ml IVPB PRN PRN Hypoglycemia Protocol Oxycodone HCl 5 mg 07/22/24 23:13 07/22/24 23:34 Oxycodone Hcl (*Crx) 5 Mg Tab Ir PO 5 mg Q6HR PRN Administration Moderate Pain (4-6) Pantoprazole Sodium 40 mg 07/19/24 09:00 07/23/24 09:36 Pantoprazole 40 Mg Tablet PO 40 mg QAM RONDA Administration Sucralfate 1,000 mg 07/16/24 16:30 07/24/24 06:44 Sucralfate Susp 100 Mg/Ml 10 Ml Udc PO Not Given ACHS RONDA Thiamine HCl 100 mg 07/21/24 09:00 07/23/24 09:37 Thiamine Hcl 200 Mg/2 Ml Vial IV PUSH 100 mg DAILY RONDA Administration Radiology Results: ITS Impressions Chest/Abdomen/Pelvis CTA 07/15/24 14:05 IMPRESSION: 1. No pulmonary embolus. 2. Emphysema and chronic interstitial lung disease. 3. Cirrhosis of the liver with portal venous hypertension. 4. Severe left kidney atrophy with chronic severe left hydronephrosis. Chest X-Ray 07/21/24 12:34 IMPRESSION: 1. Worsened diffuse interstitial pattern in the lungs, likely mild pulmonary edema superimposed on a combination of emphysema and chronic interstitial lung disease. Head CT 07/21/24 19:46 Impression: Stable CT examination of the brain, although limited by motion artifact without acute intracranial hemorrhage or suspicious mass effect. Demonstrating early atrophy, unchanged dating back to 2021. Modified Barium Swallow 07/22/24 10:41 IMPRESSION: 1. Aspiration of thin liquids. 2. Please refer to the speech therapy report for recommendations. Brain MRI 07/23/24 15:44 IMPRESSION: 1. 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 Labs Labs: Laboratory Results - last 24 hr 07/23/24 07/23/24 07/24/24 12:01 18:55 00:23 POC Capillary Glucose 87 76 93 07/24/24 05:11 POC Capillary Glucose 76 Quality VTE Prophylaxis VTE prophylaxis: mechanical ordered
[2024-07-24 08:29] LABS: Hematocrit 31.3 % (42.0-52.0); Hemoglobin 9.3 g/dL (14.0-18.0); Immature Platelet Fraction Pct 7.3 % (0.9-11.2); Mean Corpuscular HGB Conc 29.7 g/dl (32-36); Mean Corpuscular Hemoglobin 27.7 pg (26-34); Mean Corpuscular Volume 93.2 fl (80-100); Mean Platelet Volume 12.1 fl (7.4-10.4); Platelet Count Result 98 k/mm3 (150-375); Red Blood Count 3.36 M/mm3 (4.6-6.20); Red Cell Distribution Width 17.2 % (11.5-14.5); White Blood Count 4.3 K/mm3 (4.5-10.0)
[2024-07-24] MEDS: PANTOPRAZOLE 40 MG TABLET PO (08:52)
[2024-07-24] MEDS: carvediloL 3.125 MG TABLET PO (08:52)
[2024-07-24] MEDS: AZITHROMYCIN 250 MG TABLET 500 MG PO (08:52)
[2024-07-24] MEDS: BENZONATATE 100 MG CAPSULE PO (08:52)
[2024-07-24] MEDS: THIAMINE HCL 200 MG/2 ML VIAL 100 MG IV PUSH (08:53)
[2024-07-24] MEDS: busPIRone HCL 10 MG TABLET PO (08:53)
[2024-07-24] MEDS: DEXTROSE 5%/0.9% SOD CHL 1,000 ML 45 ML IV CONT (09:03)
[2024-07-24 09:55] LABS: Anion Gap 3 mmol/L (4-12); Blood Urea Nitrogen 9 mg/dL (9-20); Calcium 7.9 mg/dL (8.4-10.2); Carbon Dioxide 24 mmol/L (22-30); Chloride 113 mmol/L (98-107); Estimated CRCL calculation 42 ml/min; Estimated Glomerular Filt Rate 41; Glucose 82 mg/dL (65-110); Potassium 3.6 mmol/L (3.4-5.0); Sodium 140 mmol/L (137-145)
--- NOTE | 2024-07-24 14:58 | WPDNEUROPN ---
Progress Note: A&P Assessment and Plan (1) Metabolic encephalopathy: Code(s): G93.41 - Metabolic encephalopathy Status: Acute (2) Acute hypoxic respiratory failure: Code(s): J96.01 - Acute respiratory failure with hypoxia Status: Acute (3) Pulmonary edema: Code(s): J81.1 - Chronic pulmonary edema Status: Acute (4) Portal hypertension with esophageal varices: Code(s): K76.6 - Portal hypertension; I85.00 - Esophageal varices without bleeding Status: Acute (5) Alcoholic cirrhosis: Qualifiers: Ascites presence: with ascites Qualified Code(s): K70.31 - Alcoholic cirrhosis of liver with ascites Code(s): K70.30 - Alcoholic cirrhosis of liver without ascites Status: Acute Plan I have reviewed the results of MRI of the brain and to current lab data. I believe that he requires continued attention to his underlying metabolic problems. I shall be glad to follow him up from Neurology point of view. Subjective Date/time seen: 07/24/24 14:58 Interval history: Patient is 58 years old with history of alcoholism and cirrhosis of liver and pulmonary edema. He is off all sedatives. He also history of chronic kidney failure. He has apparently been sober for last 2-3 years. He still smokes. He has been evaluated by neurology service for change in mental status. MRI of the brain was performed yesterday which shows old infarct in the left frontal lobe and left thalamus and right cerebellar area. His creatinine is 1.8. He is still not able to give much in the way of history however he is very drowsy but is arousable and a sometimes follow commands. Review of Systems Review of Systems: ROS unobtainable: Yes unobtainable due to mental status Exam Narrative: He did tell me he is 58 years old and was able to tell me his name but difficult to even understand. He did squeeze my both hands have been asked to do so he will not let it go and squeeze very tightly. He does move his both feet also. Deep tendon reflexes did not show any asymmetry. No asterixis 6 were noted. Cranial nerves are grossly intact. No focal findings were noted. Pupils were also equal reacting. No facial asymmetry. Objective Data Vital Signs Vital Signs: Vital Signs - 24 hr 07/23/24 20:40 07/23/24 20:45 07/23/24 20:47 Temperature Pulse Rate 68 68 69 Respiratory Rate 20 20 Blood Pressure Pulse Oximetry 96 Oxygen Delivery Nasal Cannula Oxygen Flow Rate 2 07/23/24 22:01 07/23/24 21:15 07/24/24 02:12 Temperature 98.2 F Pulse Rate 68 63 Respiratory Rate 18 20 Blood Pressure 112/61 Pulse Oximetry 96 96 Oxygen Delivery Nasal Cannula Oxygen Flow Rate 2 07/24/24 02:20 07/24/24 06:00 07/24/24 07:00 Temperature 98.1 F Pulse Rate 65 60 67 Respiratory Rate 20 20 18 Blood Pressure 102/58 L Pulse Oximetry 98 96 Oxygen Delivery Nasal Cannula Oxygen Flow Rate 2 07/24/24 07:00 07/24/24 07:10 07/24/24 08:52 Temperature Pulse Rate 67 66 66 Respiratory Rate 18 18 Blood Pressure Pulse Oximetry Oxygen Delivery Oxygen Flow Rate 07/24/24 12:53 07/24/24 13:37 07/24/24 13:00 Temperature Pulse Rate 67 68 Respiratory Rate 18 18 Blood Pressure Pulse Oximetry Oxygen Delivery Nasal Cannula Oxygen Flow Rate 2 07/24/24 14:00 Temperature 97.4 F L Pulse Rate 64 Respiratory Rate 18 Blood Pressure 92/60 L Pulse Oximetry 95 Oxygen Delivery Oxygen Flow Rate Intake/Output Intake/Output: Intake & Output 07/21/24 07/22/24 07/23/24 07/24/24 23:59 23:59 23:59 23:59 Intake Total 2595.0 887.5 1377.5 1210 Output Total 400 1050 980 900 Balance 2195.0 -162.5 397.5 310 Meds/Results Medications: Active Medications Generic Name Dose Route Start Last Admin Trade Name Freq PRN Reason Stop Dose Admin Acetaminophen 650 mg 07/22/24 23:12 Acetaminophen 325 Mg Tablet PO Q4H PRN Mild Pain (1-3) or Fever Albuterol/Ipratropium 3 ml 07/21/24 20:00 07/24/24 13:21 Ipratropium 0.5 Mg/Albuterol Sulfate 2.5 Mg Ampul.Neb 3 Ml INHALATION 3 ml Q6HRT RONDA Administration Azithromycin 500 mg 07/22/24 10:13 07/24/24 08:52 Azithromycin 250 Mg Tablet PO 07/26/24 09:01 500 mg DAILY RONDA Administration Benzonatate 100 mg 07/17/24 13:00 07/24/24 12:38 Benzonatate 100 Mg Capsule PO Not Given TID RONDA Buspirone HCl 10 mg 07/16/24 09:00 07/24/24 12:38 Buspirone Hcl 10 Mg Tablet PO Not Given TID RONDA Carvedilol 3.125 mg 07/20/24 09:00 07/24/24 08:52 Carvedilol 3.125 Mg Tablet PO 3.125 mg DAILY RONDA Administration Dextrose 12.5 gm 07/23/24 20:33 Dextrose 50% 25 Gm/50 Ml Syringe IV PUSH PRN PRN Hypoglycemia Protocol Gabapentin 300 mg 07/16/24 21:00 07/20/24 21:18 Gabapentin 300 Mg Capsule PO 300 mg HS RONDA Administration Glucagon 1 mg 07/23/24 20:33 Glucagon For Inj 1 Mg Vial IM PRN PRN Hypoglycemia Protocol Glucose 15 gm 07/23/24 20:33 Glucose Oral Gel 15 Gm Of Glucse In 37.5 Gm Tube PO PRN PRN Hypoglycemia Protocol Guaifenesin/Dextromethorphan 5 ml 07/17/24 12:31 07/24/24 02:10 Guaifenesin/Dextromethorphan 10 Ml Udc PO 5 ml Q4H PRN Administration Cough Dextrose/Sodium Chloride 1,000 mls @ 45 mls/hr 07/20/24 12:55 07/24/24 09:03 Dextrose 5% Sodium Chloride 0.9% IV CONT 45 mls/hr .[id number] RONDA Administration Dextrose 1,000 mls @ 100 mls/hr 07/23/24 20:33 Dextrose 5% 1,000 Ml IVPB PRN PRN Hypoglycemia Protocol Pantoprazole Sodium 40 mg 07/19/24 09:00 07/24/24 08:52 Pantoprazole 40 Mg Tablet PO 40 mg QAM RONDA Administration Sucralfate 1,000 mg 07/16/24 16:30 07/24/24 10:48 Sucralfate Susp 100 Mg/Ml 10 Ml Udc PO Not Given ACHS RNODA Thiamine HCl 100 mg 07/21/24 09:00 07/24/24 08:53 Thiamine Hcl 200 Mg/2 Ml Vial IV PUSH 100 mg DAILY RONDA Administration Radiology Results: ITS Impressions Chest/Abdomen/Pelvis CTA 07/15/24 14:05 IMPRESSION: 1. No pulmonary embolus. 2. Emphysema and chronic interstitial lung disease. 3. Cirrhosis of the liver with portal venous hypertension. 4. Severe left kidney atrophy with chronic severe left hydronephrosis. Chest X-Ray 07/21/24 12:34 IMPRESSION: 1. Worsened diffuse interstitial pattern in the lungs, likely mild pulmonary edema superimposed on a combination of emphysema and chronic interstitial lung disease. Head CT 07/21/24 19:46 Impression: Stable CT examination of the brain, although limited by motion artifact without acute intracranial hemorrhage or suspicious mass effect. Demonstrating early atrophy, unchanged dating back to 2021. Modified Barium Swallow 07/22/24 10:41 IMPRESSION: 1. Aspiration of thin liquids. 2. Please refer to the speech therapy report for recommendations. Brain MRI 07/23/24 15:44 IMPRESSION: 1. 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 Labs Labs: Laboratory Results - last 24 hr 07/23/24 07/24/24 07/24/24 18:55 00:23 05:11 WBC RBC Hgb Hct MCV MCH MCHC RDW Plt Count MPV % Immature Plt Fraction Sodium Potassium Chloride Carbon Dioxide Anion Gap BUN Creatinine Estim Creat Clear Calc Estimated GFR Glucose POC Capillary Glucose 76 93 76 Calcium 07/24/24 08:08 WBC 4.3 L RBC 3.36 L Hgb 9.3 L Hct 31.3 L MCV 93.2 MCH 27.7 MCHC 29.7 L RDW 17.2 H Plt Count 98 L MPV 12.1 H % Immature Plt Fraction 7.3 Sodium 140 Potassium 3.6 Chloride 113 H Carbon Dioxide 24 Anion Gap 3 L BUN 9 Creatinine 1.70 H Estim Creat Clear Calc 42 Estimated GFR 41 L Glucose 82 POC Capillary Glucose Calcium 7.9 L
[2024-07-24 16:55] LABS: Vitamin D 25 Hydroxy 24.5 ng/mL
[2024-07-24 17:12] LABS: Folic Acid 3.9 ng/mL (2.76->20)
[2024-07-24 17:37] LABS: Glucose Point of Care 80 mg/dl (65-105)
[2024-07-25] VITALS (8 sets, daily range): BP systolic 99–133; BP diastolic 65–78; PULSE 68–78; RESP 16–18; TEMP 36.4–36.8; O2SAT 93–99
[2024-07-25 01:05] LABS: Glucose Point of Care 73 mg/dl (65-105)
[2024-07-25] MEDS: IPRATROPIUM 0.5 MG/ALBUTEROL SULFATE 2.5 MG AMPUL.NEB 3 ML INHALATION (02:09)
[2024-07-25 05:25] LABS: Glucose Point of Care 74 mg/dl (65-105)
--- NOTE | 2024-07-25 07:20 | PM.IMPN ---
Progress Note: A&P Assessment and Plan (1) Altered mental status: Code(s): R41.82 - Altered mental status, unspecified Status: Acute Assessment and Plan: - Drowsy and confused this AM. Mumbles few words then goes back to sleep. - Altered mentation started post EGD. - Possibly anesthesia related vs alcohol withdrawals vs meds vs other. - Librium, ativan and zyprexa , Flexeril and oxycodone discontinued. - Repeat CT Head unchanged from previous, no acute changes. - Continue to monitor for neuro changes. - Assist with care. neurologyconsulted due to patient's comorbidities is believed this altered mental status is due to metabolic problems, with history of old strokes no acute infarct seen on MRI pureed diet with thickened liquids in fact, IV fluids for hydration vitamin B1, B6 B12, D, folic homocysteine, and ammonia labs within normal limits no clear explanation for altered mental status and visual hallucinations (2) Intractable nausea: Code(s): R11.0 - Nausea Status: Acute Assessment and Plan: resolved Chest/Abdomen/Pelvis CTA 07/15/24 14:05 IMPRESSION: 1. No pulmonary embolus. 2. Emphysema and chronic interstitial lung disease. 3. Cirrhosis of the liver with portal venous hypertension. 4. Severe left kidney atrophy with chronic severe left hydronephrosis. - s/p EGD showing portal hypertension and esopheal varices. - Currently on pureed diet with thick liquids but drowsy this AM and unable to follow directions for meals. - Continue daily PO protonix when able to swallow. - GI cocktail TID and HS when able to tolerate meals. - EGD 07/18 and biopsies pending. - GI recommending Coreg to prevent further hepatic decompensation and variceal bleeding. - Hold Coreg for now with episodes of hypotension. - Pt to be discharged on Coreg and f/u closely with GI outpatient. (3) Epigastric pain: Code(s): R10.13 - Epigastric pain Status: Acute Assessment and Plan: - Appears resolved. - Unclear etiology. - Possibly related to GERD. - CT abdomen/pelvis negative for acute. - No obvious ulcers noted on EGD. - Supportive care for now. (4) GERD (gastroesophageal reflux disease): Qualifiers: Esophagitis presence: without esophagitis Qualified Code(s): K21.9 - Gastro-esophageal reflux disease without esophagitis Code(s): K21.9 - Gastro-esophageal reflux disease without esophagitis Status: Acute Assessment and Plan: impression continue oral Protonix and Carafate when more able. (5) CKD (chronic kidney disease) stage 3, GFR 30-59 ml/min: Qualifiers: Chronic kidney disease stage 3 subtype: stage 3b (GFR 30-44) Qualified Code(s): N18.32 - Chronic kidney disease, stage 3b Code(s): N18.30 - Chronic kidney disease, stage 3 unspecified Status: Acute Assessment and Plan: - NILA on CKD. - Renal function baseline per previous labs. - Continue gentle IV fluids hydration with poor PO intake. - Encourage with fluids when stable. - Avoid nenephrotoxins. (6) Portal hypertension with esophageal varices: Code(s): K76.6 - Portal hypertension; I85.00 - Esophageal varices without bleeding Status: Acute Assessment and Plan: - Restart Coreg when BP stable. (7) Emphysema lung: Qualifiers: Emphysema type: unspecified Qualified Code(s): J43.9 - Emphysema, unspecified Code(s): J43.9 - Emphysema, unspecified Status: Acute Assessment and Plan: - Repeat CXR: IMPRESSION: 1. Worsened diffuse interstitial pattern in the lungs, likely mild pulmonary edema superimposed on a combination of emphysema and chronic interstitial lung disease. - Possibly acute on chronic COPD. - Respiratory status improving. - Continue Azithromycin PO. - Continue scheduled Duoneb updrafts. - Continue to monitor for decompensation. (8) Pulmonary edema: Code(s): J81.1 - Chronic pulmonary edema Status: Acute Assessment and Plan: - Appears stable. - Monitor closely with gentle IVF hydration. (9) Acute hypoxic respiratory failure: Code(s): J96.01 - Acute respiratory failure with hypoxia Status: Acute Assessment and Plan: improved - Possible COPD exacerbation vs pulmonary edema. - Repeat CXR: IMPRESSION: 1. Worsened diffuse interstitial pattern in the lungs, likely mild pulmonary edema superimposed on a combination of emphysema and chronic interstitial lung disease. - Continue PO Azithromycin. - Continue scheduled duoneb updrafts. - Continue gentle IVF hydration and monitor for decompensation. - Supplemental O2 to maintain sats > 90 %. - ABG's showed hypoxemia and pt placed on supplemental O2. - Monitor closely for symptoms changes. Plan Patient drowsy today and we'll continue to avoid sedatives and monitor his respiratory system closely. Continue to monitor closely for changes in mentation. seen by Neurosurgery believed altered mental status due to comorbidities with metabolic encephalopathy Time Spent With Patient Time: Includes review of chart, time spent family, consulting teams and nursing. Vital signs were reviewed and they are stable. His medications will be reviewed and adjusted as appropriate. Findings and treatment plan were discussed with the patient's . Questions were solicited and answered to satisfaction. Care plan was discussed with nursing. over 55 minutes Subjective Date/time seen: 07/25/24 07:20 Interval history: Patient is 58 years old with history of alcoholism and cirrhosis of liver and pulmonary edema. Patient here with profuse vomiting now with altered mental status. Neurology saw the patient yesterday place that is metabolic and not in acute Stroke, vitamin B1, B6 B12, D, folic homocysteine, and ammonia labs pending. patient seen by speech therapy with recommendations for pureed diet, thickened liquids been fed, will do calorie count and gentle IV hydration the patient does not become dehydrated Review of Systems Review of Systems: 12 systems were reviewed and are negative except for as per HPI. All systems reviewed & are unremarkable except as noted in HPI and below ROS unobtainable: Yes unobtainable due to mental status Exam Narrative: General: drowsy and confused. HEENT: normocephalic, atraumatic. Moist mucus membranes, EOMI, PERRLA, bilateral sclera anicteric, no conjunctival injection. Neck supple without JVD, lymphadenopathy, or bruit. Respiratory: Coarse breath sounds bilaterally. Cardiovascular: Regular rate and rhythm, normal S1-S2, No murmurs, Abdomen: Soft, round, nondistended and nontender. Bowel sounds present to all four quadrants. Extremities: No cyanosis, clubbing, or edema. Pulses are palpable 2/2. Active ROM to all four extremities. Neuro: Somnolent. No focal neuro deficits noted. Skin: Warm, dry, and intact, without rash, erythema, or lesion. Psych: drowsy and confused but co-operative. visual hallucinations Const: Other: Thin body habitus, appears older than stated age, no acute distress, lying flat in the bed in the left semi-Asencio position HENMT: Other: Mucous membranes are dry, no oral pharyngeal erythema, edentulous, head is normocephalic atraumatic Eyes: Other: Pupils are equal and reactive, no scleral icterus, no conjunctival pallor Neck: Other: No JVD, supple, no lymphadenopathy Resp: Other: Decreased breath sounds bilaterally, no increased work of breathing Cardio: Other: Regular rate, regular rhythm, 2+ bilateral radial and pedal pulses GI: Other: Tender in the epigastric region, normoactive bowel sounds, no obvious organomegaly, soft, nondistended Skin: Other: No pallor, normal temperature to touch Neuro: Other: Alert oriented, speech is clear, no facial asymmetry, no tremors, no localizing neurologic deficits noted during the course of conversation Extrem: Other: No cyanosis, no edema, mild clubbing of the nail bed Psych: Other: Irritable and difficult to redirect, alert and oriented, Objective Data Vital Signs Vital Signs: Vital Signs - 24 hr 07/24/24 08:52 07/24/24 12:53 07/24/24 13:37 Temperature Pulse Rate 66 67 Respiratory Rate 18 Blood Pressure Pulse Oximetry Oxygen Delivery Nasal Cannula Oxygen Flow Rate 2 07/24/24 13:00 07/24/24 14:00 07/24/24 20:04 Temperature 97.4 F L Pulse Rate 68 64 74 Respiratory Rate 18 18 18 Blood Pressure 92/60 L Pulse Oximetry 95 Oxygen Delivery Oxygen Flow Rate 07/24/24 20:08 07/24/24 22:00 07/25/24 02:10 Temperature 98.2 F Pulse Rate 74 78 78 Respiratory Rate 20 18 Blood Pressure 127/66 Pulse Oximetry 98 98 Oxygen Delivery Room Air Oxygen Flow Rate 07/25/24 02:15 07/24/24 21:40 Temperature Pulse Rate 75 Respiratory Rate 18 Blood Pressure Pulse Oximetry Oxygen Delivery Room Air Oxygen Flow Rate Intake/Output Intake/Output: Intake & Output 07/22/24 07/23/24 07/24/24 07/25/24 23:59 23:59 23:59 23:59 Intake Total 887.5 1377.5 1210 Output Total 9487 392 5042 Balance -162.5 397.5 10 Meds/Results Medications: Active Medications Generic Name Dose Route Start Last Admin Trade Name Freq PRN Reason Stop Dose Admin Acetaminophen 650 mg 07/22/24 23:12 Acetaminophen 325 Mg Tablet PO Q4H PRN Mild Pain (1-3) or Fever Albuterol/Ipratropium 3 ml 07/21/24 20:00 07/25/24 02:09 Ipratropium 0.5 Mg/Albuterol Sulfate 2.5 Mg Ampul.Neb 3 Ml INHALATION 3 ml Q6HRT RONDA Administration Azithromycin 500 mg 07/22/24 10:13 07/24/24 08:52 Azithromycin 250 Mg Tablet PO 07/26/24 09:01 500 mg DAILY RONDA Administration Benzonatate 100 mg 07/17/24 13:00 07/24/24 16:37 Benzonatate 100 Mg Capsule PO Not Given TID RONDA Buspirone HCl 10 mg 07/16/24 09:00 07/24/24 16:37 Buspirone Hcl 10 Mg Tablet PO Not Given TID RONDA Carvedilol 3.125 mg 07/20/24 09:00 07/24/24 08:52 Carvedilol 3.125 Mg Tablet PO 3.125 mg DAILY RONDA Administration Dextrose 12.5 gm 07/23/24 20:33 Dextrose 50% 25 Gm/50 Ml Syringe IV PUSH PRN PRN Hypoglycemia Protocol Gabapentin 300 mg 07/16/24 21:00 07/20/24 21:18 Gabapentin 300 Mg Capsule PO 300 mg HS RONDA Administration Glucagon 1 mg 07/23/24 20:33 Glucagon For Inj 1 Mg Vial IM PRN PRN Hypoglycemia Protocol Glucose 15 gm 07/23/24 20:33 Glucose Oral Gel 15 Gm Of Glucse In 37.5 Gm Tube PO PRN PRN Hypoglycemia Protocol Guaifenesin/Dextromethorphan 5 ml 07/17/24 12:31 07/24/24 02:10 Guaifenesin/Dextromethorphan 10 Ml Udc PO 5 ml Q4H PRN Administration Cough Dextrose/Sodium Chloride 1,000 mls @ 45 mls/hr 07/20/24 12:55 07/24/24 09:03 Dextrose 5% Sodium Chloride 0.9% IV CONT 45 mls/hr .[id number] RONDA Administration Dextrose 1,000 mls @ 100 mls/hr 07/23/24 20:33 Dextrose 5% 1,000 Ml IVPB PRN PRN Hypoglycemia Protocol Pantoprazole Sodium 40 mg 07/19/24 09:00 07/24/24 08:52 Pantoprazole 40 Mg Tablet PO 40 mg QAM RONDA Administration Sucralfate 1,000 mg 07/16/24 16:30 07/25/24 06:07 Sucralfate Susp 100 Mg/Ml 10 Ml Udc PO Not Given ACHS ORNDA Thiamine HCl 100 mg 07/21/24 09:00 07/24/24 08:53 Thiamine Hcl 200 Mg/2 Ml Vial IV PUSH 100 mg DAILY RONDA Administration Radiology Results: ITS Impressions Chest/Abdomen/Pelvis CTA 07/15/24 14:05 IMPRESSION: 1. No pulmonary embolus. 2. Emphysema and chronic interstitial lung disease. 3. Cirrhosis of the liver with portal venous hypertension. 4. Severe left kidney atrophy with chronic severe left hydronephrosis. Chest X-Ray 07/21/24 12:34 IMPRESSION: 1. Worsened diffuse interstitial pattern in the lungs, likely mild pulmonary edema superimposed on a combination of emphysema and chronic interstitial lung disease. Head CT 07/21/24 19:46 Impression: Stable CT examination of the brain, although limited by motion artifact without acute intracranial hemorrhage or suspicious mass effect. Demonstrating early atrophy, unchanged dating back to 2021. Modified Barium Swallow 07/22/24 10:41 IMPRESSION: 1. Aspiration of thin liquids. 2. Please refer to the speech therapy report for recommendations. Brain MRI 07/23/24 15:44 IMPRESSION: 1. 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 Labs Labs: Laboratory Results - last 24 hr 07/24/24 07/24/24 07/24/24 08:08 15:44 17:34 WBC 4.3 L RBC 3.36 L Hgb 9.3 L Hct 31.3 L MCV 93.2 MCH 27.7 MCHC 29.7 L RDW 17.2 H Plt Count 98 L MPV 12.1 H % Immature Plt Fraction 7.3 Sodium 140 Potassium 3.6 Chloride 113 H Carbon Dioxide 24 Anion Gap 3 L BUN 9 Creatinine 1.70 H Estim Creat Clear Calc 42 Estimated GFR 41 L Glucose 82 POC Capillary Glucose 80 Calcium 7.9 L Vitamin B12 825.0 Vitamin D 25-Hydroxy 24.5 Folate 3.9 07/24/24 07/25/24 23:12 05:21 WBC RBC Hgb Hct MCV MCH MCHC RDW Plt Count MPV % Immature Plt Fraction Sodium Potassium Chloride Carbon Dioxide Anion Gap BUN Creatinine Estim Creat Clear Calc Estimated GFR Glucose POC Capillary Glucose 73 74 Calcium Vitamin B12 Vitamin D 25-Hydroxy Folate Quality VTE Prophylaxis VTE prophylaxis: mechanical ordered If No VTE Prophylaxis Answer both mechanical and pharmacologic: Reason no pharmacologic proph: medical contraindication ( platelets 77) Hospitalist MIPS Advance Care Plan I have confirmed that the patient's Advanced Care Plan is present, code status is documented, or surrogate decision maker is listed in patient medical record.: Yes Medication Reconciliation I have utilized all available resources to obtain, update and review the patients current medications (includes all prescriptions, OTC, herbals, cannabis, and nutritional supplements).: Yes
[2024-07-25] MEDS: THIAMINE HCL 200 MG/2 ML VIAL 100 MG IV PUSH (08:27)
[2024-07-25] MEDS: DEXTROSE 5%/0.9% SOD CHL 1,000 ML 45 ML IV CONT (08:27)
[2024-07-25 09:05] LABS: Basophils Percent Auto 0.6 % (0.2-1.2); Eosinophils Percent Auto 0.6 % (0-4.4); Hematocrit 33.4 % (42.0-52.0); Immature Granulocyte Absolute 0.01 K/mm3 (0.00-0.031); Immature Granulocyte Percent A 0.2 % (0-0.5); Immature Platelet Fraction Pct 6.9 % (0.9-11.2); Lymphocytes Absolute Auto 1.49 K/mm3 (0.9-3.2); Lymphocytes Percent Auto 31.4 % (18.3-44.2); Mean Corpuscular HGB Conc 29.9 g/dl (32-36); Mean Corpuscular Hemoglobin 28.8 pg (26-34); Mean Corpuscular Volume 96.3 fl (80-100); Mean Platelet Volume 12.1 fl (7.4-10.4); Monocytes Absolute Auto 0.5 K/mm3 (0.1-0.6); Monocytes Percent Auto 11.4 % (2.6-8.5); Neutrophils Absolute Auto 2.7 K/mm3 (1.3-6.7); Neutrophils Percent Auto 55.8 % (45.5-73.1); Platelet Count Result 77 k/mm3 (150-375); Red Blood Count 3.47 M/mm3 (4.6-6.20); Red Cell Distribution Width 17.7 % (11.5-14.5); White Blood Count 4.8 K/mm3 (4.5-10.0)
[2024-07-25 09:28] LABS: Anisocytosis 1+; Crenated RBC 1+; Platelet Estimate Decreased (Adequate); Schistocytes None Seen
[2024-07-25 10:04] LABS: Ammonia < 9 umol/L (9-30)
--- NOTE | 2024-07-25 10:16 | PCSTNOTE ---
Please refer to the Bedside Swallow Evaluation in the EMR. Please note, silent aspiration cannot be ruled out at bedside.
[2024-07-25 10:19] LABS: Alanine Aminotransferase 19 U/L (6-50); Albumin Level 2.4 g/dL (3.5-5.1); Alkaline Phosphatase 96 U/L (38-126); Anion Gap 2 mmol/L (4-12); Aspartate Amino Transferase 45 U/L (17-59); Bilirubin,Total 0.8 mg/dL (0.2-1.3); Blood Urea Nitrogen 8 mg/dL (9-20); Calcium 8.1 mg/dL (8.4-10.2); Carbon Dioxide 25 mmol/L (22-30); Chloride 112 mmol/L (98-107); Estimated CRCL calculation 42 ml/min; Estimated Glomerular Filt Rate 41; Glucose 81 mg/dL (65-110); Magnesium 1.9 mg/dL (1.6-2.3); Phosphorus 2.3 mg/dL (2.5-4.5); Potassium 3.8 mmol/L (3.4-5.0); Sodium 139 mmol/L (137-145)
--- NOTE | 2024-07-25 10:57 | PCNFU ---
Nutrition Follow-Up Complete: Swallowing Difficulties as related to Aspiration as evidenced by MBS/modified diet. goal: Meet estimated nutritional needs Patient has limited progress towards goal. We will continue current goal. Pt current nutrition is Pureed, Level 4 with Moderately Thick liquids, Level 3 Nutrition recommendation: Nutritional Ice Cream TID Last recorded weight is 79.9 kg, no new weight to report. Bowel Motility: Last reported BM 07/20 Labs Reviewed: Cr 1.8, GFR 41 Meds Noted: Thiamine Skin: WNL Additional Notes: Patient remains confused. Bedside Swallow today recommend pureed, Level 4 with Moderately thick liquids, Level 3, per spoon only. Nutrition Ice Cream recommend for additional 300 kcal and 9 gm protein. Will monitor weight, labs, skin, oral intake, meds every 3 days.
[2024-07-25] MEDS: SUCRALFATE SUSP 100 MG/ML 10 ML UDC 1000 MG PO ×3 (12:06→21:29)
[2024-07-25] MEDS: PANTOPRAZOLE 40 MG TABLET PO (12:07)
[2024-07-25] MEDS: busPIRone HCL 10 MG TABLET PO ×2 (12:07→16:47)
[2024-07-25] MEDS: carvediloL 3.125 MG TABLET PO (12:07)
[2024-07-25] MEDS: AZITHROMYCIN 250 MG TABLET 500 MG PO (12:07)
[2024-07-25 12:13] LABS: Glucose Point of Care 86 mg/dl (65-105)
[2024-07-25] MEDS: BENZONATATE 100 MG CAPSULE PO (16:47)
[2024-07-25] MEDS: POTASSIUM/PHOSPHORUS/SODIUM 1.5 GM PACKET 1 PACKET PO (16:47)
[2024-07-25 18:42] LABS: Glucose Point of Care 93 mg/dl (65-105)
--- NOTE | 2024-07-25 20:04 | PCRCNOTE ---
Pt would not wake up for Tx RN notified and will call if Pt wakes up and needs Tx.
[2024-07-25 23:42] LABS: Glucose Point of Care 84 mg/dl (65-105)
[2024-07-26] VITALS (11 sets, daily range): BP systolic 87–138; BP diastolic 45–77; PULSE 82–92; RESP 16–41; TEMP 36.3–36.4; O2SAT 86–99
[2024-07-26] MEDS: ONDANSETRON INJ 4 MG/2 ML VIAL IV PUSH (02:42)
[2024-07-26] MEDS: DEXTROSE 5%/0.9% SOD CHL 1,000 ML 45 ML IV CONT (06:20)
[2024-07-26 06:55] LABS: Glucose Point of Care 98 mg/dl (65-105)
--- NOTE | 2024-07-26 08:00 | P.PNIM_ITS ---
Progress Note: A&P Assessment and Plan (1) Altered mental status: Code(s): R41.82 - Altered mental status, unspecified Status: Acute Assessment and Plan: * Continue Neuro checks q4h * Metabolic encephalopathy likely due to medication versus malnutrition. He does have severe left kidney atrophy with chronic severe left hydronephrosis. * Place Dobhoff for tube feedings/medications * Switch medication to per tube * Intelligence Consultant consulted for tube feedings. * Mitten restraints initiated, sitter at bedside. 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, left thalmus and right cerebellum * Will check random cortisol level * Continue thiamine at higher dose of 300 mg IVPB daily * TSH, Vitamin B 12, folate, ammonia levels all within normal limits * Continue to hold Neurontin (2) Intractable nausea: Code(s): R11.0 - Nausea Status: Acute Assessment and Plan: * Chest abdomen pelvis CTA was negative for PE, shown emphysema and chronic interstitial lung disease, cirrhosis of the liver, portal venous hypertension, severe left kidney atrophy with chronic severe left hydronephrosis * S/P EGD showing portal hypertension and esophageal varices * GI recommending Coreg to prevent further hepatic decompensation * Continue Protonix and Carafate * Nausea resolved * Hold oral intake due to mental status and pulmonary edema * Place dobhoff in radiology (3) GERD (gastroesophageal reflux disease): Qualifiers: Esophagitis presence: without esophagitis Qualified Code(s): K21.9 - G olamide-esophageal reflux disease without esophagitis Code(s): K21.9 - Gastro-esophageal reflux disease without esophagitis Status: Acute Assessment and Plan: * Continue Protonix and Carafate (4) CKD (chronic kidney disease) stage 3, GFR 30-59 ml/min: Qualifiers: Chronic kidney disease stage 3 subtype: stage 3b (GFR 30-44) Qualified Code(s): N18.32 - Chronic kidney disease, stage 3b Code(s): N18.30 - Chronic kidney disease, stage 3 unspecified Status: Acute Assessment and Plan: * Creatinine 1.5 * Baseline creatinine 1.7-2.10 * Appears to be at baseline function * Avoid nephrotoxic medications (5) Portal hypertension with esophageal varices: Code(s): K76.6 - Portal hypertension; I85.00 - Esophageal varices without bleeding Status: Acute Assessment and Plan: * Restart Coreg when BP stable. (6) Emphysema lung: Qualifiers: Emphysema type: unspecified Qualified Code(s): J43.9 - Emphysema, unspecified Code(s): J43.9 - Emphysema, unspecified Status: Acute Assessment and Plan: * Continue Azithromycin * CXR yesterday showing diffuse pulmonary edema however it was read as chronic interstitial lung disease. * Continue Duonebs (7) Pulmonary edema: Code(s): J81.1 - Chronic pulmonary edema Status: Acute Assessment and Plan: * CXR showing diffuse pulmonary edema on x-ray however it was reported as chronic interstitial lung disease. CXR much worse than chest x-ray from 07/15/24 * Stop IVF * Diurese with Lasix (8) Acute hypoxic respiratory failure: Code(s): J96.01 - Acute respiratory failure with hypoxia Status: Acute Assessment and Plan: * CXR worsening * Will give IV lasix today Time Spent With Patient Time with patient: Greater than 35 minutes Subjective Date/time seen: 07/26/24 08:00 Interval history: Patient is alert today but is waxing and waning in the bed. Family at bedside. Labs and imaging reviewed. Discussion held with family regarding current status and explained the possible causes of the metabolic encephalopathy which include medication such as Zyprexa, Librium, and Versed from last week versus nutritional causes. I went over imaging and labs with the family who expressed their understanding. Patient was complaining of chest pain however unsure how realistic it can be due to his mental status. We did get an EKG which shown NSR with no ST elevation. Patient did have increased pain with palpation to the abdomen. A CT of the abdomen and pelvis was obtained and shown small volume of ascites, severe left kidney atrophy with chronic severe left hydronephrosis, small pleural effusion, small sliding hiatal hernia. Review of Systems Review of Systems: ROS unobtainable: Yes unobtainable due to mental status Exam Narrative: General:chronically ill appearing Head: atraumatic, no encephalopathy Eyes: PERRLA, sclera clear ENT: moist mucous membranes, nasal passages clear Neck: supple, no JVD, no adenopathy, trachea midline Cardiac: Normal S1 and S2. No murmur, gallops or friction rubs, peripheral pulses intact. Respiratory: Lungs course, he is tachypneic, no adventitious lung sounds, currently on room air Gastrointestinal: soft, non-distended, non-tender, normoactive bowel sounds. : voiding without difficulty. Extremities: moves all extremities well, no edema Skin: clean, dry, intact. No wounds or lesions. Neuro: Alert, waxing and waning in the bed, follows some commands Psych: minimally interactive Objective Data Vital Signs Vital Signs: Vital Signs - 24 hr 07/25/24 08:02 07/25/24 08:02 07/25/24 12:07 Temperature Pulse Rate 74 74 Respiratory Rate 18 Blood Pressure Pulse Oximetry 93 Oxygen Delivery Room Air 07/25/24 14:00 07/25/24 20:00 07/25/24 21:15 Temperature 98.3 F 98.0 F Pulse Rate 68 68 70 Respiratory Rate 18 18 16 Blood Pressure 99/78 L 133/76 Pulse Oximetry 99 99 94 Oxygen Delivery Room Air 07/26/24 02:05 07/26/24 06:34 Temperature 97.6 F Pulse Rate 82 90 Respiratory Rate 18 16 Blood Pressure 138/77 Pulse Oximetry 95 Oxygen Delivery Intake/Output Intake/Output: Intake & Output 07/23/24 07/24/24 07/25/24 07/26/24 23:59 23:59 23:59 23:59 Intake Total 1377.5 1210 1000 984.7 Output Total 980 1200 0 Balance 397.5 10 1000 984.7 Meds/Results Medications: Active Medications Generic Name Dose Route Start Last Admin Trade Name Freq PRN Reason Stop Dose Admin Acetaminophen 650 mg 07/22/24 23:12 Acetaminophen 325 Mg Tablet PO Q4H PRN Mild Pain (1-3) or Fever Albuterol/Ipratropium 3 ml 07/21/24 20:00 07/25/24 20:03 Ipratropium 0.5 Mg/Albuterol Sulfate 2.5 Mg Ampul.Neb 3 Ml INHALATION Not Given Q6HRT RONDA Azithromycin 500 mg 07/22/24 10:13 07/25/24 12:07 Azithromycin 250 Mg Tablet PO 07/26/24 09:01 500 mg DAILY RONDA Administration Benzonatate 100 mg 07/17/24 13:00 07/26/24 07:52 Benzonatate 100 Mg Capsule PO Not Given TID RONDA Buspirone HCl 10 mg 07/16/24 09:00 07/25/24 16:47 Buspirone Hcl 10 Mg Tablet PO 10 mg TID RONDA Administration Carvedilol 3.125 mg 07/20/24 09:00 07/25/24 12:07 Carvedilol 3.125 Mg Tablet PO 3.125 mg DAILY RONDA Administration Dextrose 12.5 gm 07/23/24 20:33 Dextrose 50% 25 Gm/50 Ml Syringe IV PUSH PRN PRN Hypoglycemia Protocol Gabapentin 300 mg 07/16/24 21:00 07/20/24 21:18 Gabapentin 300 Mg Capsule PO 300 mg HS RONDA Administration Glucagon 1 mg 07/23/24 20:33 Glucagon For Inj 1 Mg Vial IM PRN PRN Hypoglycemia Protocol Glucose 15 gm 07/23/24 20:33 Glucose Oral Gel 15 Gm Of Glucse In 37.5 Gm Tube PO PRN PRN Hypoglycemia Protocol Guaifenesin/Dextromethorphan 5 ml 07/17/24 12:31 07/24/24 02:10 Guaifenesin/Dextromethorphan 10 Ml Udc PO 5 ml Q4H PRN Administration Cough Dextrose/Sodium Chloride 1,000 mls @ 45 mls/hr 07/20/24 12:55 07/26/24 06:20 Dextrose 5% Sodium Chloride 0.9% IV CONT 45 mls/hr .[id number] RONDA Administration Dextrose 1,000 mls @ 100 mls/hr 07/23/24 20:33 Dextrose 5% 1,000 Ml IVPB PRN PRN Hypoglycemia Protocol Ondansetron HCl 4 mg 07/26/24 02:36 07/26/24 02:42 Ondansetron Inj 4 Mg/2 Ml Vial IV PUSH 4 mg Q6H PRN Administration Nausea And Vomiting Pantoprazole Sodium 40 mg 07/19/24 09:00 07/25/24 12:07 Pantoprazole 40 Mg Tablet PO 40 mg QAM RONDA Administration Sucralfate 1,000 mg 07/16/24 16:30 07/26/24 05:26 Sucralfate Susp 100 Mg/Ml 10 Ml Udc PO Not Given ACHS RONDA Thiamine HCl 100 mg 07/21/24 09:00 07/25/24 08:27 Thiamine Hcl 200 Mg/2 Ml Vial IV PUSH 100 mg DAILY RONDA Administration Radiology Results: ITS Impressions Chest/Abdomen/Pelvis CTA 07/15/24 14:05 IMPRESSION: 1. No pulmonary embolus. 2. Emphysema and chronic interstitial lung disease. 3. Cirrhosis of the liver with portal venous hypertension. 4. Severe left kidney atrophy with chronic severe left hydronephrosis. Head CT 07/21/24 19:46 Impression: Stable CT examination of the brain, although limited by motion artifact without acute intracranial hemorrhage or suspicious mass effect. Demonstrating early atrophy, unchanged dating back to 2021. Modified Barium Swallow 07/22/24 10:41 IMPRESSION: 1. Aspiration of thin liquids. 2. Please refer to the speech therapy report for recommendations. Brain MRI 07/23/24 15:44 IMPRESSION: 1. 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 Chest X-Ray 07/25/24 17:52 IMPRESSION: Findings suggesting chronic interstitial lung disease, for which clinical correlation is needed. Labs Labs: Laboratory Results - last 24 hr 07/25/24 07/25/24 07/25/24 08:43 12:10 18:29 WBC 4.8 RBC 3.47 L Hgb 10.0 L Hct 33.4 L MCV 96.3 MCH 28.8 MCHC 29.9 L RDW 17.7 H Plt Count 77 L MPV 12.1 H Immature Gran % (Auto) 0.2 Neut % (Auto) 55.8 Lymph % (Auto) 31.4 [place] % (Auto) 11.4 H Eos % (Auto) 0.6 Baso % (Auto) 0.6 Lymph # (Auto) 1.49 [place] # (Auto) 0.5 Eos # (Auto) 0.0 Baso # (Auto) 0.0 Abs Immat Gran (auto) 0.01 Absolute Neuts (auto) 2.7 Absolute Nucleated RBC 0.000 Nucleated RBC % 0.0 Platelet Estimate Decreased % Immature Plt Fraction 6.9 Anisocytosis 1+ Crenated Cell 1+ Schistocytes None seen Sodium 139 Potassium 3.8 Chloride 112 H Carbon Dioxide 25 Anion Gap 2 L BUN 8 L Creatinine 1.70 H Estim Creat Clear Calc 42 Estimated GFR 41 L Glucose 81 POC Capillary Glucose 86 93 Calcium 8.1 L Phosphorus 2.3 L Magnesium 1.9 Total Bilirubin 0.8 AST 45 ALT 19 Alkaline Phosphatase 96 Ammonia < 9 L Total Protein 6.0 L Albumin 2.4 L 07/25/24 07/26/24 23:39 06:49 WBC RBC Hgb Hct MCV MCH MCHC RDW Plt Count MPV Immature Gran % (Auto) Neut % (Auto) Lymph % (Auto) [place] % (Auto) Eos % (Auto) Baso % (Auto) Lymph # (Auto) [place] # (Auto) Eos # (Auto) Baso # (Auto) Abs Immat Gran (auto) Absolute Neuts (auto) Absolute Nucleated RBC Nucleated RBC % Platelet Estimate % Immature Plt Fraction Anisocytosis Crenated Cell Schistocytes Sodium Potassium Chloride Carbon Dioxide Anion Gap BUN Creatinine Estim Creat Clear Calc Estimated GFR Glucose POC Capillary Glucose 84 98 Calcium Phosphorus Magnesium Total Bilirubin AST ALT Alkaline Phosphatase Ammonia Total Protein Albumin Quality VTE Prophylaxis VTE prophylaxis: mechanical ordered
[2024-07-26] MEDS: IPRATROPIUM 0.5 MG/ALBUTEROL SULFATE 2.5 MG AMPUL.NEB 3 ML INHALATION ×2 (08:08→21:25)
[2024-07-26] MEDS: THIAMINE HCL 200 MG/2 ML VIAL 300 MG IVPB (08:53)
[2024-07-26] MEDS: FUROSEMIDE INJ 40 MG/4 ML VIAL IV PUSH ×2 (08:53→13:20)
[2024-07-26 09:23] LABS: Basophils Percent Auto 0.3 % (0.2-1.2); Eosinophils Absolute Auto 0.1 K/mm3 (0-0.3); Eosinophils Percent Auto 0.8 % (0-4.4); Hematocrit 37.2 % (42.0-52.0); Hemoglobin 11.2 g/dL (14.0-18.0); Immature Granulocyte Absolute 0.06 K/mm3 (0.00-0.031); Immature Granulocyte Percent A 0.8 % (0-0.5); Lymphocytes Absolute Auto 1.21 K/mm3 (0.9-3.2); Lymphocytes Percent Auto 15.9 % (18.3-44.2); Mean Corpuscular HGB Conc 30.1 g/dl (32-36); Mean Corpuscular Hemoglobin 27.2 pg (26-34); Mean Corpuscular Volume 90.3 fl (80-100); Mean Platelet Volume 12.2 fl (7.4-10.4); Monocytes Absolute Auto 0.9 K/mm3 (0.1-0.6); Monocytes Percent Auto 11.7 % (2.6-8.5); Neutrophils Absolute Auto 5.4 K/mm3 (1.3-6.7); Neutrophils Percent Auto 70.5 % (45.5-73.1); Platelet Count Result 123 k/mm3 (150-375); Red Blood Count 4.12 M/mm3 (4.6-6.20); Red Cell Distribution Width 17.1 % (11.5-14.5); White Blood Count 7.6 K/mm3 (4.5-10.0)
[2024-07-26 09:24] LABS: Fractional Inspired Oxygen 21 %; HCO3 VBG 21.6 mEq/l (24.0-30.0); PO2 VBG 65.5 mmHg (35.0-45.0)
[2024-07-26 09:29] LABS: pH VBG 7.479 (7.300-7.400)
[2024-07-26 09:31] LABS: Device ROOM AIR; PCO2 VBG 29.8 mmHg (42.0-48.0)
[2024-07-26 09:34] LABS: Alanine Aminotransferase 20 U/L (6-50); Albumin Level 2.6 g/dL (3.5-5.1); Alkaline Phosphatase 94 U/L (38-126); Anion Gap 6 mmol/L (4-12); Aspartate Amino Transferase 49 U/L (17-59); Bilirubin,Total 1.2 mg/dL (0.2-1.3); Blood Urea Nitrogen 7 mg/dL (9-20); Carbon Dioxide 20 mmol/L (22-30); Chloride 111 mmol/L (98-107); Estimated CRCL calculation 48 ml/min; Estimated Glomerular Filt Rate 48; Glucose 100 mg/dL (65-110); Potassium 4.1 mmol/L (3.4-5.0); Sodium 137 mmol/L (137-145)
[2024-07-26 10:09] LABS: Vitamin D 25 Hydroxy 34.1 ng/mL
--- NOTE | 2024-07-26 11:27 | ECG_ITS ---
Test Date: 2024-07-26 11:45:48 Measurements Intervals [place] Rate: 87 P: 49 IA: 174 QRS: 2 QRSD: 85 T: 49 QT: 363 QTc: 437 Interpretive Statements SINUS RHYTHM DELAYED PRECORDIAL R/S TRANSITION LOW QRS VOLTAGE- DIFFUSE LEADS BASELINE ARTIFACT- I, II, III, AVR, AVL, AVF, V1 BORDERLINE ECG COMPARED WITH PRIOR ECG 07-15-24 12:35 HEART RATE HAS DECREASED Electronically Signed On 07-26-2024 11:47:44 ROD HANGER by Laurent Silver D.O.
[2024-07-26 12:12] LABS: Glucose Point of Care 96 mg/dl (65-105)
--- NOTE | 2024-07-26 15:19 | PCPTNOTE ---
Attempted to see patient for PT, however per nursing advised not to see patient at this time. Patient more agitated and had to have NG tube placed.
[2024-07-26 17:08] LABS: Glucose Point of Care 99 mg/dl (65-105)
--- NOTE | 2024-07-26 17:22 | PCRCNOTE ---
Window of time for administration has passed. See next scheduled administration.
[2024-07-26] MEDS: AZITHROMYCIN 500 MG/NS 250 ML 500 MG/250 ML BAG 250 MG IVPB (18:56)
[2024-07-26] MEDS: ALBUMIN HUMAN 25% 12.5 GM/50ML 50 ML IVPB (20:18)
[2024-07-27] VITALS (28 sets, daily range): BP systolic 64–130; BP diastolic 34–67; PULSE 74–93; RESP 16–30; TEMP 36.6–36.7; O2SAT 93–100
[2024-07-27 00:28] LABS: Glucose Point of Care 97 mg/dl (65-105)
--- NOTE | 2024-07-27 01:28 | PC.NURSE ---
07/27/24: @ 2130: SPOKE W/ MYESHA MEJIA R/T PT HYPOTENSION TRENDING DOWN W/ SBP IN 80s. NNO WILL CONT TO MONITOR. 07/28/24 @ 0130: PT BPs 85/64 AUTO; MANUAL 82/48. SPOKE W/ DR. COWART. ORDERS RCV'D FOR BOLUS.
[2024-07-27] MEDS: SODIUM CHLORIDE 0.9% IV 250 ML 100 ML IV CONT (01:50)
[2024-07-27] MEDS: SODIUM CHLORIDE 0.9% IV 1,000 ML 999 ML (04:16)
[2024-07-27] MEDS: HYDROCORTISONE SODIUM SUCCINATE 100 MG/2 ML VIAL IV PUSH ×3 (04:22→20:58)
--- NOTE | 2024-07-27 04:51 | PC.NURSE ---
0405: NS IVF BOLUS NEAR COMPLETION. AUTO NBMP 56/28. MANUAL 70/48. SOFYA MADE AWARE. 1410: SOFYA HERE TO SEE PT. PT AWAKE, IS PERSISTENT, SL PRODUCTIVE COUGH; PT DIFFICULTY CLEARING SECRETIONS. HOB HAS BEEN MAINTAINED AT 45 DEGREES SINCE INITIATION OF ENTERAL FEEDS. LUNGS DIMINSHED. 1L NS BOLUS, STAT CXR, LABS, AND IV STEROID ORDERED. PT OROPHARYNGEAL SUCTIONED W/ MIN THICK SPUTUM OBTAINED. 0434:A NBP 151/97 WAS OBTAINED AFTER PT SUCTIONED WITH YANKEUR AND PT AROUSED AND DISPLAYS VERBAL PROTEST TO HELPS TO CLEAR SECRETIONS VIA SUCTION BUT SUBSEQUENT SBPs REMAIN IN 70-80mmHG W/ AUTOMATIC CUFF. 0450:CXR DONE. 0500: PHLEBOT. HERE FOR STAT LABS. PT REMAINS AWAKE, ORIENTED X1, HYPOTENSIVE. 1L IVF BOLUS INFUSING.
[2024-07-27 05:47] LABS: Basophils Percent Auto 0.1 % (0.2-1.2); Hematocrit 31.7 % (42.0-52.0); Hemoglobin 9.9 g/dL (14.0-18.0); Immature Granulocyte Absolute 0.04 K/mm3 (0.00-0.031); Immature Granulocyte Percent A 0.4 % (0-0.5); Immature Platelet Fraction Pct 8.8 % (0.9-11.2); Lymphocytes Percent Auto 7.5 % (18.3-44.2); Mean Corpuscular HGB Conc 31.2 g/dl (32-36); Mean Corpuscular Hemoglobin 27.7 pg (26-34); Mean Corpuscular Volume 88.5 fl (80-100); Mean Platelet Volume 12.4 fl (7.4-10.4); Monocytes Absolute Auto 0.7 K/mm3 (0.1-0.6); Monocytes Percent Auto 7.7 % (2.6-8.5); Neutrophils Absolute Auto 7.9 K/mm3 (1.3-6.7); Neutrophils Percent Auto 84.3 % (45.5-73.1); Platelet Count Result 91 k/mm3 (150-375); Red Blood Count 3.58 M/mm3 (4.6-6.20); Red Cell Distribution Width 16.9 % (11.5-14.5); White Blood Count 9.3 K/mm3 (4.5-10.0)
[2024-07-27 05:57] LABS: Anion Gap 5 mmol/L (4-12); Blood Urea Nitrogen 12 mg/dL (9-20); Calcium 7.2 mg/dL (8.4-10.2); Carbon Dioxide 28 mmol/L (22-30); Chloride 105 mmol/L (98-107); Estimated CRCL calculation 36 ml/min; Estimated Glomerular Filt Rate 34; Glucose 94 mg/dL (65-110); Lactic Acid Reflex 1.7 mmol/L (0.7-2.0); Magnesium 1.6 mg/dL (1.6-2.3); Phosphorus 3.2 mg/dL (2.5-4.5); Potassium 3.4 mmol/L (3.4-5.0); Sodium 138 mmol/L (137-145)
[2024-07-27 06:09] LABS: Platelet Estimate Decreased (Adequate)
[2024-07-27 06:10] LABS: Large Platelets Present
[2024-07-27 06:11] LABS: Anisocytosis 1+; Hypochromasia 1+; Ovalocytes 1+; Schistocytes None Seen
[2024-07-27 06:19] LABS: Glucose Point of Care 108 mg/dl (65-105)
[2024-07-27] MEDS: SODIUM CHLORIDE 0.9% IV 1,000 ML 999 ML IV CONT ×2 (06:48→12:55)
[2024-07-27] MEDS: IPRATROPIUM 0.5 MG/ALBUTEROL SULFATE 2.5 MG AMPUL.NEB 3 ML INHALATION ×3 (07:18→19:41)
--- NOTE | 2024-07-27 07:29 | PC.NURSE ---
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
[2024-07-27] MEDS: SODIUM CHLORIDE 0.9% IV 500 ML 999 ML IV CONT (09:20)
[2024-07-27] MEDS: PANTOPRAZOLE SODIUM IV 40 MG VIAL IV PUSH (10:18)
[2024-07-27] MEDS: THIAMINE HCL INJ 300 MG in SODIUM CHLORIDE 0.9% IV 100 ML 206 MG IVPB (10:19)
--- NOTE | 2024-07-27 10:23 | PC.NURSE ---
Addendum entered by Annabelle Little RN 07/27/24 10:29: Cesia called and updated on patient's condition and location. Original Note: Provider called @0750 regarding updated BP s/p bolus (see vitals for documentation). Provider stated to check blood pressure 1hr. after discontinuation of bolus. Vitals taken @ 0852. Rapid response called @ 0858. Appropriate providers responded. Orders received (see rapid response note). Patient transferred to room 206-1 @ 0945. Report given to HARSHA Savage at bedside.
[2024-07-27] MEDS: SUCRALFATE SUSP 100 MG/ML 10 ML UDC 1000 MG PO ×3 (10:30→20:58)
[2024-07-27] MEDS: LACTULOSE 20 GM/30 ML UDC PO (10:30)
--- NOTE | 2024-07-27 10:51 | PCOTNOTE ---
Attempted to see pt for OT treatment this AM. Per RN, pt is being transferred to IMU due to change in medical status. Will continue to follow and attempt when appropriate.
[2024-07-27] MEDS: SODIUM CHLORIDE 0.9% IV 500 ML IV CONT (11:16)
[2024-07-27 12:12] LABS: Glucose Point of Care 117 mg/dl (65-105)
--- NOTE | 2024-07-27 13:44 | P.PNIM_ITS ---
Progress Note: A&P Assessment and Plan (1) Altered mental status: Code(s): R41.82 - Altered mental status, unspecified Status: Acute Assessment and Plan: * Continue Neuro checks q4h * Move to IMU for closer monitoring of fluid status and blood pressure * Metabolic encephalopathy likely due to medication versus malnutrition. He does have severe left kidney atrophy with chronic severe left hydronephrosis. * Continue tube feeding and free water flushes * Ordering Machine Operator consulted for tube feedings. 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, left thalamus and right cerebellum * Cortisol level normal * Continue thiamine at higher dose of 300 mg IVPB daily * TSH, Vitamin B 12, folate, ammonia levels all within normal limits * Continue to hold Neurontin (2) Intractable nausea: Code(s): R11.0 - Nausea Status: Acute Assessment and Plan: * Chest abdomen pelvis CTA was negative for PE, shown emphysema and chronic interstitial lung disease, cirrhosis of the liver, portal venous hypertension, severe left kidney atrophy with chronic severe left hydronephrosis * S/P EGD showing portal hypertension and esophageal varices * GI recommending Coreg to prevent further hepatic decompensation * Continue Protonix and Carafate * Nausea resolved * Hold oral intake due to mental status and pulmonary edema * Place dobhoff in radiology (3) GERD (gastroesophageal reflux disease): Qualifiers: Esophagitis presence: without esophagitis Qualified Code(s): K21.9 - Gastro-esophageal reflux disease without esophagitis Code(s): K21.9 - Gastro-esophageal reflux disease without esophagitis Status: Acute Assessment and Plan: * Continue Protonix and Carafate (4) CKD (chronic kidney disease) stage 3, GFR 30-59 ml/min: Qualifiers: Chronic kidney disease stage 3 subtype: stage 3b (GFR 30-44) Qualified Code(s): N18.32 - Chronic kidney disease, stage 3b Code(s): N18.30 - Chronic kidney disease, stage 3 unspecified Status: Acute Assessment and Plan: * Creatinine 2.0 * Baseline creatinine 1.7-2.10 * Appears to be at baseline function * Avoid nephrotoxic medications * Hold anymore lasix (5) Portal hypertension with esophageal varices: Code(s): K76.6 - Portal hypertension; I85.00 - Esophageal varices without bleeding Status: Acute Assessment and Plan: * Restart Coreg when BP stable, currently hypotensive (6) Emphysema lung: Qualifiers: Emphysema type: unspecified Qualified Code(s): J43.9 - Emphysema, unspecified Code(s): J43.9 - Emphysema, unspecified Status: Acute Assessment and Plan: * Continue Azithromycin * CXR yesterday showing diffuse pulmonary edema however it was read as chronic interstitial lung disease. * Continue Duonebs (7) Pulmonary edema: Code(s): J81.1 - Chronic pulmonary edema Status: Acute Assessment and Plan: * CXR showing diffuse pulmonary edema on x-ray however it was reported as chronic interstitial lung disease. CXR much worse than chest x-ray from 07/15/24 * Stop Lasix today due to over diuresis. (8) Acute hypoxic respiratory failure: Code(s): J96.01 - Acute respiratory failure with hypoxia Status: Acute Assessment and Plan: * CXR shown improvement with Lasix however blood pressure is now soft. Likely over diuresis (9) Hypotension: Code(s): I95.9 - Hypotension, unspecified Status: Acute Assessment and Plan: * IV fluid boluses given * Crowe placed for accurate I and O * Will transfer to IMU for closer monitoring. Time Spent With Patient Time with patient: 25 - 35 minutes Subjective Date/time seen: 07/27/24 13:44 Interval history: Patient's mental status is unchanged from yesterday. He still opens eyes and tracks but is waxing and waning in the bed. His blood pressures this morning were soft likely from overdiuresis. Labs and imaging were reviewed. Review of Systems Review of Systems: 12 systems were reviewed and are negative except for as per HPI. All systems reviewed & are unremarkable except as noted in HPI and below ROS unobtainable: Yes unobtainable due to mental status Exam Narrative: General:chronically ill appearing Head: metabolic encephalopathy Eyes: PERRLA, sclera clear ENT: dry mucous membranes Cardiac: Normal S1 and S2. No murmur, gallops or friction rubs, peripheral pulses intact. Respiratory: Lungs clear, no adventitious lung sounds, currently on room air : crowe in place with faizan colored urine Neuro: Alert, waxing and waning in the bed Psych: minimally interactive Objective Data Vital Signs Vital Signs: Vital Signs - 24 hr 07/26/24 16:33 07/26/24 21:05 07/26/24 21:20 Temperature 97.3 F L Pulse Rate 92 87 84 Respiratory Rate 41 H 38 H 18 Blood Pressure 91/52 L 87/45 L Pulse Oximetry 98 99 Oxygen Delivery Oxygen Flow Rate 07/26/24 21:30 07/26/24 20:00 07/27/24 01:12 Temperature Pulse Rate 85 83 Respiratory Rate 18 24 H Blood Pressure 76/48 L Pulse Oximetry 98 100 Oxygen Delivery Nasal Cannula Oxygen Flow Rate 2 07/27/24 01:18 07/27/24 01:30 07/27/24 06:00 Temperature 98.1 F Pulse Rate 81 Respiratory Rate 22 H Blood Pressure 85/64 L 82/48 L 64/34 L Pulse Oximetry 97 Oxygen Delivery Oxygen Flow Rate 07/27/24 07:18 07/27/24 07:18 07/27/24 07:28 Temperature Pulse Rate 82 82 83 Respiratory Rate 18 18 18 Blood Pressure Pulse Oximetry 97 Oxygen Delivery Nasal Cannula Oxygen Flow Rate 2 07/27/24 07:40 07/27/24 07:50 07/27/24 08:52 Temperature Pulse Rate 79 Respiratory Rate 30 H Blood Pressure 92/58 L 78/52 L Pulse Oximetry 97 93 Oxygen Delivery Nasal Cannula Oxygen Flow Rate 2 07/27/24 09:26 07/27/24 10:10 07/27/24 11:59 Temperature Pulse Rate 77 88 Respiratory Rate 22 H Blood Pressure 78/52 L 88/51 L 78/47 L Pulse Oximetry 96 Oxygen Delivery Nasal Cannula Oxygen Flow Rate 6 07/27/24 12:00 07/27/24 12:00 07/27/24 12:30 Temperature 98.1 F Pulse Rate 86 Respiratory Rate 16 Blood Pressure 78/47 L 90/51 L Pulse Oximetry 96 96 Oxygen Delivery Nasal Cannula Oxygen Flow Rate 2 07/27/24 13:00 07/27/24 13:08 Temperature Pulse Rate 83 84 Respiratory Rate 18 18 Blood Pressure Pulse Oximetry Oxygen Delivery Oxygen Flow Rate Intake/Output Intake/Output: Intake & Output 07/24/24 07/25/24 07/26/24 07/27/24 23:59 23:59 23:59 23:59 Intake Total 1210 1000 1284.7 1258.3 Output Total 1200 0 1300 500 Balance 10 1000 -15.3 758.3 Meds/Results Medications: Active Medications Generic Name Dose Route Start Last Admin Trade Name Freq PRN Reason Stop Dose Admin Acetaminophen 650 mg 07/26/24 18:10 Acetaminophen 325 Mg Tablet FEED TUBE Q4H PRN Mild Pain (1-3) or Fever Albuterol/Ipratropium 3 ml 07/21/24 20:00 07/27/24 13:00 Ipratropium 0.5 Mg/Albuterol Sulfate 2.5 Mg Ampul.Neb 3 Ml INHALATION 3 ml Q6HRT RONDA Administration Benzonatate 100 mg 07/17/24 13:00 07/26/24 07:52 Benzonatate 100 Mg Capsule PO Not Given TID RONDA Buspirone HCl 10 mg 07/16/24 09:00 07/26/24 15:11 Buspirone Hcl 10 Mg Tablet PO Not Given TID RONDA Carvedilol 3.125 mg 07/20/24 09:00 07/25/24 12:07 Carvedilol 3.125 Mg Tablet PO 3.125 mg DAILY RONDA Administration Dextrose 12.5 gm 07/23/24 20:33 Dextrose 50% 25 Gm/50 Ml Syringe IV PUSH PRN PRN Hypoglycemia Protocol Gabapentin 300 mg 07/16/24 21:00 07/26/24 20:39 Gabapentin 300 Mg Capsule PO Not Given HS RONDA Glucagon 1 mg 07/23/24 20:33 Glucagon For Inj 1 Mg Vial IM PRN PRN Hypoglycemia Protocol Glucose 15 gm 07/23/24 20:33 Glucose Oral Gel 15 Gm Of Glucse In 37.5 Gm Tube PO PRN PRN Hypoglycemia Protocol Guaifenesin/Dextromethorphan 5 ml 07/17/24 12:31 07/24/24 02:10 Guaifenesin/Dextromethorphan 10 Ml Udc PO 5 ml Q4H PRN Administration Cough Hydrocortisone Sodium Succinate 100 mg 07/27/24 12:00 07/27/24 12:55 Hydrocortisone Sodium Succinate 100 Mg/2 Ml Vial IV PUSH 100 mg Q8H RONDA Administration Dextrose 1,000 mls @ 100 mls/hr 07/23/24 20:33 Dextrose 5% 1,000 Ml IVPB PRN PRN Hypoglycemia Protocol Lactulose 20 gm 07/27/24 09:00 07/27/24 10:30 Lactulose 20 Gm/30 Ml Udc PO 20 gm QAM RONDA Administration Ondansetron HCl 4 mg 07/26/24 02:36 07/26/24 02:42 Ondansetron Inj 4 Mg/2 Ml Vial IV PUSH 4 mg Q6H PRN Administration Nausea And Vomiting Pantoprazole Sodium 40 mg 07/27/24 09:00 07/27/24 10:18 Pantoprazole Sodium Iv 40 Mg Vial IV PUSH 40 mg QAM RONDA Administration Sucralfate 1,000 mg 07/16/24 16:30 07/27/24 10:30 Sucralfate Susp 100 Mg/Ml 10 Ml Udc PO 1,000 mg ACHS RONDA Administration Radiology Results: ITS Impressions Chest/Abdomen/Pelvis CTA 07/15/24 14:05 IMPRESSION: 1. No pulmonary embolus. 2. Emphysema and chronic interstitial lung disease. 3. Cirrhosis of the liver with portal venous hypertension. 4. Severe left kidney atrophy with chronic severe left hydronephrosis. Head CT 07/21/24 19:46 Impression: Stable CT examination of the brain, although limited by motion artifact without acute intracranial hemorrhage or suspicious mass effect. Demonstrating early atrophy, unchanged dating back to 2021. Modified Barium Swallow 07/22/24 10:41 IMPRESSION: 1. Aspiration of thin liquids. 2. Please refer to the speech therapy report for recommendations. Brain MRI 07/23/24 15:44 IMPRESSION: 1. 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 Tube Placement 07/26/24 13:11 IMPRESSION: 1. Fluoroscopy guided nasoenteric tube placement with tip in the stomach. Abdomen/Pelvis CT 07/26/24 13:24 IMPRESSION: 1. Small volume of ascites. 2. Severe left kidney atrophy with chronic severe left hydronephrosis. 3. Small pleural effusions. 4. Small sliding hiatal hernia. Chest X-Ray 07/27/24 07:24 Impression: Extensive chronic interstitial disease, similar to prior exam. NG tube in place. Labs Labs: Laboratory Results - last 24 hr 07/26/24 07/26/24 07/27/24 17:05 23:50 05:38 WBC 9.3 RBC 3.58 L Hgb 9.9 L Hct 31.7 L MCV 88.5 MCH 27.7 MCHC 31.2 L RDW 16.9 H Plt Count 91 L MPV 12.4 H Immature Gran % (Auto) 0.4 Neut % (Auto) 84.3 H Lymph % (Auto) 7.5 L [place] % (Auto) 7.7 Eos % (Auto) 0.0 Baso % (Auto) 0.1 L Lymph # (Auto) 0.70 L [place] # (Auto) 0.7 H Eos # (Auto) 0.0 Baso # (Auto) 0.0 Abs Immat Gran (auto) 0.04 H Absolute Neuts (auto) 7.9 H Absolute Nucleated RBC 0.000 Nucleated RBC % 0.0 Platelet Estimate Decreased Large Platelets Present % Immature Plt Fraction 8.8 Hypochromasia 1+ Anisocytosis 1+ Ovalocytes 1+ Schistocytes None seen Sodium 138 Potassium 3.4 Chloride 105 Carbon Dioxide 28 Anion Gap 5 BUN 12 D Creatinine 2.00 H Estim Creat Clear Calc 36 Estimated GFR 34 L Glucose 94 POC Capillary Glucose 99 97 Lactic Acid 1.7 Calcium 7.2 L Phosphorus 3.2 Magnesium 1.6 07/27/24 07/27/24 06:16 12:05 WBC RBC Hgb Hct MCV MCH MCHC RDW Plt Count MPV Immature Gran % (Auto) Neut % (Auto) Lymph % (Auto) [place] % (Auto) Eos % (Auto) Baso % (Auto) Lymph # (Auto) [place] # (Auto) Eos # (Auto) Baso # (Auto) Abs Immat Gran (auto) Absolute Neuts (auto) Absolute Nucleated RBC Nucleated RBC % Platelet Estimate Large Platelets % Immature Plt Fraction Hypochromasia Anisocytosis Ovalocytes Schistocytes Sodium Potassium Chloride Carbon Dioxide Anion Gap BUN Creatinine Estim Creat Clear Calc Estimated GFR Glucose POC Capillary Glucose 108 H 117 H Lactic Acid Calcium Phosphorus Magnesium Quality VTE Prophylaxis VTE prophylaxis: mechanical ordered
[2024-07-27 14:07] LABS: Albumin Level 2.3 g/dL (3.5-5.1)
[2024-07-27] MEDS: guaiFENesin/DEXTROMETHORPHAN 10 ML UDC 5 ML PO ×2 (16:35→20:58)
[2024-07-27 17:54] LABS: Glucose Point of Care 127 mg/dl (65-105)
[2024-07-27] MEDS: ACETAMINOPHEN 325 MG TABLET 650 MG FEED TUBE (21:00)
[2024-07-28] VITALS (22 sets, daily range): BP systolic 114–144; BP diastolic 63–96; PULSE 74–118; RESP 16–26; TEMP 36.2–37; O2SAT 95–100
[2024-07-28 00:06] LABS: Glucose Point of Care 132 mg/dl (65-105)
[2024-07-28] MEDS: IPRATROPIUM 0.5 MG/ALBUTEROL SULFATE 2.5 MG AMPUL.NEB 3 ML INHALATION ×4 (01:25→19:57)
[2024-07-28] MEDS: HYDROCORTISONE SODIUM SUCCINATE 100 MG/2 ML VIAL IV PUSH ×2 (04:15→21:54)
[2024-07-28] MEDS: guaiFENesin/DEXTROMETHORPHAN 10 ML UDC 5 ML PO (04:15)
[2024-07-28] MEDS: SUCRALFATE SUSP 100 MG/ML 10 ML UDC 1000 MG PO ×2 (06:25→21:54)
[2024-07-28 06:52] LABS: Glucose Point of Care 162 mg/dl (65-105)
--- NOTE | 2024-07-28 09:52 | P.PNIM_ITS ---
Progress Note: A&P Assessment and Plan (1) Altered mental status: Code(s): R41.82 - Altered mental status, unspecified Status: Acute Assessment and Plan: * Continue Neuro checks q4h * Move to IMU for closer monitoring of fluid status and blood pressure * Metabolic encephalopathy likely due to medication versus malnutrition. He does have severe left kidney atrophy with chronic severe left hydronephrosis. * Continue tube feeding and free water flushes * Glaze Supervisor consulted for tube feedings. 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, left thalamus and right cerebellum * Cortisol level normal * Continue thiamine at higher dose of 300 mg IVPB daily * TSH, Vitamin B 12, folate, ammonia levels all within normal limits * Continue to hold Neurontin (2) Intractable nausea: Code(s): R11.0 - Nausea Status: Acute Assessment and Plan: * Chest abdomen pelvis CTA was negative for PE, shown emphysema and chronic interstitial lung disease, cirrhosis of the liver, portal venous hypertension, severe left kidney atrophy with chronic severe left hydronephrosis * S/P EGD showing portal hypertension and esophageal varices * GI recommending Coreg to prevent further hepatic decompensation * Continue Protonix and Carafate * Nausea resolved * Hold oral intake due to mental status and pulmonary edema * Place Dobhoff in radiology (3) GERD (gastroesophageal reflux disease): Qualifiers: Esophagitis presence: without esophagitis Qualified Code(s): K21.9 - Gastro-esophageal reflux disease without esophagitis Code(s): K21.9 - Gastro-esophageal reflux disease without esophagitis Status: Acute Assessment and Plan: * Continue Protonix and Carafate (4) CKD (chronic kidney disease) stage 3, GFR 30-59 ml/min: Qualifiers: Chronic kidney disease stage 3 subtype: stage 3b (GFR 30-44) Qualified Code(s): N18.32 - Chronic kidney disease, stage 3b Code(s): N18.30 - Chronic kidney disease, stage 3 unspecified Status: Acute Assessment and Plan: * Creatinine 2.0 * Baseline creatinine 1.7-2.10 * Appears to be at baseline function * Avoid nephrotoxic medications * Hold anymore lasix (5) Portal hypertension with esophageal varices: Code(s): K76.6 - Portal hypertension; I85.00 - Esophageal varices without bleeding Status: Acute Assessment and Plan: * Restart Coreg when BP stable, currently hypotensive (6) Emphysema lung: Qualifiers: Emphysema type: unspecified Qualified Code(s): J43.9 - Emphysema, unspecified Code(s): J43.9 - Emphysema, unspecified Status: Acute Assessment and Plan: * Continue Azithromycin * CXR yesterday showing diffuse pulmonary edema however it was read as chronic interstitial lung disease. * Continue Duonebs (7) Pulmonary edema: Code(s): J81.1 - Chronic pulmonary edema Status: Acute Assessment and Plan: * CXR showing diffuse pulmonary edema on x-ray however it was reported as chronic interstitial lung disease. CXR much worse than chest x-ray from 07/15/24 * Stop Lasix today due to over diuresis. (8) Acute hypoxic respiratory failure: Code(s): J96.01 - Acute respiratory failure with hypoxia Status: Acute Assessment and Plan: * CXR shown improvement with Lasix however blood pressure is now soft. Likely over diuresis (9) Hypotension: Code(s): I95.9 - Hypotension, unspecified Status: Acute Assessment and Plan: * Resolved Time Spent With Patient Time with patient: Greater than 35 minutes Subjective Date/time seen: 07/28/24 09:52 Review of Systems Review of Systems: ROS unobtainable: Yes unobtainable due to mental status Constitutional: Constitutional: Reports as per HPI and Reports no additional constitutional complaints Eyes: Eyes: Reports as per HPI and Reports no additional eye complaints ENT: Reports system reviewed and no additional complaints, except as documented and Reports as per HPI Cardiovascular: Cardiovascular: Reports as per HPI and Reports no additional cardiovascular complaints Respiratory: Respiratory: Reports as per HPI and Reports no additional respiratory complaints Gastrointestinal: Gastrointestinal: Reports as per HPI and Reports no additional gastrointestinal complaints Genitourinary: Genitourinary: Reports no additional male genitourinary complaints and Reports as per HPI Musculoskeletal: Musculoskeletal: Reports no additional musculoskeletal complaints and Reports as per HPI Integumentary/Breasts: Skin/Breast: Reports system reviewed and no additional complaints, except as docu and Reports as per HPI Neurologic: Reports system reviewed and no additional complaints, except as documented and Reports as per HPI Psychiatric: Psychiatric: Reports no additional psychiatric complaints and Reports as per HPI Exam Narrative: General:chronically ill appearing Head: metabolic encephalopathy Eyes: PERRLA, sclera clear ENT: dry mucous membranes Cardiac: Normal S1 and S2. No murmur, gallops or friction rubs, peripheral pulses intact. Respiratory: Lungs clear, no adventitious lung sounds, currently on room air : Pemberton catheter in place Neuro: Alert, able to state his name, tracking Psych: minimally interactive Objective Data Vital Signs Vital Signs: Vital Signs - 24 hr 07/27/24 10:10 07/27/24 11:59 07/27/24 12:00 Temperature Pulse Rate 88 Respiratory Rate Blood Pressure 88/51 L 78/47 L Pulse Oximetry 96 Oxygen Delivery Nasal Cannula Oxygen Flow Rate 2 07/27/24 12:00 07/27/24 12:30 07/27/24 13:00 Temperature 98.1 F Pulse Rate 86 83 Respiratory Rate 16 18 Blood Pressure 78/47 L 90/51 L Pulse Oximetry 96 Oxygen Delivery Oxygen Flow Rate 07/27/24 13:08 07/27/24 12:00 07/27/24 14:00 Temperature Pulse Rate 84 85 81 Respiratory Rate 18 Blood Pressure Pulse Oximetry Oxygen Delivery Oxygen Flow Rate 07/27/24 14:13 07/27/24 14:13 07/27/24 09:54 Temperature Pulse Rate 81 Respiratory Rate Blood Pressure 99/57 L 98/62 L Pulse Oximetry Oxygen Delivery Oxygen Flow Rate 07/27/24 14:42 07/27/24 14:42 07/27/24 16:00 Temperature Pulse Rate 74 Respiratory Rate Blood Pressure 85/49 L 96/64 L Pulse Oximetry Oxygen Delivery Oxygen Flow Rate 07/27/24 16:00 07/27/24 16:00 07/27/24 18:00 Temperature 97.9 F Pulse Rate 78 80 Respiratory Rate 28 H Blood Pressure 102/63 Pulse Oximetry 96 93 Oxygen Delivery Nasal Cannula Oxygen Flow Rate 2 07/27/24 19:41 07/27/24 19:41 07/27/24 19:52 Temperature Pulse Rate 85 88 Respiratory Rate 20 20 Blood Pressure Pulse Oximetry 94 Oxygen Delivery Nasal Cannula Oxygen Flow Rate 2 07/27/24 19:54 07/27/24 20:00 07/27/24 20:00 Temperature 97.9 F Pulse Rate 83 92 Respiratory Rate 16 Blood Pressure 119/67 Pulse Oximetry 94 95 Oxygen Delivery Nasal Cannula Oxygen Flow Rate 2 07/27/24 23:53 07/28/24 00:00 07/28/24 01:25 Temperature 97.8 F Pulse Rate 93 88 Respiratory Rate 16 20 Blood Pressure 130/64 Pulse Oximetry 95 95 Oxygen Delivery Nasal Cannula Oxygen Flow Rate 2 07/28/24 01:33 07/27/24 22:00 07/28/24 00:00 Temperature Pulse Rate 88 93 94 Respiratory Rate 20 Blood Pressure Pulse Oximetry Oxygen Delivery Oxygen Flow Rate 07/28/24 02:00 07/28/24 04:00 07/28/24 04:00 Temperature Pulse Rate 87 93 Respiratory Rate Blood Pressure Pulse Oximetry 95 Oxygen Delivery Nasal Cannula Oxygen Flow Rate 2 07/28/24 06:04 07/28/24 06:00 07/28/24 07:20 Temperature 97.7 F Pulse Rate 80 83 76 Respiratory Rate 16 20 Blood Pressure 135/63 Pulse Oximetry 96 Oxygen Delivery Oxygen Flow Rate 07/28/24 07:28 07/28/24 08:00 Temperature 97.2 F L Pulse Rate 74 92 Respiratory Rate 20 24 H Blood Pressure 114/66 Pulse Oximetry 96 Oxygen Delivery Oxygen Flow Rate Intake/Output Intake/Output: Intake & Output 07/25/24 07/26/24 07/27/24 07/28/24 23:59 23:59 23:59 23:59 Intake Total 1000 1284.7 1684.3 1051 Output Total 0 1300 950 401 Balance 1000 -15.3 734.3 650 Meds/Results Medications: Active Medications Generic Name Dose Route Start Last Admin Trade Name Freq PRN Reason Stop Dose Admin Acetaminophen 650 mg 07/26/24 18:10 07/27/24 21:00 Acetaminophen 325 Mg Tablet FEED TUBE 650 mg Q4H PRN Administration Mild Pain (1-3) or Fever Albuterol/Ipratropium 3 ml 07/21/24 20:00 07/28/24 07:20 Ipratropium 0.5 Mg/Albuterol Sulfate 2.5 Mg Ampul.Neb 3 Ml INHALATION 3 ml Q6HRT RONDA Administration Benzonatate 100 mg 07/17/24 13:00 07/26/24 07:52 Benzonatate 100 Mg Capsule PO Not Given TID RONDA Buspirone HCl 10 mg 07/16/24 09:00 07/26/24 15:11 Buspirone Hcl 10 Mg Tablet PO Not Given TID RONDA Carvedilol 3.125 mg 07/20/24 09:00 07/25/24 12:07 Carvedilol 3.125 Mg Tablet PO 3.125 mg DAILY RONDA Administration Dextrose 12.5 gm 07/23/24 20:33 Dextrose 50% 25 Gm/50 Ml Syringe IV PUSH PRN PRN Hypoglycemia Protocol Gabapentin 300 mg 07/16/24 21:00 07/26/24 20:39 Gabapentin 300 Mg Capsule PO Not Given HS RONDA Glucagon 1 mg 07/23/24 20:33 Glucagon For Inj 1 Mg Vial IM PRN PRN Hypoglycemia Protocol Glucose 15 gm 07/23/24 20:33 Glucose Oral Gel 15 Gm Of Glucse In 37.5 Gm Tube PO PRN PRN Hypoglycemia Protocol Guaifenesin/Dextromethorphan 5 ml 07/17/24 12:31 07/28/24 04:15 Guaifenesin/Dextromethorphan 10 Ml Udc PO 5 ml Q4H PRN Administration Cough Hydrocortisone Sodium Succinate 100 mg 07/27/24 12:00 07/28/24 04:15 Hydrocortisone Sodium Succinate 100 Mg/2 Ml Vial IV PUSH 100 mg Q8H RONDA Administration Dextrose 1,000 mls @ 100 mls/hr 07/23/24 20:33 Dextrose 5% 1,000 Ml IVPB PRN PRN Hypoglycemia Protocol Lactulose 20 gm 07/27/24 09:00 07/27/24 10:30 Lactulose 20 Gm/30 Ml Udc PO 20 gm QAM RONDA Administration Ondansetron HCl 4 mg 07/26/24 02:36 07/26/24 02:42 Ondansetron Inj 4 Mg/2 Ml Vial IV PUSH 4 mg Q6H PRN Administration Nausea And Vomiting Pantoprazole Sodium 40 mg 07/27/24 09:00 07/27/24 10:18 Pantoprazole Sodium Iv 40 Mg Vial IV PUSH 40 mg QAM RONDA Administration Sucralfate 1,000 mg 07/16/24 16:30 07/28/24 06:25 Sucralfate Susp 100 Mg/Ml 10 Ml Udc PO 1,000 mg ACHS RONDA Administration Radiology Results: ITS Impressions Chest/Abdomen/Pelvis CTA 07/15/24 14:05 IMPRESSION: 1. No pulmonary embolus. 2. Emphysema and chronic interstitial lung disease. 3. Cirrhosis of the liver with portal venous hypertension. 4. Severe left kidney atrophy with chronic severe left hydronephrosis. Head CT 07/21/24 19:46 Impression: Stable CT examination of the brain, although limited by motion artifact without acute intracranial hemorrhage or suspicious mass effect. Demonstrating early atrophy, unchanged dating back to 2021. Modified Barium Swallow 07/22/24 10:41 IMPRESSION: 1. Aspiration of thin liquids. 2. Please refer to the speech therapy report for recommendations. Brain MRI 07/23/24 15:44 IMPRESSION: 1. 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 Tube Placement 07/26/24 13:11 IMPRESSION: 1. Fluoroscopy guided nasoenteric tube placement with tip in the stomach. Abdomen/Pelvis CT 07/26/24 13:24 IMPRESSION: 1. Small volume of ascites. 2. Severe left kidney atrophy with chronic severe left hydronephrosis. 3. Small pleural effusions. 4. Small sliding hiatal hernia. Chest X-Ray 07/27/24 07:24 Impression: Extensive chronic interstitial disease, similar to prior exam. NG tube in place. Labs Labs: Laboratory Results - last 24 hr 07/27/24 07/27/24 07/27/24 05:37 12:05 17:52 POC Capillary Glucose 117 H 127 H Albumin 2.3 L 07/27/24 07/28/24 23:56 06:48 POC Capillary Glucose 132 H 162 H Albumin Quality VTE Prophylaxis VTE prophylaxis: mechanical ordered
[2024-07-28] MEDS: PANTOPRAZOLE SODIUM IV 40 MG VIAL IV PUSH (10:07)
--- NOTE | 2024-07-28 10:09 | PCDIET ---
Dietitian consult for tube feeding. Spoke with hospitalist today. Tube feeding recommendations: Jevity 1.5 at 30 ml/hr increased by 4 ml q 4 hours to goal rate of 60 ml/hr. Tube feeding will be providing 1980 kcals/84 gm protein/ 1003 ml water. Flush 150 ml q 4 hours. This will meet 97% kcal needs at 25 kcal/kg and 100% protein needs at 0.8-1.0 gm/kg. Agree with diet orders. Will follow every Sunday and Sunday.
[2024-07-28 10:34] LABS: Basophils Percent Auto 0.2 % (0.2-1.2); Hemoglobin 11.2 g/dL (14.0-18.0); Immature Granulocyte Absolute 0.12 K/mm3 (0.00-0.031); Immature Granulocyte Percent A 0.6 % (0-0.5); Lymphocytes Absolute Auto 0.71 K/mm3 (0.9-3.2); Lymphocytes Percent Auto 3.6 % (18.3-44.2); Mean Corpuscular HGB Conc 31.1 g/dl (32-36); Mean Corpuscular Hemoglobin 27.7 pg (26-34); Mean Corpuscular Volume 88.9 fl (80-100); Mean Platelet Volume 12.2 fl (7.4-10.4); Monocytes Absolute Auto 0.7 K/mm3 (0.1-0.6); Monocytes Percent Auto 3.8 % (2.6-8.5); Neutrophils Absolute Auto 18.1 K/mm3 (1.3-6.7); Neutrophils Percent Auto 91.8 % (45.5-73.1); Platelet Count Result 148 k/mm3 (150-375); Red Blood Count 4.05 M/mm3 (4.6-6.20); Red Cell Distribution Width 16.9 % (11.5-14.5); White Blood Count 19.7 K/mm3 (4.5-10.0)
[2024-07-28 10:45] LABS: Alanine Aminotransferase 19 U/L (6-50); Albumin Level 2.8 g/dL (3.5-5.1); Alkaline Phosphatase 92 U/L (38-126); Anion Gap 8 mmol/L (4-12); Aspartate Amino Transferase 34 U/L (17-59); Bilirubin,Total 1.1 mg/dL (0.2-1.3); Blood Urea Nitrogen 16 mg/dL (9-20); Calcium 8.4 mg/dL (8.4-10.2); Carbon Dioxide 25 mmol/L (22-30); Chloride 108 mmol/L (98-107); Estimated CRCL calculation 48 ml/min; Estimated Glomerular Filt Rate 48; Glucose 122 mg/dL (65-110); Magnesium 1.9 mg/dL (1.6-2.3); Phosphorus 2.5 mg/dL (2.5-4.5); Potassium 3.1 mmol/L (3.4-5.0); Sodium 141 mmol/L (137-145)
[2024-07-28 11:34] LABS: Glucose Point of Care 140 mg/dl (65-105)
--- NOTE | 2024-07-28 12:25 | PCPTNOTE ---
The patient treatment was not able to be completed today due to change in medical status. Patient unable to participate at this time. Will plan to continue treatment per plan of care.
[2024-07-28 18:52] LABS: Glucose Point of Care 141 mg/dl (65-105)
[2024-07-28] MEDS: ONDANSETRON INJ 4 MG/2 ML VIAL IV PUSH (20:00)
[2024-07-28] MEDS: SODIUM CHLORIDE 0.9% IV 1,000 ML 999 ML IV CONT (21:55)
[2024-07-29] VITALS (39 sets, daily range): BP systolic 83–157; BP diastolic 68–95; PULSE 102–122; RESP 18–52; TEMP 36.3–37.1; O2SAT 91–100
--- NOTE | 2024-07-29 | ECHO_ITS ---
Patient Info Name: Jose Rafael Chavez Age: 58 years : 1965 Gender: Male Ht: 69 in Wt: 176 lbs BSA: 1.98 m2 Technical Quality: Fair Exam Date: 07/29/2024 3:43 PM Exam Location: Echo Lab Patient Status: Inpatient Admit Date: 07/16/2024 Staff Ordering Physician: Darren Reaves MD Conveyor Belt Repairer: Collette Espinoza RDCS Attending Provider: Felisa Fofana APRN Exam Type: CA echo dop color flow w con Study Info Indications - chf Complete two-dimensional, color flow and Doppler transthoracic echocardiogram is performed with contrast to opacify the left ventricle and to improve the deliniation of the left ventricle endocardial borders. Summary 1. Definity contrast administered improved wall motion interpretation. 2. Left ventricular chamber dimension is moderately enlarged. 3. Left ventricular systolic function is severely reduced, estimated at 20-25%. 4. Mid to apical LV segments are severely hypokinetic to akinetic with apical akinesis. Basal segments have normal contractility. This is suggestive of Takotsubo cardiomyopathy. 5. Small apical thrombus noted with extension of spontaneous echo contrast suggesting precursor for large thrombus formation. 6. The left ventricular diastolic function is abnormal. 7. E/e' 16 is elevated. 8. There is trace mitral valve regurgitation. 9. No pulmonary hypertension, estimated pulmonary arterial systolic pressure is 15 mmHg. Left Ventricle Definity contrast administered improved wall motion interpretation. E/e' 16 is elevated. Mid to apical LV segments are severely hypokinetic to akinetic with apical akinesis. Basal segments have normal contractility. This is suggestive of Takotsubo cardiomyopathy. Small apical thrombus noted with extension of spontaneous echo contrast suggesting precursor for large thrombus formation. Left ventricular chamber dimension is moderately enlarged. Left ventricular systolic function is severely reduced, estimated at 20-25%. The left ventricular diastolic function is abnormal. Right Ventricle Right ventricular chamber dimension is normal. Right ventricular systolic function is normal. Left Atria Left atrial chamber dimension is normal. Right Atria Right atrial chamber dimension is normal. Aortic Valve The aortic valve is trileaflet. There is no aortic valve stenosis. There is no aortic valve regurgitation. Pulmonic Valve There is no pulmonic regurgitation. Mitral Valve There is no mitral valve stenosis. There is trace mitral valve regurgitation. Tricuspid Valve There is no tricuspid valve regurgitation. No pulmonary hypertension, estimated pulmonary arterial systolic pressure is 15 mmHg. Pericardium/Pleural There is no pericardial effusion. Inferior Vena Cava Normal inferior vena cava with >50% collapse upon inspiration consistent with normal right atrial pressure, 5 mmHg. Aorta The aortic root size at the sinus of Valsalva is normal. Left Ventricular Outflow Tract Name Value Normal LVOT 2D LVOT Diameter 2.08 cm LVOT Doppler LVOT Peak Gradient 2 mmHg LVOT Mean Gradient 1 mmHg LVOT VTI 9.01 cm LVOT VTI/AV VTI Ratio 0.93 LVOT Stroke Volume 30.63 ml LVOT CO 3.10 l/min LVOT CI 1.56 L/min/m2 Mitral Valve Name Value Normal MV Doppler MV Decel Mchenry 505.91 cm/s2 MV PHT 0 s MV Area (PHT) 5.05 cm2 4.00-5.00 MV Diastolic Function MV E Peak Velocity 76.05 cm/s MV A Peak Velocity 1.92 cm/s MV E/A 39.54 MV Decel Time 0 s MV Annular TDI MV E/e' (Septal) 16.11 <=8.00 MV E/e' (Lateral) 16.71 <=8.00 MV E/e' (Average) 16.41 Tricuspid Valve Name Value Normal TV Regurgitation Doppler TR Peak Velocity 155.54 cm/s TR Peak Gradient 10 mmHg Estimated PAP/RSVP RA Pressure 5 mmHg <=5 PA Systolic Pressure 15 mmHg <36 RV Systolic Pressure 15 mmHg <36 Aortic Valve Name Value Normal AV Doppler AV Peak Velocity 64.78 cm/s AV Peak Gradient 2 mmHg AV Mean Gradient 1 mmHg AV VTI 9.74 cm AV Area (Cont Eq VTI) 3.14 cm2 >=3.00 AV Area (Cont Eq Eran) 3.33 cm2 AV Regurgitation 2D LVOT Area 3.40 cm2 Ventricles Name Value Normal LV Dimensions 2D/MM IVS Diastolic Thickness (2D) 0.75 cm 0.60-1.00 LVID Diastole (2D) 3.21 cm 4.20-5.80 LVIW Diastolic Thickness (2D) 0.83 cm 0.60-1.00 LVID Systole (2D) 1.88 cm 2.50-4.00 LVOT Diameter 2.08 cm LV Mass (2D Cubed) 64.17 g 88.00-224.00 LV Mass Index (2D Cubed) 0.00 g/cm2 0.00-0.01 Relative Wall Thickness (2D) 0.52 LV Fractional Shortening/Ejection Fraction 2D/MM LV Fractional Shortening (2D) 41 % 25-43 LV EF (2D Teicholz) 74 % 52-72 LV Diastolic Volume (4C MOD) 98.30 ml LV EF (4C MOD) 45 % LV Diastolic Volume (2C MOD) 77.45 ml LV EF (2C MOD) 36 % LV Diastolic Volume (BP MOD) 93.12 ml 62.00-150.00 LV Diastolic Volume Index (BP MOD) 0.05 l/m2 0.03-0.07 LV Systolic Volume (BP MOD) 52.04 ml 21.00-61.00 LV Systolic Volume Index (BP MOD) 0.03 l/m2 0.01-0.03 LV EF (BP MOD) 44 % 52-72 LV Diastolic Length (4C) 7.83 cm LV Systolic Length (4C) 6.39 cm LV Stroke Volume (4C MOD) 44.34 ml Atria Name Value Normal LA Dimensions LA Volume (4C A-L) 17.36 ml LA Volume (BP A-L) 14.66 ml RA Dimensions RA Area (4C) 5.93 cm2 <=18.00 Report Signatures
[2024-07-29] MEDS: IPRATROPIUM 0.5 MG/ALBUTEROL SULFATE 2.5 MG AMPUL.NEB 3 ML INHALATION ×3 (02:04→20:51)
[2024-07-29] MEDS: HYDROCORTISONE SODIUM SUCCINATE 100 MG/2 ML VIAL IV PUSH (04:28)
[2024-07-29] MEDS: ONDANSETRON INJ 4 MG/2 ML VIAL IV PUSH ×2 (04:28→13:40)
[2024-07-29 05:04] LABS: Basophils Percent Auto 0.2 % (0.2-1.2); Eosinophils Absolute Auto 0.2 K/mm3 (0-0.3); Eosinophils Percent Auto 0.7 % (0-4.4); Hematocrit 41.5 % (42.0-52.0); Hemoglobin 13.1 g/dL (14.0-18.0); Immature Granulocyte Absolute 0.14 K/mm3 (0.00-0.031); Immature Granulocyte Percent A 0.7 % (0-0.5); Lymphocytes Absolute Auto 0.68 K/mm3 (0.9-3.2); Lymphocytes Percent Auto 3.2 % (18.3-44.2); Mean Corpuscular HGB Conc 31.6 g/dl (32-36); Mean Corpuscular Volume 88.7 fl (80-100); Mean Platelet Volume 12.2 fl (7.4-10.4); Monocytes Percent Auto 4.5 % (2.6-8.5); Neutrophils Absolute Auto 19.5 K/mm3 (1.3-6.7); Neutrophils Percent Auto 90.7 % (45.5-73.1); Platelet Count Result 144 k/mm3 (150-375); Red Blood Count 4.68 M/mm3 (4.6-6.20); Red Cell Distribution Width 17.2 % (11.5-14.5); White Blood Count 21.5 K/mm3 (4.5-10.0)
[2024-07-29 05:19] LABS: Alanine Aminotransferase 19 U/L (6-50); Albumin Level 2.6 g/dL (3.5-5.1); Alkaline Phosphatase 91 U/L (38-126); Anion Gap 6 mmol/L (4-12); Aspartate Amino Transferase 33 U/L (17-59); Blood Urea Nitrogen 19 mg/dL (9-20); Calcium 8.5 mg/dL (8.4-10.2); Carbon Dioxide 25 mmol/L (22-30); Chloride 110 mmol/L (98-107); Estimated CRCL calculation 40 ml/min; Estimated Glomerular Filt Rate 39; Glucose 135 mg/dL (65-110); Potassium 2.8 mmol/L (3.4-5.0); Sodium 141 mmol/L (137-145)
[2024-07-29] MEDS: POTASSIUM CHLORIDE INJ 40 MEQ in SODIUM CHLORIDE 0.9% IV 500 ML 130 MEQ IVPB (06:21)
--- NOTE | 2024-07-29 07:27 | P.PNIM_ITS ---
Progress Note: A&P Assessment and Plan (1) Acute hypoxic respiratory failure: Code(s): J96.01 - Acute respiratory failure with hypoxia Status: Acute Assessment and Plan: * CXR today shown pneumonia likely secondary to aspiration * Patient lethargic and unable to protect airway after emesis. Dr. Reaves ( aquaculture farmer) responded and patient was intubated in the ICU, family notified of change in condition. (2) Aspiration pneumonia: Code(s): J69.0 - Pneumonitis due to inhalation of food and vomit Status: Acute Assessment and Plan: * CXR showing pneumonia likely secondary to aspiration * Started on Cefepime and Flagyl * Currently intubated and being managed in ICU by aquaculture farmer. (3) Leukocytosis: Code(s): D72.829 - Elevated white blood cell count, unspecified Status: Acute Assessment and Plan: * likely secondary to steroid use versus aspiration pneumonia * Steroid decreased today * CXR today showing Aspiration pneumonia * Started Cefepime and Flagyl * Blood cultures obtained * Will check UA as well * He is afebrile (4) Altered mental status: Code(s): R41.82 - Altered mental status, unspecified Status: Acute Assessment and Plan: * Continue Neuro checks q4h * Metabolic encephalopathy likely due to medication versus malnutrition. He does have severe left kidney atrophy with chronic severe left hydronephrosis. 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, left thalamus and right cerebellum * Cortisol level normal * Continue thiamine at higher dose of 300 mg IVPB daily * TSH, Vitamin B 12, folate, ammonia levels all within normal limits * Continue to hold Neurontin * Repeat head CT done 07/28/24 was negative for any acute findings * Lumbar puncture with diagnostics ordered * STD panel ordered (5) Intractable nausea: Code(s): R11.0 - Nausea Status: Acute Assessment and Plan: * Chest abdomen pelvis CTA was negative for PE, shown emphysema and chronic interstitial lung disease, cirrhosis of the liver, portal venous hypertension, severe left kidney atrophy with chronic severe left hydronephrosis * S/P EGD showing portal hypertension and esophageal varices * GI recommending Coreg to prevent further hepatic decompensation * Continue Protonix * Vomiting tube feeding today and overnight. Tube feeding on hold * Continue Zofran * KUB post intubation did not show any ileus, NGT in position (6) GERD (gastroesophageal reflux disease): Qualifiers: Esophagitis presence: without esophagitis Qualified Code(s): K21.9 - Gastro-esophageal reflux disease without esophagitis Code(s): K21.9 - Gastro-esophageal reflux disease without esophagitis Status: Acute Assessment and Plan: * Continue Protonix (7) CKD (chronic kidney disease) stage 3, GFR 30-59 ml/min: Qualifiers: Chronic kidney disease stage 3 subtype: stage 3b (GFR 30-44) Qualified Code(s): N18.32 - Chronic kidney disease, stage 3b Code(s): N18.30 - Chronic kidney disease, stage 3 unspecified Status: Acute Assessment and Plan: * Creatinine 1.8 today * Baseline creatinine 1.7-2.10 * Appears to be at baseline function * Avoid nephrotoxic medications (8) Portal hypertension with esophageal varices: Code(s): K76.6 - Portal hypertension; I85.00 - Esophageal varices without bleeding Status: Acute Assessment and Plan: * Coreg restarted 07/29/24 (9) Emphysema lung: Qualifiers: Emphysema type: unspecified Qualified Code(s): J43.9 - Emphysema, unspecified Code(s): J43.9 - Emphysema, unspecified Status: Acute Assessment and Plan: * Continue Azithromycin * Duonebs changed to PRN (10) Hypokalemia: Code(s): E87.6 - Hypokalemia Status: Acute Assessment and Plan: * Potassium 2.8 * no need for replacement at this time * likely secondary to multiple BM's in past 24 hours * Lactulose stopped * Continue to trend Time Spent With Patient Time with patient: Greater than 35 minutes Subjective Date/time seen: 07/29/24 14:58 Interval history: Patient was reported to be tachycardic with facial droop overnight. He was given a 1L NS bolus and was sent for CT of the brain which did not show any acute changes. His WBC went from 9.3> 19.7>21.5 today. He is on steroids which could be the cause of the bump in his WBC however we went ahead and got blood cultures. Steroids decreased today. Patient remains tachycardic however appears to be net even on I and O. Was informed by nursing that he vomited x2 overnight and tube feeding was held. CXR suggesting LLL pneumonia. He was started on Flagyl and Cefepime today. Patient is very weak and lethargic at the time of my assessment, worse than the day before. Orders placed for lumbar puncture and STD panel considering his mental status has not improved significantly. Then around 1345 today I was called to the bedside by nursing after patient vomited a large amount and he became completely unresponsive and lethargic with O2 saturations of 55%. We bagged him with 100% oxygen and called aquaculture farmer for intubation as patient is not able to protect his airway. Dr. Reaves responded and verbal report was given to him regarding past history of presenting illness and events leading up to today. Patient was transferred to the ICU for higher level of care. Family was notified. Review of Systems Review of Systems: ROS unobtainable: Yes unobtainable due to mental status Exam Narrative: General:chronically ill appearing, lethargic Head: metabolic encephalopathy Eyes: PERRLA, sclera clear ENT:moist Cardiac: Normal S1 and S2. No murmur, gallops or friction rubs, peripheral pulses intact. Respiratory: Course bilaterally, tachypneic, Skin: valverde in color : Pemberton catheter in place clear, yellow Neuro: Unresponsive after episode of vomiting today Objective Data Vital Signs Vital Signs: Vital Signs - 24 hr 07/28/24 07:28 07/28/24 08:00 07/28/24 11:51 Temperature 97.2 F L 98.6 F Pulse Rate 74 92 94 Respiratory Rate 20 24 H 18 Blood Pressure 114/66 140/82 Pulse Oximetry 96 96 Oxygen Delivery Oxygen Flow Rate 07/28/24 13:47 07/28/24 13:54 07/28/24 16:02 Temperature 97.4 F L Pulse Rate 100 98 107 H Respiratory Rate 20 20 22 H Blood Pressure 144/96 H Pulse Oximetry 100 Oxygen Delivery Oxygen Flow Rate 07/28/24 08:00 07/28/24 12:00 07/28/24 16:00 Temperature Pulse Rate 81 97 108 H Respiratory Rate Blood Pressure Pulse Oximetry Oxygen Delivery Oxygen Flow Rate 07/28/24 18:00 07/28/24 19:57 07/28/24 19:57 Temperature Pulse Rate 103 H 105 H Respiratory Rate 26 H Blood Pressure Pulse Oximetry 95 Oxygen Delivery Nasal Cannula Oxygen Flow Rate 2 07/28/24 20:03 07/28/24 21:28 07/28/24 20:00 Temperature 97.5 F L Pulse Rate 102 H 117 H Respiratory Rate 26 H 23 H Blood Pressure 142/90 H Pulse Oximetry 99 99 Oxygen Delivery Nasal Cannula Oxygen Flow Rate 2 07/28/24 20:00 07/28/24 22:00 07/29/24 00:16 Temperature 98.7 F Pulse Rate 106 H 118 H 110 H Respiratory Rate 23 H Blood Pressure 138/90 Pulse Oximetry 96 Oxygen Delivery Oxygen Flow Rate 07/29/24 00:00 07/29/24 00:00 07/29/24 02:04 Temperature Pulse Rate 106 H 102 H Respiratory Rate 22 H Blood Pressure Pulse Oximetry 96 Oxygen Delivery Nasal Cannula Oxygen Flow Rate 2 07/29/24 02:10 07/29/24 02:00 07/29/24 04:00 Temperature Pulse Rate 106 H 108 H Respiratory Rate 22 H Blood Pressure Pulse Oximetry 96 Oxygen Delivery Nasal Cannula Oxygen Flow Rate 2 07/29/24 05:04 07/29/24 04:00 07/29/24 06:00 Temperature 98.3 F Pulse Rate 111 H 114 H 115 H Respiratory Rate 23 H Blood Pressure 139/94 H Pulse Oximetry 96 Oxygen Delivery Oxygen Flow Rate Intake/Output Intake/Output: Intake & Output 07/26/24 07/27/24 07/28/24 07/29/24 23:59 23:59 23:59 23:59 Intake Total 1284.7 1684.3 1051 1604 Output Total 1300 950 751 250 Balance -15.3 734.3 300 1354 Meds/Results Medications: Active Medications Generic Name Dose Route Start Last Admin Trade Name Freq PRN Reason Stop Dose Admin Acetaminophen 650 mg 07/26/24 18:10 07/27/24 21:00 Acetaminophen 325 Mg Tablet FEED TUBE 650 mg Q4H PRN Administration Mild Pain (1-3) or Fever Albuterol/Ipratropium 3 ml 07/21/24 20:00 07/29/24 02:04 Ipratropium 0.5 Mg/Albuterol Sulfate 2.5 Mg Ampul.Neb 3 Ml INHALATION 3 ml Q6HRT RONDA Administration Benzonatate 100 mg 07/17/24 13:00 07/26/24 07:52 Benzonatate 100 Mg Capsule PO Not Given TID RONDA Buspirone HCl 10 mg 07/16/24 09:00 07/26/24 15:11 Buspirone Hcl 10 Mg Tablet PO Not Given TID RONDA Carvedilol 3.125 mg 07/20/24 09:00 07/25/24 12:07 Carvedilol 3.125 Mg Tablet PO 3.125 mg DAILY RONDA Administration Dextrose 12.5 gm 07/23/24 20:33 Dextrose 50% 25 Gm/50 Ml Syringe IV PUSH PRN PRN Hypoglycemia Protocol Gabapentin 300 mg 07/16/24 21:00 07/26/24 20:39 Gabapentin 300 Mg Capsule PO Not Given HS RONDA Glucagon 1 mg 07/23/24 20:33 Glucagon For Inj 1 Mg Vial IM PRN PRN Hypoglycemia Protocol Glucose 15 gm 07/23/24 20:33 Glucose Oral Gel 15 Gm Of Glucse In 37.5 Gm Tube PO PRN PRN Hypoglycemia Protocol Guaifenesin/Dextromethorphan 5 ml 07/17/24 12:31 07/28/24 04:15 Guaifenesin/Dextromethorphan 10 Ml Udc PO 5 ml Q4H PRN Administration Cough Hydrocortisone Sodium Succinate 75 mg 07/29/24 11:00 Hydrocortisone Sodium Succinate 100 Mg/2 Ml Vial IV PUSH BID RONDA Dextrose 1,000 mls @ 100 mls/hr 07/23/24 20:33 Dextrose 5% 1,000 Ml IVPB PRN PRN Hypoglycemia Protocol Potassium Chloride 40 meq/ 520 mls @ 130 mls/hr 07/29/24 05:56 07/29/24 06:21 Sodium Chloride IVPB 07/29/24 09:55 130 mls/hr ONCE ONE Administration Ondansetron HCl 4 mg 07/26/24 02:36 07/29/24 04:28 Ondansetron Inj 4 Mg/2 Ml Vial IV PUSH 4 mg Q6H PRN Administration Nausea And Vomiting Pantoprazole Sodium 40 mg 07/27/24 09:00 07/28/24 10:07 Pantoprazole Sodium Iv 40 Mg Vial IV PUSH 40 mg QAM RONDA Administration Potassium Chloride 40 meq 07/29/24 12:00 Potassium Chloride 20 Meq Packet (For Liquid) PO DAILY@1200 RONDA Potassium Chloride 40 meq 07/30/24 09:00 Potassium Chloride 20 Meq Packet (For Liquid) PO DAILY [facility] Sucralfate 1,000 mg 07/16/24 16:30 07/29/24 06:14 Sucralfate Susp 100 Mg/Ml 10 Ml Udc PO Not Given ACHS RONDA Radiology Results: ITS Impressions Chest/Abdomen/Pelvis CTA 07/15/24 14:05 IMPRESSION: 1. No pulmonary embolus. 2. Emphysema and chronic interstitial lung disease. 3. Cirrhosis of the liver with portal venous hypertension. 4. Severe left kidney atrophy with chronic severe left hydronephrosis. Modified Barium Swallow 07/22/24 10:41 IMPRESSION: 1. Aspiration of thin liquids. 2. Please refer to the speech therapy report for recommendations. Brain MRI 07/23/24 15:44 IMPRESSION: 1. 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 Tube Placement 07/26/24 13:11 IMPRESSION: 1. Fluoroscopy guided nasoenteric tube placement with tip in the stomach. Abdomen/Pelvis CT 07/26/24 13:24 IMPRESSION: 1. Small volume of ascites. 2. Severe left kidney atrophy with chronic severe left hydronephrosis. 3. Small pleural effusions. 4. Small sliding hiatal hernia. Chest X-Ray 07/27/24 07:24 Impression: Extensive chronic interstitial disease, similar to prior exam. NG tube in place. Head CT 07/28/24 21:22 Impression: Stable CT examination of the brain, although limited by a significant amount of motion artifact without acute large intracranial hemorrhage or suspicious mass effect. Labs Labs: Laboratory Results - last 24 hr 07/24/24 07/28/24 07/28/24 15:44 10:28 11:07 WBC 19.7 H RBC 4.05 L Hgb 11.2 L Hct 36.0 L MCV 88.9 MCH 27.7 MCHC 31.1 L RDW 16.9 H Plt Count 148 L D MPV 12.2 H Immature Gran % (Auto) 0.6 H Neut % (Auto) 91.8 H Lymph % (Auto) 3.6 L Craven % (Auto) 3.8 Eos % (Auto) 0.0 Baso % (Auto) 0.2 Lymph # (Auto) 0.71 L Craven # (Auto) 0.7 H Eos # (Auto) 0.0 Baso # (Auto) 0.0 Abs Immat Gran (auto) 0.12 H Absolute Neuts (auto) 18.1 H Absolute Nucleated RBC 0.000 Nucleated RBC % 0.0 Sodium 141 Potassium 3.1 L Chloride 108 H Carbon Dioxide 25 Anion Gap 8 BUN 16 Creatinine 1.50 H Estim Creat Clear Calc 48 Estimated GFR 48 L Glucose 122 H POC Capillary Glucose 140 H Calcium 8.4 Phosphorus 2.5 Magnesium 1.9 Total Bilirubin 1.1 AST 34 ALT 19 Alkaline Phosphatase 92 Total Protein 7.0 Albumin 2.8 L Homocysteine 24.0 H 07/28/24 07/29/24 18:48 04:26 WBC 21.5 H RBC 4.68 Hgb 13.1 L Hct 41.5 L MCV 88.7 MCH 28.0 MCHC 31.6 L RDW 17.2 H Plt Count 144 L MPV 12.2 H Immature Gran % (Auto) 0.7 H Neut % (Auto) 90.7 H Lymph % (Auto) 3.2 L Craven % (Auto) 4.5 Eos % (Auto) 0.7 Baso % (Auto) 0.2 Lymph # (Auto) 0.68 L Craven # (Auto) 1.0 H Eos # (Auto) 0.2 Baso # (Auto) 0.0 Abs Immat Gran (auto) 0.14 H Absolute Neuts (auto) 19.5 H Absolute Nucleated RBC 0.000 Nucleated RBC % 0.0 Sodium 141 Potassium 2.8 L* Chloride 110 H Carbon Dioxide 25 Anion Gap 6 BUN 19 Creatinine 1.80 H Estim Creat Clear Calc 40 Estimated GFR 39 L Glucose 135 H POC Capillary Glucose 141 H Calcium 8.5 Phosphorus Magnesium Total Bilirubin 1.0 AST 33 ALT 19 Alkaline Phosphatase 91 Total Protein 7.0 Albumin 2.6 L Homocysteine Quality VTE Prophylaxis VTE prophylaxis: mechanical ordered and pharmacologic ordered
[2024-07-29 08:10] LABS: Procalcitonin 0.8 ng/mL
[2024-07-29] MEDS: PANTOPRAZOLE SODIUM IV 40 MG VIAL IV PUSH ×2 (08:43→20:33)
[2024-07-29] MEDS: HEPARIN SODIUM 5,000 UNITS/ML VIAL 5000 UNITS SUB-Q (08:43)
[2024-07-29] MEDS: METOPROLOL TARTRATE INJ 5 MG/5 ML VIAL IV PUSH (08:44)
[2024-07-29 08:59] LABS: Methylmalonic Acid 246 nmol/L (55-335)
[2024-07-29] MEDS: carvediloL 3.125 MG TABLET FEED TUBE (10:42)
[2024-07-29] MEDS: POTASSIUM CHLORIDE 20 MEQ PACKET (FOR LIQUID) 40 MEQ PO (10:42)
[2024-07-29 11:21] LABS: Alveolar/Arterial O2 Gradient 102.3 mmHg; Base Excess ABG -6.1 mEq/l (+/-2.0); Fractional Inspired Oxygen 28 %; HCO3 ABG 16.9 mEq/l (22.0-26.0); Oxygen Content ABG 17.4 %vol (16.0-22.0); Oxygen Saturation ABG 93.5 % (95.0-100.0); Oxyhemoglobin 91.6 % THb (90.0-100.0); PCO2 ABG 27.1 mmHg (35.0-45.0); PO2 ABG 65.4 mmHg (80.0-100.0); PO2 FiO2 Ratio Arterial Blood 2.34 %; Total Hemoglobin 13.5 g/dL (12.0-18.0); pH ABG 7.413 (7.350-7.450)
[2024-07-29 11:22] LABS: Device NASAL CANNULA; Modified Allen's Test Pass; Site Drawn RIGHT RADIAL
[2024-07-29] MEDS: HYDROCORTISONE SODIUM SUCCINATE 100 MG/2 ML VIAL 75 MG IV PUSH ×2 (11:22→17:29)
[2024-07-29] MEDS: CEFEPIME 2 GM/NS 50 ML 2 GM/50 ML BAG IVPB ×2 (11:22→20:32)
[2024-07-29] MEDS: SUCRALFATE SUSP 100 MG/ML 10 ML UDC 1000 MG PO ×2 (11:23→20:33)
[2024-07-29] MEDS: metroNIDAZOLE 500 MG/ISO 100ML 500 MG/100 ML BAG 100 MG IVPB ×2 (11:23→21:09)
[2024-07-29 11:53] LABS: Glucose Point of Care 210 mg/dl (65-105)
[2024-07-29] MEDS: FUROSEMIDE INJ 40 MG/4 ML VIAL 20 MG IV PUSH (12:00)
--- NOTE | 2024-07-29 12:15 | PCOTNOTE ---
Per RN, Patient on hold for today due to a decline in medical status.
[2024-07-29 12:19] LABS: Vitamin B6 3.5 ng/mL (2.1-21.7)
[2024-07-29 12:24] LABS: Add Urine Microscopic? YES; Appearance Urine Cloudy (Clear); Bacteria Urine None Seen /hpf; Bilirubin Urine Negative (Negative); Blood Urine Trace (Negative); Color Urine Yellow (Yellow); Glucose Urine UA Trace mg/dL (Negative); Ketones Urine Negative (Negative); Leukocyte Esterase Ur Trace LEU/UL (Negative); Nitrate Urine Negative (Negative); Protein Urine 2+ mg/dL (Negative); Squamous Epithelial Cell Urine Few /hpf (Few); Urobilinogen Urine 0.2 mg/dL (<2.0); WBC Urine 0-5 /hpf (0-3)
--- NOTE | 2024-07-29 12:30 | PCNFU ---
Nutrition Follow-Up Complete: Swallowing Difficulties as related to Aspiration as evidenced by MBS/modified diet. Goal:Meet estimated nutritional needs Pt not meeting goal at this time, continue with same goal. Pt current nutrition is Jevity 1.5 @ a goal rate of 60ml/hr with 150ml flush q 4 hrs. Nutrition recommendation: resume tube feeds when appropriate Last recorded weight is 79.9 kg. Bowel Motility: +BM 07/29 Labs Reviewed: Hgb:13.1, HCt:41.5, K:2.5, GFR:39, Cr:1.8, Glu:135 Meds Noted: zofran, protonix, thiamine Skin: no skin issues noted Additional Notes: Pt was started on tube feeds, vomited last night and noted aspiration. Tube feeds held at this time, IV fluid bolus ordered for maintenance. Will monitor. Will monitor weight, labs, skin, follow up every Sunday and Sunday.
[2024-07-29 12:54] LABS: Anion Gap 10 mmol/L (4-12); Blood Urea Nitrogen 22 mg/dL (9-20); Calcium 8.3 mg/dL (8.4-10.2); Carbon Dioxide 14 mmol/L (22-30); Chloride 117 mmol/L (98-107); Estimated CRCL calculation 40 ml/min; Estimated Glomerular Filt Rate 39; Glucose 176 mg/dL (65-110); Potassium 3.9 mmol/L (3.4-5.0); Sodium 141 mmol/L (137-145)
[2024-07-29 13:01] LABS: INR 1.3; Prothrombin Time 16.8 Seconds (11.1-14.7)
--- NOTE | 2024-07-29 13:09 | PCPTNOTE ---
The patient treatment was not able to be completed today due to Hospitalist request to hold therapy for today. Will plan to continue treatment per plan of care.
[2024-07-29] MEDS: SODIUM CHLORIDE 0.9% IV 1,000 ML 60 ML IV CONT (13:11)
--- NOTE | 2024-07-29 13:50 | PC.NURSE ---
Notified spouse, Delmy, that pt vomited and potentially aspirated. He is being moved to ICU to be intubated. She stated that she will be on her way to the ICU and would like us to do everything that is needed. HARSHA Caballero notified that spouse has been contacted.
--- NOTE | 2024-07-29 14:15 | WPDPROCEDUR ---
Procedures Intubation Intubation Date: 07/29/24 Intubation Time: 13:50 Consent: Patient full code and acute respiratory failure. no family available at bedside. Patient unable to consent. Procedure done as medical necessity in emergency A pre-procedural Time-Out was completed immediately before starting the procedure and confirmed: Patient Identification, Site, Procedure, Patient Position and the Availability of Requisite Equipment: Yes Sedative: etomidate Mg given: 20 Laryngoscope: fiber optic video scope Assist device used: fiber optic device ET tube size: cuffed Tube secured depth (cm): 25 Tube secured location: lips Tube placement confirmation: visualized tube passing through cords, equal breath sounds bilaterally, no breath sounds over epigastrium and confirmation by capnometry Patient tolerated procedure: well Intubation complications: none
--- NOTE | 2024-07-29 14:17 | P.CONIN_ITS ---
Assessment and Plan Assessment and plan (1) Acute hypoxic respiratory failure: Code(s): J96.01 - Acute respiratory failure with hypoxia Status: Acute Assessment and Plan: acute respiratory failure secondary to encephalopathy and aspiration pneumonia also possibility of congestive heart failure. Patient also has baseline emphysema and interstitial lung disease patient transferred to ICU and emergently intubated and placed on mechanical ventilation chest x-ray reviewed ventilator settings reviewed. ABG pending. Now sedated with Versed and fentanyl. Antibiotics as below will obtain CT chest once patient is stabilized. (2) Encephalopathy: Code(s): G93.40 - Encephalopathy, unspecified Status: Acute Assessment and Plan: Patient has developed encephalopathy in the hospital. He has received several medications which could be sedative. He has had fluctuating mental status he was seen by Neurology and was thought to be having metabolic encephalopathy. His ammonia 07/28 CT head Impression: Stable CT examination of the brain, although limited by a significant amount of motion artifact without acute large intracranial hemorrhage or suspicious mass effect. 07/23 MRI IMPRESSION: 1. 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 now intubated and sedated TSH vitamin B12 folate and ammonia level were within normal limits. He is currently getting timing LP was already ordered and pending (3) Cirrhosis: Code(s): K74.60 - Unspecified cirrhosis of liver Status: Acute Assessment and Plan: Patient appears to have cirrhosis. Check ammonia level check coags (4) CKD (chronic kidney disease) stage 3, GFR 30-59 ml/min: Qualifiers: Chronic kidney disease stage 3 subtype: stage 3b (GFR 30-44) Qualified Code(s): N18.32 - Chronic kidney disease, stage 3b Code(s): N18.30 - Chronic kidney disease, stage 3 unspecified Status: Acute Assessment and Plan: patient has chronic kidney disease creatinine close to his baseline CT scan showed left chronic UPJ obstruction with severe left renal atrophy and hydronephrosis (5) Congestive heart failure: Code(s): I50.9 - Heart failure, unspecified Status: Acute Assessment and Plan: check echo EKG and troponin (6) Aspiration pneumonia: Code(s): J69.0 - Pneumonitis due to inhalation of food and vomit Status: Acute Assessment and Plan: blood culture sent. Will order sputum culture. Continue empiric cefepime and Flagyl (7) Diarrhea: Code(s): R19.7 - Diarrhea, unspecified Status: Acute Assessment and Plan: patient has mitral diarrhea but patient was also on tube feeds and also was receiving lactulose. Rectal tube is in place I will rule out C diff although it appears to be on likely etiology NPO CT abdomen pelvis once patient is stabilized Dobbhoff was taken out and OG tube was placed and placed on suction (8) Leukocytosis: Code(s): D72.829 - Elevated white blood cell count, unspecified Status: Acute Assessment and Plan: patient has developed leukocytosis over last couple days but patient also has been on IV steroids. Antibiotics as below. Cultures ordered and pending. LP is ordered and pending. (9) Anemia: Qualifiers: Anemia type: unspecified type Qualified Code(s): D64.9 - Anemia, unspecified Code(s): D64.9 - Anemia, unspecified Status: Acute Assessment and Plan: IV Protonix. Check coags. Monitor hemoglobin. (10) Emphysema lung: Qualifiers: Emphysema type: unspecified Qualified Code(s): J43.9 - Emphysema, unspecified Code(s): J43.9 - Emphysema, unspecified Status: Acute Assessment and Plan: see above Plan DVT prophylaxis - SCD Stress ulcer prophylaxis - PPI Nutrition - npo Code Status - Full Code Total Critical Care Time - 50 minutes Due to a high probability of clinically significant, life threatening deterioration, the patient required my highest level of preparedness to interven e emergently and I personally spent this critical care time directly and personally managing the patient. This critical care time included obtaining a history; examining the patient; pulse oximetry; ordering and review of studies; arranging urgent treatment with development of a management plan; evaluation of patient's response to treatment; frequent reassessment; and discussions with other providers. It was exclusive of separately billable procedures and treating other patients and teaching time. Please see Assessment and Plan section and the rest of the note for further information on patient assessment and treatment Plate Straightener Consult Note Consult date: 07/29/24 Reason for consult: acute respiratory failure HPI: Jose Rafael Chavez Jr. is a 58 year old male with past medical history of cirrhosis from alcohol abuse was presented with chief complaint of vomiting on 07/18. Patient also has past medical history of diastolic dysfunction chronic kidney disease erosive esophagitis COPD GERD. Patient underwent EGD which showed nonbleeding esophageal varices and hiatal hernia. Later patient was found to be hypotensive on the floor despite receiving segment on fluids and patient was transferred to another floor. Patient also became encephalopathy ache and was thought to be secondary to alcohol withdrawal and was given multiple different medication including Zyprexa Librium and IV benzodiazepines. Neurology was consulted and was diagnosed metabolic encephalopathy. CT head and MRI were done with reports as below. Patient had to be restrained as he was pulling out lines and tubes and was encephalopathy ache and delirious. He was started on lactulose today he developed liquid diarrhea and a FMS was placed. He was being fed by Dobbhoff 2 and he had multiple episodes of vomiting. Today he had episode of vomiting after that patient became says hypoxic. Patient was encephalopathy ache. I was asked to evaluate patient on the floor. On my evaluation patient was awake but drowsy and did not seem to be protecting his airway. He was also hypoxic. He was moving all extremities but only to painful stimuli. Patient was transferred to ICU immediately and intubated for airway protection. Patient was unable to provide any meaningful history or review of systems. History was obtained from physician sign-out and chart review. Review of Systems Review of Systems: ROS unobtainable: Yes unobtainable due to endotracheal tube, unobtainable due to medical condition and unobtainable due to mental status [facility] Past Medical History Medical History (Updated 07/29/24 @ 14:28 by Darren Reaves MD) Alcoholic cirrhosis Anxiety Atrophy of left kidney Chronic interstitial lung disease Chronic low back pain Chronic right shoulder pain CKD (chronic kidney disease) stage 3, GFR 30-59 ml/min Closed fracture of orbital wall (~12/2021) Diastolic dysfunction Echocardiogram 12/2021: EF 65 did 70%, grade 1 diastolic dysfunction Emphysema lung Erosive esophagitis Esophageal varices determined by endoscopy Fracture of scapula (~12/2021) GERD (gastroesophageal reflux disease) Metabolic encephalopathy Nocturia Rheumatoid arthritis Thrombocytopenia Vitamin D deficiency Surgical History Surgical History History of esophagogastroduodenoscopy (EGD) History of tonsillectomy History of uvulopalatopharyngoplasty Family History Family History Mother Hypertension Diabetes mellitus Depression Anxiety Heart disease Thyroid disease Father Emphysema lung Lung cancer Social History Social History Social History: The patient lives with his of 23 years. He used to work in [employer] and is attempting to apply for disability for the last 15 years and his last application was denied. He is a recovering alcoholic and has not had a drink since November of 2020. He used to smoke 1-2 packs of cigarettes per day and had done so since he was 15. He quit smoking December 2023. He occasionally will use THC gummy. He reports that he has experimented with all illicit substances in the past but has otherwise not had continuous use. The patient and his are raising the patient's 14-year-old grandson the parent when his grandson was 6-month-old. They have 2 cats at home. Code status: Full code (he actually states that if it was his time ago he would want to be let go but he needs to discuss this with his ) Surrogate decision maker: Caffeine-Coffee/tea Smoking packs per day: 1 Smoking cigarettes per day: 20.0 Years smoked: 43 Smoking pack-years: 43.00 Smoking status: Former smoker Tobacco type: cigarettes Second hand tobacco smoke exposure: Yes Smoking end date: 12/31/23 Additional smoking assessment comments: USED TO SMOKE 2PPD, NOW 1PPD Alcohol intake: former Alcohol use details: BEEN SOBER SINCE NOVEMBER 2020 Substance use: current Substance use type: does not use Other substance usage details: gummies Last use: 07/12/24 Do You Feel Safe in your Home?: Yes Lack of Transportation: No Lack of Food: Never True Current Housing: I Have Housing Concerned About Future Housing: No Difficulty Paying Gas/Electric Bills: No Difficulty Paying for Meds: No Currently Unemployed: No Education: High School Diploma/GED Difficulty w/ Childcare or Family Care: No Living arrangements: with family Occupation/Education: other Gender identity (if verbalized by the patient): Male Spiritual care concerns: No Meds Home Medications and Allergies Home Medications Medication Instructions Recorded Confirmed Type hydroxychloroquine 200 mg tablet 200 mg PO BID #180 tabs 01/30/24 07/15/24 Rx abatacept 125 mg/mL subcutaneous 125 mg subcut WEEKLY 02/12/24 07/15/24 History auto-injector (Orencia ClickJect) inhalational spacing device #1 ea 02/12/24 07/15/24 Rx (Aerochamber MV spacer) buspirone 10 mg tablet 10 mg PO TID #270 tabs 05/13/24 07/15/24 Rx gabapentin 300 mg capsule 300 mg PO HS #90 caps 06/16/24 07/15/24 Rx famotidine 20 mg tablet 20 mg PO QHS #30 tabs 07/07/24 07/15/24 Rx Allergies Allergy/AdvReac Type Severity Reaction Status Date / Time vancomycin AdvReac Severe Other Verified 07/18/24 10:35 [place] AdvReac Mild SHORTNESS Uncoded 07/18/24 10:35 OF BREATH Vital Signs Vital Signs - 24 hr 07/28/24 16:02 07/28/24 16:00 07/28/24 18:00 Temperature 36.3 C L Pulse Rate 107 H 108 H 103 H Respiratory Rate 22 H Blood Pressure 144/96 H Pulse Oximetry 100 Oxygen Delivery Oxygen Flow Rate Fraction of Inspired Oxygen 07/28/24 19:57 07/28/24 19:57 07/28/24 20:03 Temperature Pulse Rate 105 H 102 H Respiratory Rate 26 H 26 H Blood Pressure Pulse Oximetry 95 Oxygen Delivery Nasal Cannula Oxygen Flow Rate 2 Fraction of Inspired Oxygen 07/28/24 21:28 07/28/24 20:00 07/28/24 20:00 Temperature 36.4 C L Pulse Rate 117 H 106 H Respiratory Rate 23 H Blood Pressure 142/90 H Pulse Oximetry 99 99 Oxygen Delivery Nasal Cannula Oxygen Flow Rate 2 Fraction of Inspired Oxygen 07/28/24 22:00 07/29/24 00:16 07/29/24 00:00 Temperature 37.1 C Pulse Rate 118 H 110 H Respiratory Rate 23 H Blood Pressure 138/90 Pulse Oximetry 96 96 Oxygen Delivery Nasal Cannula Oxygen Flow Rate 2 Fraction of Inspired Oxygen 07/29/24 00:00 07/29/24 02:04 07/29/24 02:10 Temperature Pulse Rate 106 H 102 H 106 H Respiratory Rate 22 H 22 H Blood Pressure Pulse Oximetry Oxygen Delivery Oxygen Flow Rate Fraction of Inspired Oxygen 07/29/24 02:00 07/29/24 04:00 07/29/24 05:04 Temperature 36.8 C Pulse Rate 108 H 111 H Respiratory Rate 23 H Blood Pressure 139/94 H Pulse Oximetry 96 96 Oxygen Delivery Nasal Cannula Oxygen Flow Rate 2 Fraction of Inspired Oxygen 07/29/24 04:00 07/29/24 06:00 07/29/24 07:57 Temperature 36.4 C Pulse Rate 114 H 115 H 122 H Respiratory Rate 20 Blood Pressure 157/95 H Pulse Oximetry 100 Oxygen Delivery Oxygen Flow Rate Fraction of Inspired Oxygen 07/29/24 08:30 07/29/24 08:44 07/29/24 10:42 Temperature Pulse Rate 121 H 112 H Respiratory Rate Blood Pressure Pulse Oximetry 100 Oxygen Delivery Nasal Cannula Oxygen Flow Rate 2 Fraction of Inspired Oxygen 28 07/29/24 12:04 Temperature 36.3 C L Pulse Rate 115 H Respiratory Rate 52 H Blood Pressure 142/91 H Pulse Oximetry 91 Oxygen Delivery Oxygen Flow Rate Fraction of Inspired Oxygen Exam Narrative: General: Pt is is now sedated, intubated and on mechanical ventilation Lungs/Chest: Trachea central Coarse BS B/L, coarse breath sounds bilateral Cardiac: RRR. Normal S1 S2. No murmurs Circulation: Pedal pulses are intact and symmetrical. feet are cold Abdomen: decreased bowel sounds Soft. NT. ND. Rectal tube with large amount of watery diarrhea Extremities: No clubbing, cyanosis or edema. Warm : [place] in place Neurologic: prior to intubation patient was drowsy but moving all 4 extremities. He occasionally was moaning to painful stimuli. Post intubation now he sedated and intubated.PERRL Results Labs 07/29/24 04:26 07/29/24 12:36 Labs: Impressions Head CT 07/28/24 21:22 Impression: Stable CT examination of the brain, although limited by a significant amount of motion artifact without acute large intracranial hemorrhage or suspicious mass effect. Chest X-Ray 07/29/24 09:02 IMPRESSION: Bilateral interstitial thickening suggestive of pneumonitis versus pulmonary edema. Underlying fibrotic changes are highly suggestive. Left lower lobe pneumonia. Abdomen X-Ray 07/29/24 14:19 IMPRESSION: Cardiomegaly with cardiac decompensation and pulmonary edema Left basilar atelectasis versus pneumonia with minimal effusion. Chest X-Ray 07/29/24 14:22 IMPRESSION: Cardiomegaly with cardiac decompensation and pulmonary edema. Bilateral pneum onitis Right upper lobe and left lower lobe pneumonia. Short CBC 07/29/24 Range/Units 04:26 WBC 21.5 H (4.5-10.0) K/mm3 Hgb 13.1 L (14.0-18.0) g/dL Hct 41.5 L (42.0-52.0) % Plt Count 144 L (150-375) k/mm3 BMP 07/29/24 07/29/24 04:26 12:36 Sodium 141 141 Potassium 2.8 L* 3.9 Chloride 110 H 117 H Carbon Dioxide 25 14 L BUN 19 22 H Creatinine 1.80 H 1.80 H Glucose 135 H 176 H Calcium 8.5 8.3 L Liver Function 07/29/24 Range/Units 04:26 Total Bilirubin 1.0 (0.2-1.3) mg/dL AST 33 (17-59) U/L ALT 19 (6-50) U/L Alkaline Phosphatase 91 (38-126) U/L Albumin 2.6 L (3.5-5.1) g/dL Urine 07/29/24 Range/Units 11:55 Urine Color Yellow (Yellow) Urine Appearance Cloudy H (Clear) Urine pH 6.0 (5.0-9.0) Ur Specific [place] 1.020 (1.001-1.035) Urine Protein 2+ H (Negative) mg/dL Urine Glucose (UA) Trace H (Negative) mg/dL Hospitalist MIPS Advance Care Plan I have confirmed that the patient's Advanced Care Plan is present, code status is documented, or surrogate decision maker is listed in patient medical record.: Yes Medication Reconciliation I have utilized all available resources to obtain, update and review the pat ients current medications (includes all prescriptions, OTC, herbals, cannabis, and nutritional supplements).: Yes
--- NOTE | 2024-07-29 14:23 | ECG_ITS ---
Test Date: 2024-07-29 15:07:43 Measurements Intervals [place] Rate: 111 P: 22 ME: 154 QRS: -26 QRSD: 80 T: 150 QT: 346 QTc: 471 Interpretive Statements SINUS TACHYCARDIA LOW QRS VOLTAGE IN PRECORDIAL LEADS CONSIDER ANTERIOR INFARCT, AGE INDETERMINATE CONSIDER INFERIOR INFARCT, AGE INDETERMINATE MODERATE T-WAVE ABNORMALITY, CONSIDER HIGH LAT ISCHEMIA BASELINE ARTIFACT- I, III, AVR, AVL ABNORMAL ECG Compared to ECG 07/26/2024 11:45:48 HEART RATE HAS INCREASED Electronically Signed On 07-29-2024 15:39:47 WORKSHOP MANAGER by Laurent Silver D.O.
--- NOTE | 2024-07-29 14:33 | PC.NURSE ---
1450- PCT was cleaning up patient and turned him to his left side. Patient had a large emesis and PCT immediately called for help. Patient obtunded and AMIRA Roberto called to bedside. Felisa arrived to bedside and requested [facility] consult. updated and en route. [facility] at bedside and patient being transferred to ICU 5.
[2024-07-29 14:38] LABS: Alveolar/Arterial O2 Gradient 435.7 mmHg; Device VENTILATOR; Fractional Inspired Oxygen 100 %; HCO3 ABG 17.1 mEq/l (22.0-26.0); Modified Allen's Test Pass; Oxygen Content ABG 19.8 %vol (16.0-22.0); Oxygen Saturation ABG 99.5 % (95.0-100.0); Oxyhemoglobin 99.1 % THb (90.0-100.0); PCO2 ABG 33.9 mmHg (35.0-45.0); PO2 ABG 243.4 mmHg (80.0-100.0); PO2 FiO2 Ratio Arterial Blood 2.43 %; Site Drawn LEFT RADIAL; Total Hemoglobin 13.8 g/dL (12.0-18.0)
[2024-07-29] MEDS: FENTANYL 2,500MCG/NS250ML(*CRX 2,500 MCG/250 ML BAG IV CONT (14:38)
[2024-07-29] MEDS: MIDAZOLAM HCL (*CRX) 2 MG/2 ML VIAL 4 MG IV PUSH (14:38)
[2024-07-29] MEDS: ETOMIDATE 20 MG/10 ML AMPUL IV PUSH (14:38)
[2024-07-29 14:39] LABS: Arterial Blood Gas PEEP 5 cmH2O; Arterial Blood Gas Tidal Volume 450 ml; Arterial Blood Gas Vent Mode CMV; Arterial Blood Gas Ventilator rate 18 /MIN
[2024-07-29] MEDS: MIDAZOLAM 100MG/NS 100ML(*CRX) 100 MG/100 ML BAG IV CONT (14:39)
[2024-07-29 14:54] LABS: Glucose Point of Care 139 mg/dl (65-105)
--- NOTE | 2024-07-29 15:29 | PC.NURSE ---
This patient, Jose Rafael Sophy Chavez Jr., was received from [facility] on 07/29/24 at 1350. Patient/family oriented to unit policies and routines
[2024-07-29 15:35] LABS: Toxigenic C. Diff NEGATIVE (NEGATIVE)
[2024-07-29] MEDS: PERFLUTREN LIPID MICROSPHERES 1.5 ML VIAL DILUTED TO 10 ML TOTAL VOLUME IV PUSH (15:40)
--- NOTE | 2024-07-29 16:12 | IVDEFINITY ---
Prior to administration of IV Definity the patient was educated on the risks and benefits of the imaging enhancing agent including potential adverse side effects. The patient verbalized understanding. Allergies were verified. No exclusion criteria were identified and at least one of the following inclusion criteria were met: 1) physician request, 2) patient technically difficult to image (per the [place] [employer]chocardi[employer] guidelines of two or more segments not discernable within the apical view), or 3) questionable left ventricular function. ?
[2024-07-29 17:19] LABS: Hematocrit 43.2 % (42.0-52.0); Hemoglobin 13.4 g/dL (14.0-18.0); Mean Corpuscular Hemoglobin 27.5 pg (26-34); Mean Corpuscular Volume 88.5 fl (80-100); Mean Platelet Volume 12.7 fl (7.4-10.4); Platelet Count Result 114 k/mm3 (150-375); Red Blood Count 4.88 M/mm3 (4.6-6.20); Red Cell Distribution Width 17.3 % (11.5-14.5); White Blood Count 24.4 K/mm3 (4.5-10.0)
[2024-07-29] MEDS: ALBUMIN HUMAN 25% 25 GM/100 ML 100 ML IVPB ×2 (17:28→23:59)
[2024-07-29 17:30] LABS: Ammonia 54 umol/L (9-30)
[2024-07-29 17:38] LABS: Alanine Aminotransferase 20 U/L (6-50); Albumin Level 2.5 g/dL (3.5-5.1); Alkaline Phosphatase 79 U/L (38-126); Anion Gap 7 mmol/L (4-12); Aspartate Amino Transferase 37 U/L (17-59); Bilirubin,Total 1.4 mg/dL (0.2-1.3); Blood Urea Nitrogen 25 mg/dL (9-20); Calcium 8.3 mg/dL (8.4-10.2); Carbon Dioxide 15 mmol/L (22-30); Chloride 119 mmol/L (98-107); Estimated CRCL calculation 36 ml/min; Estimated Glomerular Filt Rate 34; Glucose 133 mg/dL (65-110); Magnesium 2.2 mg/dL (1.6-2.3); Potassium 3.8 mmol/L (3.4-5.0); Sodium 141 mmol/L (137-145)
[2024-07-29 17:44] LABS: INR 1.3; Prothrombin Time 16.7 Seconds (11.1-14.7)
[2024-07-29 17:45] LABS: Fibrinogen 409 mg/dl (215-510); Partial Thromboplastin Time 27.9 Seconds (22.3-36.8)
[2024-07-29] MEDS: LACTATED RINGERS 1,000 ML 999 ML IV CONT (18:26)
[2024-07-29] MEDS: SODIUM BICARBONATE 8.4% 50 MEQ/50 ML SYRINGE IV PUSH (18:26)
[2024-07-29] MEDS: MINERAL OIL/WHITE PETROLATUM OINTMENT 1 APPLIC EACH EYE (20:33)
[2024-07-29 20:44] LABS: Glucose Point of Care 111 mg/dl (65-105)
[2024-07-30] VITALS (28 sets, daily range): BP systolic 78–130; BP diastolic 55–88; PULSE 58–105; RESP 18–24; TEMP 36.2–36.6; O2SAT 90–100
[2024-07-30 01:18] LABS: Glucose Point of Care 117 mg/dl (65-105)
[2024-07-30] MEDS: IPRATROPIUM 0.5 MG/ALBUTEROL SULFATE 2.5 MG AMPUL.NEB 3 ML INHALATION ×3 (02:04→13:33)
[2024-07-30 04:32] LABS: Basophils Percent Auto 0.1 % (0.2-1.2); Hematocrit 34.4 % (42.0-52.0); Hemoglobin 10.5 g/dL (14.0-18.0); Immature Granulocyte Absolute 0.07 K/mm3 (0.00-0.031); Immature Granulocyte Percent A 0.5 % (0-0.5); Immature Platelet Fraction Pct 9.2 % (0.9-11.2); Lymphocytes Absolute Auto 0.87 K/mm3 (0.9-3.2); Lymphocytes Percent Auto 6.1 % (18.3-44.2); Mean Corpuscular HGB Conc 30.5 g/dl (32-36); Mean Corpuscular Hemoglobin 27.7 pg (26-34); Mean Corpuscular Volume 90.8 fl (80-100); Mean Platelet Volume 13.3 fl (7.4-10.4); Monocytes Percent Auto 6.9 % (2.6-8.5); Neutrophils Absolute Auto 12.2 K/mm3 (1.3-6.7); Neutrophils Percent Auto 86.4 % (45.5-73.1); Nucleated Red Blood Cells Perc 0.1 % (0.0-0.2); Platelet Count Result 69 k/mm3 (150-375); Red Blood Count 3.79 M/mm3 (4.6-6.20); Red Cell Distribution Width 17.3 % (11.5-14.5); White Blood Count 14.2 K/mm3 (4.5-10.0)
[2024-07-30] MEDS: SUCRALFATE SUSP 100 MG/ML 10 ML UDC 1000 MG PO ×2 (04:59→11:51)
[2024-07-30] MEDS: ALBUMIN HUMAN 25% 25 GM/100 ML 100 ML IVPB ×2 (04:59→11:51)
[2024-07-30] MEDS: metroNIDAZOLE 500 MG/ISO 100ML 500 MG/100 ML BAG 100 MG IVPB ×2 (04:59→14:02)
[2024-07-30 05:16] LABS: Alveolar/Arterial O2 Gradient 87.8 mmHg; Base Excess ABG -2.6 mEq/l (+/-2.0); Carboxyhemoglobin 0.7 % THb (0-2.0); Fractional Inspired Oxygen 30 %; HCO3 ABG 21.6 mEq/l (22.0-26.0); Methemoglobin ABG 0.3 %THb (0-1.5); Modified Allen's Test Pass; Oxygen Content ABG 13.3 %vol (16.0-22.0); Oxygen Saturation ABG 96.6 % (95.0-100.0); Oxyhemoglobin 94.9 % THb (90.0-100.0); PCO2 ABG 35.1 mmHg (35.0-45.0); PO2 ABG 84.9 mmHg (80.0-100.0); PO2 FiO2 Ratio Arterial Blood 2.83 %; Reduced Hemoglobin 4.1 %THb (0-5.0); Site Drawn LEFT RADIAL; Total Hemoglobin 9.9 g/dL (12.0-18.0); pH ABG 7.408 (7.350-7.450)
[2024-07-30 05:17] LABS: Arterial Blood Gas PEEP 5 cmH2O; Arterial Blood Gas Tidal Volume 450 ml; Arterial Blood Gas Vent Mode CMV; Arterial Blood Gas Ventilator rate 18 /MIN; Device VENTILATOR
[2024-07-30 05:23] LABS: Alanine Aminotransferase 18 U/L (6-50); Albumin Level 2.9 g/dL (3.5-5.1); Alkaline Phosphatase 36 U/L (38-126); Anion Gap 7 mmol/L (4-12); Aspartate Amino Transferase 43 U/L (17-59); Bilirubin,Total 1.6 mg/dL (0.2-1.3); Blood Urea Nitrogen 31 mg/dL (9-20); Calcium 8.6 mg/dL (8.4-10.2); Carbon Dioxide 23 mmol/L (22-30); Chloride 114 mmol/L (98-107); Estimated CRCL calculation 36 ml/min; Estimated Glomerular Filt Rate 34; Glucose 113 mg/dL (65-110); Potassium 4.2 mmol/L (3.4-5.0); Sodium 144 mmol/L (137-145)
[2024-07-30] MEDS: SODIUM CHLORIDE 0.9% IV 1,000 ML 60 ML IV CONT (06:11)
--- NOTE | 2024-07-30 07:26 | PM.CNGS ---
Assessment and Plan Assessment and plan (1) Abnormal CT of the abdomen: Code(s): R93.5 - Abnormal findings on diagnostic imaging of other abdominal regions, including retroperitoneum Status: Acute (2) Intractable nausea and vomiting: Code(s): R11.2 - Nausea with vomiting, unspecified Status: Acute (3) Diarrhea: Code(s): R19.7 - Diarrhea, unspecified Status: Acute (4) Acute respiratory failure: Code(s): J96.00 - Acute respiratory failure, unspecified whether with hypoxia or hypercapnia Status: Acute (5) Congestive heart failure: Code(s): I50.9 - Heart failure, unspecified Status: Acute (6) Portal hypertension with esophageal varices: Code(s): K76.6 - Portal hypertension; I85.00 - Esophageal varices without bleeding Status: Acute (7) Cirrhosis: Code(s): K74.60 - Unspecified cirrhosis of liver Status: Acute (8) Thrombocytopenia: Code(s): D69.6 - Thrombocytopenia, unspecified Status: Acute (9) COPD (chronic obstructive pulmonary disease): Code(s): J44.9 - Chronic obstructive pulmonary disease, unspecified Status: Acute Plan I reviewed patient's CT and further workup. He is critically ill and has findings on the CT of portal venous gas and colon wall thickening. In this setting, this could represent acute bowel ischemia. Unfortunately, with his cirrhosis with ascites, portal HTN, acute renal failure, COPD, thrombocytopenia, CHF, and current condition, he would have >70% chance of mortality with surgery and >50% chance of major complication if he survived the surgery. His lactate level is currently normal. In his current state, surgery should not be considered, and if he is showing any signs of bowel perforation, withdrawing care and comfort measures should be considered. Will continue to follow along with patient for any significant changes. History of Present Illness Consult details Consult date: 07/30/24 Reason for consult: other (abnormal CT abdomen) Requesting physician: Darren Reaves MD Narrative: This is a 58-year-old man who I am asked to see for possible ischemic bowel. He has been hospitalized here for intractable nausea and vomiting and acutely became worse yesterday. He was intubated and fluid resuscitated. He was then transferred to the ICU for further treatment. Once he was stabilized he was then sent down for CT chest/abdomen/pelvis. The CT showed evidence of portal venous gas and mesenteric gas concerning possible bowel ischemia. He was also noted to have ascending and transverse colon wall thickening. His white blood count was elevated but his lactic acid level was normal. I spoke directly to the golf ball molder and he stated that the patient was not able to give him much history when he 1st evaluated him prior to intubation. The patient was obtunded at that time and he is currently intubated in the ICU. History is unable to be obtained from the patient, but the chart is reviewed. He has multiple significant comorbidities including congestive heart failure with low left ventricular ejection fraction, cirrhosis with ascites, portal hypertension, acute renal failure, respiratory failure, and COPD. Review of Systems Review of Systems: ROS unobtainable: Yes unobtainable due to endotracheal tube, unobtainable due to medical condition and unobtainable due to mental status PMFSH Past Medical History Medical History (Updated 07/30/24 @ 11:07 by Darren Reaves MD) Alcoholic cirrhosis Anxiety Atrophy of left kidney Chronic interstitial lung disease Chronic low back pain Chronic right shoulder pain CKD (chronic kidney disease) stage 3, GFR 30-59 ml/min Closed fracture of orbital wall (~12/2021) Diastolic dysfunction Echocardiogram 12/2021: EF 65 did 70%, grade 1 diastolic dysfunction Emphysema lung Erosive esophagitis Esophageal varices determined by endoscopy Fracture of scapula (~12/2021) GERD (gastroesophageal reflux disease) Metabolic encephalopathy Nocturia Rheumatoid arthritis Thrombocytopenia Vitamin D deficiency Surgical History Surgical History History of esophagogastroduodenoscopy (EGD) History of tonsillectomy History of uvulopalatopharyngoplasty Family History Family History Mother Hypertension Diabetes mellitus Depression Anxiety Heart disease Thyroid disease Father Emphysema lung Lung cancer Social History Social History Social History: The patient lives with his of 23 years. He used to work in [employer] and is attempting to apply for disability for the last 15 years and his last application was denied. He is a recovering alcoholic and has not had a drink since November of 2020. He used to smoke 1-2 packs of cigarettes per day and had done so since he was 15. He quit smoking December 2023. He occasionally will use THC gummy. He reports that he has experimented with all illicit substances in the past but has otherwise not had continuous use. The patient and his are raising the patient's 14-year-old grandson the parent when his grandson was 6-month-old. They have 2 cats at home. Code status: Full code (he actually states that if it was his time ago he would want to be let go but he needs to discuss this with his ) Surrogate decision maker: Caffeine-Coffee/tea Smoking packs per day: 1 Smoking cigarettes per day: 20.0 Years smoked: 43 Smoking pack-years: 43.00 Smoking status: Former smoker Tobacco type: cigarettes Second hand tobacco smoke exposure: Yes Smoking end date: 12/31/23 Additional smoking assessment comments: USED TO SMOKE 2PPD, NOW 1PPD Alcohol intake: former Alcohol use details: BEEN SOBER SINCE NOVEMBER 2020 Substance use: current Substance use type: does not use Other substance usage details: gummies Last use: 07/12/24 Do You Feel Safe in your Home?: Yes Lack of Transportation: No Lack of Food: Never True Current Housing: I Have Housing Concerned About Future Housing: No Difficulty Paying Gas/Electric Bills: No Difficulty Paying for Meds: No Currently Unemployed: No Education: High School Diploma/GED Difficulty w/ Childcare or Family Care: No Living arrangements: with family Occupation/Education: other Gender identity (if verbalized by the patient): Male Spiritual care concerns: No Meds Home Medications and Allergies Home Medications Medication Instructions Recorded Confirmed Type hydroxychloroquine 200 mg tablet 200 mg PO BID #180 tabs 01/30/24 07/15/24 Rx abatacept 125 mg/mL subcutaneous 125 mg subcut WEEKLY 02/12/24 07/15/24 History auto-injector (Orencia ClickJect) inhalational spacing device #1 ea 02/12/24 07/15/24 Rx (Aerochamber MV spacer) buspirone 10 mg tablet 10 mg PO TID #270 tabs 05/13/24 07/15/24 Rx gabapentin 300 mg capsule 300 mg PO HS #90 caps 06/16/24 07/15/24 Rx famotidine 20 mg tablet 20 mg PO QHS #30 tabs 07/07/24 07/15/24 Rx Allergies Allergy/AdvReac Type Severity Reaction Status Date / Time vancomycin AdvReac Severe Other Verified 07/18/24 10:35 [place] AdvReac Mild SHORTNESS Uncoded 07/18/24 10:35 OF BREATH Vital Signs Vital Signs - 24 hr 07/29/24 07:57 07/29/24 08:30 07/29/24 08:44 Temperature 97.6 F Pulse Rate 122 H 121 H Respiratory Rate 20 Blood Pressure 157/95 H Pulse Oximetry 100 100 Oxygen Delivery Nasal Cannula Oxygen Flow Rate 2 Fraction of Inspired Oxygen 28 07/29/24 10:42 07/29/24 12:04 07/29/24 14:10 Temperature 97.4 F L Pulse Rate 112 H 115 H 110 H Respiratory Rate 52 H Blood Pressure 142/91 H Pulse Oximetry 91 100 Oxygen Delivery Mechanical Ventilation Oxygen Flow Rate Fraction of Inspired Oxygen 100 07/29/24 14:38 07/29/24 14:39 07/29/24 14:49 Temperature Pulse Rate 113 H 113 H 115 H Respiratory Rate 20 18 18 Blood Pressure Pulse Oximetry Oxygen Delivery Oxygen Flow Rate Fraction of Inspired Oxygen 07/29/24 14:49 07/29/24 14:54 07/29/24 16:55 Temperature Pulse Rate 113 H 109 H Respiratory Rate 19 Blood Pressure Pulse Oximetry 98 Oxygen Delivery Mechanical Ventilation Oxygen Flow Rate Fraction of Inspired Oxygen 50 30 07/29/24 16:00 07/29/24 16:00 07/29/24 17:44 Temperature Pulse Rate 110 H 110 H 112 H Respiratory Rate 18 18 22 H Blood Pressure Pulse Oximetry Oxygen Delivery Oxygen Flow Rate Fraction of Inspired Oxygen 07/29/24 17:45 07/29/24 14:00 07/29/24 16:00 Temperature Pulse Rate 111 H 115 H 110 H Respiratory Rate 22 H Blood Pressure Pulse Oximetry Oxygen Delivery Oxygen Flow Rate Fraction of Inspired Oxygen 07/29/24 14:00 07/29/24 16:00 07/29/24 16:00 Temperature 98.3 F 98.8 F Pulse Rate 115 H 110 H Respiratory Rate 24 H 18 Blood Pressure 108/73 83/68 L Pulse Oximetry 100 99 Oxygen Delivery Oxygen Flow Rate Fraction of Inspired Oxygen 30 07/29/24 16:00 07/29/24 18:00 07/29/24 18:00 Temperature 98.8 F Pulse Rate 110 H 109 H 109 H Respiratory Rate 18 23 H Blood Pressure 91/73 L Pulse Oximetry 99 99 Oxygen Delivery Mechanical Ventilation Oxygen Flow Rate Fraction of Inspired Oxygen 30 07/29/24 18:08 07/29/24 18:08 07/29/24 08:00 Temperature Pulse Rate 110 H 110 H 120 H Respiratory Rate 22 H 22 H Blood Pressure Pulse Oximetry Oxygen Delivery Oxygen Flow Rate Fraction of Inspired Oxygen 07/29/24 10:00 07/29/24 12:00 07/29/24 19:53 Temperature Pulse Rate 104 H 117 H 106 H Respiratory Rate 22 H Blood Pressure Pulse Oximetry 100 Oxygen Delivery Mechanical Ventilation Oxygen Flow Rate Fraction of Inspired Oxygen 30 07/29/24 19:57 07/29/24 19:57 07/29/24 20:00 Temperature 97.8 F Pulse Rate 106 H 106 H Respiratory Rate 20 Blood Pressure 105/77 Pulse Oximetry 100 Oxygen Delivery Oxygen Flow Rate Fraction of Inspired Oxygen 30 07/29/24 20:52 07/29/24 21:01 07/29/24 20:00 Temperature Pulse Rate 107 H 106 H 107 H Respiratory Rate 20 18 22 H Blood Pressure Pulse Oximetry Oxygen Delivery Oxygen Flow Rate Fraction of Inspired Oxygen 07/29/24 20:00 07/29/24 21:44 07/29/24 22:00 Temperature 98 F Pulse Rate 107 H 105 H 105 H Respiratory Rate 22 H 21 H Blood Pressure 105/77 Pulse Oximetry 100 Oxygen Delivery Oxygen Flow Rate Fraction of Inspired Oxygen 07/29/24 22:00 07/29/24 22:00 07/29/24 23:06 Temperature Pulse Rate 104 H 104 H 103 H Respiratory Rate 22 H 22 H Blood Pressure Pulse Oximetry 100 Oxygen Delivery Mechanical Ventilation Oxygen Flow Rate Fraction of Inspired Oxygen 30 07/29/24 20:30 07/29/24 23:48 07/29/24 23:51 Temperature Pulse Rate 104 H 103 H 103 H Respiratory Rate 19 Blood Pressure Pulse Oximetry 100 100 Oxygen Delivery Mechanical Ventilation Mechanical Ventilation Oxygen Flow Rate Fraction of Inspired Oxygen 30 30 07/29/24 23:51 07/30/24 00:00 07/30/24 00:00 Temperature 98 F Pulse Rate 102 H 102 H Respiratory Rate 18 22 H Blood Pressure 130/88 Pulse Oximetry 100 Oxygen Delivery Oxygen Flow Rate Fraction of Inspired Oxygen 30 07/30/24 00:00 07/30/24 02:04 07/30/24 02:06 Temperature Pulse Rate 102 H 88 88 Respiratory Rate 22 H 18 Blood Pressure Pulse Oximetry 100 Oxygen Delivery Mechanical Ventilation Oxygen Flow Rate Fraction of Inspired Oxygen 30 07/30/24 02:11 07/30/24 02:00 07/30/24 02:00 Temperature 97.5 F L Pulse Rate 87 88 86 Respiratory Rate 18 18 Blood Pressure 95/65 L Pulse Oximetry 100 Oxygen Delivery Oxygen Flow Rate Fraction of Inspired Oxygen 07/30/24 02:00 07/30/24 02:14 07/30/24 04:00 Temperature Pulse Rate 88 86 93 Respiratory Rate 18 18 18 Blood Pressure Pulse Oximetry 100 Oxygen Delivery Mechanical Ventilation Oxygen Flow Rate Fraction of Inspired Oxygen 30 07/30/24 04:00 07/30/24 04:00 07/30/24 04:00 Temperature 97.4 F L Pulse Rate 93 92 Respiratory Rate 18 Blood Pressure 102/75 Pulse Oximetry 92 Oxygen Delivery Oxygen Flow Rate Fraction of Inspired Oxygen 30 07/30/24 04:08 07/30/24 04:09 07/30/24 06:00 Temperature Pulse Rate 93 92 82 Respiratory Rate 18 18 Blood Pressure Pulse Oximetry Oxygen Delivery Oxygen Flow Rate Fraction of Inspired Oxygen 07/30/24 06:00 07/30/24 06:00 07/30/24 06:00 Temperature 97.1 F L Pulse Rate 83 83 82 Respiratory Rate 19 19 19 Blood Pressure 89/64 L Pulse Oximetry 94 Oxygen Delivery Oxygen Flow Rate Fraction of Inspired Oxygen 07/30/24 05:30 Temperature Pulse Rate 88 Respiratory Rate Blood Pressure Pulse Oximetry 100 Oxygen Delivery Mechanical Ventilation Oxygen Flow Rate Fraction of Inspired Oxygen 30 Exam Narrative: Patient intubated and sedated Const: General: patient obtunded and average body habitus Nutritional Appearance: average body habitus Orientation/consciousness: patient obtunded Limitations: altered mental status HENMT: Head: normal to inspection, normocephalic and atraumatic Ears: external ears normal Face/Nose/Sinus: Normal external nose present and Normal nares present Mouth: Yes Normal oral and palatal mucosa present Eyes: Periorbital: periorbital findings normal Eyelids: eyelids normal Conjunctivae: conjunctivae normal Sclera: sclerae normal Neck: Neck: normal visual inspection, no lymphadenopathy, trachea midline, supple and no JVD Resp: Effort & Inspection: symmetric chest movement Auscultation: clear to auscultation bilaterally Percussion: percussion normal Cardio: Rate: regular rate Rhythm: regular rhythm Heart sounds: S1 normal heart sound present and S2 normal heart sound present Peripheral pulses: Peripheral pulses 2+ throughout GI: Inspection: distended GI Palp: Yes Soft to palpation, No Hernia present and No Palpable mass present Percussion: Yes normal to percussion Auscultation: Hypoactive bowel sounds present Neuro: General: patient obtunded, Unable to assess gait and other ( unable to perform full neuro exam due to intubation and sedation) Gait exam (Neuro): Unable to assess gait Extrem: General: no pedal edema Right upper extremity: normal to inspection Left upper extremity: normal to inspection Results Labs 07/30/24 04:25 07/30/24 04:25 Labs: Abnormal lab results 07/29/24 07/29/24 07/29/24 Range/Units 11:07 11:38 11:55 WBC (4.5-10.0) K/mm3 RBC (4.6-6.20) M/mm3 Hgb (14.0-18.0) g/dL Hct (42.0-52.0) % MCHC (32-36) g/dl RDW (11.5-14.5) % Plt Count (150-375) k/mm3 MPV (7.4-10.4) fl Neut % (Auto) (45.5-73.1) % Lymph % (Auto) (18.3-44.2) % Baso % (Auto) (0.2-1.2) % Lymph # (Auto) (0.9-3.2) K/mm3 [place] # (Auto) (0.1-0.6) K/mm3 Abs Immat Gran (auto) (0.00-0.031) K/mm3 Absolute Neuts (auto) (1.3-6.7) K/mm3 Absolute Nucleated RBC (0.0-0.012) K/mm3 PT (11.1-14.7) Seconds ABG pH (7.350-7.450) ABG pCO2 27.1 L (35.0-45.0) mmHg ABG pO2 65.4 L (80.0-100.0) mmHg ABG HCO3 16.9 L (22.0-26.0) mEq/l ABG O2 Saturation 93.5 L (95.0-100.0) % ABG O2 Content (16.0-22.0) %vol Total Hemoglobin (12.0-18.0) g/dL Chloride (98-107) mmol/L Carbon Dioxide (22-30) mmol/L BUN (9-20) mg/dL Creatinine (0.7-1.3) mg/dL Estimated GFR (59 - ) Glucose (65-110) mg/dL POC Capillary Glucose 210 H (65-105) mg/dl Calcium (8.4-10.2) mg/dL Total Bilirubin (0.2-1.3) mg/dL Alkaline Phosphatase (38-126) U/L Ammonia (9-30) umol/L Troponin I (0.000-0.034) ng/mL Total Protein (6.3-8.2) g/dL Albumin (3.5-5.1) g/dL Urine Appearance Cloudy H (Clear) Urine Protein 2+ H (Negative) mg/dL Urine Glucose (UA) Trace H (Negative) mg/dL Leukocyte Esterase Rfl Trace H (Negative) ADRI/UL Urine RBC 3-5 H (0-2) /hpf 07/29/24 07/29/24 07/29/24 Range/Units 12:36 14:30 14:36 WBC (4.5-10.0) K/mm3 RBC (4.6-6.20) M/mm3 Hgb (14.0-18.0) g/dL Hct (42.0-52.0) % MCHC (32-36) g/dl RDW (11.5-14.5) % Plt Count (150-375) k/mm3 MPV (7.4-10.4) fl Neut % (Auto) (45.5-73.1) % Lymph % (Auto) (18.3-44.2) % Baso % (Auto) (0.2-1.2) % Lymph # (Auto) (0.9-3.2) K/mm3 [place] # (Auto) (0.1-0.6) K/mm3 Abs Immat Gran (auto) (0.00-0.031) K/mm3 Absolute Neuts (auto) (1.3-6.7) K/mm3 Absolute Nucleated RBC (0.0-0.012) K/mm3 PT 16.8 H (11.1-14.7) Seconds ABG pH 7.320 L (7.350-7.450) ABG pCO2 33.9 L (35.0-45.0) mmHg ABG pO2 243.4 H (80.0-100.0) mmHg ABG HCO3 17.1 L (22.0-26.0) mEq/l ABG O2 Saturation (95.0-100.0) % ABG O2 Content (16.0-22.0) %vol Total Hemoglobin (12.0-18.0) g/dL Chloride 117 H (98-107) mmol/L Carbon Dioxide 14 L (22-30) mmol/L BUN 22 H (9-20) mg/dL Creatinine 1.80 H (0.7-1.3) mg/dL Estimated GFR 39 L (59 - ) Glucose 176 H (65-110) mg/dL POC Capillary Glucose 139 H (65-105) mg/dl Calcium 8.3 L (8.4-10.2) mg/dL Total Bilirubin (0.2-1.3) mg/dL Alkaline Phosphatase (38-126) U/L Ammonia (9-30) umol/L Troponin I (0.000-0.034) ng/mL Total Protein (6.3-8.2) g/dL Albumin (3.5-5.1) g/dL Urine Appearance (Clear) Urine Protein (Negative) mg/dL Urine Glucose (UA) (Negative) mg/dL Leukocyte Esterase Rfl (Negative) ADRI/UL Urine RBC (0-2) /hpf 07/29/24 07/29/24 07/29/24 Range/Units 17:09 17:11 20:31 WBC 24.4 H (4.5-10.0) K/mm3 RBC (4.6-6.20) M/mm3 Hgb 13.4 L (14.0-18.0) g/dL Hct (42.0-52.0) % MCHC 31.0 L (32-36) g/dl RDW 17.3 H (11.5-14.5) % Plt Count 114 L (150-375) k/mm3 MPV 12.7 H (7.4-10.4) fl Neut % (Auto) (45.5-73.1) % Lymph % (Auto) (18.3-44.2) % Baso % (Auto) (0.2-1.2) % Lymph # (Auto) (0.9-3.2) K/mm3 [place] # (Auto) (0.1-0.6) K/mm3 Abs Immat Gran (auto) (0.00-0.031) K/mm3 Absolute Neuts (auto) (1.3-6.7) K/mm3 Absolute Nucleated RBC (0.0-0.012) K/mm3 PT 16.7 H (11.1-14.7) Seconds ABG pH (7.350-7.450) ABG pCO2 (35.0-45.0) mmHg ABG pO2 (80.0-100.0) mmHg ABG HCO3 (22.0-26.0) mEq/l ABG O2 Saturation (95.0-100.0) % ABG O2 Content (16.0-22.0) %vol Total Hemoglobin (12.0-18.0) g/dL Chloride 119 H (98-107) mmol/L Carbon Dioxide 15 L (22-30) mmol/L BUN 25 H (9-20) mg/dL Creatinine 2.00 H (0.7-1.3) mg/dL Estimated GFR 34 L (59 - ) Glucose 133 H (65-110) mg/dL POC Capillary Glucose 111 H (65-105) mg/dl Calcium 8.3 L (8.4-10.2) mg/dL Total Bilirubin 1.4 H (0.2-1.3) mg/dL Alkaline Phosphatase (38-126) U/L Ammonia 54 H (9-30) umol/L Troponin I 1.080 H* (0.000-0.034) ng/mL Total Protein 6.0 L (6.3-8.2) g/dL Albumin 2.5 L (3.5-5.1) g/dL Urine Appearance (Clear) Urine Protein (Negative) mg/dL Urine Glucose (UA) (Negative) mg/dL Leukocyte Esterase Rfl (Negative) ADRI/UL Urine RBC (0-2) /hpf 07/30/24 07/30/24 07/30/24 Range/Units 01:16 04:25 04:58 WBC 14.2 H (4.5-10.0) K/mm3 RBC 3.79 L (4.6-6.20) M/mm3 Hgb 10.5 L (14.0-18.0) g/dL Hct 34.4 L (42.0-52.0) % MCHC 30.5 L (32-36) g/dl RDW 17.3 H (11.5-14.5) % Plt Count 69 L (150-375) k/mm3 MPV 13.3 H (7.4-10.4) fl Neut % (Auto) 86.4 H (45.5-73.1) % Lymph % (Auto) 6.1 L (18.3-44.2) % Baso % (Auto) 0.1 L (0.2-1.2) % Lymph # (Auto) 0.87 L (0.9-3.2) K/mm3 [place] # (Auto) 1.0 H (0.1-0.6) K/mm3 Abs Immat Gran (auto) 0.07 H (0.00-0.031) K/mm3 Absolute Neuts (auto) 12.2 H (1.3-6.7) K/mm3 Absolute Nucleated RBC 0.020 H (0.0-0.012) K/mm3 PT (11.1-14.7) Seconds ABG pH (7.350-7.450) ABG pCO2 (35.0-45.0) mmHg ABG pO2 (80.0-100.0) mmHg ABG HCO3 21.6 L (22.0-26.0) mEq/l ABG O2 Saturation (95.0-100.0) % ABG O2 Content 13.3 L (16.0-22.0) %vol Total Hemoglobin 9.9 L (12.0-18.0) g/dL Chloride 114 H (98-107) mmol/L Carbon Dioxide (22-30) mmol/L BUN 31 H (9-20) mg/dL Creatinine 2.00 H (0.7-1.3) mg/dL Estimated GFR 34 L (59 - ) Glucose 113 H (65-110) mg/dL POC Capillary Glucose 117 H (65-105) mg/dl Calcium (8.4-10.2) mg/dL Total Bilirubin 1.6 H (0.2-1.3) mg/dL Alkaline Phosphatase 36 L (38-126) U/L Ammonia (9-30) umol/L Troponin I (0.000-0.034) ng/mL Total Protein 6.0 L (6.3-8.2) g/dL Albumin 2.9 L (3.5-5.1) g/dL Urine Appearance (Clear) Urine Protein (Negative) mg/dL Urine Glucose (UA) (Negative) mg/dL Leukocyte Esterase Rfl (Negative) ADRI/UL Urine RBC (0-2) /hpf Diabetes panel 07/29/24 07/29/24 07/30/24 Range/Units 12:36 17:11 04:25 Sodium 141 141 144 (137-145) mmol/L Potassium 3.9 3.8 4.2 (3.4-5.0) mmol/L Chloride 117 H 119 H 114 H (98-107) mmol/L Carbon Dioxide 14 L 15 L 23 (22-30) mmol/L BUN 22 H 25 H 31 H (9-20) mg/dL Creatinine 1.80 H 2.00 H 2.00 H (0.7-1.3) mg/dL Glucose 176 H 133 H 113 H (65-110) mg/dL Calcium 8.3 L 8.3 L 8.6 (8.4-10.2) mg/dL AST 37 43 (17-59) U/L ALT 20 18 (6-50) U/L Alkaline Phosphatase 79 36 L (38-126) U/L Total Protein 6.0 L 6.0 L (6.3-8.2) g/dL Albumin 2.5 L 2.9 L (3.5-5.1) g/dL Calcium panel 07/29/24 07/29/24 07/30/24 Range/Units 12:36 17:11 04:25 Calcium 8.3 L 8.3 L 8.6 (8.4-10.2) mg/dL Albumin 2.5 L 2.9 L (3.5-5.1) g/dL Pituitary panel 07/29/24 07/29/24 07/30/24 Range/Units 12:36 17:11 04:25 Sodium 141 141 144 (137-145) mmol/L Potassium 3.9 3.8 4.2 (3.4-5.0) mmol/L Chloride 117 H 119 H 114 H (98-107) mmol/L Carbon Dioxide 14 L 15 L 23 (22-30) mmol/L BUN 22 H 25 H 31 H (9-20) mg/dL Creatinine 1.80 H 2.00 H 2.00 H (0.7-1.3) mg/dL Glucose 176 H 133 H 113 H (65-110) mg/dL Calcium 8.3 L 8.3 L 8.6 (8.4-10.2) mg/dL Adrenal panel 07/29/24 07/29/24 07/30/24 Range/Units 12:36 17:11 04:25 Sodium 141 141 144 (137-145) mmol/L Potassium 3.9 3.8 4.2 (3.4-5.0) mmol/L Chloride 117 H 119 H 114 H (98-107) mmol/L Carbon Dioxide 14 L 15 L 23 (22-30) mmol/L BUN 22 H 25 H 31 H (9-20) mg/dL Creatinine 1.80 H 2.00 H 2.00 H (0.7-1.3) mg/dL Glucose 176 H 133 H 113 H (65-110) mg/dL Calcium 8.3 L 8.3 L 8.6 (8.4-10.2) mg/dL Total Bilirubin 1.4 H 1.6 H (0.2-1.3) mg/dL AST 37 43 (17-59) U/L ALT 20 18 (6-50) U/L Alkaline Phosphatase 79 36 L (38-126) U/L Total Protein 6.0 L 6.0 L (6.3-8.2) g/dL Albumin 2.5 L 2.9 L (3.5-5.1) g/dL All other labs normal. Imaging Additional studies: ITS Impressions Chest X-Ray 07/15/24 12:01 IMPRESSION: 1. Stable combination of emphysema and chronic interstitial lung disease. Chest/Abdomen/Pelvis CTA 07/15/24 14:05 IMPRESSION: 1. No pulmonary embolus. 2. Emphysema and chronic interstitial lung disease. 3. Cirrhosis of the liver with portal venous hypertension. 4. Severe left kidney atrophy with chronic severe left hydronephrosis. Head CT 07/18/24 19:32 IMPRESSION: No acute intracranial findings. Chest X-Ray 07/21/24 12:34 IMPRESSION: 1. Worsened diffuse interstitial pattern in the lungs, likely mild pulmonary edema superimposed on a combination of emphysema and chronic interstitial lung disease. Head CT 07/21/24 19:46 Impression: Stable CT examination of the brain, although limited by motion artifact without acute intracranial hemorrhage or suspicious mass effect. Demonstrating early atrophy, unchanged dating back to 2021. Modified Barium Swallow 07/22/24 10:41 IMPRESSION: 1. Aspiration of thin liquids. 2. Please refer to the speech therapy report for recommendations. Brain MRI 07/23/24 15:44 IMPRESSION: 1. 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 Chest X-Ray 07/25/24 17:52 IMPRESSION: Findings suggesting chronic interstitial lung disease, for which clinical correlation is needed. Tube Placement 07/26/24 13:11 IMPRESSION: 1. Fluoroscopy guided nasoenteric tube placement with tip in the stomach. Abdomen/Pelvis CT 07/26/24 13:24 IMPRESSION: 1. Small volume of ascites. 2. Severe left kidney atrophy with chronic severe left hydronephrosis. 3. Small pleural effusions. 4. Small sliding hiatal hernia. Chest X-Ray 07/27/24 07:24 Impression: Extensive chronic interstitial disease, similar to prior exam. NG tube in place. Head CT 07/28/24 21:22 Impression: Stable CT examination of the brain, although limited by a significant amount of motion artifact without acute large intracranial hemorrhage or suspicious mass effect. Chest X-Ray 07/29/24 09:02 IMPRESSION: Bilateral interstitial thickening suggestive of pneumonitis versus pulmonary edema. Underlying fibrotic changes are highly suggestive. Left lower lobe pneumonia. Abdomen X-Ray 07/29/24 14:19 IMPRESSION: Cardiomegaly with cardiac decompensation and pulmonary edema Left basilar atelectasis versus pneumonia with minimal effusion. Chest X-Ray 07/29/24 14:22 IMPRESSION: Cardiomegaly with cardiac decompensation and pulmonary edema. Bilateral pneumonitis Right upper lobe and left lower lobe pneumonia. Chest/Abdomen/Pelvis CT 07/29/24 16:42 IMPRESSION: 1. Airspace opacities in the lower lobes, left worse than right, consistent with atelectasis versus pneumonia. 2. Small pleural effusions. 3. Moderate emphysema. 4. Portal venous gas and mesenteric vein gas. This finding is nonspecific, but can be seen with bowel ischemia or infarct. 5. Wall thickening in the ascending and transverse colon, which may be interstitial edema or colitis. 6. Cirrhosis of the liver. 7. Moderate volume of ascites. 8. Severe left kidney atrophy with chronic severe left hydronephrosis. ADDENDUM: 07/29/24 0859 I discussed the portal vein gas with the patient's ICU nurse. Chest X-Ray 07/30/24 06:41 Impression: Small left pleural effusion. Extensive chronic interstitial disease. Support tubes, as above. Chest X-Ray 07/30/24 08:56 IMPRESSION: Left lower lobe atelectasis versus pneumonia with pleural effusion. Bilateral interstitial changes which indicate fibrotic changes with possible superimposed pneumonitis versus pulmonary edema. Clinical correlation advised. Chest X-Ray 07/30/24 09:57 IMPRESSION: 1. Lines and tubes in expected positions as detailed above. 2. Unchanged diffuse bilateral lung disease most prominent in the left lower lung zone which could represent atelectasis or pneumonia superimposed over emphysema. 3. Likely small left pleural effusion.
[2024-07-30] MEDS: MIDAZOLAM HCL (*CRX) 2 MG/2 ML VIAL IV PUSH ×2 (07:59→08:32)
[2024-07-30 08:00] LABS: Glucose Point of Care 98 mg/dl (65-105)
[2024-07-30] MEDS: LACTATED RINGERS 500 ML 999 ML IV CONT (08:07)
[2024-07-30] MEDS: HYDROCORTISONE SODIUM SUCCINATE 100 MG/2 ML VIAL 75 MG IV PUSH (08:08)
[2024-07-30] MEDS: PANTOPRAZOLE SODIUM IV 40 MG VIAL IV PUSH (08:09)
[2024-07-30] MEDS: MINERAL OIL/WHITE PETROLATUM OINTMENT 1 APPLIC EACH EYE (08:09)
[2024-07-30] MEDS: ETOMIDATE 40 MG/20 ML VIAL 20 MG IV PUSH (08:48)
[2024-07-30] MEDS: CEFEPIME 2 GM/NS 50 ML 2 GM/50 ML BAG IVPB (08:55)
[2024-07-30 09:03] LABS: Vitamin B1 908 nmol/L (8-30)
[2024-07-30] MEDS: LIDOCAINE HCL 1% PF INJ 5 ML VIAL INFILTRATE (09:15)
--- NOTE | 2024-07-30 10:46 | P.PNINT_ITS ---
Progress Note: A&P Assessment and Plan (1) Ischemic colitis: Code(s): K55.9 - Vascular disorder of intestine, unspecified Status: Acute Assessment and Plan: yesterday post intubation and resuscitation patient was sent down for CT scan of abdomen as patient was having watery diarrhea. CT scan showed portal venous gas and mesenteric vein gas there was also wall thickening of ascending and transverse colon which was suggestive of colitis or edema. contrast was not administered due to elevated creatinine Patient was having diarrhea nausea vomiting prior to presentation. His C diff was negative. He was started on cefepime and Flagyl. patient's lactic acid was only 2.0. general surgery was consulted and I spoke to Dr. Alvares yesterday evening by phone on 07/29 he felt that the patient was too high risk for any surgery. With high risk of mortality. He recommended antibiotics and conservative supportive management. Echo done this morning showed thrombus and LV which can explain the the embolic ischemic colitis. Patient is not a candidate for anticoagulation considering patient has varices with bloody aspirate coming out of OG tube and thrombocytopenia. all these things were discussed with patient's and during the discussion for goals of care. At this point she has decided to proceed with palliative extubation and comfort care once family is is ready until then she wants to continue supportive care with no further escalation in treatment (2) Acute hypoxic respiratory failure: Code(s): J96.01 - Acute respiratory failure with hypoxia Status: Acute Assessment and Plan: acute respiratory failure secondary to encephalopathy and aspiration pneumonia also possibility of congestive heart failure. Patient also has baseline emphysema and interstitial lung disease 07/29 patient transferred to ICU and emergently intubated and placed on mechanical ventilation chest x-ray reviewed ventilator settings reviewed. ABG pending. Now sedated with Versed and fentanyl. Antibiotics as below CT chest showed airspace opacities in bilateral lower lobes left worse than right consistent with pneumonia. Patient also has moderate emphysema and small pleural effusions. 07/30 Had significant air leak around cuff despite adjustment multiple times the air leak persisted with low tidal volumes. his ET tube was exchanged over a bougie without any complications (3) LV (left ventricular) mural thrombus: Code(s): I51.3 - Intracardiac thrombosis, not elsewhere classified Status: Acute Assessment and Plan: Echo showed small apical thrombus with extension of spontaneous echo contrast suggesting precursor for large thrombus. This may be the etiology of patient's ischemic colitis. Anticoagulation is going to be complicated this patient considering patient has varices, anemia, thrombocytopenia and gradually dropping hemoglobin. Results of echo and treatment plan was discussed with patient's and son. As mentioned below they they want to continue current supportive measures with no further escalation plan to proceed with palliative care later today Summary 1. Definity contrast administered improved wall motion interpretation. 2. Left ventricular chamber dimension is moderately enlarged. 3. Left ventricular systolic function is severely reduced, estimated at 20- 25%. 4. Mid to apical LV segments are severely hypokinetic to akinetic w th apical akinesis. Basal segments have normal contractility. This is suggestive of Takotsubo cardiomyopathy. 5. Small apical thrombus noted with extension of spontaneous echo contrast suggesting precursor for large thrombus formation. 6. The left ventricular diastolic function is abnormal. 7. E/e' 16 is elevated. 8. There is trace mitral valve regurgitation. 9. No pulmonary hypertension, estimated pulmonary arterial systolic pressure is 15 mmHg (4) Encephalopathy: Code(s): G93.40 - Encephalopathy, unspecified Status: Acute Assessment and Plan: Patient has developed encephalopathy in the hospital. He has received several medications which could be sedative. He has had fluctuating mental status he was seen by Neurology and was thought to be having metabolic encephalopathy. His ammonia 07/28 CT head Impression: Stable CT examination of the brain, although limited by a significant amount of motion artifact without acute large intracranial hemorrhage or suspicious mass effect. 07/23 MRI IMPRESSION: 1. 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 now intubated and sedated TSH vitamin B12 folate and ammonia level were within normal limits. He is currently getting timing LP was planned but will hold as patient will be going towards comfort care later today (5) Cirrhosis: Code(s): K74.60 - Unspecified cirrhosis of liver Status: Acute Assessment and Plan: Patient appears to have cirrhosis. normal ammonia level reviewed coags (6) CKD (chronic kidney disease) stage 3, GFR 30-59 ml/min: Qualifiers: Chronic kidney disease stage 3 subtype: stage 3b (GFR 30-44) Qualified Code(s): N18.32 - Chronic kidney disease, stage 3b Code(s): N18.30 - Chronic kidney disease, stage 3 unspecified Status: Acute Assessment and Plan: patient has chronic kidney disease creatinine appears to be slightly worse CT scan showed left chronic UPJ obstruction with severe left renal atrophy and hydronephrosis (7) Congestive heart failure: Code(s): I50.9 - Heart failure, unspecified Status: Acute Assessment and Plan: reviewed EKG and elevated troponin likely secondary to stress (8) Aspiration pneumonia: Code(s): J69.0 - Pneumonitis due to inhalation of food and vomit Status: Acute Assessment and Plan: blood culture sent. Will order sputum culture. currently on empiric cefepime and Flagyl (9) Diarrhea: Code(s): R19.7 - Diarrhea, unspecified Status: Acute Assessment and Plan: patient has waterl diarrhea but patient was also on tube feeds and also was receiving lactulose. Rectal tube is in place C diff was negative NPO CT abdomen pelvis o as above Dobbhoff was taken out and OG tube was placed and placed on suction (10) Leukocytosis: Code(s): D72.829 - Elevated white blood cell count, unspecified Status: Acute Assessment and Plan: patient has developed leukocytosis over last couple days but patient also has been on IV steroids. Antibiotics as above. Cultures ordered and pending. LP was ordered but will hold at this time. See below (11) Anemia: Qualifiers: Anemia type: unspecified type Qualified Code(s): D64.9 - Anemia, unspecified Code(s): D64.9 - Anemia, unspecified Status: Acute Assessment and Plan: currently on IV Protonix. coags reviewed Monitor hemoglobin. (12) Emphysema lung: Qualifiers: Emphysema type: unspecified Qualified Code(s): J43.9 - Emphysema, unspecified Code(s): J43.9 - Emphysema, unspecified Status: Acute Assessment and Plan: see above Plan DVT prophylaxis - SCD Stress ulcer prophylaxis - PPI Nutrition - npo Code Status - Full Code I met with patient's and son in the conference room. I updated them with patient's current condition Including acute respiratory failure, aspiration pneumonia, cirrhosis, anemia and thrombocytopenia, chronic kidney disease with worsening renal function, colitis with air in abdominal vasculature, LVEF 20- 25% and thrombus in LV. I also updated him with the current. treatment plan, my discussion with the general surgeon, and overall poor prognosis. They told me that they had been seeing patient deteriorating over last week or so and they knew that patient was getting worse. Patient also had mention to them that he would not want to be on life support or aggressive medical therapy if his prognosis was poor. They believe the patient would not want to continue with current treatment plan considering his multiorgan failure and poor prognosis. They want him to be made DNR at this point. They are going to get other family members including his daughter and mother from [place] and once everyone is arrived they are going to proceed with palliative extubation and comfort care. expected prognosis and different potential outcomes. I explai unruly them the palliative extubation process and comfort care that I will use opioids, anxiolytics and other agents on as needed basis to promote comfort and discontinue all medical therapy, lab testing and invasive monitoring. patient will eventually . 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 She suspect the patient may not be a lifelong hence she wants to wait until the daughter and mother is here. At this point we will made patient DNR with no further escalation of care until the family is ready for extubation and comfort care I have discussed with primary physician hospitalist who is in agreement with plan Total Critical Care Time - 45 minutes except separately billed procedures Due to a high probability of clinically significant, life threatening deterioration, the patient required my highest level of preparedness to intervene emergently and I personally spent this critical care time directly and personally managing the patient. This critical care time included obtaining a history; examining the patient; pulse oximetry; ordering and review of studies; arranging urgent treatment with development of a management plan; evaluation of patient's response to treatment; frequent reassessment; and discussions with other providers. It was exclusive of separately billable procedures and treating other patients and teaching time. Please see Assessment and Plan section and the rest of the note for further information on patient assessment and treatment Subjective Date/time seen: 07/30/24 Overnight events reviewed. Hypothermic. Hypotensive this morning. When I arrived to see the patient he had a large leak around his cough. is ETT cuff was intact but he had a large leak despite repositioning it did not feel fixation Will. He was reintubated. He had a CT scan yesterday. Was also which are discussed below. Surgery was consulted with discussion as mentioned below. He also had echocardiogram results. He was sedated this morning and not responsive although he was tachypneic. He is and p.o. continues to have watery stool blood tinged suction from OG. Review of Systems Review of Systems: ROS unobtainable: Yes unobtainable due to endotracheal tube, unobtainable due to medical condition and unobtainable due to mental status Exam Narrative: General: Pt is is now sedated, intubated and on mechanical ventilation Lungs/Chest: Trachea central Coarse BS B/L, coarse breath sounds bilateral Single amount of upper airway secretions Cardiac: RRR. Normal S1 S2. No murmurs Circulation: Pedal pulses are intact and symmetrical. feet are cold Abdomen: decreased bowel sounds Soft. NT. ND. Rectal tube with large amount of watery diarrhea, OG tube with small amount of blood-tinged suction Extremities: No clubbing, cyanosis or edema. Warm : [place] in place Neurologic: patient unresponsive to commands but withdraws to pain intermittently. He is sedated sedated and intubated. PERRL Objective Data Vital Signs Vital Signs: Vital Signs - 24 hr 07/29/24 12:04 07/29/24 14:10 07/29/24 14:38 Temperature 36.3 C L Pulse Rate 115 H 110 H 113 H Respiratory Rate 52 H 20 Blood Pressure 142/91 H Pulse Oximetry 91 100 Oxygen Delivery Mechanical Ventilation Fraction of Inspired Oxygen 100 07/29/24 14:39 07/29/24 14:49 07/29/24 14:49 Temperature Pulse Rate 113 H 115 H Respiratory Rate 18 18 Blood Pressure Pulse Oximetry Oxygen Delivery Fraction of Inspired Oxygen 50 07/29/24 14:54 07/29/24 16:55 07/29/24 16:00 Temperature Pulse Rate 113 H 109 H 110 H Respiratory Rate 19 18 Blood Pressure Pulse Oximetry 98 Oxygen Delivery Mechanical Ventilation Fraction of Inspired Oxygen 30 07/29/24 16:00 07/29/24 17:44 07/29/24 17:45 Temperature Pulse Rate 110 H 112 H 111 H Respiratory Rate 18 22 H 22 H Blood Pressure Pulse Oximetry Oxygen Delivery Fraction of Inspired Oxygen 07/29/24 14:00 07/29/24 16:00 07/29/24 14:00 Temperature 36.8 C Pulse Rate 115 H 110 H 115 H Respiratory Rate 24 H Blood Pressure 108/73 Pulse Oximetry 100 Oxygen Delivery Fraction of Inspired Oxygen 07/29/24 16:00 07/29/24 16:00 07/29/24 16:00 Temperature 37.1 C Pulse Rate 110 H 110 H Respiratory Rate 18 18 Blood Pressure 83/68 L Pulse Oximetry 99 99 Oxygen Delivery Mechanical Ventilation Fraction of Inspired Oxygen 30 30 07/29/24 18:00 07/29/24 18:00 07/29/24 18:08 Temperature 37.1 C Pulse Rate 109 H 109 H 110 H Respiratory Rate 23 H 22 H Blood Pressure 91/73 L Pulse Oximetry 99 Oxygen Delivery Fraction of Inspired Oxygen 07/29/24 18:08 07/29/24 12:00 07/29/24 19:53 Temperature Pulse Rate 110 H 117 H 106 H Respiratory Rate 22 H 22 H Blood Pressure Pulse Oximetry 100 Oxygen Delivery Mechanical Ventilation Fraction of Inspired Oxygen 30 07/29/24 19:57 07/29/24 19:57 07/29/24 20:00 Temperature 36.6 C Pulse Rate 106 H 106 H Respiratory Rate 20 Blood Pressure 105/77 Pulse Oximetry 100 Oxygen Delivery Fraction of Inspired Oxygen 30 07/29/24 20:52 07/29/24 21:01 07/29/24 20:00 Temperature Pulse Rate 107 H 106 H 107 H Respiratory Rate 20 18 22 H Blood Pressure Pulse Oximetry Oxygen Delivery Fraction of Inspired Oxygen 07/29/24 20:00 07/29/24 21:44 07/29/24 22:00 Temperature 36.6 C Pulse Rate 107 H 105 H 105 H Respiratory Rate 22 H 21 H Blood Pressure 105/77 Pulse Oximetry 100 Oxygen Delivery Fraction of Inspired Oxygen 07/29/24 22:00 07/29/24 22:00 07/29/24 23:06 Temperature Pulse Rate 104 H 104 H 103 H Respiratory Rate 22 H 22 H Blood Pressure Pulse Oximetry 100 Oxygen Delivery Mechanical Ventilation Fraction of Inspired Oxygen 30 07/29/24 20:30 07/29/24 23:48 07/29/24 23:51 Temperature Pulse Rate 104 H 103 H 103 H Respiratory Rate 19 Blood Pressure Pulse Oximetry 100 100 Oxygen Delivery Mechanical Ventilation Mechanical Ventilation Fraction of Inspired Oxygen 30 30 07/29/24 23:51 07/30/24 00:00 07/30/24 00:00 Temperature 36.6 C Pulse Rate 102 H 102 H Respiratory Rate 18 22 H Blood Pressure 130/88 Pulse Oximetry 100 Oxygen Delivery Fraction of Inspired Oxygen 30 07/30/24 00:00 07/30/24 02:04 07/30/24 02:06 Temperature Pulse Rate 102 H 88 88 Respiratory Rate 22 H 18 Blood Pressure Pulse Oximetry 100 Oxygen Delivery Mechanical Ventilation Fraction of Inspired Oxygen 30 07/30/24 02:11 07/30/24 02:00 07/30/24 02:00 Temperature 36.4 C L Pulse Rate 87 88 86 Respiratory Rate 18 18 Blood Pressure 95/65 L Pulse Oximetry 100 Oxygen Delivery Fraction of Inspired Oxygen 07/30/24 02:00 07/30/24 02:14 07/30/24 04:00 Temperature Pulse Rate 88 86 93 Respiratory Rate 18 18 18 Blood Pressure Pulse Oximetry 100 Oxygen Delivery Mechanical Ventilation Fraction of Inspired Oxygen 30 07/30/24 04:00 07/30/24 04:00 07/30/24 04:00 Temperature 36.3 C L Pulse Rate 93 92 Respiratory Rate 18 Blood Pressure 102/75 Pulse Oximetry 92 Oxygen Delivery Fraction of Inspired Oxygen 30 07/30/24 04:08 07/30/24 04:09 07/30/24 06:00 Temperature Pulse Rate 93 92 82 Respiratory Rate 18 18 Blood Pressure Pulse Oximetry Oxygen Delivery Fraction of Inspired Oxygen 07/30/24 06:00 07/30/24 06:00 07/30/24 06:00 Temperature 36.2 C L Pulse Rate 83 83 82 Respiratory Rate 19 19 19 Blood Pressure 89/64 L Pulse Oximetry 94 Oxygen Delivery Fraction of Inspired Oxygen 07/30/24 05:30 07/30/24 07:39 07/30/24 07:39 Temperature Pulse Rate 88 80 80 Respiratory Rate 19 Blood Pressure Pulse Oximetry 100 97 Oxygen Delivery Mechanical Ventilation Mechanical Ventilation Fraction of Inspired Oxygen 30 30 07/30/24 07:54 07/30/24 08:18 07/30/24 08:19 Temperature Pulse Rate 66 105 H 105 H Respiratory Rate 20 23 H 22 H Blood Pressure Pulse Oximetry Oxygen Delivery Fraction of Inspired Oxygen 07/30/24 08:00 07/30/24 08:00 07/30/24 09:37 Temperature 36.2 C L Pulse Rate 98 Respiratory Rate 18 Blood Pressure 108/67 Pulse Oximetry 90 Oxygen Delivery Fraction of Inspired Oxygen 35 35 07/30/24 08:00 07/30/24 08:00 07/30/24 10:00 Temperature Pulse Rate 96 105 H 79 Respiratory Rate 22 H Blood Pressure Pulse Oximetry 90 Oxygen Delivery Mechanical Ventilation Fraction of Inspired Oxygen 35 07/30/24 10:00 Temperature 36.4 C L Pulse Rate 83 Respiratory Rate 18 Blood Pressure 86/59 L Pulse Oximetry 94 Oxygen Delivery Fraction of Inspired Oxygen Intake/Output Intake/Output: Intake & Output 07/27/24 07/28/24 07/29/24 07/30/24 23:59 23:59 23:59 23:59 Intake Total 1684.3 2051 2040.8 1336.1 Output Total 365 363 9395 1100 Balance 734.3 1300 565.8 236.1 Meds/Results Medications: Active Medications Generic Name Dose Route Start Last Admin Trade Name Freq PRN Reason Stop Dose Admin Acetaminophen 650 mg 07/26/24 18:10 07/27/24 21:00 Acetaminophen 325 Mg Tablet FEED TUBE 650 mg Q4H PRN Administration Mild Pain (1-3) or Fever Albuterol/Ipratropium 3 ml 07/29/24 14:00 07/30/24 07:38 Ipratropium 0.5 Mg/Albuterol Sulfate 2.5 Mg Ampul.Neb 3 Ml INHALATION 3 ml Q6HRT RONDA Administration Dextrose 12.5 gm 07/23/24 20:33 Dextrose 50% 25 Gm/50 Ml Syringe IV PUSH PRN PRN Hypoglycemia Protocol Glucagon 1 mg 07/23/24 20:33 Glucagon For Inj 1 Mg Vial IM PRN PRN Hypoglycemia Protocol Glucose 15 gm 07/23/24 20:33 Glucose Oral Gel 15 Gm Of Glucse In 37.5 Gm Tube PO PRN PRN Hypoglycemia Protocol Heparin Sodium (Porcine) 5,000 units 07/29/24 09:00 07/30/24 08:10 Heparin Sodium 5,000 Units/Ml Vial SUB-Q Not Given Q12HR RONDA Hydrocortisone Sodium Succinate 75 mg 07/29/24 11:00 07/30/24 08:08 Hydrocortisone Sodium Succinate 100 Mg/2 Ml Vial IV PUSH 75 mg BID RONDA Administration Dextrose 1,000 mls @ 100 mls/hr 07/23/24 20:33 Dextrose 5% 1,000 Ml IVPB PRN PRN Hypoglycemia Protocol Cefepime HCl 2 gm in 50 mls @ 100 mls/hr 07/29/24 11:00 07/30/24 08:55 Maxipime 2 Gm/Ns 50 Ml IVPB 100 mls/hr Q12HR RONDA Administration Metronidazole 500 mg in 100 mls @ 100 mls/hr 07/29/24 12:00 07/30/24 05:50 Flagyl 500 Mg/Iso Soln 100 Ml IVPB Infused Q8HR RONDA Infusion Sodium Chloride 1,000 mls @ 60 mls/hr 07/29/24 12:10 07/30/24 06:11 Normal Saline Iv IV CONT 60 mls/hr .[id number] RONDA Administration Fentanyl Citrate 2,500 mcg in 250 mls @ 5 mls/hr 07/29/24 14:05 07/30/24 0 8:19 Fentanyl 2,500 Mcg/Ns 250 Ml IV CONT 50 mcg/hr .Q50H RONDA 5 mls/hr Titration Protocol 50 MCG/HR Midazolam HCl 100 mg in 100 mls @ 2 mls/hr 07/29/24 14:05 07/30/24 08:18 Versed 100 Mg/Ns 100 Ml IV CONT 2 mg/hr .Q50H RONDA 2 mls/hr Titration Protocol 2 MG/HR Albumin Human 100 mls @ 60 mls/hr 07/29/24 18:00 07/30/24 06:12 Albutein IVPB Infused Q6HR RONDA Infusion Norepinephrine Bitartrate 8 mg in 250 mls @ 9.375 mls/hr 07/30/24 08:00 Levophed 8 Mg/D5w 250 Ml IV CONT .Q24H RONDA Protocol 5 MCG/MIN Insulin Aspart 3 - 6 units 07/29/24 17:00 07/30/24 08:01 Insulin Aspart (*Bkc) 100 Units/Ml SUB-Q Not Given Q4HR [facility] Protocol Midazolam HCl 2 mg 07/29/24 14:04 Midazolam Hcl (*Crx) 2 Mg/2 Ml Vial IV PUSH Q5M PRN ventilator asynchrony Multi-Ingred Cream/Lotion/Oil/Oint 1 applic 07/29/24 21:00 07/30/24 08:09 Mineral Oil/White Petrolatum Ointment EACH EYE 1 applic Q12HR RONDA Administration Ondansetron HCl 4 mg 07/26/24 02:36 07/29/24 13:40 Ondansetron Inj 4 Mg/2 Ml Vial IV PUSH 4 mg Q6H PRN Administration Nausea And Vomiting Pantoprazole Sodium 40 mg 07/29/24 21:00 07/30/24 08:09 Pantoprazole Sodium Iv 40 Mg Vial IV PUSH 40 mg Q12HR RONDA Administration Sodium Chloride 10 ml 07/30/24 14:00 Central Line Flush IV PUSH Q8HR RONDA Sodium Chloride 10 ml 07/30/24 09:54 Central Line Flush IV PUSH PRN PRN with TPN bag changes Sodium Chloride 20 ml 07/30/24 09:54 Central Line Flush IV PUSH PRN PRN after blood draws Sucralfate 1,000 mg 07/16/24 16:30 07/30/24 04:59 Sucralfate Susp 100 Mg/Ml 10 Ml Udc PO 1,000 mg ACHS RONDA Administration Radiology Results: ITS Impressions Chest/Abdomen/Pelvis CTA 07/15/24 14:05 IMPRESSION: 1. No pulmonary embolus. 2. Emphysema and chronic interstitial lung disease. 3. Cirrhosis of the liver with portal venous hypertension. 4. Severe left kidney atrophy with chronic severe left hydronephrosis. Modified Barium Swallow 07/22/24 10:41 IMPRESSION: 1. Aspiration of thin liquids. 2. Please refer to the speech therapy report for recommendations. Brain MRI 07/23/24 15:44 IMPRESSION: 1. 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 Tube Placement 07/26/24 13:11 IMPRESSION: 1. Fluoroscopy guided nasoenteric tube placement with tip in the stomach. Abdomen/Pelvis CT 07/26/24 13:24 IMPRESSION: 1. Small volume of ascites. 2. Severe left kidney atrophy with chronic severe left hydronephrosis. 3. Small pleural effusions. 4. Small sliding hiatal hernia. Head CT 07/28/24 21:22 Impression: Stable CT examination of the brain, although limited by a significant amount of motion artifact without acute large intracranial hemorrhage or suspicious mass effect. Abdomen X-Ray 07/29/24 14:19 IMPRESSION: Cardiomegaly with cardiac decompensation and pulmonary edema Left basilar atelectasis versus pneumonia with minimal effusion. Chest/Abdomen/Pelvis CT 07/29/24 16:42 IMPRESSION: 1. Airspace opacities in the lower lobes, left worse than right, consistent with atelectasis versus pneumonia. 2. Small pleural effusions. 3. Moderate emphysema. 4. Portal venous gas and mesenteric vein gas. This finding is nonspecific, but can be seen with bowel ischemia or infarct. 5. Wall thickening in the ascending and transverse colon, which may be interstitial edema or colitis. 6. Cirrhosis of the liver. 7. Moderate volume of ascites. 8. Severe left kidney atrophy with chronic severe left hydronephrosis. ADDENDUM: 07/29/24 1299 I discussed the portal vein gas with the patient's ICU nurse. Chest X-Ray 07/30/24 09:57 IMPRESSION: 1. Lines and tubes in expected positions as detailed above. 2. Unchanged diffuse bilateral lung disease most prominent in the left lower lung zone which could represent atelectasis or pneumonia superimposed over emphysema. 3. Likely small left pleural effusion. Labs Labs: Laboratory Results - last 24 hr 07/24/24 07/29/24 07/29/24 15:44 11:07 11:38 WBC RBC Hgb Hct MCV MCH MCHC RDW Plt Count MPV Immature Gran % (Auto) Neut % (Auto) Lymph % (Auto) [place] % (Auto) Eos % (Auto) Baso % (Auto) Lymph # (Auto) [place] # (Auto) Eos # (Auto) Baso # (Auto) Abs Immat Gran (auto) Absolute Neuts (auto) Absolute Nucleated RBC Nucleated RBC % % Immature Plt Fraction PT INR APTT Fibrinogen Puncture Site Right radial ABG pH 7.413 ABG pCO2 27.1 L ABG pO2 65.4 L ABG PO2/FiO2 Ratio 2.34 ABG HCO3 16.9 L ABG O2 Saturation 93.5 L ABG O2 Content 17.4 ABG Base Excess -6.1 A-a Gradient 102.3 Oxyhemoglobin 91.6 Carboxyhemoglobin Methemoglobin Reduced Hemoglobin Total Hemoglobin 13.5 O2 Delivery Device Nasal cannula O2 Liters/Min 2.0 Minute Volume Vent Rate Vent Mode FiO2 28 Tidal Volume PEEP Peak Inspir Pressure Pressure Support Sodium Potassium Chloride Carbon Dioxide Anion Gap BUN Creatinine Estim Creat Clear Calc Estimated GFR Glucose POC Capillary Glucose 210 H Lactic Acid Calcium Magnesium Total Bilirubin AST ALT Alkaline Phosphatase Ammonia Troponin I Total Protein Albumin Vitamin B1 908 H Vitamin B6 3.5 Urine Color Urine Appearance Urine pH Ur Specific [place] Urine Protein Urine Glucose (UA) Urine Ketones Ur Blood (Man) Urine Nitrate Urine Bilirubin Urine Urobilinogen Leukocyte Esterase Rfl Urine RBC Urine WBC Ur Squamous Epith Cells Urine Bacteria Urine Casts C. difficile (PCR) 07/29/24 07/29/24 07/29/24 11:55 12:36 14:30 WBC RBC Hgb Hct MCV MCH MCHC RDW Plt Count MPV Immature Gran % (Auto) Neut % (Auto) Lymph % (Auto) [place] % (Auto) Eos % (Auto) Baso % (Auto) Lymph # (Auto) [place] # (Auto) Eos # (Auto) Baso # (Auto) Abs Immat Gran (auto) Absolute Neuts (auto) Absolute Nucleated RBC Nucleated RBC % % Immature Plt Fraction PT 16.8 H INR 1.3 APTT Fibrinogen Puncture Site Left radial ABG pH 7.320 L ABG pCO2 33.9 L ABG pO2 243.4 H ABG PO2/FiO2 Ratio 2.43 ABG HCO3 17.1 L ABG O2 Saturation 99.5 ABG O2 Content 19.8 ABG Base Excess -8.0 A-a Gradient 435.7 Oxyhemoglobin 99.1 Carboxyhemoglobin Methemoglobin Reduced Hemoglobin Total Hemoglobin 13.8 O2 Delivery Device Ventilator O2 Liters/Min Not Reportable Minute Volume Not Reportable Vent Rate 18 Vent Mode Cmv FiO2 100 Tidal Volume 450 PEEP 5 Peak Inspir Pressure Not Reportable Pressure Support Not Reportable Sodium 141 Potassium 3.9 Chloride 117 H Carbon Dioxide 14 L Anion Gap 10 BUN 22 H Creatinine 1.80 H Estim Creat Clear Calc 40 Estimated GFR 39 L Glucose 176 H POC Capillary Glucose Lactic Acid Calcium 8.3 L Magnesium Total Bilirubin AST ALT Alkaline Phosphatase Ammonia Troponin I Total Protein Albumin Vitamin B1 Vitamin B6 Urine Color Yellow Urine Appearance Cloudy H Urine pH 6.0 Ur Specific [place] 1.020 Urine Protein 2+ H Urine Glucose (UA) Trace H Urine Ketones Negative Ur Blood (Man) Trace Urine Nitrate Negative Urine Bilirubin Negative Urine Urobilinogen 0.2 Leukocyte Esterase Rfl Trace H Urine RBC 3-5 H Urine WBC 0-5 Ur Squamous Epith Cells Few Urine Bacteria None seen Urine Casts 3-5 C. difficile (PCR) 07/29/24 07/29/24 07/29/24 14:36 14:41 17:09 WBC RBC Hgb Hct MCV MCH MCHC RDW Plt Count MPV Immature Gran % (Auto) Neut % (Auto) Lymph % (Auto) [place] % (Auto) Eos % (Auto) Baso % (Auto) Lymph # (Auto) [place] # (Auto) Eos # (Auto) Baso # (Auto) Abs Immat Gran (auto) Absolute Neuts (auto) Absolute Nucleated RBC Nucleated RBC % % Immature Plt Fraction PT INR APTT Fibrinogen Puncture Site ABG pH ABG pCO2 ABG pO2 ABG PO2/FiO2 Ratio ABG HCO3 ABG O2 Saturation ABG O2 Content ABG Base Excess A-a Gradient Oxyhemoglobin Carboxyhemoglobin Methemoglobin Reduced Hemoglobin Total Hemoglobin O2 Delivery Device O2 Liters/Min Minute Volume Vent Rate Vent Mode FiO2 Tidal Volume PEEP Peak Inspir Pressure Pressure Support Sodium Potassium Chloride Carbon Dioxide Anion Gap BUN Creatinine Estim Creat Clear Calc Estimated GFR Glucose POC Capillary Glucose 139 H Lactic Acid Calcium Magnesium Total Bilirubin AST ALT Alkaline Phosphatase Ammonia Troponin I 1.080 H* Total Protein Albumin Vitamin B1 Vitamin B6 Urine Color Urine Appearance Urine pH Ur Specific [place] Urine Protein Urine Glucose (UA) Urine Ketones Ur Blood (Man) Urine Nitrate Urine Bilirubin Urine Urobilinogen Leukocyte Esterase Rfl Urine RBC Urine WBC Ur Squamous Epith Cells Urine Bacteria Urine Casts C. difficile (PCR) Negative 07/29/24 07/29/24 07/30/24 17:11 20:31 01:16 WBC 24.4 H RBC 4.88 Hgb 13.4 L Hct 43.2 MCV 88.5 MCH 27.5 MCHC 31.0 L RDW 17.3 H Plt Count 114 L MPV 12.7 H Immature Gran % (Auto) Neut % (Auto) Lymph % (Auto) [place] % (Auto) Eos % (Auto) Baso % (Auto) Lymph # (Auto) [place] # (Auto) Eos # (Auto) Baso # (Auto) Abs Immat Gran (auto) Absolute Neuts (auto) Absolute Nucleated RBC Nucleated RBC % % Immature Plt Fraction PT 16.7 H INR 1.3 APTT 27.9 Fibrinogen 409 Puncture Site ABG pH ABG pCO2 ABG pO2 ABG PO2/FiO2 Ratio ABG HCO3 ABG O2 Saturation ABG O2 Content ABG Base Excess A-a Gradient Oxyhemoglobin Carboxyhemoglobin Methemoglobin Reduced Hemoglobin Total Hemoglobin O2 Delivery Device O2 Liters/Min Minute Volume Vent Rate Vent Mode FiO2 Tidal Volume PEEP Peak Inspir Pressure Pressure Support Sodium 141 Potassium 3.8 Chloride 119 H Carbon Dioxide 15 L Anion Gap 7 BUN 25 H Creatinine 2.00 H Estim Creat Clear Calc 36 Estimated GFR 34 L Glucose 133 H POC Capillary Glucose 111 H 117 H Lactic Acid 2.0 Calcium 8.3 L Magnesium 2.2 Total Bilirubin 1.4 H AST 37 ALT 20 Alkaline Phosphatase 79 Ammonia 54 H Troponin I Total Protein 6.0 L Albumin 2.5 L Vitamin B1 Vitamin B6 Urine Color Urine Appearance Urine pH Ur Specific [place] Urine Protein Urine Glucose (UA) Urine Ketones Ur Blood (Man) Urine Nitrate Urine Bilirubin Urine Urobilinogen Leukocyte Esterase Rfl Urine RBC Urine WBC Ur Squamous Epith Cells Urine Bacteria Urine Casts C. difficile (PCR) 07/30/24 07/30/24 07/30/24 04:25 04:58 07:50 WBC 14.2 H RBC 3.79 L Hgb 10.5 L Hct 34.4 L MCV 90.8 MCH 27.7 MCHC 30.5 L RDW 17.3 H Plt Count 69 L MPV 13.3 H Immature Gran % (Auto) 0.5 Neut % (Auto) 86.4 H Lymph % (Auto) 6.1 L [place] % (Auto) 6.9 Eos % (Auto) 0.0 Baso % (Auto) 0.1 L Lymph # (Auto) 0.87 L [place] # (Auto) 1.0 H Eos # (Auto) 0.0 Baso # (Auto) 0.0 Abs Immat Gran (auto) 0.07 H Absolute Neuts (auto) 12.2 H Absolute Nucleated RBC 0.020 H Nucleated RBC % 0.1 % Immature Plt Fraction 9.2 PT INR APTT Fibrinogen Puncture Site Left radial ABG pH 7.408 ABG pCO2 35.1 ABG pO2 84.9 ABG PO2/FiO2 Ratio 2.83 ABG HCO3 21.6 L ABG O2 Saturation 96.6 ABG O2 Content 13.3 L ABG Base Excess -2.6 A-a Gradient 87.8 Oxyhemoglobin 94.9 Carboxyhemoglobin 0.7 Methemoglobin 0.3 Reduced Hemoglobin 4.1 Total Hemoglobin 9.9 L O2 Delivery Device Ventilator O2 Liters/Min Not Reportable Minute Volume Not Reportable Vent Rate 18 Vent Mode Cmv FiO2 30 Tidal Volume 450 PEEP 5 Peak Inspir Pressure Not Reportable Pressure Support Not Reportable Sodium 144 Potassium 4.2 Chloride 114 H Carbon Dioxide 23 Anion Gap 7 BUN 31 H Creatinine 2.00 H Estim Creat Clear Calc 36 Estimated GFR 34 L Glucose 113 H POC Capillary Glucose 98 Lactic Acid Calcium 8.6 Magnesium 2.0 Total Bilirubin 1.6 H AST 43 ALT 18 Alkaline Phosphatase 36 L Ammonia Troponin I Total Protein 6.0 L Albumin 2.9 L Vitamin B1 Vitamin B6 Urine Color Urine Appearance Urine pH Ur Specific [place] Urine Protein Urine Glucose (UA) Urine Ketones Ur Blood (Man) Urine Nitrate Urine Bilirubin Urine Urobilinogen Leukocyte Esterase Rfl Urine RBC Urine WBC Ur Squamous Epith Cells Urine Bacteria Urine Casts C. difficile (PCR) Quality VTE Prophylaxis VTE prophylaxis: mechanical ordered and pharmacologic ordered
[2024-07-30] MEDS: NOREPINEPHRINE 8 MG/D5W 250 ML 8 MG/250 ML BAG 9.38 MG IV CONT (11:15)
--- NOTE | 2024-07-30 11:15 | WPDPROCEDUR ---
Procedures Intubation Intubation Date: 07/30/24 Intubation Time: 08:40 Consent: patient was already intubated. With malfunctioning of ETT ET tube had to be changed emergently A pre-procedural Time-Out was completed immediately before starting the procedure and confirmed: Patient Identification, Site, Procedure, Patient Position and the Availability of Requisite Equipment: Yes Sedative: etomidate Mg given: 20 Assist device used: Bougie ET tube size: cuffed Tube secured depth (cm): 22 Tube secured location: lips Tube placement confirmation: equal breath sounds bilaterally, no breath sounds over epigastrium and confirmation by capnometry Patient tolerated procedure: well Intubation complications: none
[2024-07-30 11:50] LABS: Glucose Point of Care 108 mg/dl (65-105)
--- NOTE | 2024-07-30 13:34 | PCFNICU ---
ICU Rounding Note: Pt current nutrition is NPO. Nutrition recommendation: no recommendations at this time. Last recorded weight is 79.9 kg. Bowel Motility: FMS Labs Reviewed:Glu 135, GFR 39, K 2.8 Meds Noted: Fentanyl, Levophed, Versed, NS, Protonix. Skin: WNL Additional Notes: Patient transferred from IMU. Now intubated and DNR. Plans for withdraw of care later this afternoon. Following daily in ICU rounds. Will monitor weight, labs, skin, oral intake, meds every 3 days.
[2024-07-30] MEDS: CENTRAL LINE FLUSH 10 ML IV PUSH (14:02)
[2024-07-30] MEDS: LORazepam INJ (*CRX) 2 MG/ML VIAL IV PUSH ×4 (16:03→19:36)
[2024-07-30] MEDS: MORPHINE SULFATE INJ (*CRX) 10 MG/ML AMP 5 MG IV PUSH (16:04)
[2024-07-30] MEDS: MORPHINE SULFATE (*CRX) 2 MG/ML INJ 5 MG IV PUSH ×3 (17:16→19:35)
--- NOTE | 2024-07-30 17:33 | P.PNIM_ITS ---
Progress Note: A&P Assessment and Plan (1) Acute hypoxic respiratory failure: Code(s): J96.01 - Acute respiratory failure with hypoxia Status: Acute Assessment and Plan: * currently extubated and on room air * comfort measures in place per family request * currently DNR DNI (2) Aspiration pneumonia: Code(s): J69.0 - Pneumonitis due to inhalation of food and vomit Status: Acute Assessment and Plan: * CXR showing pneumonia likely secondary to aspiration * antibiotic stopped at this time as patient is now comfort (3) Leukocytosis: Code(s): D72.829 - Elevated white blood cell count, unspecified Status: Acute Assessment and Plan: * currently on comfort measures only (4) Altered mental status: Code(s): R41.82 - Altered mental status, unspecified Status: Acute Assessment and Plan: * currently on comfort measures only (5) Intractable nausea: Code(s): R11.0 - Nausea Status: Acute Assessment and Plan: * CT of the chest abdomen and pelvis suggesting ischemic bowel * general surgery was consulted and deemed him not a candidate for surgery due to his comorbidities and mortality rate. He currently had a mortality rate of greater than 70% overall he and it was likely he would not be able to live through the surgery * slip cover estimator spoke with family about hospice comfort and they are agreeable to make him DNR DNI with comfort measures only once family arrived. * He was extubated to room air with family at the bedside and comfort measures were started at 4:00 p.m. today (6) Portal hypertension with esophageal varices: Code(s): K76.6 - Portal hypertension; I85.00 - Esophageal varices without bleeding Status: Acute Assessment and Plan: of note (7) Hypokalemia: Code(s): E87.6 - Hypokalemia Status: Acute Assessment and Plan: * currently on comfort (8) Ischemic colitis: Code(s): K55.9 - Vascular disorder of intestine, unspecified Status: Acute Assessment and Plan: ( copy forward per slip cover estimator) yesterday post intubation and resuscitation patient was sent down for CT scan of abdomen as patient was having watery diarrhea. CT scan showed portal venous gas and mesenteric vein gas there was also wall thickening of ascending and t ransverse colon which was suggestive of colitis or edema. contrast was not administered due to elevated creatinine Patient was having diarrhea nausea vomiting prior to presentation. His C diff was negative. He was started on cefepime and Flagyl. patient's lactic acid was only 2.0. general surgery was consulted and I spoke to Dr. Alvares yesterday evening by phone on 07/29 he felt that the patient was too high risk for any surgery. With high risk of mortality. He recommended antibiotics and conservative supportive management. Echo done this morning showed thrombus and LV which can explain the the embolic ischemic colitis. Patient is not a candidate for anticoagulation considering patient has varices with bloody aspirate coming out of OG tube and thrombocytopenia. all these thin gs were discussed with patient's and during the discussion for goals of care. At this point she has decided to proceed with palliative extubation and comfort care once family is is ready until then she wants to continue supportive care with no further escalation in treatment (9) LV (left ventricular) mural thrombus: Code(s): I51.3 - Intracardiac thrombosis, not elsewhere classified Status: Acute Assessment and Plan: ( copy forward per slip cover estimator) Echo showed small apical thrombus with extension of spontaneous echo contrast suggesting precursor for large thrombus. This may be the etiology of patient's ischemic colitis. Anticoagulation is going to be complicated this patient considering patient has varices, anemia, thrombocytopenia and gradually dropping hemoglobin. Results of echo and treatment plan was discussed with patient's and son. As mentioned below they they want to continue current supportive measures with no further escalation plan to proceed with palliative care later today Summary 1. Definity contrast administered improved wall motion interpretation. 2. Left ventricular chamber dimension is moderately enlarged. 3. Left ventricular systolic function is severely reduced, estimated at 20- 25%. 4. Mid to apical LV segments are severely hypokinetic to akinetic w th apical akinesis. Basal segments have normal contractility. This is suggestive of Takotsubo cardiomyopathy. 5. Small apical thrombus noted with extension of spontaneous echo contrast suggesting precursor for large thrombus formation. 6. The left ventricular diastolic function is abnormal. 7. E/e' 16 is elevated. 8. There is trace mitral valve regurgitation. 9. No pulmonary hypertension, estimated pulmonary arterial systolic pressure is 15 mmHg * patient made comfort measures only and was extubated around 4:00 p.m. today with family at the bedside Time Spent With Patient Time with patient: Greater than 35 minutes Subjective Date/time seen: 07/30/24 17:33 Interval history: 07/29/24: Patient was reported to be tachycardic with facial droop overnight. He was given a 1L NS bolus and was sent for CT of the brain which did not show any acute changes. His WBC went from 9.3> 19.7>21.5 today. He is on steroids which could be the cause of the bump in his WBC however we went ahead and got blood cultures. Steroids decreased today. Patient remains tachycardic however appears to be net even on I and O. Was informed by nursing that he vomited x2 overnight and tube feeding was held. CXR suggesting LLL pneumonia. He was started on Flagyl and Cefepime today. Patient is very weak and lethargic at the time of my assessment, worse than the day before. Orders placed for lumbar puncture and STD panel considering his mental status has not improved significantly. Then around 1345 today I was called to the bedside by nursing after patient vomited a large amount and he became completely unresponsive and lethargic with O2 saturations of 55%. We bagged him with 100% oxygen and called slip cover estimator for intubation as patient is not able to protect his airway. Dr. Reaves responded and verbal report was given to him regarding past history of presenting illness and events leading up to today. Patient was transferred to the ICU for higher level of care. Family was notified. 07/30/24: patient currently intubated and sedated with fentanyl and Versed. Costume Cutter consulted and assisting with care. Labs and imaging reviewed. Dr. Reaves spoke with the family about current condition with new CT findings of ischemic bowel and that he is not a candidate for surgical repair as he is currently at a 70% mortality rate and would not likely survive surgical intervention. He was also found to have an apical thrombus suggesting takotsubo cardiomyopathy with an EF of 20-25% and elevated troponins. It was decided to make him DNR DNI I with plans to extubate and terminally wean. He was extubated around 4:00 p.m. today when family arrived and is currently on comfort measures. Review of Systems Review of Systems: ROS unobtainable: Yes unobtainable due to medical condition and unobtainable due to mental status Exam Narrative: General:chronically ill appearing, lethargic Head: metabolic encephalopathy Cardiac: No murmur, gallops or friction rubs, peripheral pulses intact. Respiratory: Slightly coarse : Pemberton catheter in place clear, yellow Neuro: Unresponsive Objective Data Vital Signs Vital Signs: Vital Signs - 24 hr 07/29/24 17:44 07/29/24 17:45 07/29/24 18:00 Temperature Pulse Rate 112 H 111 H 109 H Respiratory Rate 22 H 22 H Blood Pressure Pulse Oximetry Oxygen Delivery Fraction of Inspired Oxygen 07/29/24 18:00 07/29/24 18:08 07/29/24 18:08 Temperature 98.8 F Pulse Rate 109 H 110 H 110 H Respiratory Rate 23 H 22 H 22 H Blood Pressure 91/73 L Pulse Oximetry 99 Oxygen Delivery Fraction of Inspired Oxygen 07/29/24 19:53 07/29/24 19:57 07/29/24 19:57 Temperature Pulse Rate 106 H 106 H Respiratory Rate 22 H Blood Pressure Pulse Oximetry 100 Oxygen Delivery Mechanical Ventilation Fraction of Inspired Oxygen 30 30 07/29/24 20:00 07/29/24 20:52 07/29/24 21:01 Temperature 97.8 F Pulse Rate 106 H 107 H 106 H Respiratory Rate 20 20 18 Blood Pressure 105/77 Pulse Oximetry 100 Oxygen Delivery Fraction of Inspired Oxygen 07/29/24 20:00 07/29/24 20:00 07/29/24 21:44 Temperature Pulse Rate 107 H 107 H 105 H Respiratory Rate 22 H 22 H Blood Pressure Pulse Oximetry Oxygen Delivery Fraction of Inspired Oxygen 07/29/24 22:00 07/29/24 22:00 07/29/24 22:00 Temperature 98 F Pulse Rate 105 H 104 H 104 H Respiratory Rate 21 H 22 H 22 H Blood Pressure 105/77 Pulse Oximetry 100 Oxygen Delivery Fraction of Inspired Oxygen 07/29/24 23:06 07/29/24 20:30 07/29/24 23:48 Temperature Pulse Rate 103 H 104 H 103 H Respiratory Rate 19 Blood Pressure Pulse Oximetry 100 100 100 Oxygen Delivery Mechanical Ventilation Mechanical Ventilation Mechanical Ventilation Fraction of Inspired Oxygen 30 30 30 07/29/24 23:51 07/29/24 23:51 07/30/24 00:00 Temperature 98 F Pulse Rate 103 H 102 H Respiratory Rate 18 Blood Pressure 130/88 Pulse Oximetry 100 Oxygen Delivery Fraction of Inspired Oxygen 30 07/30/24 00:00 07/30/24 00:00 07/30/24 02:04 Temperature Pulse Rate 102 H 102 H 88 Respiratory Rate 22 H 22 H 18 Blood Pressure Pulse Oximetry Oxygen Delivery Fraction of Inspired Oxygen 07/30/24 02:06 07/30/24 02:11 07/30/24 02:00 Temperature Pulse Rate 88 87 88 Respiratory Rate 18 Blood Pressure Pulse Oximetry 100 Oxygen Delivery Mechanical Ventilation Fraction of Inspired Oxygen 30 07/30/24 02:00 07/30/24 02:00 07/30/24 02:14 Temperature 97.5 F L Pulse Rate 86 88 86 Respiratory Rate 18 18 18 Blood Pressure 95/65 L Pulse Oximetry 100 Oxygen Delivery Fraction of Inspired Oxygen 07/30/24 04:00 07/30/24 04:00 07/30/24 04:00 Temperature Pulse Rate 93 93 Respiratory Rate 18 Blood Pressure Pulse Oximetry 100 Oxygen Delivery Mechanical Ventilation Fraction of Inspired Oxygen 30 30 07/30/24 04:00 07/30/24 04:08 07/30/24 04:09 Temperature 97.4 F L Pulse Rate 92 93 92 Respiratory Rate 18 18 18 Blood Pressure 102/75 Pulse Oximetry 92 Oxygen Delivery Fraction of Inspired Oxygen 07/30/24 06:00 07/30/24 06:00 07/30/24 06:00 Temperature 97.1 F L Pulse Rate 82 83 83 Respiratory Rate 19 19 Blood Pressure 89/64 L Pulse Oximetry 94 Oxygen Delivery Fraction of Inspired Oxygen 07/30/24 06:00 07/30/24 05:30 07/30/24 07:39 Temperature Pulse Rate 82 88 80 Respiratory Rate 19 Blood Pressure Pulse Oximetry 100 97 Oxygen Delivery Mechanical Ventilation Mechanical Ventilation Fraction of Inspired Oxygen 30 30 07/30/24 07:39 07/30/24 07:54 07/30/24 08:18 Temperature Pulse Rate 80 66 105 H Respiratory Rate 19 20 23 H Blood Pressure Pulse Oximetry Oxygen Delivery Fraction of Inspired Oxygen 07/30/24 08:19 07/30/24 08:00 07/30/24 08:00 Temperature 97.1 F L Pulse Rate 105 H 98 Respiratory Rate 22 H 18 Blood Pressure 108/67 Pulse Oximetry 90 Oxygen Delivery Fraction of Inspired Oxygen 30 07/30/24 09:37 07/30/24 08:00 07/30/24 08:00 Temperature Pulse Rate 96 105 H Respiratory Rate 22 H Blood Pressure Pulse Oximetry 90 Oxygen Delivery Mechanical Ventilation Fraction of Inspired Oxygen 35 35 07/30/24 10:00 07/30/24 10:00 07/30/24 10:00 Temperature Pulse Rate 79 80 80 Respiratory Rate 21 H 21 H Blood Pressure Pulse Oximetry Oxygen Delivery Fraction of Inspired Oxygen 07/30/24 10:00 07/30/24 11:15 07/30/24 12:03 Temperature 97.5 F L Pulse Rate 83 79 64 Respiratory Rate 18 Blood Pressure 86/59 L 78/55 L 115/70 Pulse Oximetry 94 Oxygen Delivery Fraction of Inspired Oxygen 07/30/24 12:00 07/30/24 12:00 07/30/24 12:00 Temperature 97.6 F Pulse Rate 63 63 65 Respiratory Rate 21 H 21 H 24 H Blood Pressure 115/70 Pulse Oximetry 96 Oxygen Delivery Fraction of Inspired Oxygen 07/30/24 12:00 07/30/24 12:00 07/30/24 12:00 Temperature Pulse Rate 64 64 Respiratory Rate 21 H Blood Pressure Pulse Oximetry 96 Oxygen Delivery Mechanical Ventilation Fraction of Inspired Oxygen 35 35 07/30/24 08:47 07/30/24 11:20 07/30/24 13:11 Temperature Pulse Rate 93 79 61 Respiratory Rate Blood Pressure 104/70 Pulse Oximetry 96 96 Oxygen Delivery Mechanical Ventilation Mechanical Ventilation Fraction of Inspired Oxygen 30 35 07/30/24 13:33 07/30/24 13:33 07/30/24 13:39 Temperature Pulse Rate 61 61 62 Respiratory Rate 18 18 Blood Pressure Pulse Oximetry 97 Oxygen Delivery Mechanical Ventilation Fraction of Inspired Oxygen 35 07/30/24 14:00 07/30/24 14:00 07/30/24 14:00 Temperature Pulse Rate 58 L 60 58 L Respiratory Rate 18 18 Blood Pressure 100/66 Pulse Oximetry 97 Oxygen Delivery Fraction of Inspired Oxygen 07/30/24 14:00 07/30/24 14:00 07/30/24 15:02 Temperature Pulse Rate 60 60 63 Respiratory Rate 18 Blood Pressure 100/66 111/66 Pulse Oximetry Oxygen Delivery Fraction of Inspired Oxygen 07/30/24 16:10 07/30/24 16:10 07/30/24 16:10 Temperature Pulse Rate 81 81 81 Respiratory Rate 20 20 Blood Pressure 111/66 Pulse Oximetry Oxygen Delivery Fraction of Inspired Oxygen 07/30/24 16:10 Temperature Pulse Rate Respiratory Rate Blood Pressure Pulse Oximetry Oxygen Delivery Room Air Fraction of Inspired Oxygen Intake/Output Intake/Output: Intake & Output 07/27/24 07/28/24 07/29/24 07/30/24 23:59 23:59 23:59 23:59 Intake Total 1684.3 2051 2040.8 1421.6 Output Total 745 539 6080 1100 Balance 734.3 1300 565.8 321.6 Meds/Results Medications: Active Medications Generic Name Dose Route Start Last Admin Trade Name Freq PRN Reason Stop Dose Admin Lorazepam 2 mg 07/30/24 15:50 07/30/24 17:16 Lorazepam Inj (*Crx) 2 Mg/Ml Vial IV PUSH 2 mg Q1H PRN Administration Anxiety/Comfort Morphine Sulfate 5 mg 07/30/24 15:50 07/30/24 17:16 Morphine Sulfate (*Crx) 2 Mg/Ml Inj IV PUSH 5 mg Q30M PRN Administration COMFORT Radiology Results: ITS Impressions Chest/Abdomen/Pelvis CTA 07/15/24 14:05 IMPRESSION: 1. No pulmonary embolus. 2. Emphysema and chronic interstitial lung disease. 3. Cirrhosis of the liver with portal venous hypertension. 4. Severe left kidney atrophy with chronic severe left hydronephrosis. Modified Barium Swallow 07/22/24 10:41 IMPRESSION: 1. Aspiration of thin liquids. 2. Please refer to the speech therapy report for recommendations. Brain MRI 07/23/24 15:44 IMPRESSION: 1. 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 Tube Placement 07/26/24 13:11 IMPRESSION: 1. Fluoroscopy guided nasoenteric tube placement with tip in the stomach. Abdomen/Pelvis CT 07/26/24 13:24 IMPRESSION: 1. Small volume of ascites. 2. Severe left kidney atrophy with chronic severe left hydronephrosis. 3. Small pleural effusions. 4. Small sliding hiatal hernia. Head CT 07/28/24 21:22 Impression: Stable CT examination of the brain, although limited by a significant amount of motion artifact without acute large intracranial hemorrhage or suspicious mass effect. Abdomen X-Ray 07/29/24 14:19 IMPRESSION: Cardiomegaly with cardiac decompensation and pulmonary edema Left basilar atelectasis versus pneumonia with minimal effusion. Chest/Abdomen/Pelvis CT 07/29/24 16:42 IMPRESSION: 1. Airspace opacities in the lower lobes, left worse than right, consistent with atelectasis versus pneumonia. 2. Small pleural effusions. 3. Moderate emphysema. 4. Portal venous gas and mesenteric vein gas. This finding is nonspecific, but can be seen with bowel ischemia or infarct. 5. Wall thickening in the ascending and transverse colon, which may be interstitial edema or colitis. 6. Cirrhosis of the liver. 7. Moderate volume of ascites. 8. Severe left kidney atrophy with chronic severe left hydronephrosis. ADDENDUM: 07/29/24 [id number] I discussed the portal vein gas with the patient's ICU nurse. Chest X-Ray 07/30/24 09:57 IMPRESSION: 1. Lines and tubes in expected positions as detailed above. 2. Unchanged diffuse bilateral lung disease most prominent in the left lower lung zone which could represent atelectasis or pneumonia superimposed over emphysema. 3. Likely small left pleural effusion. Labs Labs: Laboratory Results - last 24 hr 07/24/24 07/29/24 07/29/24 15:44 17:09 17:11 WBC RBC Hgb Hct MCV MCH MCHC RDW Plt Count MPV Immature Gran % (Auto) Neut % (Auto) Lymph % (Auto) [place] % (Auto) Eos % (Auto) Baso % (Auto) Lymph # (Auto) [place] # (Auto) Eos # (Auto) Baso # (Auto) Abs Immat Gran (auto) Absolute Neuts (auto) Absolute Nucleated RBC Nucleated RBC % % Immature Plt Fraction PT 16.7 H INR 1.3 APTT 27.9 Fibrinogen 409 Puncture Site ABG pH ABG pCO2 ABG pO2 ABG PO2/FiO2 Ratio ABG HCO3 ABG O2 Saturation ABG O2 Content ABG Base Excess A-a Gradient Oxyhemoglobin Carboxyhemoglobin Methemoglobin Reduced Hemoglobin Total Hemoglobin O2 Delivery Device O2 Liters/Min Minute Volume Vent Rate Vent Mode FiO2 Tidal Volume PEEP Peak Inspir Pressure Pressure Support Sodium 141 Potassium 3.8 Chloride 119 H Carbon Dioxide 15 L Anion Gap 7 BUN 25 H Creatinine 2.00 H Estim Creat Clear Calc 36 Estimated GFR 34 L Glucose 133 H POC Capillary Glucose Calcium 8.3 L Magnesium 2.2 Total Bilirubin 1.4 H AST 37 ALT 20 Alkaline Phosphatase 79 Troponin I 1.080 H* Total Protein 6.0 L Albumin 2.5 L Vitamin B1 908 H 07/29/24 07/30/24 07/30/24 20:31 01:16 04:25 WBC 14.2 H RBC 3.79 L Hgb 10.5 L Hct 34.4 L MCV 90.8 MCH 27.7 MCHC 30.5 L RDW 17.3 H Plt Count 69 L MPV 13.3 H Immature Gran % (Auto) 0.5 Neut % (Auto) 86.4 H Lymph % (Auto) 6.1 L [place] % (Auto) 6.9 Eos % (Auto) 0.0 Baso % (Auto) 0.1 L Lymph # (Auto) 0.87 L [place] # (Auto) 1.0 H Eos # (Auto) 0.0 Baso # (Auto) 0.0 Abs Immat Gran (auto) 0.07 H Absolute Neuts (auto) 12.2 H Absolute Nucleated RBC 0.020 H Nucleated RBC % 0.1 % Immature Plt Fraction 9.2 PT INR APTT Fibrinogen Puncture Site ABG pH ABG pCO2 ABG pO2 ABG PO2/FiO2 Ratio ABG HCO3 ABG O2 Saturation ABG O2 Content ABG Base Excess A-a Gradient Oxyhemoglobin Carboxyhemoglobin Methemoglobin Reduced Hemoglobin Total Hemoglobin O2 Delivery Device O2 Liters/Min Minute Volume Vent Rate Vent Mode FiO2 Tidal Volume PEEP Peak Inspir Pressure Pressure Support Sodium 144 Potassium 4.2 Chloride 114 H Carbon Dioxide 23 Anion Gap 7 BUN 31 H Creatinine 2.00 H Estim Creat Clear Calc 36 Estimated GFR 34 L Glucose 113 H POC Capillary Glucose 111 H 117 H Calcium 8.6 Magnesium 2.0 Total Bilirubin 1.6 H AST 43 ALT 18 Alkaline Phosphatase 36 L Troponin I Total Protein 6.0 L Albumin 2.9 L Vitamin B1 07/30/24 07/30/24 07/30/24 04:58 07:50 11:35 WBC RBC Hgb Hct MCV MCH MCHC RDW Plt Count MPV Immature Gran % (Auto) Neut % (Auto) Lymph % (Auto) [place] % (Auto) Eos % (Auto) Baso % (Auto) Lymph # (Auto) [place] # (Auto) Eos # (Auto) Baso # (Auto) Abs Immat Gran (auto) Absolute Neuts (auto) Absolute Nucleated RBC Nucleated RBC % % Immature Plt Fraction PT INR APTT Fibrinogen Puncture Site Left radial ABG pH 7.408 ABG pCO2 35.1 ABG pO2 84.9 ABG PO2/FiO2 Ratio 2.83 ABG HCO3 21.6 L ABG O2 Saturation 96.6 ABG O2 Content 13.3 L ABG Base Excess -2.6 A-a Gradient 87.8 Oxyhemoglobin 94.9 Carboxyhemoglobin 0.7 Methemoglobin 0.3 Reduced Hemoglobin 4.1 Total Hemoglobin 9.9 L O2 Delivery Device Ventilator O2 Liters/Min Not Reportable Minute Volume Not Reportable Vent Rate 18 Vent Mode Cmv FiO2 30 Tidal Volume 450 PEEP 5 Peak Inspir Pressure Not Reportable Pressure Support Not Reportable Sodium Potassium Chloride Carbon Dioxide Anion Gap BUN Creatinine Estim Creat Clear Calc Estimated GFR Glucose POC Capillary Glucose 98 108 H Calcium Magnesium Total Bilirubin AST ALT Alkaline Phosphatase Troponin I Total Protein Albumin Vitamin B1 Quality VTE Prophylaxis VTE prophylaxis: mechanical ordered and pharmacologic ordered
[2024-07-31 16:44] LABS: West Nile Virus, IgM <0.90 index
--- NOTE | 2024-08-03 15:48 | PM.DDS ---
Discharge Summary Date and Time Date of : 07/30/24 Time of : 20:20 Provider Pronounced By: 2 RNs Name of First RN That Pronounced: Sally Conway RN Name of Second RN That Pronounced: Gerardo Recinos RN Additional Data Confirmation of as documented by pronouncing clinician: Pupillary Reflex, Palpable Pulses, Response to Stimuli, Heart Tones and Breath Sounds Name of Provider Notified: Dr. Del Angel Time Provider Notified: 21:10 Provider Requests Autopsy: No Family Requests Autopsy: No [employer] Engineer Notified: Yes Date [facility] Notified of : 07/30/24 Time [facility] Notified of : 21:24
== END 2024-07-30 20:20 | disposition expired | DRG 393 ==
LOC: ANHED 18:26 → ANH2MED 20:21 → ANHIMU 07-27 10:01 → ANHICU 07-29 13:51
PROVIDERS: Internal Medicine; Internal Medicine Gastroenterology; Nurse Practitioner Adult Health; Nurse Practitioner Gerontology; Physician Assistant; Psychiatry & Neurology Neurology; Registered Nurse; Admitting Provider Internal Medicine; Emergency Provider Emergency Medicine; PCP Family Medicine; Visit Provider Nurse Practitioner Acute Care
PROC: 0DJ08ZZ Inspection of Upper Intestinal Tract, Via Natural or Artificial Opening Endoscopic (ICD-10-PCS; CPT 43235; principal; 2024-07-18 13:00)
DX: K55.039 Acute (reversible) ischemia of large intestine, extent unspecified (principal); G93.41 Metabolic encephalopathy; J69.0 Pneumonitis due to inhalation of food and vomit; J96.01 Acute respiratory failure with hypoxia; K76.6 Portal hypertension; I85.00 Esophageal varices without bleeding; N13.30 Unspecified hydronephrosis; E46 Unspecified protein-calorie malnutrition; I51.81 Takotsubo syndrome; J95.812 Postprocedural air leak; D72.829 Elevated white blood cell count, unspecified; I51.3 Intracardiac thrombosis, not elsewhere classified; E87.6 Hypokalemia; K44.9 Diaphragmatic hernia without obstruction or gangrene; N18.32 Chronic kidney disease, stage 3b; K70.30 Alcoholic cirrhosis of liver without ascites; J44.9 Chronic obstructive pulmonary disease, unspecified; N40.0 Benign prostatic hyperplasia without lower urinary tract symptoms; M06.9 Rheumatoid arthritis, unspecified; F41.9 Anxiety disorder, unspecified; E55.9 Vitamin D deficiency, unspecified; N26.1 Atrophy of kidney (terminal); I95.9 Hypotension, unspecified; Z68.26 Body mass index [BMI] 26.0-26.9, adult
CPT/HCPCS: 31500; 36415; 36569; 36600; 43752; 70450; 70551; 71045; 71046; 71250; 71275; 74176; 74177; 80048; 80053; 81001; 81003; 82040; 82140; 82306; 82375; 82533; 82607; 82746; 82803; 82805; 82948; 83050; 83090; 83605; 83690; 83735; 83880; 83921; 84100; 84145; 84207; 84425; 84443; 84484; 85018; 85025; 85027; 85055; 85380; 85384; 85610; 85730; 86788; 87040; 87493; 88305; 88342; 92610; 92611; 93005; 94002; 94003; 94640; 96361; 96374; 96375; 96376; 97162; 97165; 97530; 99285; A9270; C8929; G0378; J0456; J0692; J1644; J1720; J1836; J1940; J2003; J2060; J2250; J2270; J2405; J2470; J2704; J2765; J2919; J3010; J3411; J3475; J3480; J7030; J7040; J7042; J7050; J7120; P9047; Q9957; Q9967